=== PATIENT | female | born 1985 | race Caucasian/White ===

== ENCOUNTER 2024-10-14 02:13 | Observation (INO) | payer BC, SELFPAY ==
[2024-10-14] VITALS (19 sets, daily range): BP systolic 113–133; BP diastolic 64–83; PULSE 77–92; RESP 14–24; TEMP 36.3–37; O2SAT 90–100; BMI 41.9; BMI 42.0
--- NOTE | 2024-10-14 02:31 | CT_ITS ---
EXAM: CT ABDOMEN AND PELVIS WITH INTRAVENOUS CONTRAST CLINICAL INDICATION: Right upper quadrant pain TECHNIQUE: Helically acquired images were obtained of the abdomen and pelvis with intravenous contrast. This CT exam was performed using one or more of the following dose reduction techniques: automated exposure control, adjustment of the mA and/or kV according to patient size, and/or use of iterative reconstruction technique. CONTRAST: IV 100mL [id number] RADIATION DOSE: CTDIvol = 17.08 mGy, DLP = 1631.15 mGy-cm COMPARISON: No relevant prior studies available. FINDINGS: LOWER THORAX: Unremarkable. Lung bases are clear. No cardiomegaly. No significant pericardial effusion. ABDOMEN: LIVER: Unremarkable. Homogeneous. No focal mass. GALLBLADDER AND BILE DUCTS: The gallbladder is distended with some edema of the wall. Small amount of pericholecystic fluid suggested. Possible small stone in the gallbladder neck. No intra- or extrahepatic biliary ductal dilation. PANCREAS: No inflammation around the pancreas. No focal cystic or solid mass. SPLEEN: Unremarkable. Normal size without focal cystic or solid mass. ADRENALS: Unremarkable. No nodules. KIDNEYS AND URETERS: Unremarkable. Normal renal size and position. No hydronephrosis. STOMACH AND BOWEL: Unremarkable. No stomach or bowel distention. No focal inflammatory change. PELVIS: APPENDIX: The appendix is normal. BLADDER: Unremarkable. REPRODUCTIVE: Unremarkable as visualized. No mass. ABDOMEN and PELVIS: INTRAPERITONEAL SPACE: Unremarkable. No ascites or other fluid collection. No free air. BONES/JOINTS: Unremarkable. No suspicious lytic or blastic abnormality. SOFT TISSUES: See above. VASCULATURE: Unremarkable. Abdominal aorta is non-dilated. LYMPH NODES: Unremarkable. No enlarged lymph nodes. CT/Abdomen/Pelvis W IV Cont ONLY IMPRESSION: The gallbladder is distended with some edema of the wall. Small amount of pericholecystic fluid suggested. Possible small stone in the gallbladder neck. Findings are concerning for acute cholecystitis. Electronically Signed: Minesh Jackman MD at 4:05 EST ,
--- NOTE | 2024-10-14 02:32 | ED.VIS.GI ---
HPI HPI - GI History of Present Illness Chief Complaint: Abd Pain Narrative Narrative: 39-year-old female presents with right upper quadrant abdominal pain, nausea and vomiting that she has had for the last week and a half. She describes it both as dull and achy, and sometimes sharp and stabbing. She states it started in her back originally, but now has moved towards the front. She denies any fevers but states she has had chills intermittently. In the last 24 hours she has been having vomiting. She states food can make it worse but sometimes she has decreased appetite and does not want to eat because it causes her pain as well. She denies any dysuria or hematuria, no other exacerbating or alleviating factors. Last menstrual period 2 days ago. [facility] Medical History Hypothyroidism Home Medications ?Medication ?Instructions ?Recorded ?Last Taken ?Type levothyroxine 175 mcg tablet 175 mcg PO DAILY 12/01/15 Unknown History cyclobenzaprine 5 mg tablet 5 mg PO QHS PRN PRN muscle spasms 10/14/24 Unknown History naproxen 500 mg tablet 500 mg PO BID 10/14/24 Unknown History Allergy/AdvReac Type Severity Reaction Status Date / Time latex Allergy Rash Verified 10/14/24 02:16 Social History Smoking Status: Never smoker ROS ROS ED ROS Narrative Constitutional: No fever, positive chills. HEENT: No sore throat. No neck pain. No loss of vision. No rhinorrhea. Cardiovascular: No chest pain. No palpitations. No pedal edema. Respiratory: No cough, no shortness of breath. Abdominal: Right upper quadrant to right sided abdominal pain. Positive nausea and vomiting. No hematemesis. Genitourinary: No dysuria. No hematuria. Musculoskeletal: No myalgias. No arthralgias. Neurologic: No headaches. No dizziness. No lightheadedness. Skin: No rash. No change in color. EXAM Physical Exam Narrative Exam Narrative: Afebrile. Vital signs noted. Nontoxic-appearing. Cardiovascular examination reveals a regular rate and rhythm. Lungs are clear to auscultation bilaterally. Abdomen is soft, with positive tenderness to palpation in epigastrium and right upper quadrant. Questionable Coates sign. Neurological examination is nonfocal and nonlateralizing. Const Vital Signs: 10/14/24 02:14 10/14/24 04:14 Temperature 98.5 F Temperature Source Oral Pulse Rate 90 83 Respiratory Rate 18 18 Blood Pressure 133/83 H 123/77 H Blood Pressure Mean 99 92 Pulse Ox 98 98 Oxygen Delivery Method Room Air Room Air MDM MDM MDM Narrative Medical decision making narrative: Differential diagnosis includes but not limited to cholecystitis versus choledocholithiasis versus pancreatitis. I have low suspicion for ureterolithiasis or diverticulitis because the history and physical does not support this. I do feel that she requires CT imaging as ultrasound is unavailable at this time. She was administered morphine and ondansetron for analgesia. Laboratory work will be checked in the form of CBC, CMP, lipase, urinalysis, and serum . I reviewed her laboratory work and she has normal white count of 10.6, hemoglobin 10.3 with hematocrit 31.8. Potassium slightly low at 3.2 with BUN of 13 and creatinine 0.74, glucose 88 and anion gap normal at 5. AST and ALT are normal. Alk phos slightly elevated at 118. Total bilirubin normal at 0.40. Lipase normal at 20. Serum is negative. Urinalysis obtained and is negative for any infection or blood. Repeat examination shows she still having right upper quadrant pain. I reviewed the radiology report of the CT of the abdomen and pelvis with IV contrast. The gallbladder is distended with edema of the wall. There is mild pericholecystic fluid suggested. There is a possible small stone in the gallbladder neck. Patient was given additional dose of morphine and started on Zosyn with the suspicion of acute cholecystitis. As ultrasound is currently unavailable at this hour, I will discuss patient with Dr. Matamoros to see if she prefers admission and inpatient ultrasound versus her waiting here in the emergency department for ultrasound and reconsultation. Patient is in stable condition. In discussion with Dr. Matamoros, she prefers that ultrasound be obtained when they come in in the morning, few hours from now. Patient will be signed out to the oncoming physician to check the results and reconsult her. Disposition is pending. Patient is in stable condition. History & Record Review Discussion w/independent historian: Patient Lab Data Attestation: I reviewed the patient's lab results. Labs: Laboratory Results - last 24 hr 10/14/24 10/14/24 10/14/24 02:19 02:43 02:44 WBC 10.6 RBC 3.69 L Hgb 10.3 L Hct 31.8 L MCV 86.2 MCH 27.9 MCHC 32.4 RDW Std Deviation 45.0 H RDW Coeff of Neel 14.1 Plt Count 357 MPV 10.2 Immature Gran % (Auto) 0.300 Neut % (Auto) 71.7 H Lymph % (Auto) 18.6 L [place] % (Auto) 6.4 Eos % (Auto) 2.5 Baso % (Auto) 0.5 Absolute Neuts (auto) 7.6 Absolute Lymphs (auto) 1.98 Nucleated RBC % 0 Sodium 136 Potassium 3.2 L Chloride 105 Carbon Dioxide 26.0 Anion Gap 5 BUN 13 Creatinine 0.74 Estim Creat Clear Calc 128.78 Est GFR (MDRD) Af Amer 113 Est GFR (MDRD) Non-Af 93 BUN/Creatinine Ratio 17.6 Glucose 88 Calcium 9.3 Total Bilirubin 0.40 AST 26 ALT 43 Alkaline Phosphatase 118 H Total Protein 8.6 H Albumin 3.4 Globulin 5.2 H Albumin/Globulin Ratio 0.7 L Lipase 20 Serum , Qual NEGATIVE Urine Color Yellow Urine Clarity Sl. Cloudy Urine pH 7.0 Ur Specific [place] 1.010 Urine Protein 15 H Urine Glucose (UA) Normal Urine Ketones Negative Urine Occult Blood Negative Urine Nitrite Negative Urine Bilirubin Negative Urine Urobilinogen 4 H Ur Leukocyte Esterase 25 H Urine RBC 0 SEEN Urine WBC 0 SEEN Ur Squamous Epith Cells 0-5 SEEN Urine Bacteria 2+ Urine Mucus 0 SEEN Radiography Diagnostic Testing: Clinical Impression(s) from Imaging Studies Abdomen/Pelvis CT 10/14/24 02:31 IMPRESSION: The gallbladder is distended with some edema of the wall. Small amount of pericholecystic fluid suggested. Possible small stone in the gallbladder neck. Findings are concerning for acute cholecystitis. Electronically Signed: Minesh Jackman MD at 4:05 EST , Management Discussion w/another healthcare provider: Silk Soaker (Dr. Matamoros, general surgery) Discharge Plan Triage Chief Complaint: Abd Pain ED Provider: Huang Herbert Dx/Rx/DC Orders Clinical Impression: Acute cholecystitis, Nausea and vomiting, Hypokalemia Prescriptions: No Action levothyroxine 175 MCG tablet 175 mcg PO DAILY naproxen 500 mg tablet 500 mg PO BID cyclobenzaprine 5 mg tablet 5 mg PO QHS PRN PRN (Reason: muscle spasms) Primary Care Provider: NIKKI LEMUS Referrals: NIKKI LEMUS, SUSTAINABLE LANDSCAPE ARCHITECT-C [Primary Care Provider] - Print Language: Tamazight
[2024-10-14 02:38] LABS: Absolute Lymphocyte Count 1.98 X10^3/uL (0.83-4.51); Absolute Neutrophil Count 7.6 X10^3/uL (2.0-7.7); Basophil# 0.05 X10^3/uL; Basophil% 0.5 % (0-1); Eosinophil# 0.27 X10^3/uL; Eosinophils% 2.5 % (0-5); Hematocrit 31.8 % (37-47); Hemoglobin 10.3 g/dL (12.0-15.0); Lymphocyte # 1.98 X10^3/ul (0.83-4.51); Lymphocyte % 18.6 % (19-41); Mean Corp Hgb Conc 32.4 g/dL (32-36); Mean Corpuscular Hgb 27.9 pg (27.0-32.0); Mean Corpuscular Volume 86.2 fL (81-99); Mean Platelet Vol. 10.2 fl (6.2-12.0); Monocyte# 0.68 X10^3/uL; Monocyte% 6.4 % (0-10); NRBC Flagged by Analyzer 0 % (0-5); Neutrophil # 7.62 X10^3/uL (2.7-7.7); Neutrophil % 71.7 % (47-70); Platelet Count 357 K/mm3 (150-450); RBC Distribution Width CV 14.1 % (11.6-14.6); Red Blood Count 3.69 M/mm3 (4.2-5.4); White Blood Count 10.6 K/mm3 (4.4-11.0)
[2024-10-14] MEDS: Ondansetron 4 MG/2 ML Vial IV (02:39)
[2024-10-14] MEDS: Morphine 4 MG/ML Syringe IV ×2 (02:39→04:14)
[2024-10-14 02:49] LABS: Mucous, Urine 0 SEEN /hpf (<or=2+); Red Blood Cells-Urine 0 SEEN /hpf (0-5); White Blood Cells 0 SEEN /hpf (0-5)
[2024-10-14 02:51] LABS: Color, Urine Yellow (Yellow); Glucose, Dipstick Normal (Normal); Ketone-Dipstick Negative (Negative); Leukocyte Esterase-Dipstick 25 /ul (Negative); Nitrite-Dipstick Negative (Negative); Occult Blood-Urine Negative /ul (Negative); Protein-Dipstick 15 mg/dl (Negative); Urine Bilirubin Dipstick Negative (Negative); Urine Clarity Sl. Cloudy (Clear); Urine Urobilinogen 4 mg/dl (Normal)
[2024-10-14 02:59] LABS: ALB/GLOB Ratio 0.7 RATIO (0.9-2.4); AST(SGOT) 26 U/L (15-37); Alanine Aminotransfer ALT/SGPT 43 U/L (13-56); Albumin, Serum 3.4 g/dL (3.2-5.0); Alkaline Phosphatase 118 U/L (45-117); Anion Gap 5 (5-15); BUN 13 mg/dL (7-18); BUN/Creat Ratio 17.6 RATIO (10-20); Calcium,Total 9.3 mg/dL (8.5-10.1); Chloride 105 mmol/L (98-107); Creatinine, Serum 0.74 mg/dL (0.55-1.02); EST Glomerular Filtration Rate 93 mL/min (>60); Est Glom Filt Rate - Afr Amer 113 mL/min (>60); Estimated Creatinine Clearance 128.78 ml/min; Globulin 5.2 g/dL (2.2-4.2); Glucose 88 mg/dL (74-106); Lipase 20 U/L (13-75); Potassium 3.2 mmol/L (3.5-5.1); Protein, Total 8.6 g/dL (6.4-8.2); Sodium Level 136 mmol/L (136-145)
[2024-10-14 03:00] LABS: Bacteria 2+ /hpf (None Seen); Squamous Epithelial Cells - UA 0-5 SEEN /hpf (5-10)
[2024-10-14 03:02] LABS: Internal QC Validated? YES +Cl - CLEAR BKGD; Pregnancy, Serum, hCG Quali. NEGATIVE Negative
[2024-10-14] MEDS: Piperacil/Tazobactam 3.375 GM in 0.9% Normal Saline (50mL MB+) 50 ML IV ×3 (04:19→21:06)
--- NOTE | 2024-10-14 04:20 | US_ITS ---
EXAM: US ABDOMEN LIMITED, RIGHT UPPER QUADRANT CLINICAL INDICATION: Right upper quadrant pain TECHNIQUE: Real-time ultrasound of the right upper quadrant with image documentation. COMPARISON: No relevant prior studies available. FINDINGS: LIVER: Increased echogenicity of the hepatic parenchyma, with hepatomegaly. No intrahepatic biliary ductal dilation. GALLBLADDER: The gallbladder is distended over 11 cm in length,, with positive sonographic Coates''s sign and sludge in the lumen. No shadowing stones identified. Mild prominence of the gallbladder wall measuring 3.5 mm. No pericholecystic fluid. COMMON BILE DUCT: 4.1 mm. The proximal common bile duct is within normal limits for the patient''s age. PANCREAS: The pancreas is obscured by bowel gas. RIGHT KIDNEY: Unremarkable. There is no hydronephrosis. No shadowing calculus. No focal lesion or perinephric collection is demonstrated. US/Gallbladder IMPRESSION: The gallbladder is distended over 11 cm in length, with a positive sonographic Caotes''s sign and sludge in the lumen. No shadowing stones identified. Findings are concerning for acute acalculous cholecystitis. Electronically Signed: Minesh Jackman MD at 7:57 EST ,
[2024-10-14] MEDS: fentaNYL 100 MCG/2 ML Ampul 50 MCG IV (05:12)
[2024-10-14] MEDS: HYDROmorphone 1 MG/ML Syringe IV (07:33)
--- NOTE | 2024-10-14 08:28 | HP.PCM.SX_ITS ---
HPI - General General Date of Admission: 10/14/24 HPI Narrative DANG PRITCHETT, is a 39 F who presents due to right upper quadrant to back pain. Patient states been having this pain for about a week with nausea and vomiting has not really been able to keep food down. Patient states it did get worse 2 days ago. Patient denies any previous abdominal surgeries. Patient's CAT scan showed distended gallbladder questionable stone in the neck of the gallbladder. Patient's ultrasound showed distended gallbladder with sludge and positive Coates sign consistent with acute cholecystitis. Patient's white blood count was 10.6 with slight left shift patient was given Zosyn IV in the ER. Patient did have a potassium of 3.2 and is getting potassium IV. [facility] Medical History (Updated 10/14/24 @ 09:22 by Meri Soliz) Pilonidal cyst Back pain due to injury Hypothyroidism Home Medications ?Medication ?Instructions ?Recorded ?Last Taken ?Type levothyroxine 175 mcg tablet 175 mcg PO DAILY 12/01/15 10/13/24 History cyclobenzaprine 5 mg tablet 5 mg PO QHS PRN PRN muscle spasms 10/14/24 Unknown History levothyroxine 150 mcg tablet 150 mcg PO DAILY 10/14/24 10/13/24 History naproxen 500 mg tablet 500 mg PO BID PRN back pain 10/14/24 Unknown History Allergy/AdvReac Type Severity Reaction Status Date / Time latex Allergy Rash Verified 10/14/24 02:16 Social History Smoking Status: Never smoker Vital Signs Vital Signs Vital Signs: 10/14/24 02:14 10/14/24 04:14 10/14/24 06:00 Temperature 98.5 F Temperature Source Oral Pulse Rate 90 83 84 Respiratory Rate 18 18 18 Blood Pressure 133/83 H 123/77 H 118/68 Blood Pressure Mean 99 92 84 Pulse Ox 98 98 97 Oxygen Delivery Method Room Air Room Air Room Air 10/14/24 08:00 Temperature Temperature Source Pulse Rate 80 Respiratory Rate 14 Blood Pressure 126/74 H Blood Pressure Mean 91 Pulse Ox 97 Oxygen Delivery Method Room Air Weight Weight: 251 lb 15.814 oz Body Mass Index (BMI) 41.9 Physical Exam Const alert, oriented x3 and no apparent distress HEENT normocephalic and head/scalp atraumatic Resp normal respiratory effort Cardio regular rate GI soft to palpation; Negative for non-distended Palpation: tender RUQ and Coates's sign; Negative for guarding Extremity no clubbing, cyanosis or edema Neuro CN's II-XII intact bilaterally Psych mental status grossly normal Results Lab / Micro Data 10/14/24 02:19 10/14/24 02:19 Labs: Laboratory Results - last 24 hr 10/14/24 02:19: WBC 10.6, RBC 3.69 L, Hgb 10.3 L, Hct 31.8 L, MCV 86.2, MCH 27.9, MCHC 32.4, RDW Std Deviation 45.0 H, RDW Coeff of Neel 14.1, Plt Count 357, MPV 10.2, Immature Gran % (Auto) 0.300, Neut % (Auto) 71.7 H, Lymph % (Auto) 18.6 L, [place] % (Auto) 6.4, Eos % (Auto) 2.5, Baso % (Auto) 0.5, Absolute Neuts (auto) 7.6, Absolute Lymphs (auto) 1.98, Nucleated RBC % 0, Sodium 136, P otassium 3.2 L, Chloride 105, Carbon Dioxide 26.0, Anion Gap 5, BUN 13, Creatinine 0.74, Estim Creat Clear Calc 128.78, Est GFR (MDRD) Af Amer 113, Est GFR (MDRD) Non-Af 93, BUN/Creatinine Ratio 17.6, Glucose 88, Calcium 9.3, Total Bilirubin 0.40, AST 26, ALT 43, Alkaline Phosphatase 118 H, Total Protein 8.6 H, Albumin 3.4, Globulin 5.2 H, Albumin/Globulin Ratio 0.7 L, Lipase 20 10/14/24 02:43: Serum , Qual NEGATIVE 10/14/24 02:44: Urine Color Yellow, Urine Clarity Sl. Cloudy, Urine pH 7.0, Ur Specific [place] 1.010, Urine Protein 15 H, Urine Glucose (UA) Normal, Urine Ketones Negative, Urine Occult Blood Negative, Urine Nitrite Negative, Urine Bilirubin Negative, Urine Urobilinogen 4 H, Ur Leukocyte Esterase 25 H, Urine RBC 0 SEEN, Urine WBC 0 SEEN, Ur Squamous Epith Cells 0-5 SEEN, Urine Bacteria 2+, Urine Mucus 0 SEEN Imaging Radiology Impression Abdomen/Pelvis CT 10/14/24 02:31 IMPRESSION: The gallbladder is distended with some edema of the wall. Small amount of pericholecystic fluid suggested. Possible small stone in the gallbladder neck. Findings are concerning for acute cholecystitis. Electronically Signed: Minesh Jackman MD at 4:05 EST , Gallbladder Ultrasound 10/14/24 04:20 IMPRESSION: The gallbladder is distended over 11 cm in length, with a positive sonographic Coates''s sign and sludge in the lumen. No shadowing stones identified. Findings are concerning for acute acalculous cholecystitis. Electronically Signed: Minesh Jackman MD at 7:57 EST , Assessment & Plan Assessment/Plan (1) Acute cholecystitis: PLAN: Plan Reviewed the anatomy with the patient and discussed the procedure: laparoscopic cholecystectomy with possible cholangiograms, possible open. Review risks including but not limited to bleeding, infection, hernia, bile leak, subtotal cholecystectomy, retained gallstones requiring another procedure ERCP- Endoscopic Retrograde Cholangiopancreatography, injury to another organ (bile ducts, common bile duct, small bowel, etc.) may require transfer to a tertiary care facility and conversion to an open procedure. Patient and her mom in no further question this time. Shireen Matamoros M.D. Pager: [phone] [facility] [address] [place] [address], [address] [place] [address] Office: [phone]
--- NOTE | 2024-10-14 09:28 | EKG12_ITS ---
Test Reason : PRE-OP Blood Pressure : */* mmHG Vent. Rate : 84 BPM Atrial Rate : 84 BPM P-R Int : 154 ms QRS Dur : 74 ms QT Int : 352 ms P-R-T Axes : 35 19 17 degrees QTcB Int : 415 ms Normal sinus rhythm Normal ECG When compared with ECG of 29-Nov-2012 04:55, No significant change was found Confirmed by MELANIE BHATIA, INNA ([id number]), electronic news gathering editor YULIET MOYER ([id number]) on 10/17/2024 8:21:15 AM Referred By: Confirmed By: INNA NAVARRO MD
[2024-10-14] MEDS: 0.9% Normal Saline (1000mL) 1,000 ML 130 ML IV ×2 (09:54→16:32)
[2024-10-14] MEDS: Potassium Chloride 10mEq/100mL 10 MEQ/100 ML IV.SOLN. 100 MEQ IV BOLUS ×2 (09:59→11:49)
[2024-10-14] MEDS: Pantoprazole Sodium 40 MG in 0.9% Normal Saline (100mL MB+) 100 ML 330 MG IV (10:46)
--- NOTE | 2024-10-14 13:20 | GALL_PTH ---
PATIENT: DANG PRITCHETT LOC: MS3 U#:[id number] AGE/SX: 39/F ROOM: SC314 RE10/14/[address]: Dr. Shireen Matamoros MD : 1985 BED: 1 DIS: 10/15/2024 SPEC #: [id number] RECD: 10/16/24 06:56 STATUS: RANDY COLLINSStephie #: [id number] ROSEMARY: 10/14/24 13:[address]: Shireen Matamoros DEPT: SURGICAL PATHOLOGY RECD BY: Jayce Mai ENTERED: 10/16/24 08:01 SP TYPE: LYNDA LONDON DR: NIKKI LEMUS, ART HISTORIAN-C Tissues: Gallbladder, NOS Procedures: Surgery Specimen Level III HEADER OPERATION: Laparoscopic cholecystectomy with IOC PRE-OP DIAGNOSIS: Acute cholecystitis TISSUE SUBMITTED: Gallbladder MICROSCOPIC DIAGNOSIS Gallbladder, cholecystectomy: Acute and chronic cholecystitis and cholelithiasis. AM. 10/17/2024 MICROSCOPIC DESCRIPTION Slides are reviewed. GROSS DESCRIPTION Received is one container labeled with the patient's name and designated gallbladder. The specimen consists of a gallbladder measuring 11.5 x 4.0 x 2.8 cm. The external surface is smooth and glistening. Focally, it is granular, hemorrhagic and contains cautery artifact. The lumen of the gallbladder contains yellow-green mucoid bile and a single ovoid dark justice-black calculi ranging in size from 1.5 cm in diameter. The mucosa is bile-stained and without any mass lesions. The gallbladder wall averages 0.6 cm in thickness and is free of mass lesions. Online Content Editor sections of the gallbladder and the cystic duct at margin of resection are submitted in one cassette. / AM: 10/16/2024 TC:2 CPT: 30271
--- NOTE | 2024-10-14 13:41 | PRE.ANES_ITS ---
ASA Classification* ASA Classification ASA Classification: 3 and E Assessment & Plan Anesthesia* Anesthesia Assessment Anesthesia Assessment: Discussed sedation and/or anesthesia options, risks, benefits, and alternatives with patient/parents/legal guardian/POA. Questions invited. The patient/parents/legal guardian/POA seems to understand and agrees to proceed with anesthesia plan. Reviewed the physical assessment, medical history, allergy history and patient home medications list prior to surgery/procedure/anesthetic and documented any changes. Performed airway and anesthesia risk assessments. Anesthesia Type Anesthesia Type: General (see written pre anesthesia record for full assessment) Anesthesia Focused Assessment* Temperature: 98.2 F Pulse Rate: 82 Blood Pressure: 118/65 Respiratory Rate: 16 Pulse Ox: 100 Airway Assessment Mouth opens: >3 cm Mallampati Score: III Focused Labs Anesthesia Preop lab: CBC WBC 10.6 K/mm3 (4.4-11.0) 10/14/24 02:19 RBC 3.69 M/mm3 (4.2-5.4) L 10/14/24 02:19 Hgb 10.3 g/dL (12.0-15.0) L 10/14/24 02:19 Hct 31.8 % (37-47) L 10/14/24 02:19 Plt Count 357 K/mm3 (150-450) 10/14/24 02:19 CHEMISTRY Potassium 3.2 mmol/L (3.5-5.1) L 10/14/24 02:19 Sodium 136 mmol/L (136-145) 10/14/24 02:19 BUN 13 mg/dL (7-18) 10/14/24 02:19 Creatinine 0.74 mg/dL (0.55-1.02) 10/14/24 02:19 Glucose 88 mg/dL (74-106) 10/14/24 02:19 COAG Pre-Assessment Diagnosis/Proposed Procedure Planned Operative Procedure(s): lap randy Anesthesia History Anesthesia History - installer inspector final: Anesthesia History - installer inspector final Hx Hospitalization Any Problems With Anesthesia No 10/14/24 09:22 Cholinesterase deficiency No 10/14/24 09:22 You/Your Family Experience No 10/14/24 09:22 fever (hyperthermia) with Relationship Recent Exposure to Contagious No 10/14/24 09:22 Disease Does patient have nerve No 10/14/24 09:22 stimulator Patient instructed to have device shut off --Does patient have Pacemaker No 10/14/24 11:57 or ICD? When Was Last Pacemaker Check QUESTION #4 FULL TEXT: You/Your Family Experience fever (hyperthermia) with Anesthesia Last Oral Intake Last Oral intake: Last Oral Intake NPO since 00:00 10/14/24 11:57 Meds taken in AM with sips of No 10/14/24 11:57 water? Meds patient instructed to take am of surgery PONV PONV - installer inspector final: PONV - installer inspector final Female HX of Motion Sickness HX of N/V After Surgery Non-Smoker Duration of Surgery greater than 60 minutes Number of Risk Factors PONV Score Height & Weight Height & Weight: Anesthesia: Height & Weight Height 5 ft 4.96 in 10/14/24 11:57 Weight: 114.48 kg 10/14/24 11:57 Body Mass Index (BMI) 42.0 10/14/24 11:57 Respiratory Assessment Respiratory Assessment - installer inspector final: Respiratory Tract Infection Hx - installer inspector final Hx Respiratory Tract Infection No 10/14/24 09:22 STOP Sleep Apnea STOP Sleep Apnea - installer inspector final: STOP Sleep Apnea - installer inspector final Hx Hypertension No 10/14/24 09:14 Hx Sleep Apnea No 10/14/24 09:14 CPAP BIPAP Do you snore loudly (louder No 10/14/24 09:14 than talking or can be heard Do you often feel tired/ No 10/14/24 09:14 fatigued/ sleepy during daytime? Has anyone observed you stop No 10/14/24 09:14 breathing during sleep? STOP Results Negative 10/14/24 09:14 QUESTION #5 FULL TEXT : Do you snore loudly (louder than talking or can be heard through closed doors)? Tobacco Use History Tobacco Use History - installer inspector final: Tobacco Use History - installer inspector final Tobacco Use Smoking Status Never smoker 10/14/24 09:14 Hx Tobacco Use No 10/14/24 09:14 Years Smoking Packs Smoked per Day Smoking Cessation Date was within the last 15 years Hx Smoking Cessation Date Hx Smoking Cessation Counseling Hematologic Medial History Hematologic Hx - installer inspector final: Hematologic Medical Hx - applications coordinator Hx of Blood Transfusion No 10/14/24 09:14 Hx of Transfusion in last 3 No 10/14/24 09:14 Months Date of Last Transfusion (if within last 3 months) Ever experience any problems No 10/14/24 09:14 with transfusion(s)? Specify any problems Hx of Preganancy in last 3 No 10/14/24 09:14 Months Nurse Filling Out Transfusion SHESS 10/14/24 09:14 & Questions: Date: 10/14/24 10/14/24 09:14 Time: 09:19 10/14/24 09:14 Patient unable to answer at this time (ie. confused, unrespo /Reproduction History /Reproductive History - installer inspector final: /Reproductive Hx- installer inspector final Hx Now No 10/14/24 09:22 Gestational Age (in weeks): EDC: Hx Hx Para Hx Section SAB No 10/14/24 09:22 Active Medications Active Medications: Current Medications Generic Name Dose Route Start Last Admin Trade Name Freq PRN Reason Stop Dose Admin Acetaminophen 650 mg 10/14/24 09:10 Acetaminophen 325 Mg Tablet PO Q6H PRN PRN Pain Score 1-10 Hydromorphone HCl 0.5 - 1 mg 10/14/24 09:10 Hydromorphone 0.5 Mg/0.5 Ml Syringe IV Q2H PRN PRN Pain Score 1-10 Sodium Chloride 1,000 mls @ 130 mls/hr 10/14/24 09:10 10/14/24 09:54 IV 10/14/24 16:51 130 mls/hr .[id number] [facility] Administration Protocol Piperacillin Sod/Tazobactam 50 mls @ 12.5 mls/hr 10/14/24 14:00 Sod 3.375 gm/ Sodium Chloride IV Q8 JOSEMANUEL Pantoprazole Sodium 40 mg/ 110 mls @ 330 mls/hr 10/14/24 09:10 10/14/24 13:28 Sodium Chloride IV Not Given Q24 JOSEMANUEL Sodium Chloride 500 mls @ 15 mls/hr 10/14/24 09:41 IV .[id number] PRN Saline Flush Sodium Chloride 500 mls @ 15 mls/hr 10/14/24 09:41 IV .[id number] PRN Additional IVPB Infusion Levothyroxine Sodium 150 mcg 10/15/24 06:00 Levothyroxine 150 Mcg Tablet PO DAILY@0600 [facility] Oxycodone HCl 5 - 10 mg 10/14/24 09:10 Oxycodone 5 Mg Tablet PO Q4H PRN PRN Pain Score 1-10 Sodium Chloride 10 - 40 ml 10/14/24 09:41 0.9% Saline Lock 10 Ml Syringe IV UD PRN SALINE FLUSH [facility] Medical History (Updated 10/14/24 @ 09:22 by Meri Soliz) Pilonidal cyst Back pain due to injury Hypothyroidism Home Medications ?Medication ?Instructions ?Recorded ?Last Taken ?Type levothyroxine 175 mcg tablet 175 mcg PO DAILY 12/01/15 10/13/24 History cyclobenzaprine 5 mg tablet 5 mg PO QHS PRN PRN muscle spasms 10/14/24 Unknown History levothyroxine 150 mcg tablet 150 mcg PO DAILY 10/14/24 10/13/24 History naproxen 500 mg tablet 500 mg PO BID PRN back pain 10/14/24 Unknown History Allergy/AdvReac Type Severity Reaction Status Date / Time latex Allergy Rash Verified 10/14/24 02:16 Social History Smoking Status: Never smoker Review of Systems (Anesthesia) ROS Narrative System reviewed and no additional complaints, except as documented.
--- NOTE | 2024-10-14 14:57 | RAD_ITS ---
INDICATION: LAP GAEL WITH GRAMS EXAMINATION/TECHNIQUE: Images assigned to this order were provided in conjunction with a surgical procedure performed in the operating room/procedural suite. Please see operative report for details. Fluoroscopic images: 1 cine run with 25 images Fluoroscopic time: 4.8 seconds Cumulative dose: 0.1292, mGym2; 4.01; mGy COMPARISON: No relevant comparisons available.. FINDINGS: No filling defects are identified, however several small mobile air bubbles are present. There is no biliary ductal dilatation. There is free passage into the duodenum. RAD/Cholangiogram/ O R,Initial IMPRESSION: Negative intraoperative cholangiogram. Electronically Signed: Alber Guerrero MD at 17:37 EST ,
[2024-10-14] MEDS: Bupivacaine 0.5% PF 10 ML VIAL (15:53)
--- NOTE | 2024-10-14 15:54 | PCM.OPRPT ---
Operative Report (Standard) Operative Information Date of Procedure: 10/14/24 Pre-Operative Diagnosis: Acute cholecystitis Post-Operative Diagnosis: Same Surgery/Procedure Performed: Laparoscopic cholecystectomy with cholangiograms marketing operations specialist: Yes Tax Compliance Manager: Tani Sheffield Tasks completed by presser first: Opening & closing and Retracting Type of Anesthesia: General/Supplemental RN Documented Start/Stop Times: Operation Date: 10/14/24 13:20 Case Time Anesthesia Start 10/14/24 14:03 Into Room 10/14/24 14:03 Procedure Start 10/14/24 14:23 Procedure End 10/14/24 16:05 Procedure Start Time: 14:23 Procedure Stop Time: 16:05 Select all DRAINS/GRAFTS/IMPLANTS that apply: None Special Medications: Zosyn 3.375 g IV every 8 hours for acute cholecystitis Estimated Blood Loss: 15 cc Specimen collected: Yes Description of specimen(s) removed: Gallbladder Description of surgery: Indications: this is a 39 year-old female who developed abdominal pain/nausea/vomiting and on workup was found to have acute cholecystitis, with a normal common bile duct. Laparoscopic cholecystectomy was elected. Description procedure: The patient was placed on operating table in supine position. A timeout was completed verifying correct patient, procedure, site, position and special equipment prior to beginning procedure. General Anesthesia was induced. The abdomen was prepped and draped in usual sterile fashion. An incision was made in the natural skin line above the umbilicus. The fascia was elevated and incised. The peritoneum was elevated and incised. Entry into the peritoneum was confirmed visually and no bowel was noted in the vicinity of the incision. Fox trocar was placed. The abdomen was insufflated with carbon dioxide to a pressure of 12-15 mmHg. Patient tolerated insufflation well. The laparoscope was then inserted and abdomen inspected. No injuries from initial trocar placement were noted. Additional trochars were then inserted in the following locations 5 mm trocar in the epigastrium and 2 more 5 mm trochars along the right costal margin. The abdomen was inspected no abnormalities were found other than distended/firm gallbladder. Aspiration needle was used to decompress the gallbladder. The table is placed in reverse Trendelenburg position with the right side up. The dome of the gallbladder was grasped with atraumatic grasper passed through the lateral port and retracted over the dome of the liver. Infundibulum was then grasped with atraumatic grasper through the midclavicular port and retracted to the right lower quadrant. This maneuver exposed Calot's triangle. The peritoneum overlying the gallbladder infundibulum was then incised and cystic duct and artery identified and circumferentially dissected. Bess catheter was used for cholangiograms. The cholangiogram showed good filling of the common bile duct into the duodenum with no filling defects, good filling of the right and left bile ducts as well. The cystic duct and artery were then doubly clipped and divided close to the gallbladder. The gallbladder then dissected from its peritoneal attachments by electrocautery. Hemostasis was checked and the gallbladder and contained stones were removed using the endoscopic retrieval bag through the umbilical port. The gallbladder is passed off table as specimen. The gallbladder fossa was irrigated with saline and hemostasis obtained. There is no evidence of bleeding from the gallbladder fossa or cystic artery leakage of bile from the cystic duct stump. Secondary trochars removed under direct vision. No bleeding was noted the trocar sites. The laparoscope was withdrawn and umbilical trocar removed. The abdomen was allowed to collapse. The fascia of the 12 mm trocar was closed with a [id number] 0 Vicryl suture. The skin was closed with sutures of 4-0 Monocryl and Steri-Strips. The patient was extubated. The patient tolerated procedure well and was taken to the postanesthesia care unit in stable condition. Surgical Findings: Acute cholecystitis, normal cholangiograms Complications Complications: No
--- NOTE | 2024-10-14 16:03 | DCINST_ITS ---
Discharge Instructions Diet Discharge Diet: Light diet - advance as tolerated Activity Discharge Activity: May Not Drive (while taking narcotic pain medications.) May shower in (days): 1 Lifting Restrictions: no lifting >20 lbs x 2 wks, no strenuous exercise for 4 wks Dressing / Incision Call your doctor if your incision/area has: Continuous Slow Oozing, Sudden Increased Bleeding, Increased Pain/ Swelling, Increased Redness, Foul Smelling Discharge and Swelling at the incision site Call your doctor if you observe: Fever of 101 or Higher Remove Dressing in: 2 days Cleanse incision/area with: Soap & Water Additional Dressing/Incision Instructions:: Steri-Strips will fall off in 7 to 10 days, if they do not fall off okay to remove after 10 days. Follow Up Care Please Follow Up With: Shireen Matamoros MD When: Call the office for a follow-up appointment 2 weeks; after 5 PM and on the weekends call [phone] with any concerns. Test Results: Test results from this visit will be discussed in further detail at your follow- up appointment, if applicable. Discharge Plan Admission Admit Date/Time: 10/14/24 08:24 Attending Provider: Shireen Matamoros Primary Care Provider: NIKKI LEMUS Instructions Additional Instructions / Restrictions: Okay to take ibuprofen 400-600 mg PO q6hr PRN and Tylenol 650 to 1000 mg p.o. every 6 hours as needed along with the oxycodone. Take all pain meds with food. Oxycodone can cause constipation recommend taking daily stool softener (i.e. Colace/docusate) while taking the pain meds. Recommend starting some MiraLAX in 1 to 2 days if no bowel movement. If still no bowel movement the following day recommend taking additional MiraLAX versus magnesium citrate half the bottle and waiting 4-6 hours if still no results take the other half the bottle. Discharge Orders/Prescriptions Prescriptions: New oxycodone 5 mg capsule 5 mg PO Q6H PRN (Reason: pain) 3 Days Qty: 10 0RF Continued levothyroxine 175 MCG tablet 175 mcg PO DAILY naproxen 500 mg tablet 500 mg PO BID PRN (Reason: back pain) cyclobenzaprine 5 mg tablet 5 mg PO QHS PRN PRN (Reason: muscle spasms) levothyroxine 150 mcg tablet 150 mcg PO DAILY Rx Instructions: 1/2 tab on Sundays Referrals / Follow Up: NIKKI LEMUS, INSTRUCTIONAL SPECIALIST-C [Primary Care Provider] - Disposition Disposition (needs filled in before D/C Order can be placed): Home, Self Care
--- NOTE | 2024-10-14 16:15 | PCM.POST.ANE ---
Anesthesia: Postop Eval I Current Vital Signs Temperature: 97.4 F Pulse Rate: 92 Blood Pressure: 115/68 Respiratory Rate: 18 Pulse Ox: 92 Oxygen Delivery Method: Nasal Cannula Oxygen Flow Rate (L/min): 2 Assessment Airway patent: Yes Spontaneous unlabored respirations: Yes nausea: No Vomiting: No Anesthesia Complication: No Fluid Hydration Crystalloid volume administer (ml): 900 Total IV fluid infused: 900 Progress Note Anesthesia document: Postop Eval 1 completed: Yes
--- NOTE | 2024-10-14 16:16 | PCM.POSTANE2 ---
Anesthesia Postop Eval I Sum Postop Eval Completion status Anesthesia document: Postop Eval 1 completed: Yes Anesthesia Postop Eval I Summary Anesthesia Postop Eval I Summary: Anesthesia Postop Eval I: Assessment Summary Airway patent Yes 10/14/24 16:16 Spontaneous unlabored Yes 10/14/24 16:16 respirations Mental status nausea No 10/14/24 16:16 Vomiting No 10/14/24 16:16 Anesthesia Postop Eval I: Fluid Summary Crystalloid volume administer 900 10/14/24 16:16 (ml) Colloids volume administered ( ml) Blood Product volume administered (ml) Total IV fluid infused 900 10/14/24 16:16 Anesthesia Postop Eval I: Summary Notes Anesthesia Complication No 10/14/24 16:16 Anesthesia Complication Comment: Post-operative progress note Anesthesia: Postop Eval II Evaluation Mental status: Awake Pain Level: 1 nausea: No Vomiting: No
[2024-10-15] MEDS: Acetaminophen 325 MG Tablet 650 MG PO (03:14)
[2024-10-15 03:20] VITALS: BP 126/82; PULSE 85; RESP 18; TEMP 36.8; O2SAT 96
[2024-10-15] MEDS: Levothyroxine 150 MCG Tablet PO (05:13)
[2024-10-15] MEDS: Piperacil/Tazobactam 3.375 GM in 0.9% Normal Saline (50mL MB+) 50 ML IV (05:14)
[2024-10-15 07:21] LABS: Absolute Lymphocyte Count 1.65 X10^3/uL (0.83-4.51); Absolute Neutrophil Count 8.3 X10^3/uL (2.0-7.7); Basophil# 0.04 X10^3/uL; Basophil% 0.4 % (0-1); Eosinophil# 0.05 X10^3/uL; Eosinophils% 0.5 % (0-5); Hematocrit 30.5 % (37-47); Hemoglobin 9.7 g/dL (12.0-15.0); Lymphocyte # 1.65 X10^3/ul (0.83-4.51); Lymphocyte % 15.2 % (19-41); Mean Corp Hgb Conc 31.8 g/dL (32-36); Mean Corpuscular Hgb 27.7 pg (27.0-32.0); Mean Corpuscular Volume 87.1 fL (81-99); Mean Platelet Vol. 10.3 fl (6.2-12.0); Monocyte% 6.5 % (0-10); NRBC Flagged by Analyzer 0 % (0-5); Neutrophil # 8.32 X10^3/uL (2.7-7.7); Neutrophil % 76.7 % (47-70); Platelet Count 361 K/mm3 (150-450); RBC Distribution Width CV 14.3 % (11.6-14.6); RBC Distribution Width SD 45.2 fl (35.1-43.9); White Blood Count 10.8 K/mm3 (4.4-11.0)
[2024-10-15 07:35] VITALS: BP 126/86; PULSE 91; RESP 16; TEMP 36.8; O2SAT 92
[2024-10-15] MEDS: Docusate Sodium 100 MG Capsule PO (07:45)
[2024-10-15 08:13] LABS: AST(SGOT) 40 U/L (15-37); Alanine Aminotransfer ALT/SGPT 51 U/L (13-56); Albumin, Serum 2.9 g/dL (3.2-5.0); Alkaline Phosphatase 142 U/L (45-117); Anion Gap 7 (5-15); BUN 10 mg/dL (7-18); BUN/Creat Ratio 13.8 RATIO (10-20); Bilirubin, Direct 0.16 mg/dL (0.00-0.30); Calcium,Total 8.8 mg/dL (8.5-10.1); Chloride 104 mmol/L (98-107); Creatinine, Serum 0.72 mg/dL (0.55-1.02); EST Glomerular Filtration Rate 95 mL/min (>60); Est Glom Filt Rate - Afr Amer 115 mL/min (>60); Estimated Creatinine Clearance 130.19 ml/min; Globulin 4.7 g/dL (2.2-4.2); Glucose 100 mg/dL (74-106); Potassium 3.3 mmol/L (3.5-5.1); Protein, Total 7.6 g/dL (6.4-8.2); Sodium Level 137 mmol/L (136-145)
--- NOTE | 2024-10-15 08:27 | PCM.PN.SRG ---
Subjective Subjective luana PO, pain controlled Objective Data Objective Data Vital Signs: Vital Signs Temp Pulse Resp BP Pulse Ox O2 Del Method O2 Flow Rate 98.2 F 91 16 126/86 H 92 Room Air 2 10/15/24 07:35 10/15/24 07:35 10/15/24 07:35 10/15/24 07:35 10/15/24 07:35 10/15/24 07:35 10/14/24 17:40 Oxygen Flow Rate (L/min) 2 Oxygen Delivery Method Room Air Weight: 252 lb 6.163 oz Body Mass Index (BMI) 42.0 Intake & Output: Intake and Output for Last 24 Hours 10/13/24 10/14/24 10/15/24 23:59 23:59 23:59 Intake Total 1985.33 / 1985.33 50 / 50 Output Total 400 / 400 600 / 600 Balance 1586.33 / 1586.33 -550 / -550 Lab / Micro Data 10/15/24 06:30 10/15/24 06:30 Labs: Laboratory Results - last 24 hr 10/15/24 06:30: WBC 10.8, RBC 3.50 L, Hgb 9.7 L, Hct 30.5 L, MCV 87.1, MCH 27.7, MCHC 31.8 L, RDW Std Deviation 45.2 H, RDW Coeff of Neel 14.3, Plt Count 361, MPV 10.3, Immature Gran % (Auto) 0.700, Neut % (Auto) 76.7 H, Lymph % (Auto) 15.2 L, [place] % (Auto) 6.5, Eos % (Auto) 0.5, Baso % (Auto) 0.4, Absolute Neuts (auto) 8.3 H, Absolute Lymphs (auto) 1.65, Nucleated RBC % 0, Sodium 137, Potassium 3.3 L, Chloride 104, Carbon Dioxide 26.0, Anion Gap 7, BUN 10, Creatinine 0.72, Estim Creat Clear Calc 130.19, Est GFR (MDRD) Af Amer 115, Est GFR (MDRD) Non-Af 95, BUN/Creatinine Ratio 13.8, Glucose 100, Calcium 8.8, Total Bilirubin 0.50, Direct Bilirubin 0.16, AST 40 H, ALT 51, Alkaline Phosphatase 142 H, Total Protein 7.6, Albumin 2.9 L, Globulin 4.7 H Radiography Diagnostic Testing: Radiology Impression Cholangiogram 10/14/24 14:57 IMPRESSION: Negative intraoperative cholangiogram. Electronically Signed: Alber Guerrero MD at 17:37 EST , Physical Exam Resp normal respiratory effort Cardio regular rate GI GI Narrative: Abdomen: Soft, nondistended, tender near incision's dressed clean dry and intact, no peritoneal signs Assessment & Plan Assessment/Plan (1) S/P laparoscopic cholecystectomy: (2) Hypokalemia: PLAN: Plan luana PO, amb, d/c home
[2024-10-15] MEDS: Potassium Chloride Oral Tablet 20 MEQ 40 MEQ PO (09:35)
[2024-10-15] MEDS: Pantoprazole Sodium 40 MG Tablet PO (09:36)
== END 2024-10-15 11:26 | disposition home or self-care (01) ==
LOC: ED 07:55 → MS3 08:38
PROVIDERS: Emergency Medicine; Admitting Provider Surgery; Emergency Provider Emergency Medicine; PCP Nurse Practitioner; Visit Provider Surgery
PROC: (CPT 47610; principal; 2024-10-14 13:00)
DX: K80.12 Calculus of gallbladder with acute and chronic cholecystitis without obstruction (principal); E87.6 Hypokalemia; E03.9 Hypothyroidism, unspecified; Z79.890 Hormone replacement therapy
CPT/HCPCS: 47563; 00790; 36415; 74177; 74300; 76000; 76705; 80048; 80053; 80076; 81001; 83690; 84703; 85025; 88304; 93005; 94668; 96365; 96366; 96367; 96375; 96376; 99221; 99284; Q9967; A4216; G0378; J2405

== ENCOUNTER 2025-08-13 19:06 | Emergency (ER) | payer BC, SELFPAY ==
[2025-08-13 19:07] VITALS: BP 123/88; PULSE 87; RESP 24; TEMP 36.6; O2SAT 100; BMI 40.1
--- NOTE | 2025-08-13 19:30 | ED.VIS.GI ---
HPI HPI - GI History of Present Illness Chief Complaint: Abd Pain Narrative Narrative: Patient is a 40-year-old female presenting to the emergency department for right sided abdomen. Patient states the pain has been on and off for the past 2 weeks but has worsened today. She had a laparoscopic cholecystectomy done in October 2024 here at [place]. Patient states that there were no complications that she knows of from it. She denies history of kidney stones or pyelonephritis. She endorses subjective fever and chills. Denies chest pain, shortness of breath, nausea, vomiting. States she always has some constipation and diarrhea but this is not changed from baseline. Denies any vaginal bleeding, vaginal discharge, pelvic pain or concern for any STDs. Last menstrual period was about 3 weeks ago. [facility] Medical History Pilonidal cyst Back pain due to injury Hypothyroidism Home Medications ?Medication ?Instructions ?Recorded ?Last Taken ?Type levothyroxine 175 mcg tablet 175 mcg PO DAILY 12/01/10/13/24 History cyclobenzaprine 5 mg tablet 5 mg PO QHS PRN PRN muscle spasms 10/14/24 Unknown History levothyroxine 150 mcg tablet 150 mcg PO DAILY 10/14/24 10/13/24 History naproxen 500 mg tablet 500 mg PO BID PRN back pain 10/14/24 Unknown History oxycodone 5 mg capsule 5 mg PO Q6H PRN pain 3 days #10 10/14/24 Unknown Rx caps cephalexin 500 mg capsule 500 mg PO Q6 #40 CAPSULES 08/13/25 Unknown Rx Allergy/AdvReac Type Severity Reaction Status Date / Time latex Allergy Rash Verified 08/13/25 19:07 Surgical History S/P laparoscopic cholecystectomy Social History Smoking Status: Never smoker ROS ROS ED ROS Narrative see HPI EXAM Physical Exam Narrative Exam Narrative: Vital signs: Reviewed General: Alert and oriented. No acute distress HEENT: Head is normocephalic and atraumatic, sinuses nontender, pupils equal round and reactive. Nares are patent. Oropharynx and throat exams normal. Neck: Supple without lymphadenopathy nontender Cardiovascular: Regular rate and rhythm, no murmurs. No rubs or gallops. Normal S1 and S2 Respiratory: Clear to auscultation bilaterally. No wheezes, rales, rhonchi Abdominal: Soft and tender to palpation in the right upper quadrant, right middle and lower quadrants. Normal bowel sounds. No guarding or rebound. Nonsurgical abdomen. No CVA tenderness bilaterally. Extremities: No tenderness. No bruising. Normal range of motion. Normal sensation. Skin: No rash or redness. Neurological: Cranial nerves II through XII are grossly intact. Normal strength and sensation. Normal cerebellar function The rest of the physical exam is unremarkable Const Vital Signs: 08/13/25 19:07 08/13/25 22:05 Temperature 98 F 97.8 F Temperature Source Oral Pulse Rate 87 100 Respiratory Rate 24 H 20 H Blood Pressure 123/88 H 128/76 H Blood Pressure Mean 99 93 Pulse Ox 100 98 Oxygen Delivery Method Room Air MDM MDM MDM Narrative Medical decision making narrative: Patient is a 40-year-old female presenting to the emergency department for right sided abdominal pain. Patient was seen and examined. Vitals are stable. Patient resting in bed, hyperventilating stating she is in significant pain. Differential clues but is not limited to: Pancreatitis, choledocholithiasis, nephrolithiasis, pyelonephritis, UTI, appendicitis Patient given fluids and morphine for symptomatic control. Labs and imaging ordered. CBC with no leukocytosis and normal hemoglobin. CMP with mild transaminitis slightly worse than baseline however she does have this noted on review of prior labs. Normal total bilirubin. Mild hypokalemia 2.8, this was repleted orally. BMp with bicarb of 19.6, likely from her hyperventilation on arrival. Urinalysis with evidence of urinary tract infection with bacteria, WBC, leukocyte esterase, nitrates and occult blood. CT the abdomen pelvis shows mildly prominent uterus with fluid within its cavity. Please correlate with the patient's menstrual cycle. Probable right ovarian cyst measuring 2.1 cm. Moderate amount of stool within the right side of the colon. Patient reevaluated, states the pain is still present. Offered toraol and an enema. She is agreeable with the toradol. Given first dose of abx for UTI, I do not think it is likely pyelo however with the patient reporting the right sided abdominal pain radiating to her side I will treat for possible pyelonephritis. Think her pain is likely related to constipation. I did recommend MiraLAX and Dulcolax for home and instructed how to take these. Recommended that she follow-up with her primary care doctor for repeat labs for her mild transaminitis. Patient discharged from the Emergency Department. I do not feel that the patient's evaluation reveals any acute reason for admission at this time. I instructed them to either follow-up with their primary care physician or promptly return to the Emergency Department for reevaluation should symptoms worsen or new symptoms develop. I explained what symptoms would indicate the need to return to the emergency department. Shared decision making was used. The patient voiced understanding of the treatment plan and is agreeable with it. Clinical impression Constipation Pyelonephritis Transaminitis History & Record Review Discussion w/independent historian: Patient and Family Lab Data Attestation: I reviewed the patient's lab results. Labs: Laboratory Results - last 24 hr 08/13/25 19:36 WBC 9.0 RBC 4.28 Hgb 12.1 Hct 37.1 MCV 86.7 MCH 28.3 MCHC 32.6 RDW Std Deviation 43.6 RDW Coeff of Neel 13.8 Plt Count 383 MPV 10.5 Immature Gran % (Auto) 0.800 Neut % (Auto) 55.5 Lymph % (Auto) 32.0 [place] % (Auto) 8.2 Eos % (Auto) 2.8 Baso % (Auto) 0.7 Absolute Neuts (auto) 5.0 Absolute Lymphs (auto) 2.88 Nucleated RBC % 0 Sodium 135 Potassium 2.8 L Chloride 102 Carbon Dioxide 19.6 L Anion Gap 13 BUN 16 Creatinine 0.92 Estim Creat Clear Calc 100.00 Est GFR (MDRD) Non-Af 80 BUN/Creatinine Ratio 17.7 Glucose 108 H Calcium 9.2 Total Bilirubin 0.35 AST 52 H ALT 73 H Alkaline Phosphatase 110 H Total Protein 9.3 H Albumin 4.2 Globulin 5.1 H Albumin/Globulin Ratio 0.8 L Lipase 41 Urine Color Yellow Urine Clarity Cloudy Urine pH 6.0 Ur Specific Jackson 1.020 Urine Protein 30 H Urine Glucose (UA) Normal Urine Ketones Negative Urine Occult Blood 10 H Urine Nitrite Positive H Urine Bilirubin Negative Urine Urobilinogen 4 H Ur Leukocyte Esterase 25 H Urine RBC 0-5 SEEN Urine WBC 5-10 SEEN Ur Squamous Epith Cells 0-5 SEEN Urine Bacteria 4+ Urine Mucus 0 SEEN Urine Test Negative Radiography Diagnostic Testing: Clinical Impression(s) from Imaging Studies Abdomen/Pelvis CT 08/13/25 20:10 IMPRESSION: 1. Mildly prominent uterus with fluid within its cavity. Please correlate with the patient's menstrual cycle. 2. Probable right ovarian cyst measuring 2.1 cm. 3. Moderate amount of stool within the right side of the colon. Reading Location: [id number] Discharge Plan Triage Chief Complaint: Abd Pain ED Provider: Alexsandra Granados Dx/Rx/DC Orders Clinical Impression: Constipation, Pyelonephritis Instructions: Kidney Infec Dc, ED Constipation (Adult) Prescriptions: New cephalexin 500 mg capsule 500 mg PO Q6 Qty: 40 0RF No Action levothyroxine 175 MCG tablet 175 mcg PO DAILY naproxen 500 mg tablet 500 mg PO BID PRN (Reason: back pain) cyclobenzaprine 5 mg tablet 5 mg PO QHS PRN PRN (Reason: muscle spasms) levothyroxine 150 mcg tablet 150 mcg PO DAILY Rx Instructions: 1/2 tab on Sundays oxycodone 5 mg capsule 5 mg PO Q6H PRN (Reason: pain) 3 Days Qty: 10 0RF Primary Care Provider: NIKKI LEMUS Referrals: NIKKI LEMUS NP-C [Primary Care Provider, Internal Medicine] - As soon as possible Activity Restrictions/Additional Instructions: Take the antibiotic as prescribed. In terms of your constipation please purchase MiraLAX and Dulcolax [id number]. Take 17 g of the MiraLAX starting to 16 ounces of water in the morning and at night. Please also take Dulcolax 1 tablet in the morning and at night. If this does not help produce a bowel movement you can also do at home enemas or suppositories. Follow-up with your primary care doctor as soon as possible to have your liver enzymes rechecked to see if you need any additional labs or imaging for this. Your evaluation in the Emergency Department did not reveal any acute reason for admission. However, I want to emphasize that you may be early in the course of a disease process or illness even if it is not present. For this reason you should follow-up within 24 hours for reevaluation with either your primary care physician or if necessary back here in the Emergency Department. You should return to the Emergency Department immediately if your symptoms worsen or new symptoms develop. Print Language: Malagasy Disposition Disposition: Home, Self Care Discharge Date/Time: 08/13/25 22:16
[2025-08-13 19:47] LABS: Hematocrit 37.1 % (37-47); Hemoglobin 12.1 g/dL (12.0-15.0); Immature Granulocytes Count 0.070 X10^3/uL (0.0-0.0); Mean Corp Hgb Conc 32.6 g/dL (32-36); Mean Corpuscular Volume 86.7 fL (81-99); Mean Platelet Vol. 10.5 fl (6.2-12.0); Mucous, Urine 0 SEEN /hpf (<or=2+); NRBC Flagged by Analyzer 0 % (0-5); Platelet Count 383 K/mm3 (150-450); RBC Distribution Width CV 13.8 % (11.6-14.6); RBC Distribution Width SD 43.6 fl (35.1-43.9); Red Blood Count 4.28 M/mm3 (4.2-5.4); White Blood Count 9.0 K/mm3 (4.4-11.0)
[2025-08-13 19:55] LABS: Internal QC Validated? YES +Cl - CLEAR BKGD; Pregnancy, Urine Negative Negative
[2025-08-13 19:56] LABS: Record Kit Lot#,Urine Preg 980607
[2025-08-13 20:05] LABS: AST(SGOT) 52 U/L (<=31); Alanine Aminotransfer ALT/SGPT 73 U/L (<=34); Albumin, Serum 4.2 g/dL (3.5-5.0); Alkaline Phosphatase 110 U/L (35-104); Anion Gap 13 (5-15); BUN 16 mg/dL (4-19); BUN/Creat Ratio 17.7 RATIO (10-20); Calcium,Total 9.2 mg/dL (7.6-11.0); Carbon Dioxide 19.6 mmol/L (21.0-32.0); Chloride 102 mmol/L (98-108); Estimated Creatinine Clearance 100.00 ml/min (50-250); Globulin 5.1 g/dL (2.2-4.2); Glucose 108 mg/dL (70-99); Lipase 41 U/L (13-75); Potassium 2.8 mmol/L (3.3-5.1)
--- NOTE | 2025-08-13 20:10 | CT_ITS ---
PROCEDURE: ABDOMEN/PELVIS W IV CONT ONLY 08/13/2025 REASON FOR EXAM: RUQ PAIN TECHNIQUE: Procedure Code: [id number] Modality: CT Procedure: ABDOMEN/PELVIS W IV CONT ONLY Coronal and Sagittal reconstruction series were provided. CONTRAST: VOLUME: mL One or more dose reduction techniques were used (e.g., Automated exposure control, adjustment of the mA and/or kV according to patient size, use of iterative reconstruction technique. COMPARISON: 10/14/2024. FINDINGS: The visualized lung bases are clear. The gallbladder is not visualized and presumably surgically absent, new since the previous study. The liver, pancreas, spleen, adrenal glands, kidneys, and urinary bladder appear unremarkable. The uterus is mildly prominent and contains fluid within this cavity. Lobulated soft tissue densities along the lateral margins of both sides of the uterus probably represent the ovaries. No oval 2.1 cm low-density in the right adnexa (series 2 image 95) probably represents an ovarian cyst. Moderate amount of stool within the right side of the colon. No evidence of a bowel obstruction. No bowel wall thickening. The appendix is visualized and unremarkable. No intraperitoneal free air or free fluid. No abdominal nor pelvic lymphadenopathy. No acute osseous abnormality. No acute fracture. CT/Abdomen/Pelvis W IV Cont ONLY IMPRESSION: 1. Mildly prominent uterus with fluid within its cavity. Please correlate wit h the patient's menstrual cycle. 2. Probable right ovarian cyst measuring 2.1 cm. 3. Moderate amount of stool within the right side of the colon. Reading Location: [id number]
--- OUTSIDE RECORDS SUMMARY | 2025-08-13 20:38 | XMS RPT_ITS | CCD ---
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.NEIL, Myra Unavailable Verona Stover PA-C Unavailable Robotham, Shireen Attending Unavailable Robotham, Shireen Consulting Unavailable Robotham, Shireen Admitting Unavailable OLDER, MYRA Primary Care Unavailable Robotham, Shireen Attending Unavailable Robotham, Shireen Admitting Unavailable OLDER, MYRA Primary Care Unavailable Oriana Sandoval Attending Unavailable OLDER, MYRA Referring Unavailable OLDER, MYRA Primary Care Unavailable GANTA, INGRIS Primary Care Unavailable CINDY, JAIMEE M Referring Unavailable GANTA, INGRIS Referring Unavailable GANTA, INGRIS Primary Care Unavailable CINDY, JAIMEE M Attending Unavailable GANTA, INGRIS Primary Care Unavailable GANTA, INGRIS Primary Care Unavailable CINDY, JAIMEE M Referring Unavailable GANTA, INGRIS Primary Care Unavailable OLDER, MYRA Attending Unavailable CINDY, JAIMEE M Attending Unavailable GANTA, INGRIS Primary Care Unavailable CINDY, JAIMEE M Attending Unavailable GANTA, INGRIS Primary Care Unavailable GANTA, INGRIS Primary Care Unavailable GANTA, INGRIS Primary Care Unavailable CANDELARIA MAYFIELD Referring Unavailable GANTA, INGRIS Primary Care Unavailable CINDY, JAIMEE M Referring Unavailable Allergies Allergy Classification Reported Allergen(s) Allergy Type Date of Onset Reaction(s) Facility (20 sources) Influenza virus vaccine; Translations: [INFLUENZA VIRUS VACCINE QS (18 YRS-64 YRS)] Drug Allergy 6 Itching [facility] (20 sources) Latex; Translations: [LATEX] Drug Intolerance 7 Hives [facility] Work Phone: (1 source) Latex Drug allergy (disorder) 4 [facility] Repository Medications Current Medications Medication Drug Class(es) Dates Sig (Normalized) Sig (Original) azithromycin 250 mg oral tablet (1 source) Macrolide Antimicrobial Start: 05-16-2024 End: 05-21-2024 azithromycin (ZITHROMAX Z-HUBERT) 250 mg tablet Take 2 tablets day one, then, 1 tablet daily until gone. 6 tablet 0 05/16/2024 05/21/2024 Active cyclobenzaprine hydrochloride 5 mg oral tablet (20 sources) Muscle Relaxant Start: 04-09-2025 take 1 tablet by mouth every twenty-four hours as needed cyclobenzaprine (FLEXERIL) 5 mg tablet Take 1 tablet by mouth at bedtime as needed for muscle spasm. 30 tablet 2 04/09/2025 Active Start: 01-30-2022 End: 04-06-2025 take 1 tablet by mouth every twenty-four hours as needed cyclobenzaprine (FLEXERIL) 5 mg tablet Take 1 tablet by mouth at bedtime as needed for muscle spasm. 30 tablet 2 10/13/2024 04/06/2025 Discontinued Comment on above: Take 1 tablet by julio c th at bedtime as needed for muscle spasm. levoFLOXacin 500 mg oral tablet (2 sources) Quinolone Antimicrobial Start: 05-24-20 End: 05-31-20 take 1 tablet by mouth once daily levoFLOXacin (LEVAQUIN) 500 mg tablet Take 1 tablet by mouth once daily for 7 days. 7 tablet 0 05/24/2024 05/31/2024 Active levothyroxine sodium 0.15 mg oral tablet (20 sources) l-Thyroxine Start: 07-01-20 End: 07-26-20 levothyroxine (LEVOXYL) 150 mcg tablet Indications: Hypothyroidism, acquired Take one tablet every day except only 1/2 tablet on Sundays. For thyroid. Take on an empty stomach 30 tablet 11 07/26/2024 Active Start: 01-21-2022 End: 06-29-2022 levothyroxine (LEVOXYL) 150 mcg tablet Take one tablet every day except only 1/2 tablet on Sundays. For thyroid. Take on an empty stomach 30 tablet 3 03/27/2022 06/29/2022 Discontinued Comment on above: Take 1 tablet by [facility] once daily. Take one tablet ever y day except only 1/2 tablet on Sundays. For thyroid. Take on an empty stomach naproxen 500 mg oral tablet (9 sources) Nonsteroidal Anti-inflammatory Drug Start: 05-29-20 End: 07-26-20 take 1 tablet by mouth every twelve hours as needed naproxen (NAPROSYN) 500 mg tablet Take 1 tablet by mouth two times a day as needed (for pain/inflammation). Take with food. 30 tablet 1 07/26/2024 Active triamcinolone acetonide 1 mg/ml topical cream (1 source) Corticosteroid Start: 01-31-20 End: 02-14-20 triamcinolone acetonide (KENALOG) 0.1 % cream Indications: Seborrheic dermatitis Apply to affected area twice daily for 14 days. 15 g 1 01/30/2022 02/13/2022 Active Comment on above: Apply to affected ar ea twice daily for 14 days. Completed/Discontinued Medications Medication Drug Class(es) Dates Sig (Normalized) Sig (Original) [id number] 200 actuat albuterol 0.09 mg/actuat metered dose inhaler (5 sources) beta2-Adrenergic Agonist Start: 05-24-2024 End: 07-26-2024 take 2 puff(s) by inhalation every four hours as needed for wheezing albuterol HFA (VENTOLIN HFA) 90 mcg/actuation inhaler Inhale 2 Puffs as instructed every 4 hours as needed for wheezing/shortness of breath. 1 Each 05/24/2024 07/26/2024 Discontinued benzonatate 100 mg oral capsule (10 sources) Non-narcotic Antitussive Start: 03-08-2024 End: 05-16-2024 take 1 capsule by mouth every eight hours as needed for cough and cough benzonatate (TESSALON PERLES) 100 mg capsule Indications: Acute cough Take 1 capsule by mouth three times a day as needed for up to 12 doses. 12 capsule 03/08/2024 05/16/2024 Discontinued (Course of therapy completed) Start: 08-14-2023 End: 05-16-2024 take 1 capsule by mouth every eight hours as needed Benzonatate 200 mg capsule Take 1 capsule by mouth three times a day as needed. 21 capsule 08/14/2023 05/16/2024 Discontinued (Course of therapy completed) Comment on above: Take 1 capsule by [facility] three times a day as needed. brompheniramine maleate 0.4 mg/ml / dextromethorphan hydrobromide 2 mg/ml / pseudoephedrine hydrochloride 6 mg/ml oral solution (3 sources) alpha-Adrenergic Agonist, Uncompetitive P-hsuzku-I-aspartate Receptor Antagonist, Sigma-1 Agonist Start: 05-10-20 End: 05-16-20 take 5 mL by mouth every six hours as needed Brompheniramine-Pse udoeph-DM (BROMFED DM) 2-30-10 mg/5 mL syrup Take 5 mL by mouth four times a day as needed. 118 mL 05/10/2024 05/16/2024 Discontinued (Course of therapy completed) codeine phosphate 2 mg/ml / guaiFENesin 20 mg/ml oral solution (5 sources) Opioid Agonist Start: 05-16-20 End: 05-23-20 take 5 mL by mouth every six hours as needed for cough and cough codeine-guaiFENesin (ROBITUSSIN AC) 10-100 mg/5 mL syrup Indications: Acute cough Take 5 mL by mouth four times a day as needed for up to 7 days. 140 mL 05/16/2024 05/23/2024 escitalopram 10 mg oral tablet (10 sources) Serotonin Reuptake Inhibitor Start: 08-17-20 End: 07-21-20 23 take 1 tablet by mouth once daily escitalopram oxalate (LEXAPRO) 10 mg tablet Take 1 tablet by mouth once daily. 30 tablet 5 08/17/2022 07/21/2023 Discontinued Start: 01-30-2022 End: 08-15-2022 take 1 tablet by mouth once daily escitalopram oxalate (LEXAPRO) 10 mg tablet Take 1 tablet by mouth once daily. 30 tablet 5 01/30/2022 08/15/2022 Discontinued Comment on above: Take 1 tablet by [facility] once daily. omeprazole 20 mg delayed release oral capsule (1 source) Proton Pump Inhibitor Start: 04-23-20 End: 01-31-20 take 1 capsule by mouth once daily before breakfast omeprazole (PRILOSEC) 20 mg capsule Indications: gastroesophageal reflux disease , heartburn Take 1 capsule by mouth daily before breakfast. 30 capsule 2 04/23/2020 01/30/2022 Discontinued (Course of therapy completed) Comment on above: Take 1 capsule by mo uth daily before breakfast. ondansetron 4 mg oral tablet (1 source) Serotonin-3 Receptor Antagonist Start: 04-23-20 End: 01-31-20 take 1 tablet by mouth every eight hours as needed ondansetron (ZOFRAN) 4 mg tablet Indications: Nausea and vomiting, intractability of vomiting not specified, unspecified vomiting type Take 1 tablet by mouth every 8 hours as needed. 12 tablet 0 04/23/2020 01/30/2022 Discontinued (Course of therapy completed) Comment on above: Take 1 tablet by julio c th every 8 hours as needed. predniSONE 10 mg oral tablet (7 sources) Start: 05-10-20 End: 05-23-20 predniSONE (DELTASONE) 10 mg tablet Take 4 tabs daily for 3 days, then 2 tabs daily for 3 days, then 1 tab daily for 3 days with food. 21 tablet 05/10/2024 05/23/2024 Discontinued (Course of therapy completed) Start: 07-04-2023 End: 07-16-2023 predniSONE (DELTASONE) 10 mg tablet Take 4 tabs daily x 3 days, then 3 tabs x 3 days, 2 tabs x 3 days, then 1 tab x3 days with food. 30 tablet 0 07/04/2023 07/16/2023 Active Comment on above: Take 4 tabs daily x 3 days, then 3 tabs x 3 days, 2 tabs x 3 days, then 1 tab x3 days with food. Problems Active Problems Problem Classification Problem Date Documented Date Episodic/Chronic Abdominal pain (1 source) Unspecified abdominal pain; Translations: [Unspecified abdominal pain] Onset: 11-12-2024 Episodic Anxiety disorders (20 sources) Mixed anxiety and depressive disorder; Translations: [Anxiety disorder, unspecified] Onset: 01-30-2022 Chronic Biliary tract disease (1 source) Acute cholecystitis; Translations: [Acute cholecystitis] Onset: 11-12-2024 Episodic Diseases of white blood cells (1 source) Leukocytosis; Translations: [Elevated white blood cell count, unspecified] 07-21-2023 Chronic Fluid and electrolyte disorders (1 source) Hypokalemia; Translations: [Hypokalemia] Onset: 10-26-2024 Episodic Immunizations and screening for infectious disease (1 source) Viral screening status; Translations: [Encounter for screening for other viral diseases] Episodic Menstrual disorders (20 sources) Dysmenorrhea; Translations: [Dysmenorrhea, unspecified] Onset: 08-13-2014 08-13-2014 Chronic Other inflammatory condition of skin (1 source) Seborrheic dermatitis; Translations: [Seborrheic dermatitis, unspecified] Episodic Other lower respiratory disease (7 sources) Cough; Translations: [Acute cough] 03-08-2024 Episodic Other lower respiratory disease (3 sources) Multiple nodules of lung; Translations: [Other nonspecific abnormal finding of lung field] 05-10-2024 Episodic Other lower respiratory disease (2 sources) Dyspnea; Translations: [Shortness of breath] 05-23-2024 Episodic Other lower respiratory disease (1 source) Respiratory tract infection; Translations: [Other specified respiratory disorders] 05-29-2024 Episodic Other lower respiratory disease (1 source) Rib pain; Translations: [Pleurodynia] 05-29-2024 Episodic Other nervous system disorders (1 source) Other acute postprocedural pain; Translations: [Other acute postprocedural pain] Onset: 10-26-2024 Episodic Other nutritional; endocrine; and metabolic disorders (20 sources) Body mass index 40+ - severely obese; Translations: [Morbid (severe) obesity due to excess calories] Onset: 02-02-2018 Chronic Other nutritional; endocrine; and metabolic disorders (1 source) Morbid (severe) obesity due to excess calories; Translations: [Obesity, Class III, BMI 40-49.9 (morbid obesity) (HCC)] Onset: 02-02-2018 Chronic Other screening for suspected conditions (not mental disorders or infectious disease) (3 sources) Imaging of thorax abnormal; Translations: [Abnormal findings on diagnostic imaging of other specified body structures] Onset: 05-23-2024 05-23-2024 Chronic Other screening for suspected conditions (not mental disorders or infectious disease) (8 sources) Patient encounter status; Translations: [Encounter for screening for lipoid disorders] Episodic Other upper respiratory infections (1 source) Viral upper respiratory tract infection; Translations: [Acute upper respiratory infection, unspecified] 08-14-2023 Episodic Residual codes; unclassified (1 source) Acquired absence of other specified parts of digestive tract; Translations: [Acquired absence of other specified parts of digestive tract] Onset: 10-26-2024 Episodic Spondylosis; intervertebral disc disorders; other back problems (2 sources) Backache; Translations: [Dorsalgia, unspecified] 07-04-2023 Episodic Thyroid disorders (20 sources) Acquired hypothyroidism; Translations: [Hypothyroidism, unspecified] Onset: 01-16-2008 Resolved: 09-25-2016 Chronic Unclassified (1 source) Acute cough; Translations: [Acute cough] Onset: 05-23-2024 Past or Other Problems Problem Classification Problem Date Documented Da te Episodic/Chronic Fever of unknown origin (5 sources) Fever; Translations: [Fever, unspecified] Onset: 05-23-2024 05-16-2024 Episodic Other lower respiratory disease (1 source) Shortness of breath; Translations: [Shortness of breath] Onset: 05-23-2024 Episodic Unclassified (1 source) Patient encounter status 03-20-2025 Results Test Name Value Interpretation Reference Range Facility Surgery Visit Reporton 10-30 Surgery Visit Report [facility] [address] [place] [address]. [address] [place] [address] OFFICE VISIT Date of Service: 10/30/24 MR#: [id number] Acct: [id number] Name: DANG PRITCHETT Jeannette Rep #: [id number] : 1985 Provider: MICHAELA mejia Age/Sex: 39/F Location: [facility] Status: Signed Intake Vital Signs 10/14/24 11:57 Height 5 ft 4.96 in Intake Visit Reasons: GALLBLADDER 12-6 Chief Complaint: gallbladder Is patient in pain?: Yes Allergies latex Allergy (Verified 10/30/24 09:29) Rash Medications ???Medication ???Instructions ???Recorded ???Confirmed ???Type levothyroxine 175 mcg tablet 175 mcg PO DAILY 12/01/15 10/30/24 History cyclobenzaprine 5 mg tablet 5 mg PO QHS PRN PRN muscle spasms 10/14/24 10/30/24 History levothyroxine 150 mcg tablet 150 mcg PO DAILY 10/14/24 10/30/24 History naproxen 500 mg tablet 500 mg PO BID PRN back pain 10/14/24 10/30/24 History oxycodone 5 mg capsule 5 mg PO Q6H PRN pain 3 days #10 10/14/24 10/30/24 Rx caps Subjective Details: Patient is a 39 y/o F I am following s/p laparoscopic cholecystectomy with intraoperative cholangiogram by Dr. Matamoros on 10/14/24. Patient tolerated the procedure well. She denies any nausea, vomiting, fever. She notes constipation since the procedure. She notes her appetite is slow to return. Pathology demonstrated acute and chronic cholecystitis and cholelithiasis. Objective Details: Abdomen- soft, nontender. Incisions c/d/i. No erythema or infection noted. Coding Level of Care Code Global Post Op Diagnoses S/P laparoscopic cholecystectomy Z90.49 [facility] Medical History Pilonidal cyst Back pain due to injury Hypothyroidism Surgical History S/P laparoscopic cholecystectomy Social History Smoking Status: Never smoker Assessment and Plan (No Qualifiers) Assessment and Plan (1) S/P laparoscopic cholecystectomy: Status: Acute Plan: RTW letter provided Follow-up as needed 10/30/24 0407 Date Oriana Long Signature: Date (if applicable) CC: FAHAD ELIZONDO [facility] 10-17-2024 [facility] Telephone (INTWS) -------- DANG PRITCHETT ([id number]) 1985 F Date Time Provider Department 10/17/24 INGRIS ROCK During your visit today, we recorded the following information about you: Erinn Greer RN 10/17/2024 9:49 AM Signed Pt calling in and states that she had her Gallbladder removed on Sunday 10/14 at [facility] by Dr. Matamoros. Per pt's discharge paperwork, it states she should call her PCP's office for follow up. Pt has a follow up appt with Dr. Matamoros and is not having any other medical issues. Explained to pt that no need to follow up with PCP at this time unless something comes up. Make sure to keep follow up with surgeon. Pt verbalizes understanding. Will confirm with PCP if pt would need to follow up with us. Ingris Rock MD 10/17/2024 5:39 PM Signed Noted Ideally patients should be seen by PCP after any hospitalization or surgical procedures Ingris Dueñas MD Allergies As of Date: 10/17/2024 Noted Allergy Reaction LATEX 01/25/2007 4 - Hives INFLUENZA VIRUS VACCINE QS 2014-1*09/22/2016 9 - Itching Date Reviewed: 07/26/2024 Reviewed by: Ivonne Hinton MA - Fully Assessed Reason for Visit: Patient Update [1234] Cmt: had GB removed 10/14 Patient Question [1477] Prescriptions as of 10/18/2024 - cyclobenzaprine (FLEXERIL) 5 mg tablet Take 1 tablet by mouth at bedtime as needed for muscle spasm. - levothyroxine (LEVOXYL) 150 mcg tablet Take one tablet every day except only 1/2 tablet on Sundays. For thyroid. Take on an empty stomach - naproxen (NAPROSYN) 500 mg tablet Take 1 tablet by mouth two times a day as needed (for pain/inflammation). Take with food. Problem List As Of Date 10/17/2024 Noted Resolved Hypothyroidism [E03.9] 01/16/2008 09/25/2016 Dysmenorrhea [N94.6] 08/13/2014 Hypothyroidism, acquired [E03.9] 09/25/2016 Obesity, Class III, BMI 40-49.9 (morbid obesity*02/02/2018 Anxiety and depression [F41.9, F32.A] 01/30/2022 Encounter Status:Closed by KENDAL RICO on 10/18/24 Normal [facility] Basic Metabolic Profile (BMP )on 10-15-2024 BUN/CRE 13.8 RATIO Normal 10-20 [facility] Comment on above: Performed By: #### L 500.3400, L500.2500, L100.0100 #### [facility] [address] [place], [address] CA,Total 8.8 mg/dL Normal 8.5-10.1 [facility] Comment on above: Performed By: #### L 500.3400, L500.2500, L100.0100 #### [facility] [address] [place], [address] Chloride [Moles/Vol] 104 mmol/L Normal 98-107 [facility] Comment on above: Performed By: #### L 500.3400, L500.2500, L100.0100 #### [facility] [address] [place], [address] CO2 [Moles/Vol] 26.0 mmol/L Normal 21.0-32.0 [facility] Comment on above: Performed By: #### L 500.3400, L500.2500, L100.0100 #### [facility] [address] [place], [address] Creatinine [Mass/Vol] 0.72 mg/dL Normal 0.55-1.02 [facility] Comment on above: Result Comment: The validity of the calculated GFR GFRAA in patients over 70 years has not been determined. Clinical correlation is essential. Performed By: #### L 500.3400, L500.2500, L100.0100 #### [facility] [address] [place], [address] ECRCL 130.19 ml/min Normal [facility] Comment on above: Performed By: #### L 500.3400, L500.2500, L100.0100 #### [facility] [address] [place], [address] EST GFR - AA 115 mL/min Normal >60 [facility] Comment on above: Result Comment: Afri can Liberian GFR Calc Performed By: #### L 500.3400, L500.2500, L100.0100 #### [facility] [address] [place], [address] GAP 7 Normal 5-15 [facility] Comment on above: Performed By: #### L 500.3400, L500.2500, L100.0100 #### [facility] [address] [place], [address] GFR/1.73 sq M.predicted among non-blacks MDRD (S/P/Bld) [Vol rate/Area] 95 mL/min/{1.73_m2} Normal >60 [facility] Comment on above: Result Comment: Non- GFR Calc Performed By: #### L 500.3400, L500.2500, L100.0100 #### [facility] [address] [place], [address] Glucose [Mass/Vol] 100 mg/dL Normal 74-106 [facility] Comment on above: Result Comment: Fast ing Glucose result from 100 to 125 mg/dL suggests IMPAIRED HOMEOSTASIS per A.D.A. criteria. Performed By: #### L 500.3400, L500.2500, L100.0100 #### [facility] [address] [place], [address] Potassium [Moles/Vol] 3.3 mmol/L Low 3.5-5.1 [facility] Comment on above: Performed By: #### L 500.3400, L500.2500, L100.0100 #### [facility] [address] [place], [address] Sodium [Moles/Vol] 137 mmol/L Normal 136-145 [facility] Comment on above: Performed By: #### L 500.3400, L500.2500, L100.0100 #### [facility] [address] [place], [address] Urea nitrogen [Mass/Vol] 10 mg/dL Normal 7-18 [facility] Comment on above: Performed By: #### L 500.3400, L500.2500, L100.0100 #### [facility] [address] [place], [address] CBC W/Diff, Automatedon 12-0 8-2023 Absolute Lymph 1.65 X10 3/uL Normal 0.83-4.51 [facility] Comment on above: Performed By: #### L 500.3400, L500.2500, L100.0100 #### [facility] [address] [place], [address] Absolute Neut 8.3 X10 3/uL High 2.0-7.7 [facility] Comment on above: Performed By: #### L 500.3400, L500.2500, L100.0100 #### [facility] [address] [place], [address] Basophils/100 WBC (Bld) 0.4 % Normal 0-1 [facility] Comment on above: Performed By: #### L 500.3400, L500.2500, L100.0100 #### [facility] [address] [place], [address] Eosinophils/100 WBC (Bld) 0.5 % Normal 0-5 [facility] Comment on above: Performed By: #### L 500.3400, L500.2500, L100.0100 #### [facility] [address] [place], [address] Erythrocyte distribution width (RBC) [Ratio] 14.3 % Normal 11.6-14.6 [facility] Comment on above: Performed By: #### L 500.3400, L500.2500, L100.0100 #### [facility] [address] [place], [address] Hematocrit (Bld) [Volume fraction] 30.5 % Low 37-47 [facility] Comment on above: Performed By: #### L 500.3400, L500.2500, L100.0100 #### [facility] [address] [place], [address] Hemoglobin (Bld) [Mass/Vol] 9.7 g/dL Low 12.0-15.0 [facility] Comment on above: Performed By: #### L 500.3400, L500.2500, L100.0100 #### [facility] [address] [place], [address] IG% 0.700 Normal 0.0-0.9 [facility] Comment on above: Result Comment: IG% - Immature Granulocytes (promyelocytes, myelocytes and metamyelocytes) > 1% indicates that a LEFT SHIFT is Present. Performed By: #### L 500.3400, L500.2500, L100.0100 #### [facility] [address] [place], [address] Lymphocytes/100 WBC (Bld) 15.2 % Low 19-41 [facility] Comment on above: Performed By: #### L 500.3400, L500.2500, L100.0100 #### [facility] [address] [place], [address] MCH (RBC) [Entitic mass] 27.7 pg Normal 27.0-32.0 [facility] Comment on above: Performed By: #### L 500.3400, L500.2500, L100.0100 #### [facility] [address] [place], [address] MCHC (RBC) [Mass/Vol] 31.8 g/dL Low 32-36 [facility] Comment on above: Performed By: #### L 500.3400, L500.2500, L100.0100 #### [facility] [address] [place], [address] MCV (RBC) [Entitic vol] 87.1 fL Normal 81-99 [facility] Comment on above: Performed By: #### L 500.3400, L500.2500, L100.0100 #### [facility] [address] [place], [address] Monocytes/100 WBC (Bld) 6.5 % Normal 0-10 [facility] Comment on above: Performed By: #### L 500.3400, L500.2500, L100.0100 #### [facility] [address] [place], [address] Neutrophils/100 WBC (Bld) 76.7 % High 47-70 [facility] Comment on above: Performed By: #### L 500.3400, L500.2500, L100.0100 #### [facility] [address] [place], [address] Nucleated RBC (Bld) [#/Vol] 0 10*3/uL Normal 0-5 [facility] Comment on above: Performed By: #### L 500.3400, L500.2500, L100.0100 #### [facility] [address] [place], [address] Platelet mean volume (Bld) [Entitic vol] 10.3 fL Normal 6.2-12.0 [facility] Comment on above: Performed By: #### L 500.3400, L500.2500, L100.0100 #### [facility] [address] [place], [address] Platelets (Bld) [#/Vol] 361 10*3/uL Normal 150-450 [facility] Comment on above: Performed By: #### L 500.3400, L500.2500, L100.0100 #### [facility] [address] [place], [address] RBC (Bld) [#/Vol] 3.50 10*6/uL Low 4.2-5.4 [facility] Comment on above: Performed By: #### L 500.3400, L500.2500, L100.0100 #### [facility] [address] [place], [address] RDW SD 45.2 fl High 35.1-43.9 [facility] Comment on above: Performed By: #### L 500.3400, L500.2500, L100.0100 #### [facility] [address] [place], [address] WBC (Bld) [#/Vol] 10.8 10*3/uL Normal 4.4-11.0 [facility] Comment on above: Performed By: #### L 500.3400, L500.2500, L100.0100 #### [facility] [address] [place], [address] Liver Profileon 10-15-2024 Albumin [Mass/Vol] 2.9 g/dL Low 3.2-5.0 [facility] Comment on above: Performed By: #### L 500.3400, L500.2500, L100.0100 #### [facility] [address] [place], [address] ALK P 142 U/L High 45-117 [facility] Comment on above: Performed By: #### L 500.3400, L500.2500, L100.0100 #### [facility] [address] [place], [address] ALT [Catalytic activity/Vol] 51 U/L Normal 13-56 [facility] Comment on above: Performed By: #### L 500.3400, L500.2500, L100.0100 #### [facility] [address] [place], [address] AST [Catalytic activity/Vol] 40 U/L High 15-37 [facility] Comment on above: Performed By: #### L 500.3400, L500.2500, L100.0100 #### [facility] [address] [place], [address] Bilirubin [Mass/Vol] 0.50 mg/dL Normal 0.20-1.00 [facility] Comment on above: Result Comment: For patients on eltrombopag therapy, use of Dimension Maunie TBIL is not recommended. Performed By: #### L 500.3400, L500.2500, L100.0100 #### [facility] [address] [place], [address] Bilirubin.direct [Mass/Vol] 0.16 mg/dL Normal 0.00-0.30 [facility] Comment on above: Performed By: #### L 500.3400, L500.2500, L100.0100 #### [facility] [address] [place], [address] Globulin (S) [Mass/Vol] 4.7 g/dL High 2.2-4.2 [facility] Comment on above: Performed By: #### L 500.3400, L500.2500, L100.0100 #### [facility] [address] [place], [address] T PROT 7.6 g/dL Normal 6.4-8.2 [facility] Comment on above: Performed By: #### L 500.3400, L500.2500, L100.0100 #### [facility] [address] [place], [address] 12 Lead EKGon 10-14-2024 12 Lead EKG [facility] Cardiovascular Services [address] [place] [address] 12 Lead EKG 10/14/24 1056 MR#: [id number] Acct: [id number] Name: DANG PRITCHETT Jeannette Rep #: [id number] : 1985 39 From: Ovidio Hill MD Attending Dr: Dr. Shireen Matamoros MD Status: D IS BALA Ordering Dr: Shireen Matamoros MD Date: 10/14/24 Location: [facility] Sex: F C Admitted: 10/14/24 Test Reason : PRE-OP Blood Pressure : */* mmHG Vent. Rate : 84 BPM Atrial Rate : 84 BPM P-R Int : 154 ms QRS Dur : 74 ms QT Int : 352 ms P-R-T Axes : 35 19 17 degrees QTcB Int : 415 ms Normal sinus rhythm Normal ECG When compared with ECG of 29-Nov-2012 04:55, No significant change was found Confirmed by OVIDIO HILL MD ([id number]), geomorphology teacher YULIET MOYER ([id number]) on 10/17/2024 8:21:15 AM Referred By: Confirmed By: OVIDIO HILL MD 10/17/24 0821 Date Ovidio Hill MD CC: FAHAD ELIZONDO; Dr. Shireen Matamoros MD Signed Normal [facility] Abdomen/Pelvis W IV Cont ONL Yon 10-14-2024 Abdomen/Pelvis W IV Cont ONLY [facility] Imaging Services [address] [place] [address] Abdomen/Pelvis W IV Cont ONLY MR#: [id number] Acct: [id number] Name: DANG PRITCHETT Rep #: [id number] : 1985 F 39 From: Minesh Jackman MD PCP: MYRA ELIZONDO, SPECIAL EDUCATION PARAPROFESSIONAL-C Status: REG ER Study: Abdomen/Pelvis W IV Cont ONLY Date of Exam: Exam# [id number] Ordering Dr: Huang Herbert MD [id number] EXAM: CT ABDOMEN AND PELVIS WITH INTRAVENOUS CONTRAST CLINICAL INDICATION: Right upper quadrant pain TECHNIQUE: Helically acquired images were obtained of the abdomen and pelvis with intravenous contrast. This CT exam was performed using one or more of the following dose reduction techniques: automated exposure control, adjustment of the mA and/or kV according to patient size, and/or use of iterative reconstruction technique. CONTRAST: IV 100mL [id number] RADIATION DOSE: CTDIvol = 17.08 mGy, DLP = 1631.15 mGy-cm COMPARISON: No relevant prior studies available. FINDINGS: LOWER THORAX: Unremarkable. Lung bases are clear. No cardiomegaly. No significant pericardial effusion. ABDOMEN: LIVER: Unremarkable. Homogeneous. No focal mass. GALLBLADDER AND BILE DUCTS: The gallbladder is distended with some edema of the wall. Small amount of pericholecystic fluid suggested. Possible small stone in the gallbladder neck. No intra- or extrahepatic biliary ductal dilation. PANCREAS: No inflammation around the pancreas. No focal cystic or solid mass. SPLEEN: Unremarkable. Normal size without focal cystic or solid mass. ADRENALS: Unremarkable. No nodules. KIDNEYS AND URETERS: Unremarkable. Normal renal size and position. No hydronephrosis. STOMACH AND BOWEL: Unremarkable. No stomach or bowel distention. No focal inflammatory change. PELVIS: APPENDIX: The appendix is normal. BLADDER: Unremarkable. REPRODUCTIVE: Unremarkable as visualized. No mass. ABDOMEN and PELVIS: INTRAPERITONEAL SPACE: Unremarkable. No ascites or other fluid collection. No free air. BONES/JOINTS: Unremarkable. No suspicious lytic or blastic abnormality. SOFT TISSUES: See above. VASCULATURE: Unremarkable. Abdominal aorta is non-dilated. LYMPH NODES: Unremarkable. No enlarged lymph nodes. CT/Abdomen/Pelvis W IV Cont ONLY IMPRESSION: The gallbladder is distended with some edema of the wall. Small amount of pericholecystic fluid suggested. Possible small stone in the gallbladder neck. Findings are concerning for acute cholecystitis. Electronically Signed: Minesh Jackman MD at 4:05 EST , CC: FAHAD ELIZONDO; Dr. Huang Herbert MD Salesperson Stereo Equipment: Signed Normal [facility] CBC W/Diff, Automatedon 12-0 Absolute Lymph 1.98 X10 3/uL Normal 0.83-4.51 [facility] Comment on above: Performed By: #### L 500.4050, L100.0100, L501.2450 #### [facility] [address] [place], [address] Absolute Neut 7.6 X10 3/uL Normal 2.0-7.7 [facility] Comment on above: Performed By: #### L 500.4050, L100.0100, L501.2450 #### [facility] [address] [place], [address] Basophils/100 WBC (Bld) 0.5 % Normal 0-1 [facility] Comment on above: Performed By: #### L 500.4050, L100.0100, L501.2450 #### [facility] [address] [place], [address] Eosinophils/100 WBC (Bld) 2.5 % Normal 0-5 [facility] Comment on above: Performed By: #### L 500.4050, L100.0100, L501.2450 #### [facility] [address] [place], [address] Erythrocyte distribution width (RBC) [Ratio] 14.1 % Normal 11.6-14.6 [facility] Comment on above: Performed By: #### L 500.4050, L100.0100, L501.2450 #### [facility] [address] [place], [address] Hematocrit (Bld) [Volume fraction] 31.8 % Low 37-47 [facility] Comment on above: Performed By: #### L 500.4050, L100.0100, L501.2450 #### [facility] [address] [place], [address] Hemoglobin (Bld) [Mass/Vol] 10.3 g/dL Low 12.0-15.0 [facility] Comment on above: Performed By: #### L 500.4050, L100.0100, L501.2450 #### [facility] [address] [place], [address] IG% 0.300 Normal 0.0-0.9 [facility] Comment on above: Result Comment: IG% - Immature Granulocytes (promyelocytes, myelocytes and metamyelocytes) > 1% indicates that a LEFT SHIFT is Present. Performed By: #### L 500.4050, L100.0100, L501.2450 #### [facility] [address] [place], [address] Lymphocytes/100 WBC (Bld) 18.6 % Low 19-41 [facility] Comment on above: Performed By: #### L 500.4050, L100.0100, L501.2450 #### [facility] [address] [place], [address] MCH (RBC) [Entitic mass] 27.9 pg Normal 27.0-32.0 [facility] Comment on above: Performed By: #### L 500.4050, L100.0100, L501.2450 #### [facility] [address] [place], [address] MCHC (RBC) [Mass/Vol] 32.4 g/dL Normal 32-36 [facility] Comment on above: Performed By: #### L 500.4050, L100.0100, L501.2450 #### [facility] [address] [place], [address] MCV (RBC) [Entitic vol] 86.2 fL Normal 81-99 [facility] Comment on above: Performed By: #### L 500.4050, L100.0100, L501.2450 #### [facility] [address] [place], [address] Monocytes/100 WBC (Bld) 6.4 % Normal 0-10 [facility] Comment on above: Performed By: #### L 500.4050, L100.0100, L501.2450 #### [facility] [address] [place], [address] Neutrophils/100 WBC (Bld) 71.7 % High 47-70 [facility] Comment on above: Performed By: #### L 500.4050, L100.0100, L501.2450 #### [facility] [address] [place], [address] Nucleated RBC (Bld) [#/Vol] 0 10*3/uL Normal 0-5 [facility] Comment on above: Performed By: #### L 500.4050, L100.0100, L501.2450 #### [facility] [address] [place], [address] Platelet mean volume (Bld) [Entitic vol] 10.2 fL Normal 6.2-12.0 [facility] Comment on above: Performed By: #### L 500.4050, L100.0100, L501.2450 #### [facility] [address] [place], [address] Platelets (Bld) [#/Vol] 357 10*3/uL Normal 150-450 [facility] Comment on above: Performed By: #### L 500.4050, L100.0100, L501.2450 #### [facility] [address] [place], [address] RBC (Bld) [#/Vol] 3.69 10*6/uL Low 4.2-5.4 [facility] Comment on above: Performed By: #### L 500.4050, L100.0100, L501.2450 #### [facility] [address] [place], [address] RDW SD 45.0 fl High 35.1-43.9 [facility] Comment on above: Performed By: #### L 500.4050, L100.0100, L501.2450 #### [facility] [address] [place], [address] WBC (Bld) [#/Vol] 10.6 10*3/uL Normal 4.4-11.0 [facility] Comment on above: Performed By: #### L 500.4050, L100.0100, L501.2450 #### [facility] [address] [place], [address] Cholangiogram/ O R,Initialon 10-14-2024 Cholangiogram/ O R,Initial [facility] Imaging Services [address] [place] [address] Cholangiogram/ O R,Initial MR#: [id number] Acct: [id number] Name: DANG PRITCHETT Jeannette Rep #: [id number] : 1985 F 39 From: Alber Coats PCP: MYRA ELIZONDO, SPECIAL EDUCATION PARAPROFESSIONAL-C Status: ADM BALA Study: Cholangiogram/ O R,Initial Date of Exam: 10/14 Exam# [id number] Ordering Dr: Shireen Matamoros MD [id number] INDICATION: LAP GAEL WITH GRAMS EXAMINATION/TECHNIQUE: Images assigned to this order were provided in conjunction with a surgical procedure performed in the operating room/procedural suite. Please see operative report for details. Fluoroscopic images: 1 cine run with 25 images Fluoroscopic time: 4.8 seconds Cumulative dose: 0.1292, mGym2; 4.01; mGy COMPARISON: No relevant comparisons available.. FINDINGS: No filling defects are identified, however several small mobile air bubbles are present. There is no biliary ductal dilatation. There is free passage into the duodenum. RAD/Cholangiogram/ O R,Initial IMPRESSION: Negative intraoperative cholangiogram. Electronically Signed: Alber Guerrero MD at 17:37 EST , CC: FAHAD ELIZONDO; Dr. Shireen Matamoros MD Salesperson Stereo Equipment: Signed Normal [facility] Comprehensive Metabolic Prof ilon 10-14-2024 Albumin [Mass/Vol] 3.4 g/dL Normal 3.2-5.0 [facility] Comment on above: Performed By: #### L 500.4050, L100.0100, L501.2450 #### [facility] [address] [place], [address] Albumin/Globulin [Mass ratio] 0.7 {ratio} Low 0.9-2.4 [facility] Comment on above: Performed By: #### L 500.4050, L100.0100, L501.2450 #### [facility] [address] [place], [address] ALK P 118 U/L High 45-117 [facility] Comment on above: Performed By: #### L 500.4050, L100.0100, L501.2450 #### [facility] [address] [place], [address] ALT [Catalytic activity/Vol] 43 U/L Normal 13-56 [facility] Comment on above: Performed By: #### L 500.4050, L100.0100, L501.2450 #### [facility] [address] [place], [address] AST [Catalytic activity/Vol] 26 U/L Normal 15-37 [facility] Comment on above: Performed By: #### L 500.4050, L100.0100, L501.2450 #### [facility] [address] [place], [address] Bilirubin [Mass/Vol] 0.40 mg/dL Normal 0.20-1.00 [facility] Comment on above: Result Comment: For patients on eltrombopag therapy, use of Dimension Maunie TBIL is not recommended. Performed By: #### L 500.4050, L100.0100, L501.2450 #### [facility] [address] [place], [address] BUN/CRE 17.6 RATIO Normal 10-20 [facility] Comment on above: Performed By: #### L 500.4050, L100.0100, L501.2450 #### [facility] [address] [place], [address] CA,Total 9.3 mg/dL Normal 8.5-10.1 [facility] Comment on above: Performed By: #### L 500.4050, L100.0100, L501.2450 #### [facility] [address] [place], [address] Chloride [Moles/Vol] 105 mmol/L Normal 98-107 [facility] Comment on above: Performed By: #### L 500.4050, L100.0100, L501.2450 #### [facility] [address] [place], [address] CO2 [Moles/Vol] 26.0 mmol/L Normal 21.0-32.0 [facility] Comment on above: Performed By: #### L 500.4050, L100.0100, L501.2450 #### [facility] [address] [place], [address] Creatinine [Mass/Vol] 0.74 mg/dL Normal 0.55-1.02 [facility] Comment on above: Result Comment: The validity of the calculated GFR GFRAA in patients over 70 years has not been determined. Clinical correlation is essential. Performed By: #### L 500.4050, L100.0100, L501.2450 #### [facility] [address] [place], [address] ECRCL 128.78 ml/min Normal [facility] Comment on above: Performed By: #### L 500.4050, L100.0100, L501.2450 #### [facility] [address] [place], [address] EST GFR - AA 113 mL/min Normal >60 [facility] Comment on above: Result Comment: Afri can Liberian GFR Calc Performed By: #### L 500.4050, L100.0100, L501.2450 #### [facility] [address] [place], [address] GAP 5 Normal 5-15 [facility] Comment on above: Performed By: #### L 500.4050, L100.0100, L501.2450 #### [facility] [address] [place], [address] GFR/1.73 sq M.predicted among non-blacks MDRD (S/P/Bld) [Vol rate/Area] 93 mL/min/{1.73_m2} Normal >60 [facility] Comment on above: Result Comment: Non- GFR Calc Performed By: #### L 500.4050, L100.0100, L501.2450 #### [facility] [address] [place], [address] Globulin (S) [Mass/Vol] 5.2 g/dL High 2.2-4.2 [facility] Comment on above: Performed By: #### L 500.4050, L100.0100, L501.2450 #### [facility] [address] [place], [address] Glucose [Mass/Vol] 88 mg/dL Normal 74-106 [facility] Comment on above: Performed By: #### L 500.4050, L100.0100, L501.2450 #### [facility] [address] [place], [address] Potassium [Moles/Vol] 3.2 mmol/L Low 3.5-5.1 [facility] Comment on above: Performed By: #### L 500.4050, L100.0100, L501.2450 #### [facility] [address] [place], [address] Sodium [Moles/Vol] 136 mmol/L Normal 136-145 [facility] Comment on above: Performed By: #### L 500.4050, L100.0100, L501.2450 #### [facility] [address] [place], [address] T PROT 8.6 g/dL High 6.4-8.2 [facility] Comment on above: Performed By: #### L 500.4050, L100.0100, L501.2450 #### [facility] [address] [place], [address] Urea nitrogen [Mass/Vol] 13 mg/dL Normal 7-18 [facility] Comment on above: Performed By: #### L 500.4050, L100.0100, L501.2450 #### [facility] [address] [place], [address] Discharge Instructionon 12-0 7-2024 Discharge Instruction [facility] Medical Records Department [address] [place] [address] Instructions for Home/Discharge Instructions 10/14/24 1603 MR#: [id number] Acct: [id number] Name: DANG PRITCHETT Rep #: [id number] : 1985 39 From: Shireen Matamoros MD PCP: MYRA ELIZONDO NP-C Status:ADM BALA Discharge Instructions Diet Discharge Diet: Light diet - advance as tolerated Activity Discharge Activity: May Not Drive (while taking narcotic pain medications.) May shower in (days): 1 Lifting Restrictions: no lifting >20 lbs x 2 wks, no strenuous exercise for 4 wks Dressing / Incision Call your doctor if your incision/area has: Continuous Slow Oozing, Sudden Increased Bleeding, Increased Pain/ Swelling, Increased Redness, Foul Smelling Discharge and Swelling at the incision site Call your doctor if you observe: Fever of 101 or Higher Remove Dressing in: 2 days Cleanse incision/area with: Soap Water Additional Dressing/Incision Instructions:: Steri-Strips will fall off in 7 to 10 days, if they do not fall off okay to remove after 10 days. Follow Up Care Please Follow Up With: Shireen Matamoros MD When: Call the office for a follow-up appointment 2 weeks; after 5 PM and on the weekends call [phone] with any concerns. Test Results: Test results from this visit will be discussed in further detail at your follow-up appointment, if applicable. Discharge Plan Admission Admit Date/Time: 10/14/24 08:24 Attending Provider: Shireen Matamoros Primary Care Provider: MYRA ELIZONDO Instructions Additional Instructions / Restrictions: Okay to take ibuprofen 400-600 mg PO q6hr PRN and Tylenol 650 to 1000 mg p.o. every 6 hours as needed along with the oxycodone. Take all pain meds with food. Oxycodone can cause constipation recommend taking daily stool softener (i.e. Colace/docusate) while taking the pain meds. Recommend starting some MiraLAX in 1 to 2 days if no bowel movement. If still no bowel movement the following day recommend taking additional MiraLAX versus magnesium citrate half the bottle and waiting 4-6 hours if still no results take the other half the bottle. Discharge Orders/Prescriptions Prescriptions: New oxycodone 5 mg capsule 5 mg PO Q6H PRN (Reason: pain) 3 Days Qty: 10 0RF Continued levothyroxine 175 MCG tablet 175 mcg PO DAILY naproxen 500 mg tablet 500 mg PO BID PRN (Reason: back pain) cyclobenzaprine 5 mg tablet 5 mg PO QHS PRN PRN (Reason: muscle spasms) levothyroxine 150 mcg tablet 150 mcg PO DAILY Rx Instructions: 1/2 tab on Sundays Referrals / Follow Up: MYRA ELIZONDO NP-C [Primary Care Provider] - Disposition Disposition (needs filled in before D/C Order can be placed): Home, Self Care 10/14/24 1607 Shireen Matamoros MD CC: FAHAD ELIZONDO Signed Normal [facility] Emergency Department Summary on 10-14-2024 Emergency Department Summary [facility] Medical Records Department [address] [place] [address] Emergency Department Summary 10/14/24 MR#: [id number] Acct: [id number] Name: DANG PRITCHETT Rep #: [id number] : 1985 39 From: Huang Herbert MD PCP: FAHAD ABLL Status:REG ER Location: ED HPI HPI - GI History of Present Illness Chief Complaint: Abd Pain Narrative Narrative: 39-year-old female presents with right upper quadrant abdominal pain, nausea and vomiting that she has had for the last week and a half. She describes it both as dull and achy, and sometimes sharp and stabbing. She states it started in her back originally, but now has moved towards the front. She denies any fevers but states she has had chills intermittently. In the last 24 hours she has been having vomiting. She states food can make it worse but sometimes she has decreased appetite and does not want to eat because it causes her pain as well. She denies any dysuria or hematuria, no other exacerbating or alleviating factors. Last menstrual period 2 days ago. [facility] Medical History Hypothyroidism Home Medications ???Medication ???Instructions ???Recorded ???Last Taken ???Type levothyroxine 175 mcg tablet 175 mcg PO DAILY 12/01/15 Unknown History cyclobenzaprine 5 mg tablet 5 mg PO QHS PRN PRN muscle spasms 10/14/24 Unknown History naproxen 500 mg tablet 500 mg PO BID 10/14/24 Unknown History Allergy/AdvReac Type Severity Reaction Status Date / Time latex Allergy Rash Verified 10/14/24 02:16 Social History Smoking Status: Never smoker ROS ROS ED ROS Narrative Constitutional: No fever, positive chills. HEENT: No sore throat. No neck pain. No loss of vision. No rhinorrhea. Cardiovascular: No chest pain. No palpitations. No pedal edema. Respiratory: No cough, no shortness of breath. Abdominal: Right upper quadrant to right sided abdominal pain. Positive nausea and vomiting. No hematemesis. Genitourinary: No dysuria. No hematuria. Musculoskeletal: No myalgias. No arthralgias. Neurologic: No headaches. No dizziness. No lightheadedness. Skin: No rash. No change in color. EXAM Physical Exam Narrative Exam Narrative: Afebrile. Vital signs noted. Nontoxic-appearing. Cardiovascular examination reveals a regular rate and rhythm. Lungs are clear to auscultation bilaterally. Abdomen is soft, with positive tenderness to palpation in epigastrium and right upper quadrant. Questionable Coates sign. Neurological examination is nonfocal and nonlateralizing. Const Vital Signs: 10/14/24 02:14 10/14/24 04:14 Temperature 98.5 F Temperature Source Oral Pulse Rate 90 83 Respiratory Rate 18 18 Blood Pressure 133/83 H 123/77 H Blood Pressure Mean 99 92 Pulse Ox 98 98 Oxygen Delivery Method Room Air Room Air MDM MDM MDM Narrative Medical decision making narrative: Differential diagnosis includes but not limited to cholecystitis versus choledocholithiasis versus pancreatitis. I have low suspicion for ureterolithiasis or diverticulitis because the history and physical does not support this. I do feel that she requires CT imaging as ultrasound is unavailable at this time. She was administered morphine and ondansetron for analgesia. Laboratory work will be checked in the form of CBC, CMP, lipase, urinalysis, and serum . I reviewed her laboratory work and she has normal white count of 10.6, hemoglobin 10.3 with hematocrit 31.8. Potassium slightly low at 3.2 with BUN of 13 and creatinine 0.74, glucose 88 and anion gap normal at 5. AST and ALT are normal. Alk phos slightly elevated at 118. Total bilirubin normal at 0.40. Lipase normal at 20. Serum is negative. Urinalysis obtained and is negative for any infection or blood. Repeat examination shows she still having right upper quadrant pain. I reviewed the radiology report of the CT of the abdomen and pelvis with IV contrast. The gallbladder is distended with edema of the wall. There is mild pericholecystic fluid suggested. There is a possible small stone in the gallbladder neck. Patient was given additional dose of morphine and started on Zosyn with the suspicion of acute cholecystitis. As ultrasound is currently unavailable at this hour, I will discuss patient with Dr. Matamoros to see if she prefers admission and inpatient ultrasound versus her waiting here in the emergency department for ultrasound and reconsultation. Patient is in stable condition. In discussion with Dr. Matamoros, she prefers that ultrasound be obtained when they come in in the morning, few hours from now. Patient will be signed out to the oncoming physician to check the results and reconsult her. Disposition is pending. Patient is i (more content not included)... Normal [facility] Gallbladderon 10-14-[address] [facility] Imaging Services [address] [place], [place] [address] Gallbladder MR#: [id number] Acct: [id number] Name: DANG PRITCHETT Rep #: [id number] : 1985 F 39 From: Minesh Jackman MD PCP: MYRA ELIZONDO, SPECIAL EDUCATION PARAPROFESSIONAL-C Status: REG ER Study: Gallbladder Date of Exam: 10/14/24 Exam# [id number] Ordering Dr: Huang Herbert MD [id number] EXAM: US ABDOMEN LIMITED, RIGHT UPPER QUADRANT CLINICAL INDICATION: Right upper quadrant pain TECHNIQUE: Real-time ultrasound of the right upper quadrant with image documentation. COMPARISON: No relevant prior studies available. FINDINGS: LIVER: Increased echogenicity of the hepatic parenchyma, with hepatomegaly. No intrahepatic biliary ductal dilation. GALLBLADDER: The gallbladder is distended over 11 cm in length,, with positive sonographic Coates''s sign and sludge in the lumen. No shadowing stones identified. Mild prominence of the gallbladder wall measuring 3.5 mm. No pericholecystic fluid. COMMON BILE DUCT: 4.1 mm. The proximal common bile duct is within normal limits for the patient''s age. PANCREAS: The pancreas is obscured by bowel gas. RIGHT KIDNEY: Unremarkable. There is no hydronephrosis. No shadowing calculus. No focal lesion or perinephric collection is demonstrated. US/Gallbladder IMPRESSION: The gallbladder is distended over 11 cm in length, with a positive sonographic Coates''s sign and sludge in the lumen. No shadowing stones identified. Findings are concerning for acute acalculous cholecystitis. Electronically Signed: Minesh Jackman MD at 7:57 EST , CC: FAHAD ELIZONDO; Dr. Huang Herbert MD Salesperson Stereo Equipment: Signed Normal [facility] H AND P Exam - Surgicalon H&P Exam - Surgical [facility] Medical Records Department [address] [place] [address] H P Exam - Surgical 10/14/24 0828 MR#: [id number] Acct: [id number] Name: DANG PRITCHETT Rep #: [id number] : 1985 39 From: Shireen Matamoros MD PCP: FAHAD BALL Status:ADM BALA Location: [facility] [id number] HPI - General General Date of Admission: 10/14/24 HPI Narrative DANG PRITCHETT, is a 39 F who presents due to right upper quadrant to back pain. Patient states been having this pain for about a week with nausea and vomiting has not really been able to keep food down. Patient states it did get worse 2 days ago. Patient denies any previous abdominal surgeries. Patient's CAT scan showed distended gallbladder questionable stone in the neck of the gallbladder. Patient's ultrasound showed distended gallbladder with sludge and positive Coates sign consistent with acute cholecystitis. Patient's white blood count was 10.6 with slight left shift patient was given Zosyn IV in the ER. Patient did have a potassium of 3.2 and is getting potassium IV. [facility] Medical History (Updated 10/14/24 @ 09:22 by Meri Soliz) Pilonidal cyst Back pain due to injury Hypothyroidism Home Medications ???Medication ???Instructions ???Recorded ???Last Taken ???Type levothyroxine 175 mcg tablet 175 mcg PO DAILY 12/01/15 10/13/24 History cyclobenzaprine 5 mg tablet 5 mg PO QHS PRN PRN muscle spasms 10/14/24 Unknown History levothyroxine 150 mcg tablet 150 mcg PO DAILY 10/14/24 10/13/24 History naproxen 500 mg tablet 500 mg PO BID PRN back pain 10/14/24 Unknown History Allergy/AdvReac Type Severity Reaction Status Date / Time latex Allergy Rash Verified 10/14/24 02:16 Social History Smoking Status: Never smoker Vital Signs Vital Signs Vital Signs: 10/14/24 02:14 10/14/24 04:14 10/14/24 06:00 Temperature 98.5 F Temperature Source Oral Pulse Rate 90 83 84 Respiratory Rate 18 18 18 Blood Pressure 133/83 H 123/77 H 118/68 Blood Pressure Mean 99 92 84 Pulse Ox 98 98 97 Oxygen Delivery Method Room Air Room Air Room Air 10/14/24 08:00 Temperature Temperature Source Pulse Rate 80 Respiratory Rate 14 Blood Pressure 126/74 H Blood Pressure Mean 91 Pulse Ox 97 Oxygen Delivery Method Room Air Weight Weight: 251 lb 15.814 oz Body Mass Index (BMI) 41.9 Physical Exam Const alert, oriented x3 and no apparent distress HEENT normocephalic and head/scalp atraumatic Resp normal respiratory effort Cardio regular rate GI soft to palpation; Negative for non-distended Palpation: tender RUQ and Coates's sign; Negative for guarding Extremity no clubbing, cyanosis or edema Neuro CN's II-XII intact bilaterally Psych mental status grossly normal Results Lab / Micro Data 10/14/24 02:19 10/14/24 02:19 Labs: Laboratory Results - last 24 hr 10/14/24 02:19: WBC 10.6, RBC 3.69 L, Hgb 10.3 L, Hct 31.8 L, MCV 86.2, MCH 27.9, MCHC 32.4, RDW Std Deviation 45.0 H, RDW Coeff of Neel 14.1, Plt Count 357, MPV 10.2, Immature Gran % (Auto) 0.300, Neut % (Auto) 71.7 H, Lymph % (Auto) 18.6 L, [place] % (Auto) 6.4, Eos % (Auto) 2.5, Baso % (Auto) 0.5, Absolute Neuts (auto) 7.6, Absolute Lymphs (auto) 1.98, Nucleated RBC % 0, Sodium 136, Potassium 3.2 L, Chloride 105, Carbon Dioxide 26.0, Anion Gap 5, BUN 13, Creatinine 0.74, Estim Creat Clear Calc 128.78, Est GFR (MDRD) Af Amer 113, Est GFR (MDRD) Non-Af 93, BUN/Creatinine Ratio 17.6, Glucose 88, Calcium 9.3, Total Bilirubin 0.40, AST 26, ALT 43, Alkaline Phosphatase 118 H, Total Protein 8.6 H, Albumin 3.4, Globulin 5.2 H, Albumin/Globulin Ratio 0.7 L, Lipase 20 10/14/24 02:43: Serum , Qual NEGATIVE 10/14/24 02:44: Urine Color Yellow, Urine Clarity Sl. Cloudy, Urine pH 7.0, Ur Specific [place] 1.010, Urine Protein 15 H, Urine Glucose (UA) Normal, Urine Ketones Negative, Urine Occult Blood Negative, Urine Nitrite Negative, Urine Bilirubin Negative, Urine Urobilinogen 4 H, Ur Leukocyte Esterase 25 H, Urine RBC 0 SEEN, Urine WBC 0 SEEN, Ur Squamous Epith Cells 0-5 SEEN, Urine Bacteria 2+, Urine Mucus 0 SEEN Imaging Radiology Impression Abdomen/Pelvis CT 10/14/24 02:31 IMPRESSION: The gallbladder is distended with some edema of the wall. Small amount of pericholecystic fluid suggested. Possible small stone in the gallbladder neck. Findings are concerning for acute cholecystitis. Electronically Signed: Minesh Jackman MD at 4:05 EST , Gallbladder Ultrasound 10/14/24 04:20 IMPRESSION: The gallbladder is distended over 11 cm in length, with a positive sonographic Coates''s sign a (more content not included)... Normal [facility] Lipaseon 10-14-2024 Lipase [Catalytic activity/Vol] 20 U/L Normal 13-75 [facility] Comment on above: Result Comment: Martita colvin note: LIPASE revised reference range effective 23. New Lipase methodology. Expected to produce lower values than the previous assay method. NEW Reference Range: 13 - 75 U/L Performed By: #### L 500.4050, L100.0100, L501.2450 #### [facility] Laboratory [address] [place], [address] MR/POSTOP.ANEon 10-14-2024 MR/POSTOP.[facility] Medical Records Department [address] [place] [address] Anesthesia Postop Eval I 10/14/24 1615 MR#: [id number] Acct: [id number] Name: DANG PRITCHETT Rep #: [id number] : 1985 39 From: Saul Chapman MD PCP: MYRA ELIZONDO SPECIAL EDUCATION PARAPROFESSIONAL-C Status:ADM BALA Y Race: C Location: [place] [address] Anesthesia: Postop Eval I Current Vital Signs Temperature: 97.4 F Pulse Rate: 92 Blood Pressure: 115/68 Respiratory Rate: 18 Pulse Ox: 92 Oxygen Delivery Method: Nasal Cannula Oxygen Flow Rate (L/min): 2 Assessment Airway patent: Yes Spontaneous unlabored respirations: Yes nausea: No Vomiting: No Anesthesia Complication: No Fluid Hydration Crystalloid volume administer (ml): 900 Total IV fluid infused: 900 Progress Note Anesthesia document: Postop Eval 1 completed: Yes 10/14/24 1616 Date Saul Chapman MD Cosigner Signature: Date CC: Signed Normal [facility] MR/[id number] 10-14-2024 MR/POSTOPAN2 [facility] Medical Records Department [address] [place] [address] Anesthesia Postop Eval II 10/14/24 1616 MR#: [id number] Acct: [id number] Name: DANG PRITHCETT Rep #: [id number] : 1985 39 From: Saul Chapman MD PCP: MYRA ELIZONDO, SPECIAL EDUCATION PARAPROFESSIONAL-C Status:ADM BALA Y Race: C Location: [place] [address] Anesthesia Postop Eval I Sum Postop Eval Completion status Anesthesia document: Postop Eval 1 completed: Yes Anesthesia Postop Eval I Summary Anesthesia Postop Eval I Summary: Anesthesia Postop Eval I: Assessment Summary Airway patent Yes 10/14/24 16:16 Spontaneous unlabored Yes 10/14/24 16:16 respirations Mental status nausea No 10/14/24 16:16 Vomiting No 10/14/24 16:16 Anesthesia Postop Eval I: Fluid Summary Crystalloid volume administer 900 10/14/24 16:16 (ml) Colloids volume administered ( ml) Blood Product volume administered (ml) Total IV fluid infused 900 10/14/24 16:16 Anesthesia Postop Eval I: Summary Notes Anesthesia Complication No 10/14/24 16:16 Anesthesia Complication Comment: Post-operative progress note Anesthesia: Postop Eval II Evaluation Mental status: Awake Pain Level: 1 nausea: No Vomiting: No 10/14/24 1616 Date Saul Chapman MD Cosigner Signature: Date CC: Signed Normal [facility] Operative Reporton 4 Operative Report [facility] Medical Records Department [address] [place] [address] Operative Report 10/14/24 1554 MR#: [id number] Acct: [id number] Name: DANG PRITCHETT Rep #: [id number] : 1985 39 From: Shireen Matamoros MD PCP: MYRA ELIZONDO, SPECIAL EDUCATION PARAPROFESSIONAL-C Status:ADM BALA Location: [place] [address] Operative Report (Standard) Operative Information Date of Procedure: 10/14/24 Pre-Operative Diagnosis: Acute cholecystitis Post-Operative Diagnosis: Same Surgery/Procedure Performed: Laparoscopic cholecystectomy with cholangiograms automatic punch press operator: Yes Digital Associate: Tani Sheffield Tasks completed by customer relations assistant: Opening closing and Retracting Type of Anesthesia: General/Supplemental RN Documented Start/Stop Times: Operation Date: 10/14/24 13:20 Case Time Anesthesia Start 10/14/24 14:03 Into Room 10/14/24 14:03 Procedure Start 10/14/24 14:23 Procedure End 10/14/24 16:05 Procedure Start Time: 14:23 Procedure Stop Time: 16:05 Select all DRAINS/GRAFTS/IMPLANTS that apply: None Special Medications: Zosyn 3.375 g IV every 8 hours for acute cholecystitis Estimated Blood Loss: 15 cc Specimen collected: Yes Description of specimen(s) removed: Gallbladder Description of surgery: Indications: this is a 39 year-old female who developed abdominal pain/nausea/vomiting and on workup was found to have acute cholecystitis, with a normal common bile duct. Laparoscopic cholecystectomy was elected. Description procedure: The patient was placed on operating table in supine position. A timeout was completed verifying correct patient, procedure, site, position and special equipment prior to beginning procedure. General Anesthesia was induced. The abdomen was prepped and draped in usual sterile fashion. An incision was made in the natural skin line above the umbilicus. The fascia was elevated and incised. The peritoneum was elevated and incised. Entry into the peritoneum was confirmed visually and no bowel was noted in the vicinity of the incision. Fox trocar was placed. The abdomen was insufflated with carbon dioxide to a pressure of 12-15 mmHg. Patient tolerated insufflation well. The laparoscope was then inserted and abdomen inspected. No injuries from initial trocar placement were noted. Additional trochars were then inserted in the following locations 5 mm trocar in the epigastrium and 2 more 5 mm trochars along the right costal margin. The abdomen was inspected no abnormalities were found other than distended/firm gallbladder. Aspiration needle was used to decompress the gallbladder. The table is placed in reverse Trendelenburg position with the right side up. The dome of the gallbladder was grasped with atraumatic grasper passed through the lateral port and retracted over the dome of the liver. Infundibulum was then grasped with atraumatic grasper through the midclavicular port and retracted to the right lower quadrant. This maneuver exposed Calot's triangle. The peritoneum overlying the gallbladder infundibulum was then incised and cystic duct and artery identified and circumferentially dissected. Bess catheter was used for cholangiograms. The cholangiogram showed good filling of the common bile duct into the duodenum with no filling defects, good filling of the right and left bile ducts as well. The cystic duct and artery were then doubly clipped and divided close to the gallbladder. The gallbladder then dissected from its peritoneal attachments by electrocautery. Hemostasis was checked and the gallbladder and contained stones were removed using the endoscopic retrieval bag through the umbilical port. The gallbladder is passed off table as specimen. The gallbladder fossa was irrigated with saline and hemostasis obtained. There is no evidence of bleeding from the gallbladder fossa or cystic artery leakage of bile from the cystic duct stump. Secondary trochars removed under direct vision. No bleeding was noted the trocar sites. The laparoscope was withdrawn and umbilical trocar removed. The abdomen was allowed to collapse. The fascia of the 12 mm trocar was closed with a [id number] 0 Vicryl suture. The skin was closed with sutures of 4-0 Monocryl and Steri-Strips. The patient was extubated. The patient tolerated procedure well and was taken to the postanesthesia care unit in stable condition. Surgical Findings: Acute cholecystitis, normal cholangiograms Complications Complications: No 10/14/241812 Cosigner Signature (if applicable): CC: FAHAD ELIZONDO; Dr. Shireen Matamoros MD Signed Normal [facility] ,Serum,hCG Quali.on 10-14-2024 HCG, SERUM QUAL Negative Normal [facility] Comment on above: Performed By: #### L 700.6800 #### [facility] Laboratory [address] [place], [place], [address] Surgery Specimen Level IIIon 10-14-2024 Surgery Specimen Level III Patient Age/Sex Location Account Attending Physician DANG PRITCHETT 39/F MS3 [id number] Dr. Shireen Matamoros MD Specimen: [id number] Received: 10/16/24 Status: RANDY Snow Num: [id number] Spec Type: LYNDA Coyle Dr: Dr. Shireen Matamoros MD HEADER OPERATION: Laparoscopic cholecystectomy with IOC PRE-OP DIAGNOSIS: Acute cholecystitis TISSUE SUBMITTED: Gallbladder MICROSCOPIC DIAGNOSIS Gallbladder, cholecystectomy: Acute and chronic cholecystitis and cholelithiasis. AM. 10/17/2024 MICROSCOPIC DESCRIPTION Slides are reviewed. GROSS DESCRIPTION Received is one container labeled with the patient's name and designated gallbladder. The specimen consists of a gallbladder measuring 11.5 x 4.0 x 2.8 cm. The external surface is smooth and glistening. Focally, it is granular, hemorrhagic and contains cautery artifact. The lumen of the gallbladder contains yellow-green mucoid bile and a single ovoid dark justice-black calculi ranging in size from 1.5 cm in diameter. The mucosa is bile-stained and without any mass lesions. The gallbladder wall averages 0.6 cm in thickness and is free of mass lesions. [employer] Director sections of the gallbladder and the cystic duct at margin of resection are submitted in one cassette. / AM: 10/16/2024 TC:2 CPT: 47962 Patient Age/Sex Location Account Attending Physician DANG PRITCHETT 39/F MS3 [id number] Dr. Shireen Matamoros MD Signed (signature on file) Dr. Luis Enrique Jane DO 10/17/[address] [facility] Comment on above: Performed By: #### P SUIII #### [facility] Laboratory [address] [place], [address] Urinalysis, Completeon 10-14 BACTERIA 2+ /hpf Normal None Seen [facility] Comment on above: Order Comment: CLEAN CATCH Performed By: #### L 400.0001 #### [facility] Laboratory [address] [place], [address] EPI,SQUAMOUS 0-5 SEEN Normal 5-10 [facility] Comment on above: Order Comment: CLEAN CATCH Performed By: #### L 400.0001 #### [facility] Laboratory [address] [place], [address] Mucus Ql (Urine sed) 0 SEEN Normal [facility] Comment on above: Order Comment: CLEAN CATCH Performed By: #### L 400.0001 #### [facility] Laboratory [address] [place], [address] RBC 0 SEEN Normal 0-5 [facility] Comment on above: Order Comment: CLEAN CATCH Performed By: #### L 400.0001 #### [facility] Laboratory [address] [place], [address] WBC 0 SEEN Normal 0-5 [facility] Comment on above: Order Comment: CLEAN CATCH Performed By: #### L 400.0001 #### [facility] Laboratory [address] [place], [address] CNOVon 07-26-2024 CNOV Office Visit (INTMWS ) -------- DANG PRITCHETT ([id number]) 1985 F Date Time Provider Department 07/26/24 9:40 AM MYRA ELIZONDO INTKARL During your visit today, we recorded the following information about you: Pulse Respiration Blood pressure Weight 84/minute 16/minute 128/74 114.2 kg Myra Elizondo APRN.MOSS GATHERER 07/26/2024 10:15 AM Signed CC: Patient presents with: Physical: Annual Physical HPI Dang Pritchett is a 39 year old female who presents today for annual physical exam. Exercise: denies regular aerobic exercise but walks a large amount at work and lifting. Diet: Watches diet for salt (salty snacks, added salt, processed frozen/canned foods), sugary/sweet snacks, unhealthy fats: most of the time. Caffeine: 2-3 Water intake: drinks large amount of flavored water. 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 Denies loss of bowel/bladder control, weakness, numbness, or falls. No symptoms or concerns today but needs refill on naproxen Hypothyroidism: Takes medication as ordered. Denies abnormal change in weight or energy. REVIEW OF SYSTEMS General: no fevers, no chills, no night sweats, no recurrent infections, no change in appetite, no change in energy, and no significant changes in weight Respiratory: no cough, no wheezing, no shortness of breath, no hemoptysis Cardiovascular: no chest pain, no chest pressure, no palpitations, and no swelling GI: No nausea, vomiting, or diarrhea : No history of dysuria, frequency or incontinence Endocrine: no fatigue, no polyuria, no polyphagia, and no polydipsia Neurologic: No headache, weakness, numbness, tingling, dizziness, memory loss, syncope. PAST MEDICAL HISTORY Diagnosis Date Mild or unspecified pre-eclampsia, unspecified as to episode of care Pre-ecclampsia,mild Unspecified hypothyroidism Hypothyroidism PAST SURGICAL HISTORY Procedure Laterality Date EXCISION PILONIDAL CYST/SINUS SIMPLE 06/01/2002 ALLERGIES Latex and Influenza Virus Vaccine 2013- (18 Yrs-64 Yrs) MEDICATIONS naproxen (NAPROSYN) 500 mg tablet Take 1 tablet by mouth two times a day as needed (for pain/inflammation). Take with food. cyclobenzaprine (FLEXERIL) 5 mg tablet Take 1 tablet by mouth at bedtime as needed for muscle spasm. albuterol HFA (VENTOLIN HFA) 90 mcg/actuation inhaler Inhale 2 Puffs as instructed every 4 hours as needed for wheezing/shortness of breath. levothyroxine (LEVOXYL) 150 mcg tablet Take one tablet every day except only 1/2 tablet on Sundays. For thyroid. Take on an empty stomach FAMILY HISTORY Problem Relation Age of Onset Hypertension Father Lipids Father Diabetes Father Diabetes Maternal Grandmother Cancer Maternal Grandmother CERVICAL CANCER Cancer Maternal Grandfather kidney ca. Cancer Maternal Aunt CERVICAL CANCER Social History Tobacco Use Smoking status: Never Smokeless tobacco: Never Vaping Use Vaping status: Never Used Substance Use Topics Alcohol use: No Drug use: No PHYSICAL EXAM BP 128/74 Pulse 84 Resp 16 Wt 114.2 kg (251 lb 12.3 oz) LMP 11/29/2019 (Approximate) SpO2 96% BMI 41.95 kg/m? General Appearance: well appearing, in no acute distress, alert Pysch: mood and affect broad and appropriate Eyes: conjunctiva pink and moist, no icterus, sclera white, non-injected Neck: Thyroid normal size and symmetric without palpable nodules, Neck supple, No adenopathy Lymph nodes: No cervical lymphadenopathy and No supraclavicular lymphadenopathy Lungs: Lungs clear to auscultation. No wheezing, rhonchi, rales. Heart: RRR without murmur, gallop, or rubs. No ectopy Abdomen: Abdomen soft, non-tender. Bowel sounds normal. No masses, organomegaly Neurological: Gait normal. Reflexes normal and symmetric. Sensation grossly intact. Cervical Cancer Screening due on 09/05/2020 Influenza Vaccine(1) due on 05/07/2025 Hepatitis B Vaccine(1 of 3 - 19+ 3-dose series) due on 07/26/2025 Annual PCP Team Chronic Disease Visit due on 07/26/2025 DTaP,Tdap,Td Vaccine(2 - Td or Tdap) due on 09/05/2025 Hepatitis C Screening Completed HIV Screening Completed HPV Vaccine Aged Out Covid-19 Vaccine Discontinued ASSESSMENT/PLAN: 1. Annual physical exam - ICD9: V70.0, ICD10: Z00.00 (primary diagnosis) - Counseled on healthy diet and regular exercise - Discussed need and benefit for weight loss. BMI 41.95 kg/(m2) - Follow up for annual exam in one year - patient with outstanding medical bills and unable to afford further lab work at this time. Blood work set for in 6 months and number for executive vice president and chief financial officer provided. - LIPID PANEL BASIC - COMPREHENSIVE METABOLIC PANEL - COMPLETE BLOOD COUNT 2. Hypothyroidism, acquired - ICD9: 244.9, ICD10: E03.9 - asymptomatic - Instructed patient on importance of taking on an empty s (more content not included)... Normal [facility] HbA1c (Bld)on 07-25-2024 Average glucose Estimated from glycated hemoglobin (Bld) [Mass/Vol] 103 mg/dL Normal [facility] Comment on above: Order Comment: Paoi men Type: BLOOD SPECIMENOrdering Facility: [facility] Address: [address] [place] [address] Result Comment: eAG: (Estimated average glucose) is a calculated value from HgbA1c and is sales representative graphic art of the average blood glucose level in the last 2-3 month period. Performed By: #### 5 5454-3 ####[facility] LABCLIA [id number] [facility] [id number] [address] [place] HbA1c (Bld) [Mass fraction] 5.2 % Normal 4.3-5.6 [facility] Comment on above: Order Comment: Paoi men Type: BLOOD SPECIMENOrdering Facility: [facility] Address: [address] [place] [address] Result Comment: Amer [place] Diabetes Association guidelines indicate that patients with HgbA1c in the range 5.7-6.4% are at increased risk for development of diabetes, and intervention by lifestyle modification may be beneficial. HgbA1c greater or equal to 6.5% is considered diagnostic of diabetes. Performed By: #### 5 5454-3 ####[facility] LABCLIA [id number] [place] [address] [place] TSH SerPl-aCncon 07-25-2024 TSH Qn 1.700 m[IU]/L Normal 0.270-4.200 [facility] Comment on above: Order Comment: Speci men Type: BLOOD SPECIMENOrdering Facility: [facility] Address: [address] [place] [address] Result Comment: If t he patient is , TSH reference range varies by gestational period: First Trimester (weeks 9-12): 0.180-2.990 mIU/L Second Trimester: 0.110-3.980 mIU/L Third Trimester: 0.480-4.710 mIU/L Celso Hardy et al. A Practical Approach for the Verifications and Determination of Site- and Trimester-Specific Reference Intervals for Thyroid Function tests in . Thyroid, 2019:29:3:412-420. Tyrell Davidson, et al. 2017 Guidelines of the [place] Thyroid Association for the Diagnosis and Management of Thyroid Disease during and the . Thyroid, 2017:27:3:315-389. Performed By: #### 3 016-3 ####[facility] LABIA [id number] [address] [place] CNOVon 05-29-2024 CNOV Office Visit (INTMWS ) -------- DANG PRITCHETT ([id number]) 1985 F Date Time Provider Department 05/29/24 3:00 PM JAIMEE WHITE INTMWS During your visit today, we recorded the following information about you: Pulse Blood pressure Weight 102/minute 118/78 116.4 kg Jaimee White, AGRICULTURAL TECHNICIAN.[facility] 05/29/2024 3:50 PM Signed CC: Patient presents with: Recheck: Ct scan done, lung nodules, pain in right side, started 2 days ago HPI Dang Pritchett is a 39 year old female who presents today for follow-up. Previous visits: 05/10- evaluated in [facility]. Chest x-ray showed cluster of nodular/cavitary nodules in the right upper lobe. Treated with Doxycycline, prednisone burst with taper, and Bromfed. 05/16- follow-up in primary care. Symptoms were not better and continued to have high fever up to 102. Repeat chest x-ray showed interval improvement in nodular opacities. She was treated with Zithromax for possible pneumonia and continued on Doxycycline. She was also given Robitussin with codeine cough syrup 05/23-reported worsening cough at follow-up and ongoing high fever up to 103 along with headache, wheezing, fatigue, lightheadedness and sore throat. CT chest revealed Innumerable bilateral nodules and most of the them are representing centrilobular nodules consistent with infectious etiology. She was prescribed Levaquin and prescribed albuterol. Today: Patient reports significant improvement in cough, very mild and non-productive. All other symptoms have resolved. Appetite and energy level improving. No fever in the past five days. She has mild diarrhea which she attributes to the antibiotics. She developed right sided rib pain a few days ago. Aggravated by movement, especially lifting her right arm overhead. Also worse with cough. Described as sharp. Alleviated by avoiding aggravating movements and ibuprofen. Review of Systems Constitutional: Negative for chills, diaphoresis, fatigue, fever and unexpected weight change. HENT: Negative for congestion, rhinorrhea, sinus pressure, sinus pain, sore throat and trouble swallowing. Respiratory: Negative for shortness of breath and wheezing. Cardiovascular: Negative for chest pain, palpitations and leg swelling. Gastrointestinal: Negative for abdominal pain, blood in stool, nausea and vomiting. Genitourinary: Negative for decreased urine volume, difficulty urinating, dysuria, frequency, hematuria and urgency. Neurological: Negative for dizziness, syncope, weakness and light-headedness. PAST MEDICAL HISTORY Diagnosis Date Mild or unspecified pre-eclampsia, unspecified as to episode of care Pre-ecclampsia,mild Unspecified hypothyroidism Hypothyroidism PAST SURGICAL HISTORY Procedure Laterality Date EXCISION PILONIDAL CYST/SINUS SIMPLE 06/01/2002 ALLERGIES Latex and Influenza Virus Vaccine Qs 2013- (18 Yrs-64 Yrs) MEDICATIONS levoFLOXacin (LEVAQUIN) 500 mg tablet Take 1 tablet by mouth once daily for 7 days. albuterol HFA (VENTOLIN HFA) 90 mcg/actuation inhaler Inhale 2 Puffs as instructed every 4 hours as needed for wheezing/shortness of breath. cyclobenzaprine (FLEXERIL) 5 mg tablet Take 1 tablet by mouth at bedtime as needed for muscle spasm. levothyroxine (LEVOXYL) 150 mcg tablet Take one tablet every day except only 1/2 tablet on Sundays. For thyroid. Take on an empty stomach FAMILY HISTORY Problem Relation Age of Onset Hypertension Father Lipids Father Diabetes Father Diabetes Maternal Grandmother Cancer Maternal Grandmother CERVICAL CANCER Cancer Maternal Grandfather kidney ca. Cancer Maternal Aunt CERVICAL CANCER Social History Tobacco Use Smoking status: Never Smokeless tobacco: Never Vaping Use Vaping Use: Never used Substance Use Topics Alcohol use: No Drug use: No BP 118/78 (BP Site: Left Arm) Pulse 102 Wt 116.4 kg (256 lb 11.2 oz) LMP 11/29/2019 (Approximate) SpO2 99% BMI 42.77 kg/m? Physical Exam Vitals reviewed. Constitutional: Appearance: Normal appearance. HENT: Head: Normocephalic and atraumatic. Nose: Nose normal. Mouth/Throat: Mouth: Mucous membranes are moist. Eyes: Conjunctiva/sclera: Conjunctivae normal. Cardiovascular: Rate and Rhythm: Normal rate and regular rhythm. Heart sounds: Normal heart sounds. No murmur heard. Pulmonary: Effort: Pulmonary effort is normal. Breath sounds: Normal breath sounds. No wheezing, rhonchi or rales. Chest: Abdominal: General: There is no distension. Tenderness: There is no abdominal tenderness. Lymphadenopathy: Cervical: No cervical adenopathy. Skin: General: Skin is warm and dry. Neurological: Mental Status: She is alert. DATA REVIEWED: Most recent CT scan chest and labs ASSESSMENT/PLAN: 1. Respiratory infection - ICD9: 519.8, ICD10: J98.8 (primary diagnosis) Symptoms and CT findings consistent with (more content not included)... Normal [facility] 05-24-2024 CNPN Telephone (INTMWS) -------- DANG PRITCHETT ([id number]) 1985 F Date Time Provider Department 05/24/24 JAIMEE WHITE INTMWS During your visit today, we recorded the following information about you: Jaimee White APRN.[employer] G[employer] 05/24/2024 7:28 AM Signed Please let the patient know the CT chest showed numerous small lung nodules which likely indicate infection. I am going to treat her with an antibiotic called Levaquin. For her cough and SOB I would like for her to start using an albuterol inhaler, prescription for this sent as well. She should follow-up in the office on Wednesday or sooner if her symptoms are worsening. Jaimee White APRN.Oriana Adler RN 05/24/2024 8:21 AM Signed Pt called and is notified of providers results and instructions. Pt voices understanding. Pt scheduled with Jaimee White SPECIAL EDUCATION PARAPROFESSIONAL on 05/29/24. Oriana Daniel RN Allergies As of Date: 05/24/2024 Noted Allergy Reaction LATEX 01/25/2007 4 - Hives INFLUENZA VIRUS VACCINE QS 2014-1*09/22/2016 9 - Itching Date Reviewed: 05/23/2024 Reviewed by: Jaimee White APRN.MOSS GATHERER - Fully Assessed Reason for Visit: Results [95] Order(s):levoFLOXacin (LEVAQUIN) 500 mg tabletTake 1 tablet by mouth once daily for 7 days.Disp: 7 tabletRfl: 0 albuterol HFA (VENTOLIN HFA) 90 mcg/actuation inhalerInhale 2 Puffs as instructed every 4 hours as needed for wheezing/shortness of breath.Disp: 1 EachRfl: 0 Prescriptions as of 05/24/2024 - levoFLOXacin (LEVAQUIN) 500 mg tablet Take 1 tablet by mouth once daily for 7 days. - albuterol HFA (VENTOLIN HFA) 90 mcg/actuation inhaler Inhale 2 Puffs as instructed every 4 hours as needed for wheezing/shortness of breath. - cyclobenzaprine (FLEXERIL) 5 mg tablet Take 1 tablet by mouth at bedtime as needed for muscle spasm. - levothyroxine (LEVOXYL) 150 mcg tablet Take one tablet every day except only 1/2 tablet on Sundays. For thyroid. Take on an empty stomach Problem List As Of Date 05/24/2024 Noted Resolved Hypothyroidism [E03.9] 01/16/2008 09/25/2016 Dysmenorrhea [N94.6] 08/13/2014 Hypothyroidism, acquired [E03.9] 09/25/2016 Obesity, Class III, BMI 40-49.9 (morbid obesity*02/02/2018 Anxiety and depression [F41.9, F32.A] 01/30/2022 Prescriptions ordered this encounter Disp Refills Start End LEVOFLOXACIN 500 MG TABLET 7 ta* 0 05/24/2024 05/31/2024 Route: ORAL Sig: Take 1 tablet by mouth once daily for 7 days. ALBUTEROL SULFATE HFA 90 MCG/ACTUATI* 1 Ea* 0 05/24/2024 Cmt: Generic or brand: dispense inhaler preferred by patient/insurance unless TIKA flag is selected. Route: INHALATION Sig: Inhale 2 Puffs as instructed every 4 hours as needed for wheezing/shortness of breath. Encounter Status:Closed by ORIANA DANIEL on 05/24/24 Normal [facility] Basic metabolic 2000 panelOr dered By: Valeria Murphy on 05-23-2024 Anion gap [Moles/Vol] 10 mmol/L 8 - 15 mmol/L [facility] Calcium [Mass/Vol] 9.3 mg/dL 8.5 - 10. 2 mg/dL [facility] Chloride [Moles/Vol] 103 mmol/L 98 - 10 7 mmol/L [facility] CO2 [Moles/Vol] 25 mmol/L 22 - 30 mmol/L [facility] Creatinine [Mass/Vol] 0.82 mg/dL 0.58 - 0.96 mg/dL [facility] GFR/1.73 sq M.predicted among non-blacks MDRD (S/P/Bld) [Vol rate/Area] 93 mL/min/{1.73_m2} - PINF [facility] Comment on above: Estimated Glomerular Filtration Rate (eGFR) is calculated using the 2020 CKD-EPI creatinine equation. This equation utilizes serum creatinine, sex, and age as parameters. The creatinine assay has traceable calibration to isotope dilution-mass spectrometry. Refer to KDIGO guidelines for clinical interpretation. In patients with unstable renal function, e.g. those with acute kidney injury, the eGFR may not accurately reflect actual GFR. Glucose [Mass/Vol] 89 mg/dL 74 - 99 mg/dL [facility] Comment on above: The [place] Diabete s Association (ADA) provides guidance for cutoff values for fasting glucose and random glucose. The ADA defines fasting as no caloric intake for at least 8 hours. Fasting plasma glucose results between 100 to 125 mg/dL indicate increased risk for diabetes (prediabetes). Fasting plasma glucose results greater than or equal to 126 mg/dL meet the criteria for diagnosis of diabetes. In the absence of unequivocal hyperglycemia, results should be confirmed by repeat testing. In a patient with classic symptoms of hyperglycemia or hyperglycemic crisis, random plasma glucose results greater than or equal to 200 mg/dL meet the criteria for diagnosis of diabetes. Reference: Standards of Medical Care in Diabetes 2016, [place] Diabetes Association. Diabetes Care. 2016.39(Suppl 1). Interpretation and review of laboratory results Abnormal [facility] Potassium [Moles/Vol] 3.6 mmol/L Low 3.7 - 5.1 mmol/L [facility] Sodium [Moles/Vol] 138 mmol/L 136 - 144 mmol/L [facility] Urea nitrogen [Mass/Vol] 16 mg/dL 7 - 21 mg/dL [facility] Basic metabolic 2000 panelon 05-23-2024 Anion gap [Moles/Vol] 10 mmol/L Normal 8-15 [facility] Comment on above: Order Comment: Speci men Type: BLOOD SPECIMENOrdering Facility: [facility] Address: [facility] [address] Performed By: #### 2 4321-2 ####[facility] MILLTOWNCLIA [id number] [place] [address] [place] Calcium [Mass/Vol] 9.3 mg/dL Normal 8.5-10.2 [facility] Comment on above: Order Comment: Speci men Type: BLOOD SPECIMENOrdering Facility: [facility] Address: [address] [place] [address] Performed By: #### 2 4321-2 ####[facility] MILLWNCLIA [id number] [place] [address] [place] Chloride [Moles/Vol] 103 mmol/L Normal 98-107 [facility] Comment on above: Order Comment: Speci men Type: BLOOD SPECIMENOrdering Facility: [facility] Address: [address] [place] [address] Performed By: #### 2 4321-2 ####[facility] [id number] [place] [address] [place] CO2 [Moles/Vol] 25 mmol/L Normal 22-30 [facility] Comment on above: Order Comment: Speci men Type: BLOOD SPECIMENOrdering Facility: [facility] Address: [address] [place] [address] Performed By: #### 2 4321-2 ####[facility] [id number] [place] [address] [place] Creatinine [Mass/Vol] 0.82 mg/dL Normal 0.58-0.96 [facility] Comment on above: Order Comment: Speci men Type: BLOOD SPECIMENOrdering Facility: [facility] Address: [address] [place] [address] Performed By: #### 2 4321-2 ####[facility] [id number] [place] [address] [place] Creatinine and Glomerular filtration rate.predicted panel (S/P/Bld) 93 mL/min/1.73m??? Normal >=60 [facility] Comment on above: Order Comment: Nadia rodríguez Type: BLOOD SPECIMENOrdering Facility: [facility] Address: [address] [place] [address] Result Comment: Liya mated Glomerular Filtration Rate (eGFR) is calculated using the 2020 CKD-EPI creatinine equation. This equation utilizes serum creatinine, sex, and age as parameters. The creatinine assay has traceable calibration to isotope dilution-mass spectrometry. Refer to KDIGO guidelines for clinical interpretation. In patients with unstable renal function, e.g. those with acute kidney injury, the eGFR may not accurately reflect actual GFR. Performed By: #### 2 4321-2 ####[facility] [id number] [place] [address] [place] Glucose [Mass/Vol] 89 mg/dL Normal 74-99 [facility] Comment on above: Order Comment: Nadia rodríguez Type: BLOOD SPECIMENOrdering Facility: [facility] Address: [address] [place] [address] Result Comment: The [place] Diabetes Association (ADA) provides guidance for cutoff values for fasting glucose and random glucose. The ADA defines fasting as no caloric intake for at least 8 hours. Fasting plasma glucose results between 100 to 125 mg/dL indicate increased risk for diabetes (prediabetes). Fasting plasma glucose results greater than or equal to 126 mg/dL meet the criteria for diagnosis of diabetes. In the absence of unequivocal hyperglycemia, results should be confirmed by repeat testing. In a patient with classic symptoms of hyperglycemia or hyperglycemic crisis, random plasma glucose results greater than or equal to 200 mg/dL meet the criteria for diagnosis of diabetes. Reference: Standards of Medical Care in Diabetes 2016, [place] Diabetes Association. Diabetes Care. 2016.39(Suppl 1). Performed By: #### 2 4321-2 ####[facility] [id number] [place] [address] [place] Potassium [Moles/Vol] 3.6 mmol/L Low 3.7-5.1 [facility] Comment on above: Order Comment: Speci men Type: BLOOD SPECIMENOrdering Facility: [facility] Address: [address] [place] [address] Performed By: #### 2 4321-2 ####[facility] [id number] [address] [place] Sodium [Moles/Vol] 138 mmol/L Normal 136-144 [facility] Comment on above: Order Comment: Speci men Type: BLOOD SPECIMENOrdering Facility: [facility] Address: [address] [place] [address] Performed By: #### 2 4321-2 ####[facility] [id number] [address] [place] Urea nitrogen [Mass/Vol] 16 mg/dL Normal 7-21 [facility] Comment on above: Order Comment: Speci men Type: BLOOD SPECIMENOrdering Facility: [facility] Address: [address] [place] [address] Performed By: #### 2 4321-2 ####[facility] [id number] [address] [place] CBC panel Auto (Bld)on 05-23 Erythrocyte distribution width (RBC) [Ratio] 14.1 % 11.5 - 15.0 % [facility] Hematocrit (Bld) [Volume fraction] 33.5 % Low 36.0 - 46.0 % [facility] Hemoglobin (Bld) [Mass/Vol] 10.9 g/dL Low 11.5 - 15.5 g/dL [facility] Interpretation and review of laboratory results Abnormal [facility] MCH (RBC) [Entitic mass] 28.5 pg 26.0 - 34.0 pg [facility] MCHC (RBC) [Mass/Vol] 32.5 g/dL 30.5 - 36.0 g/dL [facility] MCV (RBC) [Entitic vol] 87.5 fL 80.0 - 100.0 fL [facility] Nucleated RBC (Bld) [#/Vol] NINF [facility] Platelet mean volume (Bld) [Entitic vol] 10.0 fL 9.0 - 12.7 fL [facility] Platelets (Bld) [#/Vol] 377 10*3/uL [facility] RBC (Bld) [#/Vol] 3.83 10*6/uL Low 3.90 - 5.2 0 m/uL [facility] WBC (Bld) [#/Vol] 9.14 10*3/uL [facility] Erythrocyte distribution width (RBC) [Ratio] 14.1 % Normal 11.5-15.0 [facility] Comment on above: Order Comment: Speci men Type: BLOOD SPECIMENOrdering Facility: [facility] Address: [address] [place] [address] Performed By: #### 5 8410-2 ####[facility] [id number] [place] [address] [place] Hematocrit (Bld) [Volume fraction] 33.5 % Low 36.0-46.0 [facility] Comment on above: Order Comment: Speci men Type: BLOOD SPECIMENOrdering Facility: [facility] Address: [address] [place], [place] [address] Performed By: #### 5 8410-2 ####[facility] [id number] [place] [address] [place] Hemoglobin (Bld) [Mass/Vol] 10.9 g/dL Low 11.5-15.5 [facility] Comment on above: Order Comment: Speci men Type: BLOOD SPECIMENOrdering Facility: [facility] Address: [address] [id number] Performed By: #### 5 8410-2 ####[facility] [id number] [place] [address] [place] MCH (RBC) [Entitic mass] 28.5 pg Normal 26.0-34.0 [facility] Comment on above: Order Comment: Speci men Type: BLOOD SPECIMENOrdering Facility: [facility] Address: [address] [place] [address] Performed By: #### 5 8410-2 ####[facility] GAELGARRISON [id number] [address] MCHC (RBC) [Mass/Vol] 32.5 g/dL Normal 30.5-36.0 [facility] Comment on above: Order Comment: Speci men Type: BLOOD SPECIMENOrdering Facility: [facility] Address: [address] [place] [address] Performed By: #### 5 8410-2 ####[facility] [id number] [place] [address] [place] MCV (RBC) [Entitic vol] 87.5 fL Normal 80.0-100.0 [facility] Comment on above: Order Comment: Speci men Type: BLOOD SPECIMENOrdering Facility: [facility] Address: [address] [place] [address] Performed By: #### 5 8410-2 ####[facility] POINTManuel [id number] [place] [address] [place] Nucleated RBC (Bld) [#/Vol] 10*3/uL Normal <0.01 [facility] Comment on above: Order Comment: Speci men Type: BLOOD SPECIMENOrdering Facility: [facility] Address: [address] [place] [address] Performed By: #### 5 8410-2 ####[facility] [id number] [place] [address] [place] Platelet mean volume (Bld) [Entitic vol] 10.0 fL Normal 9.0-12.7 [facility] Comment on above: Order Comment: Speci men Type: BLOOD SPECIMENOrdering Facility: [facility] Address: [address] [place] [address] Performed By: #### 5 8410-2 ####[facility]ITALWNCLIA [id number] [place] [address] [place] Platelets (Bld) [#/Vol] 377 10*3/uL Normal 150-400 [facility] Comment on above: Order Comment: Speci men Type: BLOOD SPECIMENOrdering Facility: [facility] Address: [address] [place] [address] Performed By: #### 5 8410-2 ####[facility] [id number] [place] [address] [place] RBC (Bld) [#/Vol] 3.83 10*6/uL Low 3.90-5.20 [facility] Comment on above: Order Comment: Speci men Type: BLOOD SPECIMENOrdering Facility: [facility] Address: [address] [place] [address] Performed By: #### 5 8410-2 ####[facility] [id number] [place] [address] [place] WBC (Bld) [#/Vol] 9.14 10*3/uL Normal 3.70-11.00 [facility] Comment on above: Order Comment: Speci men Type: BLOOD SPECIMENOrdering Facility: [facility] Address: [address] [place] [address] Performed By: #### 5 8410-2 ####[facility] [id number] [place] [address] [place] CNOVon 05-23-2024 CNOV Office Visit (INTMWS ) -------- DANG [id number]) 1985 F Date Time Provider Department 05/23/24 10:00 AM JAIMEE WHITE INTMWS During your visit today, we recorded the following information about you: Pulse Respiration Blood pressure Weight 102/minute 20/minute 130/83 117.9 kg Jaimee White, AGRICULTURAL TECHNICIAN.MOSS GATHERER 05/23/2024 10:48 AM Signed CC: Patient presents with: 1 week follow up - cxr HPI Dang Pritchett is a 39 year old female who presents today for above. She developed a cough, fever, headache and sore throat about three weeks ago. 05/10- evaluated in [facility]. Chest x-ray showed cluster of nodular/cavitary nodules in the right upper lobe. Treated with Doxycycline, prednisone burst with taper, and Bromfed. 05/16- follow-up in primary care. Symptoms were not better and continued to have high fever up to 102. Repeat chest x-ray showed interval improvement in nodular opacities. She was treated with Zithromax for possible pneumonia and continued on Doxycycline. She was also given Robitussin with codeine cough syrup Today patient reports symptoms are worsening. Cough is still keeping her up at night. Coughs so hard she vomits and is incontinent of urine. She gets SOB with exertion and occasionally at rest. Last temp elevation was two days ago, 103 per patient. Also reports wheezing, fatigue, poor appetite, episodes of lightheadedness, headache, rib pain from coughing and sore throat. Denies chest pain, hemoptysis, palpitations, edema. Review of Systems See HPI PAST MEDICAL HISTORY Diagnosis Date Mild or unspecified pre-eclampsia, unspecified as to episode of care Pre-ecclampsia,mild Unspecified hypothyroidism Hypothyroidism PAST SURGICAL HISTORY Procedure Laterality Date EXCISION PILONIDAL CYST/SINUS SIMPLE 06/01/2002 ALLERGIES Latex and Influenza Virus Vaccine Qs 2013- (18 Yrs-64 Yrs) MEDICATIONS codeine-guaiFENesin (ROBITUSSIN AC) 10-100 mg/5 mL syrup Take 5 mL by mouth four times a day as needed for up to 7 days. cyclobenzaprine (FLEXERIL) 5 mg tablet Take 1 tablet by mouth at bedtime as needed for muscle spasm. levothyroxine (LEVOXYL) 150 mcg tablet Take one tablet every day except only 1/2 tablet on Sundays. For thyroid. Take on an empty stomach FAMILY HISTORY Problem Relation Age of Onset Hypertension Father Lipids Father Diabetes Father Diabetes Maternal Grandmother Cancer Maternal Grandmother CERVICAL CANCER Cancer Maternal Grandfather kidney ca. Cancer Maternal Aunt CERVICAL CANCER Social History Tobacco Use Smoking status: Never Smokeless tobacco: Never Vaping Use Vaping Use: Never used Substance Use Topics Alcohol use: No Drug use: No BP 130/83 Pulse 102 Resp 20 Wt 117.9 kg (260 lb) LMP 11/29/2019 (Approximate) SpO2 97% BMI 43.32 kg/m? Physical Exam Vitals reviewed. Constitutional: General: She is not in acute distress. Appearance: She is ill-appearing. She is not toxic-appearing. HENT: Right Ear: Tympanic membrane normal. Left Ear: Tympanic membrane normal. Nose: Right Sinus: No maxillary sinus tenderness or frontal sinus tenderness. Left Sinus: No maxillary sinus tenderness or frontal sinus tenderness. Mouth/Throat: Lips: [place]. Mouth: Mucous membranes are moist. Pharynx: Oropharynx is clear. Eyes: Conjunctiva/sclera: Conjunctivae normal. Cardiovascular: Rate and Rhythm: Normal rate and regular rhythm. Pulses: Normal pulses. Heart sounds: Normal heart sounds. No murmur heard. Pulmonary: Breath sounds: Decreased breath sounds (posterior lobes) and wheezing (scattered) present. No rhonchi or rales. Chest: Chest wall: Tenderness present. Musculoskeletal: Right lower leg: No edema. Left lower leg: No edema. Lymphadenopathy: Cervical: No cervical adenopathy. Skin: General: Skin is warm and dry. Neurological: Mental Status: She is alert. Psychiatric: Mood and Affect: Mood is anxious. Affect is tearful. Health maintenance reviewed with patient: Cervical Cancer Screening due on 09/05/2020 Hepatitis B Vaccine(1 of 3 - 19+ 3-dose series) due on 07/21/2024 Influenza Vaccine(1) due on 07/09/2024 Annual PCP Team Chronic Disease Visit due on 05/16/2025 DTaP,Tdap,Td Vaccine(2 - Td or Tdap) due on 09/05/2025 Hepatitis C Screening Completed HIV Screening Completed HPV Vaccine Aged Out Covid-19 Vaccine Discontinued DATA REVIEWED: Most recent imaging Clinically suspected DVT? (+3)= 0 Alternative diagnosis is less likely than PE (+3)?= 0 Heart Rate >100bpm? (+1.5)= 0 Immobilization/surgery in previous four weeks? 0 History of DVT or PE (1.5+)=0 Hemoptysis? (+1)=0 Malignancy (treatment for within 6 months, palliative +1)=0 TOTAL SCORE: 0 Interpretation: Traditional Score >6.0 - High (probability 59% based on pooled data) Score 2.0 to 6.0 - Moderate (probability 29% b (more content not included)... Normal [facility] CT CHEST WO IVCONon 05-23-[address] CHEST WO IVCON * * *Final Report* * * DATE OF EXAM: May 23 2024 3:52PM [facility] 0541 - CT CHEST WO IVCON / PROCEDURE REASON: multiple diagnoses * * * * Physician Interpretation * * * * EXAMINATION: CHEST CT WITHOUT CONTRAST CLINICAL HISTORY: Cough. Technique: Spiral CT acquisition of the chest from the thoracic inlet to the upper abdomen without contrast. MQ: CTCWO_6 CT Radiation dose: Integrated Dose-length product (DLP) for this visit = 590 mGy*cm CT Dose Reduction Employed: Automated exposure control(AEC) and iterative recon Comparison: None RESULT: Limitations: None. Lines, tubes, and devices: None. Lung parenchyma and airways: The central airways are patent. The bilateral lungs are remarkable for innumerable nodules; most of them are representing centrilobular nodules. There are questionable tree-in-bud opacities. No mass lesion or consolidation identified. Pleural space: No pleural effusion. No pleural thickening. Lower neck, lymph nodes, and mediastinum: The imaged thyroid gland is not identified. No lymphadenopathy in the supraclavicular, axillary, mediastinal, or hilar regions. Heart, pericardium, and thoracic vessels: The thoracic aorta and main pulmonary artery are normal in caliber. The cardiac chambers are normal in size. No coronary artery atherosclerotic calcifications are noted, although the study is not optimized for coronary assessment. No pericardial effusion or thickening. Bones and soft tissues: No destructive bone lesion. Chest wall soft tissue is unremarkable. Upper abdomen: No abnormality in the imaged upper abdomen. Localizer images: No additional findings. IMPRESSION: Innumerable bilateral nodules and most of the them are representing centrilobular nodules. The top differential consideration would be infectious etiology. Other consideration includes hypersensitivity pneumonitis, vasculitis, mucinous adenocarcinoma and hemorrhage. Salesperson Stereo Equipment: PSCB Transcribe Date/Time: May 23 2024 4:26P Dictated by : LUCIA VILLARREAL MD This examination was interpreted and the report reviewed and electronically signed by: LUCIA VILLARREAL MD on May 23 2024 4:38PM EST [id number] Normal [facility] CT Chest WO contraston 05-23 IMPRESSION: Innumerable bilateral nodules and most of the them are representing centrilobular nodules. The top differential consideration would be infectious etiology. Other consideration includes hypersensitivity pneumonitis, vasculitis, mucinous adenocarcinoma and hemorrhage. Salesperson Stereo Equipment: PSCB Transcribe Date/Time: May 23 2024 4:26P Dictated by : LUCIA VILLARREAL MD This examination was interpreted and the report reviewed and electronically signed by: LUCIA VILLARREAL MD on May 23 2024 4:38PM EST DIVISION OF RADIOLOGY * * *Final Report* * * DATE OF EXAM: May 23 2024 3:52PM [facility] 0541 - CT CHEST WO IVCON / PROCEDURE REASON: multiple diagnoses * * * * Physician Interpretation * * * * EXAMINATION: CHEST CT WITHOUT CONTRAST CLINICAL HISTORY: Cough. Technique: Spiral CT acquisition of the chest from the thoracic inlet to the upper abdomen without contrast. MQ: CTCWO_6 CT Radiation dose: Integrated Dose-length product (DLP) for this visit = 590 mGy*cm CT Dose Reduction Employed: Automated exposure control(AEC) and iterative recon Comparison: None RESULT: Limitations: None. Lines, tubes, and devices: None. Lung parenchyma and airways: The central airways are patent. The bilateral lungs are remarkable for innumerable nodules; most of them are representing centrilobular nodules. There are questionable tree-in-bud opacities. No mass lesion or consolidation identified. Pleural space: No pleural effusion. No pleural thickening. Lower neck, lymph nodes, and mediastinum: The imaged thyroid gland is not identified. No lymphadenopathy in the supraclavicular, axillary, mediastinal, or hilar regions. Heart, pericardium, and thoracic vessels: The thoracic aorta and main pulmonary artery are normal in caliber. The cardiac chambers are normal in size. No coronary artery atherosclerotic calcifications are noted, although the study is not optimized for coronary assessment. No pericardial effusion or thickening. Bones and soft tissues: No destructive bone lesion. Chest wall soft tissue is unremarkable. Upper abdomen: No abnormality in the imaged upper abdomen. Localizer images: No additional findings. DIVISION OF RADIOLOGY Provider, [facility] - 05/23/2024 * * *Final Report* * * DATE OF EXAM: May 23 2024 3:52PM [facility] 0541 - CT CHEST WO IVCON / PROCEDURE REASON: multiple diagnoses * * * * Physician Interpretation * * * * EXAMINATION: CHEST CT WITHOUT CONTRAST CLINICAL HISTORY: Cough. Technique: Spiral CT acquisition of the chest from the thoracic inlet to the upper abdomen without contrast. MQ: CTCWO_6 CT Radiation dose: Integrated Dose-length product (DLP) for this visit = 590 mGy*cm CT Dose Reduction Employed: Automated exposure control(AEC) and iterative recon Comparison: None RESULT: Limitations: None. Lines, tubes, and devices: None. Lung parenchyma and airways: The central airways are patent. The bilateral lungs are remarkable for innumerable nodules; most of them are representing centrilobular nodules. There are questionable tree-in-bud opacities. No mass lesion or consolidation identified. Pleural space: No pleural effusion. No pleural thickening. Lower neck, lymph nodes, and mediastinum: The imaged thyroid gland is not identified. No lymphadenopathy in the supraclavicular, axillary, mediastinal, or hilar regions. Heart, pericardium, and thoracic vessels: The thoracic aorta and main pulmonary artery are normal in caliber. The cardiac chambers are normal in size. No coronary artery atherosclerotic calcifications are noted, although the study is not optimized for coronary assessment. No pericardial effusion or thickening. Bones and soft tissues: No destructive bone lesion. Chest wall soft tissue is unremarkable. Upper abdomen: No abnormality in the imaged upper abdomen. Localizer images: No additional findings. IMPRESSION IMPRESSION: Innumerable bilateral nodules and most of the them are representing centrilobular nodules. The top differential consideration would be infectious etiology. Other consideration includes hypersensitivity pneumonitis, vasculitis, mucinous adenocarcinoma and hemorrhage. Salesperson Stereo Equipment: MARY Transcribe Date/Time: May 23 2024 4:26P Dictated by : LUCIA VILLARREAL MD This examination was interpreted and the report reviewed and electronically signed by: LUCIA VILLARREAL MD on May 23 2024 4:38PM EST [facility] [place] Radiology Study observation (narrative) [facility] [place] CT Chest WO contrastOrdered By: [facility] Provider on 05-23-2024 [facility] [place] CNOVon 05-16-2024 CNOV Office Visit (INTMWS ) -------- DANG PRITCHETT ([id number]) 1985 F Date Time Provider Department 05/16/24 10:00 AM JAIMEE WHITE INTMWS During your visit today, we recorded the following information about you: Temperature Pulse Respiration Blood pressure 98 degrees 91/minute 18/minute 128/78 Weight 118.4 kg Jaimee White, AGRICULTURAL TECHNICIAN.[facility] 05/16/2024 11:32 AM Addendum CC: Patient presents with: [facility] follow up HPI Dang Pritchett is a 39 year old female who presents today for above. Patient was seen in [facility] on 05/10 with one week history of cough, fever, headache and sore throat that continued to get worse. Chest x-ray revealed cluster of nodules/cavitary nodules in the right upper lung. She was prescribed prednisone, Doxycycline and Bromfed as needed. Today patient reports no improvement in symptoms. Cough is worse at times, non-productive and harsh. Interferes with sleep. Still has a fever with last temp elevation of 102.0 two days ago, otherwise no higher than 99.0. Also reports fatigue, malaise and sore throat. Denies wheezing, SOB, hemoptysis, facial pain or pressure, ear pain, post nasal drainage, runny nose or congestion. PMH is non-contributory. Denies history of asthma and no respiratory issues other than when she is sick. She has never smoked. Bromfed does not help with cough. She has two more days of Doxycycline left. Review of Systems Constitutional: Negative for diaphoresis and unexpected weight change. Cardiovascular: Negative for chest pain, palpitations and leg swelling. Hematological: Negative for adenopathy. Does not bruise/bleed easily. PAST MEDICAL HISTORY Diagnosis Date Mild or unspecified pre-eclampsia, unspecified as to episode of care Pre-ecclampsia,mild Unspecified hypothyroidism Hypothyroidism PAST SURGICAL HISTORY Procedure Laterality Date EXCISION PILONIDAL CYST/SINUS SIMPLE 06/01/2002 ALLERGIES Latex and Influenza Virus Vaccine Qs 2013- (18 Yrs-64 Yrs) MEDICATIONS Brompheniramine-Pseudoep h-DM (BROMFED DM) 2-30-10 mg/5 mL syrup Take 5 mL by mouth four times a day as needed. predniSONE (DELTASONE) 10 mg tablet Take 4 tabs daily for 3 days, then 2 tabs daily for 3 days, then 1 tab daily for 3 days with food. cyclobenzaprine (FLEXERIL) 5 mg tablet Take 1 tablet by mouth at bedtime as needed for muscle spasm. levothyroxine (LEVOXYL) 150 mcg tablet Take one tablet every day except only 1/2 tablet on Sundays. For thyroid. Take on an empty stomach benzonatate (TESSALON PERLES) 100 mg capsule Take 1 capsule by mouth three times a day as needed for up to 12 doses. (Patient not taking: Reported on 05/10/2024) Benzonatate 200 mg capsule Take 1 capsule by mouth three times a day as needed. (Patient not taking: Reported on 03/08/2024) FAMILY HISTORY Problem Relation Age of Onset Hypertension Father Lipids Father Diabetes Father Diabetes Maternal Grandmother Cancer Maternal Grandmother CERVICAL CANCER Cancer Maternal Grandfather kidney ca. Cancer Maternal Aunt CERVICAL CANCER Social History Tobacco Use Smoking status: Never Smokeless tobacco: Never Vaping Use Vaping Use: Never used Substance Use Topics Alcohol use: No Drug use: No BP 128/78 Pulse 91 Temp 36.7 ?C (98 ?F) (Temporal) Resp 18 Wt 118.4 kg (261 lb) LMP 11/29/2019 (Approximate) SpO2 98% BMI 43.48 kg/m? Physical Exam Vitals reviewed. Constitutional: General: She is not in acute distress. Appearance: She is ill-appearing. She is not toxic-appearing. HENT: Head: Normocephalic and atraumatic. Right Ear: Tympanic membrane normal. Left Ear: Tympanic membrane normal. Nose: Right Sinus: No maxillary sinus tenderness or frontal sinus tenderness. Left Sinus: No maxillary sinus tenderness or frontal sinus tenderness. Mouth/Throat: Lips: [place]. Mouth: Mucous membranes are moist. Pharynx: Oropharynx is clear. Eyes: Conjunctiva/sclera: Conjunctivae normal. Cardiovascular: Rate and Rhythm: Normal rate and regular rhythm. Heart sounds: Normal heart sounds. No murmur heard. Pulmonary: Effort: Pulmonary effort is normal. Breath sounds: Normal breath sounds and air entry. No wheezing, rhonchi or rales. Lymphadenopathy: Cervical: No cervical adenopathy. Upper Body: Right upper body: No supraclavicular adenopathy. Left upper body: No supraclavicular adenopathy. Skin: General: Skin is warm and dry. Neurological: Mental Status: She is alert. DATA REVIEWED: Most recent chest x-ray and labs ASSESSMENT/PLAN: 1. Acute cough - ICD9: 786.2, ICD10: R05.1 (primary diagnosis) Differentials include pneumonia, bronchitis, post infectious cough, seasonal/environmental allergies. Symptoms are not improving, worse at times. - repeat XR CHEST 2V FRONTAL/LAT today - CODEINE 10 MG-GUAIFENESIN 100 MG/5 ML ORAL LIQUID as needed for cough. Ca (more content not included)... Normal [facility] XR CHEST 2V FRONTAL/LATon XR CHEST 2V FRONTAL/LAT * * *Final Report* * * DATE OF EXAM: May 16 2024 10:23AM [facility] [id number] - XR CHEST 2V FRONTAL/LAT / PROCEDURE REASON: multiple diagnoses * * * * Physician Interpretation * * * * EXAMINATION: CHEST RADIOGRAPH (2 VIEW FRONTAL and LATERAL) CLINICAL HISTORY: Acute cough Fever, unspecified fever cause MQ: XC2_6 EXAM DATE/TIME: 05/16/2024 10:23 AM COMPARISON: Chest x-ray on 05/10/2024 RESULT: Lines, tubes, and devices: None. Lungs and pleura: Interval improvement of previously seen cluster of nodular opacities overlying the right upper lung. No new consolidations seen. No masses. No pleural effusions or pneumothorax. Cardiomediastinal silhouette: Normal cardiomediastinal silhouette. Bones and soft tissues: Unremarkable. IMPRESSION: Interval improvement of cluster of nodular opacities overlying the right upper lung. Salesperson Stereo Equipment: MARY Transcribe Date/Time: May 16 2024 10:25A Dictated by : LUCIA VILLARREAL MD This examination was interpreted and the report reviewed and electronically signed by: LUCIA VILLARREAL MD on May 16 2024 10:26AM EST [id number] Normal [facility] XR Chest PA and Lateralon IMPRESSION: Interval improvement of cluster of nodular opacities overlying the right upper lung. Salesperson Stereo Equipment: PSCB Transcribe Date/Time: May 16 2024 10:25A Dictated by : LUCIA VILLARREAL MD This examination was interpreted and the report reviewed and electronically signed by: LUCIA VILLARREAL MD on May 16 2024 10:26AM EST DIVISION OF RADIOLOGY * * *Final Report* * * DATE OF EXAM: May 16 2024 10:23AM WOX [id number] - XR CHEST 2V FRONTAL/LAT / PROCEDURE REASON: multiple diagnoses * * * * Physician Interpretation * * * * EXAMINATION: CHEST RADIOGRAPH (2 VIEW FRONTAL & LATERAL) CLINICAL HISTORY: Acute cough Fever, unspecified fever cause MQ: XC2_6 EXAM DATE/TIME: 05/16/2024 10:23 AM COMPARISON: Chest x-ray on 05/10/2024 RESULT: Lines, tubes, and devices: None. Lungs and pleura: Interval improvement of previously seen cluster of nodular opacities overlying the right upper lung. No new consolidations seen. No masses. No pleural effusions or pneumothorax. Cardiomediastinal silhouette: Normal cardiomediastinal silhouette. Bones and soft tissues: Unremarkable. DIVISION OF RADIOLOGY Provider, [facility] - 05/16/2024 * * *Final Report* * * DATE OF EXAM: May 16 2024 10:23AM [facility] [id number] - XR CHEST 2V FRONTAL/LAT / PROCEDURE REASON: multiple diagnoses * * * * Physician Interpretation * * * * EXAMINATION: CHEST RADIOGRAPH (2 VIEW FRONTAL & LATERAL) CLINICAL HISTORY: Acute cough Fever, unspecified fever cause MQ: XC2_6 EXAM DATE/TIME: 05/16/2024 10:23 AM COMPARISON: Chest x-ray on 05/10/2024 RESULT: Lines, tubes, and devices: None. Lungs and pleura: Interval improvement of previously seen cluster of nodular opacities overlying the right upper lung. No new consolidations seen. No masses. No pleural effusions or pneumothorax. Cardiomediastinal silhouette: Normal cardiomediastinal silhouette. Bones and soft tissues: Unremarkable. IMPRESSION IMPRESSION: Interval improvement of cluster of nodular opacities overlying the right upper lung. Salesperson Stereo Equipment: MARY Transcribe Date/Time: May 16 2024 10:25A Dictated by : LUCIA VILLARREAL MD This examination was interpreted and the report reviewed and electronically signed by: LUCIA VILLARREAL MD on May 16 2024 10:26AM EST [facility] [place] Radiology Study observation (narrative) [facility] XR Chest PA and LateralOrder ed By: [facility]cf Provider on 05-16-2024 [facility] CNOVon 05-10-2024 CNOV Office Visit (UCWSTR ) -------- DANG PRITCHETT ([id number]) 1985 F Date Time Provider Department 05/10/24 2:45 PM CANDELARIA [facility] During your visit today, we recorded the following information about you: Temperature Pulse Respiration Blood pressure 97.4 degrees 79/minute 16/minute 152/86 Weight 118 kg Candelaria [place] APRN.[employer] 05/10/2024 3:43 PM Signed This note was created using NoteWriter. Subjective Dang Pritchett is a 39 year old female. 39 year old female with PMH thyroid, anxiety, depression presents for complaints of illness. Acute onset over one week ago + cough Harsh cough +sore throat +headache +fever Denies eye or ear complaints. Denies body aches or fatigue Denies fever or chills. Used OTC cough medicines Used Dayquil and Nyquil Denies tobacco Presents for concerns as symptoms are worsening. States she was seen here 03/08/24 for similar They said it was some kind of bug The history is provided by the patient. No java manager was used. Cough This is a new problem. The current episode started more than 1 week ago. The problem occurs constantly. The problem has been gradually worsening. The cough is Non-productive. Associated symptoms include headaches, rhinorrhea, sore throat and wheezing. Pertinent negatives include no chest pain, no chills, no sweats, no weight loss, no ear congestion, no ear pain, no myalgias, no shortness of breath and no eye redness. She is not a smoker. Her past medical history does not include bronchitis, pneumonia, bronchiectasis, COPD, emphysema or asthma. PAST MEDICAL HISTORY Diagnosis Date Mild or unspecified pre-eclampsia, unspecified as to episode of care Pre-ecclampsia,mild Unspecified hypothyroidism Hypothyroidism PAST SURGICAL HISTORY Procedure Laterality Date EXCISION PILONIDAL CYST/SINUS SIMPLE 06/01/2002 ALLERGIES Latex and Influenza Virus Vaccine 2013- (18 Yrs-64 Yrs) MEDICATIONS levothyroxine (LEVOXYL) 150 mcg tablet Take one tablet every day except only 1/2 tablet on Sundays. For thyroid. Take on an empty stomach Brompheniramine-Pseudoep h-DM (BROMFED DM) 2-30-10 mg/5 mL syrup Take 5 mL by mouth four times a day as needed. predniSONE (DELTASONE) 10 mg tablet Take 4 tabs daily for 3 days, then 2 tabs daily for 3 days, then 1 tab daily for 3 days with food. benzonatate (TESSALON PERLES) 100 mg capsule Take 1 capsule by mouth three times a day as needed for up to 12 doses. (Patient not taking: Reported on 05/10/2024) cyclobenzaprine (FLEXERIL) 5 mg tablet Take 1 tablet by mouth at bedtime as needed for muscle spasm. (Patient not taking: Reported on 03/08/2024) Benzonatate 200 mg capsule Take 1 capsule by mouth three times a day as needed. (Patient not taking: Reported on 03/08/2024) FAMILY HISTORY Problem Relation Age of Onset Hypertension Father Lipids Father Diabetes Father Diabetes Maternal Grandmother Cancer Maternal Grandmother CERVICAL CANCER Cancer Maternal Grandfather kidney ca. Cancer Maternal Aunt CERVICAL CANCER Social History Tobacco Use Smoking status: Never Smokeless tobacco: Never Vaping Use Vaping Use: Never used Substance Use Topics Alcohol use: No Drug use: No Review of Systems Constitutional: Positive for fatigue. Negative for chills, fever and weight loss. HENT: Positive for congestion, rhinorrhea, sinus pressure, sinus pain and sore throat. Negative for ear pain. Eyes: Negative for pain, discharge, redness and itching. Respiratory: Positive for cough and wheezing. Negative for shortness of breath. Cardiovascular: Negative for chest pain. Gastrointestinal: Negative for abdominal pain, diarrhea, nausea and vomiting. Musculoskeletal: Negative for arthralgias, back pain and myalgias. Skin: Negative for color change, pallor, rash and wound. Allergic/Immunologic: Negative for environmental allergies, food allergies and immunocompromised state. Neurological: Positive for headaches. Hematological: Negative for adenopathy. Does not bruise/bleed easily. Psychiatric/Behavioral: Negative for agitation and behavioral problems. Objective BP 152/86 Pulse 79 Temp 36.3 ?C (97.4 ?F) Resp 16 Wt 118 kg (260 lb 2.3 oz) LMP 11/29/2019 (Approximate) SpO2 96% BMI 43.34 kg/m? Physical Exam Vitals and nursing note reviewed. Constitutional: General: She is not in acute distress. Appearance: Normal appearance. She is normal weight. She is not ill-appearing, toxic-appearing or diaphoretic. HENT: Head: Normocephalic and atraumatic. Comments: +frontal sinus pressure Right Ear: Ear canal and external ear normal. Left Ear: Ear canal and external ear normal. Nose: Congestion present. No rhinorrhea. Mouth/Throat: Mouth: Mucous membranes are moist. Pharynx: Posterior oropharyngeal erythema present. No oropharyngeal exudate. Eyes: Genera (more content not included)... Normal [facility] XR CHEST 2V FRONTAL/LATon XR CHEST 2V FRONTAL/LAT * * *Final Report* * * DATE OF EXAM: May 10 2024 3:06PM WOX [id number] - XR CHEST 2V FRONTAL/LAT / PROCEDURE REASON: Acute cough * * * * Physician Interpretation * * * * EXAMINATION: CHEST RADIOGRAPH (2 VIEW FRONTAL and LATERAL) CLINICAL HISTORY: Acute cough MQ: XC2_6 EXAM DATE/TIME: 05/10/2024 3:06 PM COMPARISON: Chest x-ray on 08/10/2017 RESULT: Lines, tubes, and devices: None. Lungs and pleura: A cluster of nodules/cavitary nodules seen in the right upper lung. The left lung is grossly clear. No mass lesion identified. No pleural effusions or pneumothorax. Cardiomediastinal silhouette: Normal cardiomediastinal silhouette. Bones and soft tissues: Unremarkable. IMPRESSION: Cluster of nodules/cavitary nodules in the right upper lung. Consider follow-up. Salesperson Ste[employer] Equipment: MARY Transcribe Date/Time: May 10 2024 3:12P Dictated by : LUCIA VILLARREAL MD This examination was interpreted and the report reviewed and electronically signed by: LUCIA VILLARREAL MD on May 10 2024 3:13PM EST [id number] Normal [facility] XR Chest PA and Lateralon IMPRESSION: Cluster of nodules/cavitary nodules in the right upper lung. Consider follow-up. Salesperson Stereo Equipment: MARY Transcribe Date/Time: May 10 2024 3:12P Dictated by : LUCIA VILLARREAL MD This examination was interpreted and the report reviewed and electronically signed by: LUCIA VILLARREAL MD on May 10 2024 3:13PM EST DIVISION OF RADIOLOGY * * *Final Report* * * DATE OF EXAM: May 10 2024 3:06PM WOX [id number] - XR CHEST 2V FRONTAL/LAT / PROCEDURE REASON: Acute cough * * * * Physician Interpretation * * * * EXAMINATION: CHEST RADIOGRAPH (2 VIEW FRONTAL & LATERAL) CLINICAL HISTORY: Acute cough MQ: XC2_6 EXAM DATE/TIME: 05/10/2024 3:06 PM COMPARISON: Chest x-ray on 08/10/2017 RESULT: Lines, tubes, and devices: None. Lungs and pleura: A cluster of nodules/cavitary nodules seen in the right upper lung. The left lung is grossly clear. No mass lesion identified. No pleural effusions or pneumothorax. Cardiomediastinal silhouette: Normal cardiomediastinal silhouette. Bones and soft tissues: Unremarkable. DIVISION OF RADIOLOGY Provider, Soni Braxton - 05/10/2024 * * *Final Report* * * DATE OF EXAM: May 10 2024 3:06PM WOX [id number] - XR CHEST 2V FRONTAL/LAT / PROCEDURE REASON: Acute cough * * * * Physician Interpretation * * * * EXAMINATION: CHEST RADIOGRAPH (2 VIEW FRONTAL & LATERAL) CLINICAL HISTORY: Acute cough MQ: XC2_6 EXAM DATE/TIME: 05/10/2024 3:06 PM COMPARISON: Chest x-ray on 08/10/2017 RESULT: Lines, tubes, and devices: None. Lungs and pleura: A cluster of nodules/cavitary nodules seen in the right upper lung. The left lung is grossly clear. No mass lesion identified. No pleural effusions or pneumothorax. Cardiomediastinal silhouette: Normal cardiomediastinal silhouette. Bones and soft tissues: Unremarkable. IMPRESSION IMPRESSION: Cluster of nodules/cavitary nodules in the right upper lung. Consider follow-up. Salesperson Stereo Equipment: PSCB Transcribe Date/Time: May 10 2024 3:12P Dictated by : LUCIA VILLARREAL MD This examination was interpreted and the report reviewed and electronically signed by: LUCIA VILLARREAL MD on May 10 2024 3:13PM EST [facility] [place] Radiology Study observation (narrative) [facility] XR Chest PA and LateralOrder ed By: [facility] Provider on 05-10-2024 [facility] Vital Signs Date Time Vital Sign Value Performing Clinician Chris lynn 07-26-2024 09:36-0400 Body mass index (BMI) [Ratio] 41.95 kg/m2 AGRICULTURAL TECHNICIAN.[facility] Work Phone: [facility] [place] 07-26-2024 09:36-0400 Body weight 114.2 kg FebN.[facility] Work Phone: [facility] [place] 07-26-2024 09:36-0400 Diastolic blood pressure 74 mm[Hg] AGRICULTURAL TECHNICIAN.[employer] Work Phone: [facility] [place] 07-26-2024 09:36-0400 Heart rate 84 /min AGRICULTURAL TECHNICIAN.[employer] Work Phone: [facility] [place] 07-26-2024 09:36-0400 Respiratory rate 16 /min AGRICULTURAL TECHNICIAN.[employer] Work Phone: [facility] [place] 07-26-2024 09:36-0400 SaO2% (BldA) [Mass fraction] 96 % Older AGRICULTURAL TECHNICIAN.[employer] Work Phone: [facility] [place] 07-26-2024 09:36-0400 Systolic blood pressure 128 mm[Hg] Myra Elizondo AGRICULTURAL TECHNICIAN.[employer] Work Phone: [facility] [place] 05-29-2024 14:58-0400 Body mass index (BMI) [Ratio] 42.77 kg/m2 Jaimee KnappCindy AGRICULTURAL TECHNICIAN.[employer] Work Phone: [facility] [place] 05-29-2024 14:58-0400 Body weight 116.44 kg Jaimee KnappCindy AGRICULTURAL TECHNICIAN.[employer] Work Phone: [facility] [place] 05-29-2024 14:58-0400 Diastolic blood pressure 78 mm[Hg] Jaimee KnappCindy AGRICULTURAL TECHNICIAN.[employer] Work Phone: [facility] [place] 05-29-2024 14:58-0400 Heart rate 102 /min Jaimee White AGRICULTURAL TECHNICIAN.[employer] Work Phone: [facility] [place] 05-29-2024 14:58-0400 SaO2% (BldA) [Mass fraction] 99 % Jaimee KnappCindy AGRICULTURAL TECHNICIAN.[employer] Work Phone: [facility] [place] 05-29-2024 14:58-0400 Systolic blood pressure 118 mm[Hg] Jaimee KnappCindy AGRICULTURAL TECHNICIAN.[employer] Work Phone: [facility] [place] 05-23-2024 10:01-0400 Body mass index (BMI) [Ratio] 43.32 kg/m2 Jaimee KnappCindy AGRICULTURAL TECHNICIAN.[employer] Work Phone: [facility] [place] 05-23-2024 10:01-0400 Body weight 117.94 kg Jaimee KnappCindy AGRICULTURAL TECHNICIAN.[employer] Work Phone: [facility] [place] 05-23-2024 10:01-0400 Diastolic blood pressure 83 mm[Hg] Jaimee KnappCindy AGRICULTURAL TECHNICIAN.[employer] Work Phone: [facility] [place] 05-23-2024 10:01-0400 Heart rate 102 /min Jaimee White AGRICULTURAL TECHNICIAN.[employer] Work Phone: [facility] [place] 05-23-2024 10:01-0400 Respiratory rate 20 /min Jaimee Cindy AGRICULTURAL TECHNICIAN.[employer] Work Phone: [facility] [place] 05-23-2024 10:01-0400 SaO2% (BldA) [Mass fraction] 97 % Jaimee KnappCindy AGRICULTURAL TECHNICIAN.[employer] Work Phone: [facility] [place] 05-23-2024 10:01-0400 Systolic blood pressure 130 mm[Hg] Jaimee KnappCindy AGRICULTURAL TECHNICIAN.[employer] Work Phone: [facility] [place] 05-16-2024 09:51-0400 Body mass index (BMI) [Ratio] 43.48 kg/m2 Jaimee Cindy AGRICULTURAL TECHNICIAN.[employer] Work Phone: [facility] [place] 05-16-2024 09:51-0400 Body temperature 98.01 [degF] Jaimee White AGRICULTURAL TECHNICIAN.[employer] Work Phone: [facility] [place] 05-16-2024 09:51-0400 Body weight 118.39 kg Jaimee KnappCindy AGRICULTURAL TECHNICIAN.[employer] Work Phone: [facility] [place] 05-16-2024 09:51-0400 Diastolic blood pressure 78 mm[Hg] Jaimee Cindy AGRICULTURAL TECHNICIAN.[employer] Work Phone: [facility] [place] 05-16-2024 09:51-0400 Heart rate 91 /min Jaimee KnappCindy AGRICULTURAL TECHNICIAN.[employer] Work Phone: [facility] [place] 05-16-2024 09:51-0400 Respiratory rate 18 /min Jaimee KnappCindy AGRICULTURAL TECHNICIAN.[employer] Work Phone: [facility] [place] 05-16-2024 09:51-0400 SaO2% (BldA) [Mass fraction] 98 % Jaimee Cindy AGRICULTURAL TECHNICIAN.[employer] Work Phone: [facility] [place] 05-16-2024 09:51-0400 Systolic blood pressure 128 mm[Hg] Jaimee Cindy AGRICULTURAL TECHNICIAN.[employer] Work Phone: [facility] [place] 05-10-2024 14:47-0400 Body mass index (BMI) [Ratio] 43.34 kg/m2 Candelaria Mafyield AGRICULTURAL TECHNICIAN.[employer] Work Phone: [facility] [place] 05-10-2024 14:47-0400 Body temperature 97.39 [degF] Candelaria Mayfield AGRICULTURAL TECHNICIAN.[employer] Work Phone: [facility] [place] 05-10-2024 14:47-0400 Body weight 118 kg Candelaria Mayfield AGRICULTURAL TECHNICIAN.[employer] Work Phone: [facility] [place] 05-10-2024 14:47-0400 Diastolic blood pressure 86 mm[Hg] Candelaria Mayfield AGRICULTURAL TECHNICIAN.[employer] Work Phone: [facility] [place] 05-10-2024 14:47-0400 Heart rate 79 /min Candelaria Mayfield AGRICULTURAL TECHNICIAN.[employer] Work Phone: [facility] [place] 05-10-2024 14:47-0400 Respiratory rate 16 /min Candelaria Mayfield AGRICULTURAL TECHNICIAN.[employer] Work Phone: [facility] [place] 05-10-2024 14:47-0400 SaO2% (BldA) [Mass fraction] 96 % Candelaria Mayfield AGRICULTURAL TECHNICIAN.[employer] Work Phone: [facility] [place] 05-10-2024 14:47-0400 Systolic blood pressure 152 mm[Hg] Candelaria Mayfield AGRICULTURAL TECHNICIAN.[employer] Work Phone: [facility] [place] 03-08-2024 11:41-0400 Body mass index (BMI) [Ratio] 43.38 kg/m2 Real Moomaw AGRICULTURAL TECHNICIAN.[employer] Work Phone: [facility] [place] 03-08-2024 11:41-0400 Body temperature 97.5 [degF] Real Moomaw AGRICULTURAL TECHNICIAN.[employer] Work Phone: [facility] [place] 03-08-2024 11:41-0400 Body weight 118.1 kg Real Moomaw AGRICULTURAL TECHNICIAN.[employer] Work Phone: [facility] [place] 03-08-2024 11:41-0400 Diastolic blood pressure 80 mm[Hg] Real Moomaw AGRICULTURAL TECHNICIAN.[employer] Work Phone: [facility] [place] 03-08-2024 11:41-0400 Heart rate 86 /min Real Moomaw AGRICULTURAL TECHNICIAN.[employer] Work Phone: [facility] [place] 03-08-2024 11:41-0400 Respiratory rate 18 /min Real Moomaw AGRICULTURAL TECHNICIAN.[employer] Work Phone: [facility] [place] 03-08-2024 11:41-0400 SaO2% (BldA) [Mass fraction] 98 % Real Moomaw AGRICULTURAL TECHNICIAN.[employer] Work Phone: [facility] [place] 03-08-2024 11:41-0400 Systolic blood pressure 124 mm[Hg] Real Moomaw AGRICULTURAL TECHNICIAN.[employer] Work Phone: [facility] [place] 08-14-2023 09:15-0400 Body temperature 98.49 [degF] Jaimee Older AGRICULTURAL TECHNICIAN.[employer] Work Phone: [facility] [place] 08-14-2023 09:15-0400 Body weight 116.85 kg Jaimee Older AGRICULTURAL TECHNICIAN.[employer] Work Phone: [facility] [place] 08-14-2023 09:15-0400 Diastolic blood pressure 80 mm[Hg] Jaimee Older AGRICULTURAL TECHNICIAN.[employer] Work Phone: [facility] [place] 08-14-2023 09:15-0400 Heart rate 100 /min Jaimee Older AGRICULTURAL TECHNICIAN.[employer] Work Phone: [facility] [place] 08-14-2023 09:15-0400 Respiratory rate 21 /min Jaimee Older AGRICULTURAL TECHNICIAN.[employer] Work Phone: [facility] [place] 08-14-2023 09:15-0400 SaO2% (BldA) [Mass fraction] 97 % Jaimee Older AGRICULTURAL TECHNICIAN.[employer] Work Phone: [facility] [place] 08-14-2023 09:15-0400 Systolic blood pressure 120 mm[Hg] Jaimee Older AGRICULTURAL TECHNICIAN.[employer] Work Phone: [facility] [place] 07-21-2023 09:27-0400 Body height 165 cm Kendal PEREZ-Abimael Work Phone: [facility] [place] 07-21-2023 09:27-0400 Body weight 114.31 kg Kendal Denbow PA-C Work Phone: [facility] [place] 07-21-2023 09:27-0400 Diastolic blood pressure 74 mm[Hg] Kendal Denbow PA-C Work Phone: [facility] [place] 07-21-2023 09:27-0400 Heart rate 96 /min Kendal Denbow PA-C Work Phone: [facility] [place] 07-21-2023 09:27-0400 Respiratory rate 16 /min Kendal Denbow PA-C Work Phone: [facility] [place] 07-21-2023 09:27-0400 SaO2% (BldA) [Mass fraction] 98 % Kendal Denbow PA-C Work Phone: [facility] [place] 07-21-2023 09:27-0400 Systolic blood pressure 114 mm[Hg] Kendal Denbow PA-C Work Phone: [facility] [place] 07-04-2023 13:02-0400 Body temperature 97.7 [degF] Jaimee Older AGRICULTURAL TECHNICIAN.[employer] Work Phone: [facility] [place] 07-04-2023 13:02-0400 Body weight 115.67 kg Jaimee Older AGRICULTURAL TECHNICIAN.[employer] Work Phone: [facility] [place] 07-04-2023 13:02-0400 Diastolic blood pressure 78 mm[Hg] Jaimee Older AGRICULTURAL TECHNICIAN.[employer] Work Phone: [facility] [place] 07-04-2023 13:02-0400 Heart rate 89 /min Jaimee Older AGRICULTURAL TECHNICIAN.[employer] Work Phone: [facility] [place] 07-04-2023 13:02-0400 Respiratory rate 18 /min Jaimee Older AGRICULTURAL TECHNICIAN.[employer] Work Phone: [facility] [place] 07-04-2023 13:02-0400 SaO2% (BldA) [Mass fraction] 98 % Jaimee Older AGRICULTURAL TECHNICIAN.[employer] Work Phone: [facility] [place] 07-04-2023 13:02-0400 Systolic blood pressure 122 mm[Hg] Jaimee Older AGRICULTURAL TECHNICIAN.[employer] Work Phone: [facility] [place] 03-18-2022 15:00-0400 Body weight 115.21 kg Myra Older AGRICULTURAL TECHNICIAN.[employer] Work Phone: [facility] [place] 03-18-2022 15:00-0400 Diastolic blood pressure 78 mm[Hg] Myra Older AGRICULTURAL TECHNICIAN.[employer] Work Phone: [facility] [place] 03-18-2022 15:00-0400 Heart rate 80 /min Myra Older AGRICULTURAL TECHNICIAN.[employer] Work Phone: [facility] [place] 03-18-2022 15:00-0400 Respiratory rate 16 /min Myra Older AGRICULTURAL TECHNICIAN.[employer] Work Phone: [facility] [place] 03-18-2022 15:00-0400 Systolic blood pressure 132 mm[Hg] Myra Older AGRICULTURAL TECHNICIAN.[employer] Work Phone: [facility] [place] 01-30-2022 13:25-0400 Body weight 118.39 kg Myra Older AGRICULTURAL TECHNICIAN.[employer] Work Phone: [facility] [place] 01-30-2022 13:25-0400 Diastolic blood pressure 70 mm[Hg] Myra Older AGRICULTURAL TECHNICIAN.[employer] Work Phone: [facility] [place] 01-30-2022 13:25-0400 Heart rate 84 /min Myra Older AGRICULTURAL TECHNICIAN.[employer] Work Phone: [facility] [place] 01-30-2022 13:25-0400 Respiratory rate 16 /min Myra Older AGRICULTURAL TECHNICIAN.[employer] Work Phone: [facility] [place] 01-30-2022 13:25-0400 Systolic blood pressure 122 mm[Hg] Myra Older AGRICULTURAL TECHNICIAN.[employer] Work Phone: [facility] [place] Encounters Encounter Date Encounter Type Care Provider Facility Start: 04-06-2025 End: 04-09-2025 Refill Myra Older AGRICULTURAL TECHNICIAN.[employer] Work Phone: [facility] Comment on above: Refill Request Start: 03-20-2025 End: 04-20-2025 ambulatory Ingris Rock MD Work Phone: [facility] Start: 10-30-2024 End: 10-30-2024 ambulatory Oriana PEREZ Facility:[facility] Start: 10-17-2024 End: 10-18-2024 Telephone encounter Ingris Rock MD Work Phone: [facility] Comment on above: Patient Update (had GB removed 10/14); Patient Question Start: 10-14-2024 End: 10-15-2024 ambulatory [facility] Facility[facility] Start: 10-13-2024 End: 10-13-2024 Refill Myra Elizondo AGRICULTURAL TECHNICIAN.[employer] Work Phone: [facility] Comment on above: Refill Request Start: 07-26-2024 End: 07-26-2024 ambulatory INGRIS ROCK Facility:[facility] Start: 07-26-2024 End: 07-26-2024 Patient encounter procedure Myra Elizondo AGRICULTURAL TECHNICIAN.[employer] Work Phone: [facility] Comment on above: Annual physical exam (Primary Dx); Hypothyroidism, acquired; Chronic low back pain, unspecified back pain laterality, unspecified whether sciatica present Start: 07-25-2024 End: 07-25-2024 ambulatory [facility] Facility:[facility] Start: 07-13-2024 End: 07-13-2024 Refill Jaimee White AGRICULTURAL TECHNICIAN.[employer] Work Phone: [facility] Comment on above: Refill Request Start: 07-11-2024 End: 07-14-2024 ambulatory Ingris Rock MD Work Phone: Internal Medicine [facility] Start: 05-29-2024 End: 05-29-2024 ambulatory JAIMEE WHITE Facility:[facility] Start: 05-29-2024 End: 05-29-2024 Patient encounter procedure Jaimee White AGRICULTURAL TECHNICIAN.[employer] Work Phone: [facility] Comment on above: Respiratory infectio n (Primary Dx); Rib pain on right side Start: 05-24-2024 Telephone encounter Jaimee shabazz AGRICULTURAL TECHNICIAN.[employer] Work Phone: [facility] Comment on above: Results Start: 05-23-2024 End: 05-23-2024 [facility] Facility:[facility] Start: 05-23-2024 End: 05-23-2024 Subsequent hospital visit by physician [facility] Work Phone: [facility] Comment on above: Acute cough [R05.1] Start: 05-23-2024 End: 05-23-2024 Patient encounter procedure Jaimee White APRN.[employer] Work Phone: [facility] Comment on above: Acute cough (Primary Dx); Shortness of breath; Abnormal chest x-ray; Fever, unspecified fever cause Start: 05-23-2024 End: 05-23-2024 [facility] Facility:[facility] Start: 05-16-2024 End: 05-16-2024 ambulatory Jaimee White APRN.[employer] Work Phone: [facility] Comment on above: chest x-ray results Start: 05-16-2024 E-mail encounter fro m caregiver Jaimee White APRN.[employer] Work Phone: [facility] Start: 05-16-2024 End: 05-16-2024 Subsequent hospital visit by physician [facility] Work Phone: Radiology Comment on above: Acute cough [R05.1] Start: 05-16-2024 End: 05-16-2024 Patient encounter procedure Jaimee White APRN.[employer] Work Phone: [facility] Comment on above: Acute cough (Primary Dx); Lung nodules; Fever, unspecified fever cause Start: 05-10-2024 End: 05-10-2024 Subsequent hospital visit by physician [facility] Work Phone: Radiology Comment on above: Acute cough [R05.1] Start: 05-10-2024 End: 05-10-2024 [facility] Facility:[facility] Start: 05-10-2024 End: 05-10-2024 Patient encounter procedure Candelaria Mayfield AGRICULTURAL TECHNICIAN.[employer] Work Phone: [facility] Comment on above: Acute cough (Primary Dx); Multiple nodules of lung Start: 03-08-2024 End: 03-08-2024 Patient encounter procedure Real Navarro AGRICULTURAL TECHNICIAN.[employer] Work Phone: [facility] Comment on above: Acute cough (Primary Dx) Start: 01-20-2024 Refill Jaimee sidhu AGRICULTURAL TECHNICIAN.[employer] Work Phone: [facility] Comment on above: Refill Request Start: 08-14-2023 End: 08-14-2023 Patient encounter procedure Jaimee Older AGRICULTURAL TECHNICIAN.[employer] Work Phone: [facility] Comment on above: Viral URI with cough (Primary Dx) Start: 07-21-2023 End: 07-21-2023 Patient encounter procedure Kendal Sorto PA-C Work Phone: [facility] Comment on above: Well adult exam ([facility] Dx); Hypothyroidism, acquired; Screening for cervical cancer; Leukocytosis, unspecified type Start: 07-21-2023 End: 07-21-2023 Patient encounter status frintitleandro PEREZ-Abimael Work Phone: [facility] Work Phone: Start: 07-04-2023 End: 07-04-2023 Patient encounter procedure Jaimee Older AGRICULTURAL TECHNICIAN.[employer] Work Phone: [facility] Comment on above: Acute right-sided ba ck pain, unspecified back location (Primary Dx) Start: 06-29-2023 Telephone encounter Ingris raya MD Work Phone: [facility] Comment on above: Labs for physical Start: 08-15-2022 Refill Myra Elizondo AGRICULTURAL TECHNICIAN .[employer] Work Phone: [facility] Comment on above: Refill Request Start: 06-29-2022 Refill Myra Elizondo AGRICULTURAL TECHNICIAN .[employer] Work Phone: [facility] Comment on above: Refill Request Start: 05-22-2022 Telephone encounter Myra Elizondo APRN.[employer] Work Phone: [facility] Comment on above: Results Start: 03-27-2022 Telephone encounter Myra Elizondo APRN.NEIL Work Phone: [facility] Comment on above: Results Start: 03-18-2022 End: 03-18-2022 Patient encounter procedure Myra Elizondo ZACKERY.NEIL Work Phone: [facility] Comment on above: Anxiety and depressi on (Primary Dx) Start: 01-30-2022 End: 01-30-2022 Patient encounter procedure Myra Elizondo APRN.[employer] Work Phone: [facility] Comment on above: Annual physical exam (Primary Dx); Anxiety and depression; Hypothyroidism, acquired; Seborrheic dermatitis; Obesity, Class III, BMI 40-49.9 (morbid obesity) (HCC); Special screening examination for viral disease; Lipid screening Procedures Date Procedure Procedure Detail Performing Clinician Start: 05-23-2024 Ct thorax w/o contra st material Jaimee White AGRICULTURAL TECHNICIAN.[employer] Work Phone: Start: 05-16-2024 Radiologic exam ches t 2 views Jaimee White AGRICULTURAL TECHNICIAN.[employer] Work Phone: Start: 05-10-2024 Radiologic exam ches t 2 views Candelaria Mayfield AGRICULTURAL TECHNICIAN.[employer] Work Phone: Plan of Treatment Date Care Activity Detail Author Start: 09-05-2025 Urine microalbumin profile [facility] [place] Start: 07-26-2025 Annual PCP Team Fibreglass Laminator tayla Disease Visit Annual PCP Team Chronic Disease Visit [facility] [place] Start: 07-26-2025 Hepatitis B Vaccine (1 of 3 - 19+ 3-dose series) Hepatitis B Vaccine (1 of 3 - 19+ 3-dose series) [facility] [place] Comment on above: Postponed from 02/01 (Declined at this time) Start: 07-09-2025 Influenza vaccination Influenz a Vaccine (Season Ended) [facility] [place] Start: 05-29-2025 Annual PCP Team Fibreglass Laminator tayla Disease Visit Annual PCP Team Chronic Disease Visit [facility] [place] Start: 05-23-2025 Annual PCP Team Fibreglass Laminator tayla Disease Visit Annual PCP Team Chronic Disease Visit [facility] [place] Start: 05-16-2025 Annual PCP Team Fibreglass Laminator tayla Disease Visit Annual PCP Team Chronic Disease Visit [facility] [place] Start: 05-07-2025 Influenza vaccination Influenza Vacc ine (#1) [facility] [place] Comment on above: Postponed from 07/09 (Declined at this time) Start: 2025 Screening for malign ant neoplasm of breast Mammogram Screening [facility] [place] Start: 01-18-2025 End: 01-18-2025 Patient encounter procedure 01/18/2025 9:20 AM EDT Office Visit [facility] [address] [place], [place] [id number] Myra Elizondo APRN.MOSS GATHERER [address] [place], [place] [id number] 6 month follow up [facility] Comment on above: 6 month follow up Start: 10-16-2024 End: 01-15-2025 CBC panel - Blood by Automated count COMPLETE BLOOD COUNT Lab Routine Annual physical exam Expected: 10/16/2024 (Approximate), Expires: 01/15/2025 [facility] Comment on above: Expected: 10/16/2024 (Approximate), Expires: 01/15/2025 Start: 10-16-2024 End: 01-15-2025 Comprehensive metabolic 2000 panel - Serum or Plasma COMPREHENSIVE METABOLIC PANEL Lab Routine Annual physical exam Expected: 10/16/2024 (Approximate), Expires: 01/15/2025 [facility] Comment on above: Expected: 10/16/2024 (Approximate), Expires: 01/15/2025 Start: 10-16-2024 End: 01-15-2025 Lipid 1996 panel - Serum or Plasma LIPID PANEL BASIC Lab Routine Annual physical exam Expected: 10/16/2024 (Approximate), Expires: 01/15/2025 [facility] Work Phone: Comment on above: Expected: 10/16/2024 (Approximate), Expires: 01/15/2025 Start: 10-16-2024 End: 01-15-2025 Thyrotropin [Units/volume] in Serum or Plasma THYROID STIMULATING HORMONE Lab Routine Hypothyroidism, acquired Expected: 10/16/2024 (Approximate), Expires: 01/15/2025 [facility] Comment on above: Expected: 10/16/2024 (Approximate), Expires: 01/15/2025 Start: 10-16-2024 End: 01-15-2025 Thyroxine (T4) free [Mass/volume] in Serum or Plasma T4 FREE/FREE THYROXINE Lab Routine Hypothyroidism, acquired Expected: 10/16/2024 (Approximate), Expires: 01/15/2025 [facility] Comment on above: Expected: 10/16/2024 (Approximate), Expires: 01/15/2025 Start: 10-16-2024 End: 01-15-2025 Triiodothyronine (T3) Free [Mass/volume] in Serum or Plasma T3, FREE Lab Routine Hypothyroidism, acquired Expected: 10/16/2024 (Approximate), Expires: 01/15/2025 [facility] Comment on above: Expected: 10/16/2024 (Approximate), Expires: 01/15/2025 Start: 07-26-2024 End: 07-26-2024 Patient encounter procedure 07/26/2024 9:40 AM EDT Office Visit [facility] [address] [place], [place] [address] Myra Elizondo APRN.MOSS GATHERER [address] [place], [place] [id number] Annual [facility] Comment on above: Annual Start: 07-21-2024 Annual PCP Team Fibreglass Laminator tayla Disease Visit Annual PCP Team Chronic Disease Visit [facility] [place] Start: 07-21-2024 Hepatitis B Vaccine (1 of 3 - 19+ 3-dose series) Hepatitis B Vaccine (1 of 3 - 19+ 3-dose series) [facility] [place] Comment on above: Postponed from 02/01 (Declined at this time) Start: 07-21-2024 Hepatitis B Vaccine (1 of 3 - 3-dose series) Hepatitis B Vaccine (1 of 3 - 3-dose series) [facility] [place] Comment on above: Postponed from 02/01 (Declined at this time) Start: 07-11-2024 End: 10-10-2024 Hemoglobin A1c in Blood HEMOGLOBIN A1C Lab Routine Obesity, Class III, BMI 40-49.9 (morbid obesity) (HCC) Expected: 07/11/2024, Expires: 10/10/2024 [facility] Work Phone: Comment on above: Expected: 07/11/2024 , Expires: 10/10/2024 Start: 07-11-2024 End: 10-10-2024 Thyrotropin [Units/volume] in Serum or Plasma THYROID STIMULATING HORMONE Lab Routine Hypothyroidism, acquired Expected: 07/11/2024, Expires: 10/10/2024 [facility] Comment on above: Expected: 07/11/2024 , Expires: 10/10/2024 Start: 07-09-2024 Influenza vaccination C [facility] Start: 06-16-2024 End: 06-15-2025 XR Chest PA and Lateral XR CHEST 2V FRONTAL/LAT Radiology Routine Lung nodules Expected: 06/16/2024 (Approximate), Expires: 06/15/2025 [facility] Work Phone: Comment on above: Expected: 06/16/2024 (Approximate), Expires: 06/15/2025 Start: 05-29-2024 End: 05-29-2024 Patient encounter procedure 05/29/2024 3:00 PM EDT Office Visit [facility] [address] [place] [address] Jaimee White, AGRICULTURAL TECHNICIAN.MOSS GATHERER [address] [place] [address] CT, lung nodules consistant with infection on antibiotics f/u [facility] Comment on above: CT, lung nodules con sistant with infection on antibiotics f/u Start: 05-23-2024 End: 05-23-2024 Patient encounter procedure 05/23/2024 10:00 AM EDT Office Visit [facility] [address] [place] [address] Jaimee White, AGRICULTURAL TECHNICIAN.MOSS GATHERER [address] [place] [address] 1 week follow up - CXR [facility] Comment on above: 1 week follow up - C XR Start: 05-16-2024 End: 05-16-2024 Patient encounter procedure 05/16/2024 10:00 AM EDT Office Visit [facility] [address] [facility] [address] Jaimee White, AGRICULTURAL TECHNICIAN.MOSS GATHERER [address] [place] [address] ec follow up [facility] Comment on above: ec follow up Start: 05-07-2024 Influenza vaccination Influenza Vacc ine (#1) [facility] [place] Comment on above: Postponed from 07/09 (Declined at this time) Start: 09-06-2023 End: 11-06-2023 CBC panel - Blood by Automated count CBC Lab Routine Leukocytosis, unspecified type Expected: 09/06/2023 (Approximate), Expires: 11/06/2023 [facility] Work Phone: Comment on above: Expected: 09/06/2023 (Approximate), Expires: 11/06/2023 Start: 07-21-2023 End: 09-20-2023 URINALYSIS, DIPSTICK ONLY URINALYSIS, DIPSTICK ONLY Lab Routine Leukocytosis, unspecified type Expected: 07/21/2023, Expires: 09/20/2023 [facility] Work Phone: Comment on above: Expected: 07/21/2023 , Expires: 09/20/2023 Start: 07-09-2023 Influenza vaccination INFLUENZA (#1) [facility] Start: 06-29-2023 End: 08-29-2023 CBC W Auto Differential panel - Blood CBC + DIFF Lab Routine Screening for disorder of blood and blood-forming organs Expected: 06/29/2023, Expires: 08/29/2023 [facility] Work Phone: Comment on above: Expected: 06/29/2023 , Expires: 08/29/2023 Start: 06-29-2023 End: 08-29-2023 Comprehensive metabolic 2000 panel - Serum or Plasma COMP METABOLIC PANEL Lab Routine Screening for diabetes mellitus Expected: 06/29/2023, Expires: 08/29/2023 [facility] Work Phone: Comment on above: Expected: 06/29/2023 , Expires: 08/29/2023 Start: 06-29-2023 End: 08-29-2023 Lipid 1996 panel - Serum or Plasma LIPID PANEL BASIC Lab Routine Screening for lipid disorders Expected: 06/29/2023, Expires: 08/29/2023 [facility] Work Phone: Comment on above: Expected: 06/29/2023 , Expires: 08/29/2023 Start: 06-29-2023 End: 08-29-2023 Thyrotropin [Units/volume] in Serum or Plasma TSH BLD Lab Routine Hypothyroidism, acquired Expected: 06/29/2023, Expires: 08/29/2023 [facility] Work Phone: Comment on above: Expected: 06/29/2023 , Expires: 08/29/2023 Start: 06-29-2023 End: 08-29-2023 Thyroxine (T4) free [Mass/volume] in Serum or Plasma T4 FREE/FREE THYROX Lab Routine Hypothyroidism, acquired Expected: 06/29/2023, Expires: 08/29/2023 [facility] Work Phone: Comment on above: Expected: 06/29/2023 , Expires: 08/29/2023 Start: 03-18-2023 ANNUAL PCP TEAM PROGRAMMER ENGINEERING AND SCIENTIFIC TAYLA DISEASE VISIT ANNUAL PCP TEAM CHRONIC DISEASE VISIT [facility] Start: 01-30-2023 ANNUAL PCP TEAM PROGRAMMER ENGINEERING AND SCIENTIFIC TAYLA DISEASE VISIT ANNUAL PCP TEAM CHRONIC DISEASE VISIT [facility] Start: 01-30-2023 COVID-19 VACCINE (#1) COVID-19 VACCI NE (#1) [facility] [place] Comment on above: Postponed from 02/01 (Declined at this time) Postponed from 08/04 (Declined at this time) Start: 01-30-2023 COVID-19 VACCINE (1) COVID-19 VACCIN E (1) [facility] Comment on above: Postponed from 02/01 (Declined at this time) Start: 01-30-2023 HPV TESTING HPV TESTING [facility] Comment on above: Postponed from 09/05 (Declined at this time) Start: 01-30-2023 PAP TESTING PAP TESTING [facility] Comment on above: Postponed from 09/05 (Declined at this time) Start: 07-09-2022 Influenza vaccination [facility] Start: 06-22-2022 End: 08-22-2022 Thyrotropin [Units/volume] in Serum or Plasma TSH BLD Lab Routine Medication management Hypothyroidism, acquired Expected: 06/22/2022 (Approximate), Expires: 08/22/2022 [facility] Work Phone: Comment on above: Expected: 06/22/2022 (Approximate), Expires: 08/22/2022 Start: 05-08-2022 End: 07-08-2022 Thyrotropin [Units/volume] in Serum or Plasma TSH BLD Lab Routine Hypothyroidism, acquired Medication management Expected: 05/08/2022 (Approximate), Expires: 07/08/2022 [facility] Work Phone: Comment on above: Expected: 05/08/2022 (Approximate), Expires: 07/08/2022 Start: 05-07-2022 Influenza vaccination INFLUENZA (#1) [facility] Comment on above: Postponed from 07/09 (Declined at this time) Start: 01-30-2022 End: 04-01-2022 CBC W Auto Differential panel - Blood CBC + DIFF Lab Routine Annual physical exam Expected: 01/30/2022, Expires: 04/01/2022 [facility] Work Phone: Comment on above: Expected: 01/30/2022 , Expires: 04/01/2022 Start: 01-30-2022 End: 04-01-2022 Comprehensive metabolic 2000 panel - Serum or Plasma COMP METABOLIC PANEL Lab Routine Lipid screening Annual physical exam Expected: 01/30/2022, Expires: 04/01/2022 [facility] Work Phone: Comment on above: Expected: 01/30/2022 , Expires: 04/01/2022 Start: 01-30-2022 End: 04-01-2022 Hepatitis C virus Ab [Presence] in Serum HEP C AB IA W/CONF SCRN Lab Routine Special screening examination for viral disease Expected: 01/30/2022, Expires: 04/01/2022 [facility] Work Phone: Comment on above: Expected: 01/30/2022 , Expires: 04/01/2022 Start: 01-30-2022 End: 04-01-2022 LIPID PANEL BASIC LIPID PANEL BASIC Lab Routine Lipid screening Expected: 01/30/2022, Expires: 04/01/2022 [facility] Work Phone: Comment on above: Expected: 01/30/2022 , Expires: 04/01/2022 Start: 01-30-2022 End: 04-01-2022 T3 FREE BLD T3 FREE BLD Lab Routine Hypothyroidism, acquired Expected: 01/30/2022, Expires: 04/01/2022 [facility] Work Phone: Comment on above: Expected: 01/30/2022 , Expires: 04/01/2022 Start: 01-30-2022 End: 04-01-2022 T4 FREE/FREE THYROX T4 FREE/FREE THYROX Lab Routine Hypothyroidism, acquired Expected: 01/30/2022, Expires: 04/01/2022 [facility] Work Phone: Comment on above: Expected: 01/30/2022 , Expires: 04/01/2022 Start: 01-30-2022 End: 04-01-2022 Thyrotropin [Units/volume] in Serum or Plasma TSH BLD Lab Routine Hypothyroidism, acquired Expected: 01/30/2022, Expires: 04/01/2022 [facility] Work Phone: Comment on above: Expected: 01/30/2022 , Expires: 04/01/2022 Start: 09-05-2020 HPV TESTING HPV TESTING [facility] Start: 09-05-2020 PAP TESTING PAP TESTING [facility] Start: 09-05-2020 Screening for malign ant neoplasm of cervix [facility] Start: 2003 HEPATITIS C SCREENING HEPATITIS C SC REENING [facility] Start: 1985 COVID-19 VACCINE (#1) COVID-19 VACCI NE (#1) [facility] Start: 1985 HEPATITIS B (1 of 3 - 3-dose series) HEPATITIS B (1 of 3 - 3-dose series) [facility] End: 04-19-2026 DBT Breast - bilateral screening [facility]IR SCREENING [facility] Radiology Routine Encounter for screening mammogram for breast cancer 1 Occurrences starting 03/20/2025 until 04/19/2026 [facility] Work Phone: Comment on above: 1 Occurrences starti ng 03/20/2025 until 04/19/2026 [facility] Immunizations Immunization Date Immunization Notes Care Provider Jj batista 10-01-2017 influenza virus vacc ine, unspecified formulation Kendal Sorto PA-C Work Phone: [facility] 09-05-2015 tetanus toxoid, redu supriya diphtheria toxoid, and acellular pertussis vaccine, adsorbed Myra Elizondo AGRICULTURAL TECHNICIAN.MOSS GATHERER Work Phone: [facility] Payers Date Payer Category Payer Self-pay 2023 [employer] BLUE CARD PPO OOS [id number] 2023 Unknown [employer] BLUE CARD PPO OOS [id number] 2023-Present [phone] [address] [place] [address] PPO [id number] 2023 Unknown [id number] 2020 Private Health Insurance [employer] PPO [id number] 2020-Present [phone] [address] [place] [address] PPO [id number] 2020 Unknown HOSPITAL/MEDICAL GENERIC MEDICAL GENERIC [id number] 2020-Present [phone] [address] [facility] [address] [place] [address] Indemnity [id number] 2020 Medicaid [employer] [id number] 2020-Present [phone] [address] [place] [address] Medicaid [id number] 2016 Medicaid [id number] Unknown [id number] Unknown [id number] Unknown [id number] Unknown [id number] Social History Date Type Detail Facility Start: 08-20-2011 [facility] Work Phone: Start: 01-30-2022 End: 07-26-2024 Alcohol intake Current non-drinker of alcohol (finding) [facility] Start: 01-30-2022 History SDOH Alcohol Frequency 1 [facility] Start: 01-30-2022 History SDOH Alcohol Std Drinks 98 [facility] Start: 01-30-2022 History SDOH Social Connections Phone 2 [facility] Start: 03-25-2022 History SDOH Social Connections Living 8 [facility] Start: 01-30-2022 History SDOH Physica l Activity DPW 5 [facility] Start: 01-30-2022 History SDOH Physica l Activity MPS 3 [facility] Start: 1985 Sex Assigned At Not on file C [facility] Start: 01-20-2022 End: 03-18-2022 Exposure to SARS-CoV-2 (event) Unable to assess [facility] Start: 08-20-2011 Tobacco use and exposure Smoke less tobacco non-user [facility] Start: 01-30-2022 End: 07-21-2023 History of Social function [facility] Start: 01-30-2022 End: 07-21-2023 Social connection and isolation panel [facility] Do you belong to any clubs or organizations such as hoahaoism groups, unions, fraternal or athletic groups, or school groups? No [facility] Are you now , , , , never or living with a partner? Living with partner [facility] How often to you hav e a drink containing alcohol? Never [facility] How many standard dr inks containing alcohol do you have on a typical day? Patient refused [facility] How hard is it for y ou to pay for the very basics like food, housing, medical care, and heating Somewhat hard [facility] Do you feel stress - tense, restless, nervous, or anxious, or unable to sleep at night because your mind is troubled all the time - these days [OSQ] Only a little [facility] (I/We) worried wherae er (my/our) food would run out before (I/we) got money to buy more. Sometimes true [facility] In the past 12 month s, was there a time when you were not able to pay the mortgage or rent on time? Yes [facility] Are you now , , , , never or living with a partner? Never [facility] How hard is it for y ou to pay for the very basics like food, housing, medical care, and heating Not very hard [facility] Do you feel stress - tense, restless, nervous, or anxious, or unable to sleep at night because your mind is troubled all the time - these days [OSQ] Not at all [facility] Functional Status Date Assessment Result Facility 08-13-2014 Are you deaf, or do you have serious difficulty hearing No 08/13/2014 11:02 AM Ninoska Daigle LPN No [facility] 08-13-2014 Are you blind, or do you have serious difficulty seeing, even when wearing glasses No 08/13/2014 11:02 AM Ninoska Daigle LPN No [facility] 08-13-2014 Do you have serious difficulty walking or climbing stairs No 08/13/2014 11:02 AM Ninoska Daigle LPN No [facility] 08-13-2014 Do you have difficul ty dressing or bathing No 08/13/2014 11:02 AM Ninoska Daigle LPN No [facility] 08-13-2014 Because of a physica l, mental, or emotional condition, do you have difficulty doing errands alone such as visiting a physician's office or shopping No 08/13/2014 11:02 AM Ninoska Daigle LPN No [facility] Mental Status Date Assessment Result Facility 08-13-2014 Because of a physica l, mental, or emotional condition, do you have serious difficulty concentrating, remembering, or making decisions No 08/13/2014 11:02 AM Ninoska Daigle LPN No [facility] Clinical Notes 01-16-2008 to 04-06-2025 Telephone Encounter - Bria Marmolejo LPN - 04/06/2025 8:55 AM EDTTelephone Encounter - rBia Marmolejo LPN - 04/06/2025 8:55 AM EDTTelephone Encounter - Ingris Rock MD - 10/17/2024 5:38 PM EST Note Date & Type Note Facility 04-06-2025 Telephone encounter Note Prescription Refill Information The patient has been identified by name and date of : Yes Caregiver verified no other encounters exist for this prescription request: Yes Caregiver confirmed with patient/requestor that no other refills are due, in the near future, with this provider at this time: Yes The last office visit in the department: 07/26/24 Does the patient have a future office visit with this provider/department: No Patient has been advised. Requested Prescriptions Pending Prescriptions Disp Refills cyclobenzaprine (FLEXERIL) 5 mg tablet 30 tablet 2 Sig: Take 1 tablet by mouth at bedtime as needed for muscle spasm. Bria Marmolejo LPN April 06, 2025 8:55 AM [facility] 04-06-2025 Miscellaneous Notes Prescription Refill Information The patient has been identified by name and date of : Yes Caregiver verified no other encounters exist for this prescription request: Yes Caregiver confirmed with patient/requestor that no other refills are due, in the near future, with this provider at this time: Yes The last office visit in the department: 07/26/24 Does the patient have a future office visit with this provider/department: No Patient has been advised. Requested Prescriptions Pending Prescriptions Disp Refills cyclobenzaprine (FLEXERIL) 5 mg tablet 30 tablet 2 Sig: Take 1 tablet by mouth at bedtime as needed for muscle spasm. Bria Marmolejo LPN April 06, 2025 8:55 AM documented in this encounter [facility] 03-20-2025 Note Patient Outreach (IN TMWS) DANG PRITCHETT ([id number]) 1985 F Date Time Provider Department 03/20/25 INGRIS ROCK During your visit today, we recorded the following information about you: Allergies As of Date: 03/20/2025 Noted Allergy Reaction LATEX 01/25/2007 4 - Hives INFLUENZA VIRUS VACCINE QS 2014-*09/22/2016 9 - Itching Date Reviewed: 07/26/2024 Reviewed by: Ivonne Hinton MA - Fully Assessed Visit Diagnosis:Encounter for screening mammogram for breast cancer [Z12.31] Order(s):ZUHAIR SCREENING [facility] [[id number]] Order #: [id number] FUTURE Prescriptions as of 04/20/2025 - cyclobenzaprine (FLEXERIL) 5 mg tablet Take 1 tablet by mouth at bedtime as needed for muscle spasm. - levothyroxine (LEVOXYL) 150 mcg tablet Take one tablet every day except only 1/2 tablet on Sundays. For thyroid. Take on an empty stomach - naproxen (NAPROSYN) 500 mg tablet Take 1 tablet by mouth two times a day as needed (for pain/inflammation). Take with food. Problem List As Of Date 03/20/2025 Noted Resolved Hypothyroidism [E03.9] 01/16/2008 09/25/2016 Dysmenorrhea [N94.6] 08/13/2014 Hypothyroidism, acquired [E03.9] 09/25/2016 Obesity, Class III, BMI 40-49.9 (morbid obesity*02/02/2018 Anxiety and depression [F41.9, F32.A] 01/30/2022 Encounter Status:Closed by [employer] on 04/20/25 [facility] 10-17-2024 Telephone encounter Note Noted Ideally patients should be seen by PCP after any hospitalization or surgical procedures Ingris Dueñas MD [facility] [place] Work Phone: 10-17-2024 Miscellaneous Notes Noted Ideally patients should be seen by PCP after any hospitalization or surgical procedures Ingris Dueñas MD Pt calling in and states that she had her Gallbladder removed on Sunday 10/14 at [facility] by Dr. Matamoros. Per pt's discharge paperwork, it states she should call her PCP's office for follow up. Pt has a follow up appt with Dr. Matamoros and is not having any other medical issues. Explained to pt that no need to follow up with PCP at this time unless something comes up. Make sure to keep follow up with surgeon. Pt verbalizes understanding. Will confirm with PCP if pt would need to follow up with us. documented in this encounter [facility] [place] 10-17-2024 Telephone encounter Note Pt calling in and states that she had her Gallbladder removed on Sunday 10/14 at [facility] by Dr. Matamoros. Per pt's discharge paperwork, it states she should call her PCP's office for follow up. Pt has a follow up appt with Dr. Matamoros and is not having any other medical issues. Explained to pt that no need to follow up with PCP at this time unless something comes up. Make sure to keep follow up with surgeon. Pt verbalizes understanding. Will confirm with PCP if pt would need to follow up with us. [facility] [place] 10-13-2024 Telephone encounter Note The patient has been identified by name and date of : Yes Caregiver verified no other encounters exist for this prescription request: Yes Caregiver confirmed with patient/requestor that no other refills are due, in the near future, with this provider at this time: Yes The last office visit in the department: 07/26/2024 Does the patient have a future office visit with this provider/department: Yes 01/18/2025 Requested Prescriptions Pending Prescriptions Disp Refills cyclobenzaprine (FLEXERIL) 5 mg tablet 30 tablet 0 Sig: Take 1 tablet by mouth at bedtime as needed for muscle spasm. Patient still having issues with her back Sravanthi Garcia LPN October 13, 2024 8:56 AM [facility] [place] 10-13-2024 Miscellaneous Notes The patient has been identified by name and date of : Yes Caregiver verified no other encounters exist for this prescription request: Yes Caregiver confirmed with patient/requestor that no other refills are due, in the near future, with this provider at this time: Yes The last office visit in the department: 07/26/2024 Does the patient have a future office visit with this provider/department: Yes 01/18/2025 Requested Prescriptions Pending Prescriptions Disp Refills cyclobenzaprine (FLEXERIL) 5 mg tablet 30 tablet 0 Sig: Take 1 tablet by mouth at bedtime as needed for muscle spasm. Patient still having issues with her back Sravanthi Garcia LPN October 13, 2024 8:56 AM documented in this encounter [facility] [place] 07-26-2024 Note HNO ID: [id number] Author: MYRA ELIZONDO APRN.MOSS GATHERER Service: ? Author Type: Nurse Practitioner Type: Progress Notes Filed: 07/26/2024 10:15 Note Text: CC: Patient presents with: Physical: Annual Physical HPI Dang Pritchett is a 39 year old female who presents today for annual physical exam. Exercise: denies regular aerobic exercise but walks a large amount at work and lifting. Diet: Watches diet for salt (salty snacks, added salt, processed frozen/canned foods), sugary/sweet snacks, unhealthy fats: most of the time. Caffeine: 2-3 Water intake: drinks large amount of flavored water. 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 Denies loss of bowel/bladder control, weakness, numbness, or falls. No symptoms or concerns today but needs refill on naproxen Hypothyroidism: Takes medication as ordered. Denies abnormal change in weight or energy. REVIEW OF SYSTEMS General: no fevers, no chills, no night sweats, no recurrent infections, no change in appetite, no change in energy, and no significant changes in weight Respiratory: no cough, no wheezing, no shortness of breath, no hemoptysis Cardiovascular: no chest pain, no chest pressure, no palpitations, and no swelling GI: No nausea, vomiting, or diarrhea : No history of dysuria, frequency or incontinence Endocrine: no fatigue, no polyuria, no polyphagia, and no polydipsia Neurologic: No headache, weakness, numbness, tingling, dizziness, memory loss, syncope. PAST MEDICAL HISTORY Diagnosis Date Mild or unspecified pre-eclampsia, unspecified as to episode of care Pre-ecclampsia,mild Unspecified hypothyroidism Hypothyroidism PAST SURGICAL HISTORY Procedure Laterality Date EXCISION PILONIDAL CYST/SINUS SIMPLE 06/01/2002 ALLERGIES Latex and Influenza Virus Vaccine Qs 2013- (18 Yrs-64 Yrs) MEDICATIONS naproxen (NAPROSYN) 500 mg tablet Take 1 tablet by mouth two times a day as needed (for pain/inflammation). Take with food. cyclobenzaprine (FLEXERIL) 5 mg tablet Take 1 tablet by mouth at bedtime as needed for muscle spasm. albuterol HFA (VENTOLIN HFA) 90 mcg/actuation inhaler Inhale 2 Puffs as instructed every 4 hours as needed for wheezing/shortness of breath. levothyroxine (LEVOXYL) 150 mcg tablet Take one tablet every day except only 1/2 tablet on Sundays. For thyroid. Take on an empty stomach FAMILY HISTORY Problem Relation Age of Onset Hypertension Father Lipids Father Diabetes Father Diabetes Maternal Grandmother Cancer Maternal Grandmother CERVICAL CANCER Cancer Maternal Grandfather kidney ca. Cancer Maternal Aunt CERVICAL CANCER Social History Tobacco Use Smoking status: Never Smokeless tobacco: Never Vaping Use Vaping status: Never Used Substance Use Topics Alcohol use: No Drug use: No PHYSICAL EXAM BP 128/74 Pulse 84 Resp 16 Wt 114.2 kg (251 lb 12.3 oz) LMP 11/29/2019 (Approximate) SpO2 96% BMI 41.95 kg/m? General Appearance: well appearing, in no acute distress, alert Pysch: mood and affect broad and appropriate Eyes: conjunctiva pink and moist, no icterus, sclera white, non-injected Neck: Thyroid normal size and symmetric without palpable nodules, Neck supple, No adenopathy Lymph nodes: No cervical lymphadenopathy and No supraclavicular lymphadenopathy Lungs: Lungs clear to auscultation. No wheezing, rhonchi, rales. Heart: RRR without murmur, gallop, or rubs. No ectopy Abdomen: Abdomen soft, non-tender. Bowel sounds normal. No masses, organomegaly Neurological: Gait normal. Reflexes normal and symmetric. Sensation grossly intact. Cervical Cancer Screening due on 09/05/2020 Influenza Vaccine(1) due on 05/07/2025 Hepatitis B Vaccine(1 of 3 - 19+ 3-dose series) due on 07/26/2025 Annual PCP Team Chronic Disease Visit due on 07/26/2025 DTaP,Tdap,Td Vaccine(2 - Td or Tdap) due on 09/05/2025 Hepatitis C Screening Completed HIV Screening Completed HPV Vaccine Aged Out Covid-19 Vaccine Discontinued ASSESSMENT/PLAN: 1. Annual physical exam - ICD9: V70.0, ICD10: Z00.00 (primary diagnosis) - Counseled on healthy diet and regular exercise - Discussed need and benefit for weight loss. BMI 41.95 kg/(m2) - Follow up for annual exam in one year - patient with outstanding medical bills and unable to afford further lab work at this time. Blood work set for in 6 months and number for executive vice president and chief financial officer provided. - LIPID PANEL BASIC - COMPREHENSIVE METABOLIC PANEL - COMPLETE BLOOD COUNT 2. Hypothyroidism, acquired - ICD9: 244.9, ICD10: E03.9 - asymptomatic - Instructed patient on importance of taking on an empty stomach either first thing in the morning or at bedtime. - LEVOTHYROXINE 150 MCG TABLET - THYROID STIMULATING HORMONE - T4 FREE/FREE THYROXINE - T3, FREE 3. Chronic low back pain, unspecified back pain laterality, unspecified whether sciatica present (more content not included)... [facility] 07-26-2024 History of Presen t illness Narrative CC: Patient presents with: Physical: Annual Physical HPI Dang Pritchett is a 39 year old female who presents today for annual physical exam. Exercise: denies regular aerobic exercise but walks a large amount at work and lifting. Diet: Watches diet for salt (salty snacks, added salt, processed frozen/canned foods), sugary/sweet snacks, unhealthy fats: most of the time. Caffeine: 2-3 Water intake: drinks large amount of flavored water. 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 Denies loss of bowel/bladder control, weakness, numbness, or falls. No symptoms or concerns today but needs refill on naproxen Hypothyroidism: Takes medication as ordered. Denies abnormal change in weight or energy. REVIEW OF SYSTEMS General: no fevers, no chills, no night sweats, no recurrent infections, no change in appetite, no change in energy, and no significant changes in weight Respiratory: no cough, no wheezing, no shortness of breath, no hemoptysis Cardiovascular: no chest pain, no chest pressure, no palpitations, and no swelling GI: No nausea, vomiting, or diarrhea : No history of dysuria, frequency or incontinence Endocrine: no fatigue, no polyuria, no polyphagia, and no polydipsia Neurologic: No headache, weakness, numbness, tingling, dizziness, memory loss, syncope. PAST MEDICAL HISTORY Diagnosis Date Mild or unspecified pre-eclampsia, unspecified as to episode of care Pre-ecclampsia,mild Unspecified hypothyroidism Hypothyroidism PAST SURGICAL HISTORY Procedure Laterality Date EXCISION PILONIDAL CYST/SINUS SIMPLE 06/01/2002 ALLERGIES Latex and Influenza Virus Vaccine 2013- (18 Yrs-64 Yrs) MEDICATIONS naproxen (NAPROSYN) 500 mg tablet Take 1 tablet by mouth two times a day as needed (for pain/inflammation). Take with food. cyclobenzaprine (FLEXERIL) 5 mg tablet Take 1 tablet by mouth at bedtime as needed for muscle spasm. albuterol HFA (VENTOLIN HFA) 90 mcg/actuation inhaler Inhale 2 Puffs as instructed every 4 hours as needed for wheezing/shortness of breath. levothyroxine (LEVOXYL) 150 mcg tablet Take one tablet every day except only 1/2 tablet on Sundays. For thyroid. Take on an empty stomach FAMILY HISTORY Problem Relation Age of Onset Hypertension Father Lipids Father Diabetes Father Diabetes Maternal Grandmother Cancer Maternal Grandmother CERVICAL CANCER Cancer Maternal Grandfather kidney ca. Cancer Maternal Aunt CERVICAL CANCER Social History Tobacco Use Smoking status: Never Smokeless tobacco: Never Vaping Use Vaping status: Never Used Substance Use Topics Alcohol use: No Drug use: No PHYSICAL EXAM BP 128/74 Pulse 84 Resp 16 Wt 114.2 kg (251 lb 12.3 oz) LMP 11/29/2019 (Approximate) SpO2 96% BMI 41.95 kg/m General Appearance: well appearing, in no acute distress, alert Pysch: mood and affect broad and appropriate Eyes: conjunctiva pink and moist, no icterus, sclera white, non-injected Neck: Thyroid normal size and symmetric without palpable nodules, Neck supple, No adenopathy Lymph nodes: No cervical lymphadenopathy and No supraclavicular lymphadenopathy Lungs: Lungs clear to auscultation. No wheezing, rhonchi, rales. Heart: RRR without murmur, gallop, or rubs. No ectopy Abdomen: Abdomen soft, non-tender. Bowel sounds normal. No masses, organomegaly Neurological: Gait normal. Reflexes normal and symmetric. Sensation grossly intact. Cervical Cancer Screening due on 09/05/2020 Influenza Vaccine(1) due on 05/07/2025 Hepatitis B Vaccine(1 of 3 - 19+ 3-dose series) due on 07/26/2025 Annual PCP Team Chronic Disease Visit due on 07/26/2025 DTaP,Tdap,Td Vaccine(2 - Td or Tdap) due on 09/05/2025 Hepatitis C Screening Completed HIV Screening Completed HPV Vaccine Aged Out Covid-19 Vaccine Discontinued ASSESSMENT/PLAN: 1. Annual physical exam - ICD9: V70.0, ICD10: Z00.00 (primary diagnosis) - Counseled on healthy diet and regular exercise - Discussed need and benefit for weight loss. BMI 41.95 kg/(m^2) - Follow up for annual exam in one year - patient with outstanding medical bills and unable to afford further lab work at this time. Blood work set for in 6 months and number for executive vice president and chief financial officer provided. - LIPID PANEL BASIC - COMPREHENSIVE METABOLIC PANEL - COMPLETE BLOOD COUNT 2. Hypothyroidism, acquired - ICD9: 244.9, ICD10: E03.9 - asymptomatic - Instructed patient on importance of taking on an empty stomach either first thing in the morning or at bedtime. - LEVOTHYROXINE 150 MCG TABLET - THYROID STIMULATING HORMONE - T4 FREE/FREE THYROXINE - T3, FREE 3. Chronic low back pain, unspecified back pain laterality, unspecified whether sciatica present - ICD9: 724.2, 338.29, ICD10: M54.50, G89.29 Intermittent, no concerns in office today Naproxen refilled as requested. Prescription instructions reviewed with patient as applicable. Potential red flag symptoms discussed with the patient. Reviewed appropriate action plan to take if red flag symptoms occur. Patient agreeable to treatment plan. Myra Elizondo APRN.CNP documented in this encounter [facility] [place] 07-13-2024 Telephone encounter Note Prescription Refill Information The patient has been identified by name and date of : Yes Caregiver verified no other encounters exist for this prescription request: Yes Caregiver confirmed with patient/requestor that no other refills are due, in the near future, with this provider at this time: Yes The last office visit in the department: 05/29/24 Does the patient have a future office visit with this provider/department: Yes Requested Prescriptions Pending Prescriptions Disp Refills cyclobenzaprine (FLEXERIL) 5 mg tablet 30 tablet 0 Sig: Take 1 tablet by mouth at bedtime as needed for muscle spasm. Gideon Beckham MA July 13, 2024 2:47 PM [facility] [place] 07-13-2024 Miscellaneous Notes Prescription Refill Information The patient has been identified by name and date of : Yes Caregiver verified no other encounters exist for this prescription request: Yes Caregiver confirmed with patient/requestor that no other refills are due, in the near future, with this provider at this time: Yes The last office visit in the department: 05/29/24 Does the patient have a future office visit with this provider/department: Yes Requested Prescriptions Pending Prescriptions Disp Refills cyclobenzaprine (FLEXERIL) 5 mg tablet 30 tablet 0 Sig: Take 1 tablet by mouth at bedtime as needed for muscle spasm. Gideon Beckham MA July 13, 2024 2:47 PM documented in this encounter [facility] [place] 07-11-2024 Note Patient Outreach ([facility]) DANG PRITCHETT ([id number]) 1985 F Date Time Provider Department 07/11/24 [facility] During your visit today, we recorded the following information about you: Allergies As of Date: 07/11/2024 Noted Allergy Reaction LATEX 01/25/2007 4 - Hives INFLUENZA VIRUS VACCINE QS 2014-1*09/22/2016 9 - Itching Date Reviewed: 05/29/2024 Reviewed by: Carolee Reyes LPN - Fully Assessed Visit Diagnoses:Obesity, Class III, BMI 40-49.9 (morbid obesity) ([facility]) [E66.01] Hypothyroidism, acquired [E03.9] Order(s):HEMOGLOBIN A1C [ONVRV0W] Order #: [id number] FUTURE THYROID STIMULATING HORMONE [SQTSH] Order #: [id number] FUTURE Prescriptions as of 07/14/2024 - cyclobenzaprine (FLEXERIL) 5 mg tablet Take 1 tablet by mouth at bedtime as needed for muscle spasm. - naproxen (NAPROSYN) 500 mg tablet Take 1 tablet by mouth two times a day as needed (for pain/inflammation). Take with food. - albuterol HFA (VENTOLIN HFA) 90 mcg/actuation inhaler Inhale 2 Puffs as instructed every 4 hours as needed for wheezing/shortness of breath. - levothyroxine (LEVOXYL) 150 mcg tablet Take one tablet every day except only 1/2 tablet on Sundays. For thyroid. Take on an empty stomach Problem List As Of Date 07/11/2024 Noted Resolved Hypothyroidism [E03.9] 01/16/2008 09/25/2016 Dysmenorrhea [N94.6] 08/13/2014 Hypothyroidism, acquired [E03.9] 09/25/2016 Obesity, Class III, BMI 40-49.9 (morbid obesity*02/02/2018 Anxiety and depression [F41.9, F32.A] 01/30/2022 Encounter Status:Closed by NEGIN KYLE on 07/14/24 [facility] 05-29-2024 Instructions Jaimee White, AGRICULTURAL TECHNICIAN.MOSS GATHERER - 05/29/2024 3:11 PM EDT Repeat chest x-ray around July 09 For rib/side pain: start taking the Naproxen twice a day with food for the next 3-4 days and then as needed. Can also try ice, heat and lidocaine patches that are available over the counter. Let me know in 2 weeks if the side pain does not resolve or sooner if worsening documented in this encounter [facility] [place] 05-29-2024 Note HNO ID: [id number] Author: JAIMEE WHITE APRN.NEIL Service: ? Author Type: Nurse Practitioner Type: Progress Notes Filed: 05/29/2024 15:50 Note Text: CC: Patient presents with: Recheck: Ct scan done, lung nodules, pain in right side, started 2 days ago HPI Dang Pritchett is a 39 year old female who presents today for follow-up. Previous visits: 05/10- evaluated in [facility]. Chest x-ray showed cluster of nodular/cavitary nodules in the right upper lobe. Treated with Doxycycline, prednisone burst with taper, and Bromfed. 05/16- follow-up in primary care. Symptoms were not better and continued to have high fever up to 102. Repeat chest x-ray showed interval improvement in nodular opacities. She was treated with Zithromax for possible pneumonia and continued on Doxycycline. She was also given Robitussin with codeine cough syrup 05/23-reported worsening cough at follow-up and ongoing high fever up to 103 along with headache, wheezing, fatigue, lightheadedness and sore throat. CT chest revealed Innumerable bilateral nodules and most of the them are representing centrilobular nodules consistent with infectious etiology. She was prescribed Levaquin and prescribed albuterol. Today: Patient reports significant improvement in cough, very mild and non-productive. All other symptoms have resolved. Appetite and energy level improving. No fever in the past five days. She has mild diarrhea which she attributes to the antibiotics. She developed right sided rib pain a few days ago. Aggravated by movement, especially lifting her right arm overhead. Also worse with cough. Described as sharp. Alleviated by avoiding aggravating movements and ibuprofen. Review of Systems Constitutional: Negative for chills, diaphoresis, fatigue, fever and unexpected weight change. HENT: Negative for congestion, rhinorrhea, sinus pressure, sinus pain, sore throat and trouble swallowing. Respiratory: Negative for shortness of breath and wheezing. Cardiovascular: Negative for chest pain, palpitations and leg swelling. Gastrointestinal: Negative for abdominal pain, blood in stool, nausea and vomiting. Genitourinary: Negative for decreased urine volume, difficulty urinating, dysuria, frequency, hematuria and urgency. Neurological: Negative for dizziness, syncope, weakness and light-headedness. PAST MEDICAL HISTORY Diagnosis Date Mild or unspecified pre-eclampsia, unspecified as to episode of care Pre-ecclampsia,mild Unspecified hypothyroidism Hypothyroidism PAST SURGICAL HISTORY Procedure Laterality Date EXCISION PILONIDAL CYST/SINUS SIMPLE 06/01/2002 ALLERGIES Latex and Influenza Virus Vaccine 2013- (18 Yrs-64 Yrs) MEDICATIONS levoFLOXacin (LEVAQUIN) 500 mg tablet Take 1 tablet by mouth once daily for 7 days. albuterol HFA (VENTOLIN HFA) 90 mcg/actuation inhaler Inhale 2 Puffs as instructed every 4 hours as needed for wheezing/shortness of breath. cyclobenzaprine (FLEXERIL) 5 mg tablet Take 1 tablet by mouth at bedtime as needed for muscle spasm. levothyroxine (LEVOXYL) 150 mcg tablet Take one tablet every day except only 1/2 tablet on Sundays. For thyroid. Take on an empty stomach FAMILY HISTORY Problem Relation Age of Onset Hypertension Father Lipids Father Diabetes Father Diabetes Maternal Grandmother Cancer Maternal Grandmother CERVICAL CANCER Cancer Maternal Grandfather kidney ca. Cancer Maternal Aunt CERVICAL CANCER Social History Tobacco Use Smoking status: Never Smokeless tobacco: Never Vaping Use Vaping Use: Never used Substance Use Topics Alcohol use: No Drug use: No BP 118/78 (BP Site: Left Arm) Pulse 102 Wt 116.4 kg (256 lb 11.2 oz) LMP 11/29/2019 (Approximate) SpO2 99% BMI 42.77 kg/m? Physical Exam Vitals reviewed. Constitutional: Appearance: Normal appearance. HENT: Head: Normocephalic and atraumatic. Nose: Nose normal. Mouth/Throat: Mouth: Mucous membranes are moist. Eyes: Conjunctiva/sclera: Conjunctivae normal. Cardiovascular: Rate and Rhythm: Normal rate and regular rhythm. Heart sounds: Normal heart sounds. No murmur heard. Pulmonary: Effort: Pulmonary effort is normal. Breath sounds: Normal breath sounds. No wheezing, rhonchi or rales. Chest: Abdominal: General: There is no distension. Tenderness: There is no abdominal tenderness. Lymphadenopathy: Cervical: No cervical adenopathy. Skin: General: Skin is warm and dry. Neurological: Mental Status: She is alert. DATA REVIEWED: Most recent CT scan chest and labs ASSESSMENT/PLAN: 1. Respiratory infection - ICD9: 519.8, ICD10: J98.8 (primary diagnosis) Symptoms and CT findings consistent with infection of unknown organism. Symptoms have dramatically improved since starting Levaquin. Complete course of antibiotics as ordered. Follow-up for any recurrent or persistent symptoms. Repeat chest x-ray in 6 weeks (ordered previously) 2. R (more content not included)... [facility] 05-29-2024 History of Presen t illness Narrative Images from the original note were not included. CC: Patient presents with: Recheck: Ct scan done, lung nodules, pain in right side, started 2 days ago HPI Dang Pritchett is a 39 year old female who presents today for follow-up. Previous visits: 05/10- evaluated in [facility]. Chest x-ray showed cluster of nodular/cavitary nodules in the right upper lobe. Treated with Doxycycline, prednisone burst with taper, and Bromfed. 05/16- follow-up in primary care. Symptoms were not better and continued to have high fever up to 102. Repeat chest x-ray showed interval improvement in nodular opacities. She was treated with Zithromax for possible pneumonia and continued on Doxycycline. She was also given Robitussin with codeine cough syrup 05/23-reported worsening cough at follow-up and ongoing high fever up to 103 along with headache, wheezing, fatigue, lightheadedness and sore throat. CT chest revealed Innumerable bilateral nodules and most of the them are representing centrilobular nodules consistent with infectious etiology. She was prescribed Levaquin and prescribed albuterol. Today: Patient reports significant improvement in cough, very mild and non-productive. All other symptoms have resolved. Appetite and energy level improving. No fever in the past five days. She has mild diarrhea which she attributes to the antibiotics. She developed right sided rib pain a few days ago. Aggravated by movement, especially lifting her right arm overhead. Also worse with cough. Described as sharp. Alleviated by avoiding aggravating movements and ibuprofen. Review of Systems Constitutional: Negative for chills, diaphoresis, fatigue, fever and unexpected weight change. HENT: Negative for congestion, rhinorrhea, sinus pressure, sinus pain, sore throat and trouble swallowing. Respiratory: Negative for shortness of breath and wheezing. Cardiovascular: Negative for chest pain, palpitations and leg swelling. Gastrointestinal: Negative for abdominal pain, blood in stool, nausea and vomiting. Genitourinary: Negative for decreased urine volume, difficulty urinating, dysuria, frequency, hematuria and urgency. Neurological: Negative for dizziness, syncope, weakness and light-headedness. PAST MEDICAL HISTORY Diagnosis Date Mild or unspecified pre-eclampsia, unspecified as to episode of care Pre-ecclampsia,mild Unspecified hypothyroidism Hypothyroidism PAST SURGICAL HISTORY Procedure Laterality Date EXCISION PILONIDAL CYST/SINUS SIMPLE 06/01/2002 ALLERGIES Latex and Influenza Virus Vaccine 2013- (18 Yrs-64 Yrs) MEDICATIONS levoFLOXacin (LEVAQUIN) 500 mg tablet Take 1 tablet by mouth once daily for 7 days. albuterol HFA (VENTOLIN HFA) 90 mcg/actuation inhaler Inhale 2 Puffs as instructed every 4 hours as needed for wheezing/shortness of breath. cyclobenzaprine (FLEXERIL) 5 mg tablet Take 1 tablet by mouth at bedtime as needed for muscle spasm. levothyroxine (LEVOXYL) 150 mcg tablet Take one tablet every day except only 1/2 tablet on Sundays. For thyroid. Take on an empty stomach FAMILY HISTORY Problem Relation Age of Onset Hypertension Father Lipids Father Diabetes Father Diabetes Maternal Grandmother Cancer Maternal Grandmother CERVICAL CANCER Cancer Maternal Grandfather kidney ca. Cancer Maternal Aunt CERVICAL CANCER Social History Tobacco Use Smoking status: Never Smokeless tobacco: Never Vaping Use Vaping Use: Never used Substance Use Topics Alcohol use: No Drug use: No BP 118/78 (BP Site: Left Arm) Pulse 102 Wt 116.4 kg (256 lb 11.2 oz) LMP 11/29/2019 (Approximate) SpO2 99% BMI 42.77 kg/m Physical Exam Vitals reviewed. Constitutional: Appearance: Normal appearance. HENT: Head: Normocephalic and atraumatic. Nose: Nose normal. Mouth/Throat: Mouth: Mucous membranes are moist. Eyes: Conjunctiva/sclera: Conjunctivae normal. Cardiovascular: Rate and Rhythm: Normal rate and regular rhythm. Heart sounds: Normal heart sounds. No murmur heard. Pulmonary: Effort: Pulmonary effort is normal. Breath sounds: Normal breath sounds. No wheezing, rhonchi or rales. Chest: Abdominal: General: There is no distension. Tenderness: There is no abdominal tenderness. Lymphadenopathy: Cervical: No cervical adenopathy. Skin: General: Skin is warm and dry. Neurological: Mental Status: She is alert. DATA REVIEWED: Most recent CT scan chest and labs ASSESSMENT/PLAN: 1. Respiratory infection - ICD9: 519.8, ICD10: J98.8 (primary diagnosis) Symptoms and CT findings consistent with infection of unknown organism. Symptoms have dramatically improved since starting Levaquin. Complete course of antibiotics as ordered. Follow-up for any recurrent or persistent symptoms. Repeat chest x-ray in 6 weeks (ordered previously) 2. Rib pain on right side - ICD9: 786.50, ICD10: R07.81 Differentials include musculoskeletal pain, pleurisy Start Naproxen, see orders Can also try ice, heat, topical analgesics Follow-up in two weeks if no improvement or sooner if worsening Prescription instructions reviewed with patient as applicable. Potential red flag symptoms discussed with the patient. Reviewed appropriate action plan to take if red flag symptoms occur. Patient agreeable to treatment plan. Jaimee White APRN.MOSS GATHERER documented in this encounter [facility] [place] 05-24-2024 Telephone encounter Note Pt called and is notified of providers results and instructions. Pt voices understanding. Pt scheduled with Jaimee White NP on 05/29/24. Oriana Daniel RN [facility] [place] 05-24-2024 Miscellaneous Notes Pt called and is notified of providers results and instructions. Pt voices understanding. Pt scheduled with Jaimee White NP on 05/29/24. Oriana Daniel RN Please let the patient know the CT chest showed numerous small lung nodules which likely indicate infection. I am going to treat her with an antibiotic called Levaquin. For her cough and SOB I would like for her to start using an albuterol inhaler, prescription for this sent as well. She should follow-up in the office on Wednesday or sooner if her symptoms are worsening. Jaimee White APRN.CNP documented in this encounter [facility] [place] 05-24-2024 Telephone encounter Note Please let the patient know the CT chest showed numerous small lung nodules which likely indicate infection. I am going to treat her with an antibiotic called Levaquin. For her cough and SOB I would like for her to start using an albuterol inhaler, prescription for this sent as well. She should follow-up in the office on Wednesday or sooner if her symptoms are worsening. Jaimee White APRN.CNP [facility] [place] 05-23-2024 History of Presen t illness Narrative Radiology Service Progress Note PATIENT NAME: Dang Pritchett DATE OF SERVICE: May 23, 2024 TIME: 3:56 PM PATIENT IDENTITY VERIFICATION COMPLETED USING TWO (2) IDENTIFIERS: Name and Date of confirmed by patient verbally. FALL SCREENING: Has the patient had 2 falls in the last year or 1 fall with injury or currently using an Ambulatory Assistive Device (Walker, Cane, Wheelchair, Crutches, etc.)? No PATIENT GENDER DATA: Female. status: : No status: NO. PATIENT RELEVANT IMPLANT DATA REVIEWED: Yes PATIENT PRESENTS WITH AN IMPLANTABLE OR ATTACHED TRANSPORT AIDE: No RADIOLOGY DEPARTMENT: CT; Exam(s) Completed: Chest PERIPHERAL IV DATA: Not applicable SIGNED BY: RT Sapphire(R) May 23, 2024 3:56 PM documented in this encounter [facility] [place] 05-23-2024 Note HNO ID: [id number] Author: WANDA VALDOVINOS RT(Demetrius) Service: ? Author Type: Orthopaedic General Type: Progress Notes Filed: 05/23/2024 15:57 Note Text: Radiology Service Progress Note PATIENT NAME: Dang Pritchett DATE OF SERVICE: May 23, 2024 TIME: 3:56 PM PATIENT IDENTITY VERIFICATION COMPLETED USING TWO (2) IDENTIFIERS: Name and Date of confirmed by patient verbally. FALL SCREENING: Has the patient had 2 falls in the last year or 1 fall with injury or currently using an Ambulatory Assistive Device (Walker, Cane, Wheelchair, Crutches, etc.)? No PATIENT GENDER DATA: Female. status: : No status: NO. PATIENT RELEVANT IMPLANT DATA REVIEWED: Yes PATIENT PRESENTS WITH AN IMPLANTABLE OR ATTACHED TRANSPORT AIDE: No RADIOLOGY DEPARTMENT: CT; Exam(s) Completed: Chest PERIPHERAL IV DATA: Not applicable SIGNED BY: DARCI Leary) May 23, 2024 3:56 PM [facility] 05-23-2024 Note HNO ID: [id number] Author: JAIMEE WHITE APRN.MOSS GATHERER Service: ? Author Type: Nurse Practitioner Type: Progress Notes Filed: 05/23/2024 10:48 Note Text: CC: Patient presents with: 1 week follow up - cxr HPI Dang Pritchett is a 39 year old female who presents today for above. She developed a cough, fever, headache and sore throat about three weeks ago. 05/10- [facility] Chest x-ray showed cluster of nodular/cavitary nodules in the right upper lobe. Treated with Doxycycline, prednisone burst with taper, and Bromfed. 05/16- follow-up in primary care. Symptoms were not better and continued to have high fever up to 102. Repeat chest x-ray showed interval improvement in nodular opacities. She was treated with Zithromax for possible pneumonia and continued on Doxycycline. She was also given Robitussin with codeine cough syrup Today patient reports symptoms are worsening. Cough is still keeping her up at night. Coughs so hard she vomits and is incontinent of urine. She gets SOB with exertion and occasionally at rest. Last temp elevation was two days ago, 103 per patient. Also reports wheezing, fatigue, poor appetite, episodes of lightheadedness, headache, rib pain from coughing and sore throat. Denies chest pain, hemoptysis, palpitations, edema. Review of Systems See HPI PAST MEDICAL HISTORY Diagnosis Date Mild or unspecified pre-eclampsia, unspecified as to episode of care Pre-ecclampsia,mild Unspecified hypothyroidism Hypothyroidism PAST SURGICAL HISTORY Procedure Laterality Date EXCISION PILONIDAL CYST/SINUS SIMPLE 06/01/2002 ALLERGIES Latex and Influenza Virus Vaccine 2013- (18 Yrs-64 Yrs) MEDICATIONS codeine-guaiFENesin (ROBITUSSIN AC) 10-100 mg/5 mL syrup Take 5 mL by mouth four times a day as needed for up to 7 days. cyclobenzaprine (FLEXERIL) 5 mg tablet Take 1 tablet by mouth at bedtime as needed for muscle spasm. levothyroxine (LEVOXYL) 150 mcg tablet Take one tablet every day except only 1/2 tablet on Sundays. For thyroid. Take on an empty stomach FAMILY HISTORY Problem Relation Age of Onset Hypertension Father Lipids Father Diabetes Father Diabetes Maternal Grandmother Cancer Maternal Grandmother CERVICAL CANCER Cancer Maternal Grandfather kidney ca. Cancer Maternal Aunt CERVICAL CANCER Social History Tobacco Use Smoking status: Never Smokeless tobacco: Never Vaping Use Vaping Use: Never used Substance Use Topics Alcohol use: No Drug use: No BP 130/83 Pulse 102 Resp 20 Wt 117.9 kg (260 lb) LMP 11/29/2019 (Approximate) SpO2 97% BMI 43.32 kg/m? Physical Exam Vitals reviewed. Constitutional: General: She is not in acute distress. Appearance: She is ill-appearing. She is not toxic-appearing. HENT: Right Ear: Tympanic membrane normal. Left Ear: Tympanic membrane normal. Nose: Right Sinus: No maxillary sinus tenderness or frontal sinus tenderness. Left Sinus: No maxillary sinus tenderness or frontal sinus tenderness. Mouth/Throat: Lips: [place]. Mouth: Mucous membranes are moist. Pharynx: Oropharynx is clear. Eyes: Conjunctiva/sclera: Conjunctivae normal. Cardiovascular: Rate and Rhythm: Normal rate and regular rhythm. Pulses: Normal pulses. Heart sounds: Normal heart sounds. No murmur heard. Pulmonary: Breath sounds: Decreased breath sounds (posterior lobes) and wheezing (scattered) present. No rhonchi or rales. Chest: Chest wall: Tenderness present. Musculoskeletal: Right lower leg: No edema. Left lower leg: No edema. Lymphadenopathy: Cervical: No cervical adenopathy. Skin: General: Skin is warm and dry. Neurological: Mental Status: She is alert. Psychiatric: Mood and Affect: Mood is anxious. Affect is tearful. Health maintenance reviewed with patient: Cervical Cancer Screening due on 09/05/2020 Hepatitis B Vaccine(1 of 3 - 19+ 3-dose series) due on 07/21/2024 Influenza Vaccine(1) due on 07/09/2024 Annual PCP Team Chronic Disease Visit due on 05/16/2025 DTaP,Tdap,Td Vaccine(2 - Td or Tdap) due on 09/05/2025 Hepatitis C Screening Completed HIV Screening Completed HPV Vaccine Aged Out Covid-19 Vaccine Discontinued DATA REVIEWED: Most recent imaging Clinically suspected DVT? (+3)= 0 Alternative diagnosis is less likely than PE (+3)?= 0 Heart Rate >100bpm? (+1.5)= 0 Immobilization/surgery in previous four weeks? 0 History of DVT or PE (1.5+)=0 Hemoptysis? (+1)=0 Malignancy (treatment for within 6 months, palliative +1)=0 TOTAL SCORE: 0 Interpretation: Traditional Score >6.0 - High (probability 59% based on pooled data) Score 2.0 to 6.0 - Moderate (probability 29% based on pooled data) Score <2.0 - Low (probability 15% based on pooled data) PERC rule for low probability of PE: Age < 50 years Heart rate < 100 bmp Oxyhemoglobin saturation 95% or higher No hemoptysis No estrogen use No prior DVT or PE No unilateral leg s (more content not included)... [facility] 05-23-2024 History of Presen t illness Narrative CC: Patient presents with: 1 week follow up - cxr HPI Dang Pritchett is a 39 year old female who presents today for above. She developed a cough, fever, headache and sore throat about three weeks ago. 05/10- evaluated in [facility]. Chest x-ray showed cluster of nodular/cavitary nodules in the right upper lobe. Treated with Doxycycline, prednisone burst with taper, and Bromfed. 05/16- follow-up in primary care. Symptoms were not better and continued to have high fever up to 102. Repeat chest x-ray showed interval improvement in nodular opacities. She was treated with Zithromax for possible pneumonia and continued on Doxycycline. She was also given Robitussin with codeine cough syrup Today patient reports symptoms are worsening. Cough is still keeping her up at night. Coughs so hard she vomits and is incontinent of urine. She gets SOB with exertion and occasionally at rest. Last temp elevation was two days ago, 103 per patient. Also reports wheezing, fatigue, poor appetite, episodes of lightheadedness, headache, rib pain from coughing and sore throat. Denies chest pain, hemoptysis, palpitations, edema. Review of Systems See HPI PAST MEDICAL HISTORY Diagnosis Date Mild or unspecified pre-eclampsia, unspecified as to episode of care Pre-ecclampsia,mild Unspecified hypothyroidism Hypothyroidism PAST SURGICAL HISTORY Procedure Laterality Date EXCISION PILONIDAL CYST/SINUS SIMPLE 06/01/2002 ALLERGIES Latex and Influenza Virus Vaccine 2013- (18 Yrs-64 Yrs) MEDICATIONS codeine-guaiFENesin (ROBITUSSIN AC) 10-100 mg/5 mL syrup Take 5 mL by mouth four times a day as needed for up to 7 days. cyclobenzaprine (FLEXERIL) 5 mg tablet Take 1 tablet by mouth at bedtime as needed for muscle spasm. levothyroxine (LEVOXYL) 150 mcg tablet Take one tablet every day except only 1/2 tablet on Sundays. For thyroid. Take on an empty stomach FAMILY HISTORY Problem Relation Age of Onset Hypertension Father Lipids Father Diabetes Father Diabetes Maternal Grandmother Cancer Maternal Grandmother CERVICAL CANCER Cancer Maternal Grandfather kidney ca. Cancer Maternal Aunt CERVICAL CANCER Social History Tobacco Use Smoking status: Never Smokeless tobacco: Never Vaping Use Vaping Use: Never used Substance Use Topics Alcohol use: No Drug use: No BP 130/83 Pulse 102 Resp 20 Wt 117.9 kg (260 lb) LMP 11/29/2019 (Approximate) SpO2 97% BMI 43.32 kg/m Physical Exam Vitals reviewed. Constitutional: General: She is not in acute distress. Appearance: She is ill-appearing. She is not toxic-appearing. HENT: Right Ear: Tympanic membrane normal. Left Ear: Tympanic membrane normal. Nose: Right Sinus: No maxillary sinus tenderness or frontal sinus tenderness. Left Sinus: No maxillary sinus tenderness or frontal sinus tenderness. Mouth/Throat: Lips: [place]. Mouth: Mucous membranes are moist. Pharynx: Oropharynx is clear. Eyes: Conjunctiva/sclera: Conjunctivae normal. Cardiovascular: Rate and Rhythm: Normal rate and regular rhythm. Pulses: Normal pulses. Heart sounds: Normal heart sounds. No murmur heard. Pulmonary: Breath sounds: Decreased breath sounds (posterior lobes) and wheezing (scattered) present. No rhonchi or rales. Chest: Chest wall: Tenderness present. Musculoskeletal: Right lower leg: No edema. Left lower leg: No edema. Lymphadenopathy: Cervical: No cervical adenopathy. Skin: General: Skin is warm and dry. Neurological: Mental Status: She is alert. Psychiatric: Mood and Affect: Mood is anxious. Affect is tearful. Health maintenance reviewed with patient: Cervical Cancer Screening due on 09/05/2020 Hepatitis B Vaccine(1 of 3 - 19+ 3-dose series) due on 07/21/2024 Influenza Vaccine(1) due on 07/09/2024 Annual PCP Team Chronic Disease Visit due on 05/16/2025 DTaP,Tdap,Td Vaccine(2 - Td or Tdap) due on 09/05/2025 Hepatitis C Screening Completed HIV Screening Completed HPV Vaccine Aged Out Covid-19 Vaccine Discontinued DATA REVIEWED: Most recent imaging Clinically suspected DVT? (+3)= 0 Alternative diagnosis is less likely than PE (+3)?= 0 Heart Rate >100bpm? (+1.5)= 0 Immobilization/surgery in previous four weeks? 0 History of DVT or PE (1.5+)=0 Hemoptysis? (+1)=0 Malignancy (treatment for within 6 months, palliative +1)=0 TOTAL SCORE: 0 Interpretation: Traditional Score >6.0 - High (probability 59% based on pooled data) Score 2.0 to 6.0 - Moderate (probability 29% based on pooled data) Score <2.0 - Low (probability 15% based on pooled data) PERC rule for low probability of PE: Age < 50 years Heart rate < 100 bmp Oxyhemoglobin saturation 95% or higher No hemoptysis No estrogen use No prior DVT or PE No unilateral leg swelling No surgery/trauma requiring hospitalization within the prior four weeks In patients with a low probability of PE who fulfil all eight criteria, the likelihood of PE is low and no further testing is required. All other patients should be considered for further testing with sensitive D-dimer or imaging. ASSESSMENT/PLAN: 1. Acute cough - ICD9: 786.2, ICD10: R05.1 (primary diagnosis) Etiology unclear. Worsening respiratory symptoms despite interval improvement in chest x-ray and treatment with Doxycycline, Zithromax, and prednisone. Continues to experience high fevers. For these reasons she needs advanced imaging with CT chest as chest x-ray may not be sensitive for other acute infections. Patient is stable for continued outpatient evaluation. Stat work-up with: - CT CHEST WO IVCON - COMPLETE BLOOD COUNT - BASIC METABOLIC PANEL Follow-up pending results 2. Shortness of breath - ICD9: 786.05, ICD10: R06.02 As above - CT CHEST WO IVCON - COMPLETE BLOOD COUNT - BASIC METABOLIC PANEL 3. Abnormal chest x-ray - ICD9: 793.2, ICD10: R93.89 As above - CT CHEST WO IVCON 4. Fever, unspecified fever cause - ICD9: 780.60, ICD10: R50.9 As above - CT CHEST WO IVCON - COMPLETE BLOOD COUNT - BASIC METABOLIC PANEL Prescription instructions reviewed with patient as applicable. Potential red flag symptoms discussed with the patient. Reviewed appropriate action plan to take if red flag symptoms occur. Patient agreeable to treatment plan. Jaimee White APRN.MOSS GATHERER documented in this encounter [facility] [place] 05-16-2024 Telephone encounter Note Patient notified, verbalized understanding. Follow up scheduled. [facility] [place] 05-16-2024 Miscellaneous Notes Patient notified, verbalized understanding. Follow up scheduled. Please call patient to schedule one week follow-up and chest x-ray in 3-4 weeks Jaimeerusty White APRN.CNP documented in this encounter [facility] [place] 05-16-2024 Telephone encounter Note Please call patient to schedule one week follow-up and chest x-ray in 3-4 weeks Jaimee White APRN.CNP [facility] [place] 05-16-2024 History of Presen t illness Narrative Radiology Service Progress Note PATIENT NAME: Dang Pritchett DATE OF SERVICE: May 16, 2024 TIME: 10:21 AM PATIENT IDENTITY VERIFICATION COMPLETED USING TWO (2) IDENTIFIERS: Name and Date of confirmed by patient verbally. FALL SCREENING: Has the patient had 2 falls in the last year or 1 fall with injury or currently using an Ambulatory Assistive Device (Walker, Cane, Wheelchair, Crutches, etc.)? No PATIENT GENDER DATA: Female. status: : No status: NO. PATIENT RELEVANT IMPLANT DATA REVIEWED: Yes PATIENT PRESENTS WITH AN IMPLANTABLE OR ATTACHED TRANSPORT AIDE: No RADIOLOGY DEPARTMENT: General X-ray: Exam(s) Completed: Chest X-Ray PERIPHERAL IV DATA: Not applicable SIGNED BY: RT Albina(Demetrius) May 16, 2024 10:21 AM documented in this encounter [facility] [place] 05-16-2024 Note HNO ID: [id number] Author: BAMBI JACKMAN RT(R) Service: ? Author Type: Orthopaedic General Type: Progress Notes Filed: 05/16/2024 10:22 Note Text: Radiology Service Progress Note PATIENT NAME: Dang Pritchett DATE OF SERVICE: May 16, 2024 TIME: 10:21 AM PATIENT IDENTITY VERIFICATION COMPLETED USING TWO (2) IDENTIFIERS: Name and Date of confirmed by patient verbally. FALL SCREENING: Has the patient had 2 falls in the last year or 1 fall with injury or currently using an Ambulatory Assistive Device (Walker, Cane, Wheelchair, Crutches, etc.)? No PATIENT GENDER DATA: Female. status: : No status: NO. PATIENT RELEVANT IMPLANT DATA REVIEWED: Yes PATIENT PRESENTS WITH AN IMPLANTABLE OR ATTACHED TRANSPORT AIDE: No RADIOLOGY DEPARTMENT: General X-ray: Exam(s) Completed: Chest X-Ray PERIPHERAL IV DATA: Not applicable SIGNED BY: RT Albina(R) May 16, 2024 10:21 AM [facility] 05-16-2024 Instructions Jaimee White APRN.NEIL - 05/16/2024 10:07 AM EDT CARE ADVICE FOR COUGH: Drink warm fluids. Inhale warm mist. (Reason: both relax the airway and loosen up the phlegm) Suck on cough drops or hard candy to coat the irritated throat. OTC COUGH DROPS: Cough drops can help a lot, especially for mild coughs. They reduce coughing by soothing your irritated throat and removing that tickle sensation in the back of the throat. Cough drops also have the advantage of portability - you can carry them with you. HOME REMEDY - HARD CANDY: Hard candy works just as well as medicine-flavored OTC cough drops. People who have diabetes should use sugar-free candy. HOME REMEDY - HONEY: This old home remedy has been shown to help decrease coughing at night. The adult dosage is 2 teaspoons (10 ml) at bedtime. Honey should not be given to infants under one year of age. HUMIDIFIER: If the air is dry, use a humidifier in the bedroom. (Reason: dry air makes coughs worse) AVOID TOBACCO SMOKE: Smoking or being exposed to smoke makes coughs much worse. SORE THROAT For relief of sore throat: Sip warm chicken broth or apple juice Suck on hard candy or a throat lozenge (OTC) Gargle with warm salt water four times a day To make salt water, put 1/2 teaspoon of salt in 8 oz (240 ml) of warm water. Avoid cigarette smoke CALL BACK IF: Difficulty breathing occurs You develop any new or worsening symptoms You have any questions or concerns documented in this encounter [facility] [place] 05-16-2024 Note HNO ID: [id number] Author: JAIMEE WHITE APRN.NEIL Service: ? Author Type: Nurse Practitioner Type: Progress Notes Filed: 05/16/2024 11:32 Note Text: CC: Patient presents with: [facility] follow up HPI Dang Pritchett is a 39 year old female who presents today for above. Patient was seen in [facility] on 05/10 with one week history of cough, fever, headache and sore throat that continued to get worse. Chest x-ray revealed cluster of nodules/cavitary nodules in the right upper lung. She was prescribed prednisone, Doxycycline and Bromfed as needed. Today patient reports no improvement in symptoms. Cough is worse at times, non-productive and harsh. Interferes with sleep. Still has a fever with last temp elevation of 102.0 two days ago, otherwise no higher than 99.0. Also reports fatigue, malaise and sore throat. Denies wheezing, SOB, hemoptysis, facial pain or pressure, ear pain, post nasal drainage, runny nose or congestion. PMH is non-contributory. Denies history of asthma and no respiratory issues other than when she is sick. She has never smoked. Bromfed does not help with cough. She has two more days of Doxycycline left. Review of Systems Constitutional: Negative for diaphoresis and unexpected weight change. Cardiovascular: Negative for chest pain, palpitations and leg swelling. Hematological: Negative for adenopathy. Does not bruise/bleed easily. PAST MEDICAL HISTORY Diagnosis Date Mild or unspecified pre-eclampsia, unspecified as to episode of care Pre-ecclampsia,mild Unspecified hypothyroidism Hypothyroidism PAST SURGICAL HISTORY Procedure Laterality Date EXCISION PILONIDAL CYST/SINUS SIMPLE 06/01/2002 ALLERGIES Latex and Influenza Virus Vaccine Qs 2013- (18 Yrs-64 Yrs) MEDICATIONS Smjtoaajiewzpkj-Mamifdzqi-RU (BROMFED DM) 2-30-10 mg/5 mL syrup Take 5 mL by mouth four times a day as needed. predniSONE (DELTASONE) 10 mg tablet Take 4 tabs daily for 3 days, then 2 tabs daily for 3 days, then 1 tab daily for 3 days with food. cyclobenzaprine (FLEXERIL) 5 mg tablet Take 1 tablet by mouth at bedtime as needed for muscle spasm. levothyroxine (LEVOXYL) 150 mcg tablet Take one tablet every day except only 1/2 tablet on Sundays. For thyroid. Take on an empty stomach benzonatate (TESSALON PERLES) 100 mg capsule Take 1 capsule by mouth three times a day as needed for up to 12 doses. (Patient not taking: Reported on 05/10/2024) Benzonatate 200 mg capsule Take 1 capsule by mouth three times a day as needed. (Patient not taking: Reported on 03/08/2024) FAMILY HISTORY Problem Relation Age of Onset Hypertension Father Lipids Father Diabetes Father Diabetes Maternal Grandmother Cancer Maternal Grandmother CERVICAL CANCER Cancer Maternal Grandfather kidney ca. Cancer Maternal Aunt CERVICAL CANCER Social History Tobacco Use Smoking status: Never Smokeless tobacco: Never Vaping Use Vaping Use: Never used Substance Use Topics Alcohol use: No Drug use: No BP 128/78 Pulse 91 Temp 36.7 ?C (98 ?F) (Temporal) Resp 18 Wt 118.4 kg (261 lb) LMP 11/29/2019 (Approximate) SpO2 98% BMI 43.48 kg/m? Physical Exam Vitals reviewed. Constitutional: General: She is not in acute distress. Appearance: She is ill-appearing. She is not toxic-appearing. HENT: Head: Normocephalic and atraumatic. Right Ear: Tympanic membrane normal. Left Ear: Tympanic membrane normal. Nose: Right Sinus: No maxillary sinus tenderness or frontal sinus tenderness. Left Sinus: No maxillary sinus tenderness or frontal sinus tenderness. Mouth/Throat: Lips: [place]. Mouth: Mucous membranes are moist. Pharynx: Oropharynx is clear. Eyes: Conjunctiva/sclera: Conjunctivae normal. Cardiovascular: Rate and Rhythm: Normal rate and regular rhythm. Heart sounds: Normal heart sounds. No murmur heard. Pulmonary: Effort: Pulmonary effort is normal. Breath sounds: Normal breath sounds and air entry. No wheezing, rhonchi or rales. Lymphadenopathy: Cervical: No cervical adenopathy. Upper Body: Right upper body: No supraclavicular adenopathy. Left upper body: No supraclavicular adenopathy. Skin: General: Skin is warm and dry. Neurological: Mental Status: She is alert. DATA REVIEWED: Most recent chest x-ray and labs ASSESSMENT/PLAN: 1. Acute cough - ICD9: 786.2, ICD10: R05.1 (primary diagnosis) Differentials include pneumonia, bronchitis, post infectious cough, seasonal/environmental allergies. Symptoms are not improving, worse at times. - repeat XR CHEST 2V FRONTAL/LAT today - CODEINE 10 MG-GUAIFENESIN 100 MG/5 ML ORAL LIQUID as needed for cough. Cautioned it may cause drowsiness Follow-up and further work-up/treatment pending results of chest x-ray 2. Lung nodules Etiology unclear. Suspect infectious cause. See plan above 3. Fever, unspecified fever cause - ICD9: 780.60, ICD10: R50.9 As above - XR CHEST 2V FRONTAL/LAT Prescriptio (more content not included)... [facility] 05-16-2024 History of Presen t illness Narrative CC: Patient presents with: [facility] follow up HPI Dang Pritchett is a 39 year old female who presents today for above. Patient was seen in [facility] on 05/10 with one week history of cough, fever, headache and sore throat that continued to get worse. Chest x-ray revealed cluster of nodules/cavitary nodules in the right upper lung. She was prescribed prednisone, Doxycycline and Bromfed as needed. Today patient reports no improvement in symptoms. Cough is worse at times, non-productive and harsh. Interferes with sleep. Still has a fever with last temp elevation of 102.0 two days ago, otherwise no higher than 99.0. Also reports fatigue, malaise and sore throat. Denies wheezing, SOB, hemoptysis, facial pain or pressure, ear pain, post nasal drainage, runny nose or congestion. PMH is non-contributory. Denies history of asthma and no respiratory issues other than when she is sick. She has never smoked. Bromfed does not help with cough. She has two more days of Doxycycline left. Review of Systems Constitutional: Negative for diaphoresis and unexpected weight change. Cardiovascular: Negative for chest pain, palpitations and leg swelling. Hematological: Negative for adenopathy. Does not bruise/bleed easily. PAST MEDICAL HISTORY Diagnosis Date Mild or unspecified pre-eclampsia, unspecified as to episode of care Pre-ecclampsia,mild Unspecified hypothyroidism Hypothyroidism PAST SURGICAL HISTORY Procedure Laterality Date EXCISION PILONIDAL CYST/SINUS SIMPLE 06/01/2002 ALLERGIES Latex and Influenza Virus Vaccine Qs 2013- (18 Yrs-64 Yrs) MEDICATIONS Hrodzyckhnsddzy-Ikuvnrdci-QQ (BROMFED DM) 2-30-10 mg/5 mL syrup Take 5 mL by mouth four times a day as needed. predniSONE (DELTASONE) 10 mg tablet Take 4 tabs daily for 3 days, then 2 tabs daily for 3 days, then 1 tab daily for 3 days with food. cyclobenzaprine (FLEXERIL) 5 mg tablet Take 1 tablet by mouth at bedtime as needed for muscle spasm. levothyroxine (LEVOXYL) 150 mcg tablet Take one tablet every day except only 1/2 tablet on Sundays. For thyroid. Take on an empty stomach benzonatate (TESSALON PERLES) 100 mg capsule Take 1 capsule by mouth three times a day as needed for up to 12 doses. (Patient not taking: Reported on 05/10/2024) Benzonatate 200 mg capsule Take 1 capsule by mouth three times a day as needed. (Patient not taking: Reported on 03/08/2024) FAMILY HISTORY Problem Relation Age of Onset Hypertension Father Lipids Father Diabetes Father Diabetes Maternal Grandmother Cancer Maternal Grandmother CERVICAL CANCER Cancer Maternal Grandfather kidney ca. Cancer Maternal Aunt CERVICAL CANCER Social History Tobacco Use Smoking status: Never Smokeless tobacco: Never Vaping Use Vaping Use: Never used Substance Use Topics Alcohol use: No Drug use: No BP 128/78 Pulse 91 Temp 36.7 C (98 F) (Temporal) Resp 18 Wt 118.4 kg (261 lb) LMP 11/29/2019 (Approximate) SpO2 98% BMI 43.48 kg/m Physical Exam Vitals reviewed. Constitutional: General: She is not in acute distress. Appearance: She is ill-appearing. She is not toxic-appearing. HENT: Head: Normocephalic and atraumatic. Right Ear: Tympanic membrane normal. Left Ear: Tympanic membrane normal. Nose: Right Sinus: No maxillary sinus tenderness or frontal sinus tenderness. Left Sinus: No maxillary sinus tenderness or frontal sinus tenderness. Mouth/Throat: Lips: [place]. Mouth: Mucous membranes are moist. Pharynx: Oropharynx is clear. Eyes: Conjunctiva/sclera: Conjunctivae normal. Cardiovascular: Rate and Rhythm: Normal rate and regular rhythm. Heart sounds: Normal heart sounds. No murmur heard. Pulmonary: Effort: Pulmonary effort is normal. Breath sounds: Normal breath sounds and air entry. No wheezing, rhonchi or rales. Lymphadenopathy: Cervical: No cervical adenopathy. Upper Body: Right upper body: No supraclavicular adenopathy. Left upper body: No supraclavicular adenopathy. Skin: General: Skin is warm and dry. Neurological: Mental Status: She is alert. DATA REVIEWED: Most recent chest x-ray and labs ASSESSMENT/PLAN: 1. Acute cough - ICD9: 786.2, ICD10: R05.1 (primary diagnosis) Differentials include pneumonia, bronchitis, post infectious cough, seasonal/environmental allergies. Symptoms are not improving, worse at times. - repeat XR CHEST 2V FRONTAL/LAT today - CODEINE 10 MG-GUAIFENESIN 100 MG/5 ML ORAL LIQUID as needed for cough. Cautioned it may cause drowsiness Follow-up and further work-up/treatment pending results of chest x-ray 2. Lung nodules Etiology unclear. Suspect infectious cause. See plan above 3. Fever, unspecified fever cause - ICD9: 780.60, ICD10: R50.9 As above - XR CHEST 2V FRONTAL/LAT Prescription instructions reviewed with patient as applicable. Potential red flag symptoms discussed with the patient. Reviewed appropriate action plan to take if red flag symptoms occur. Patient agreeable to treatment plan. Jaimee White APRN.MOSS GATHERER documented in this encounter [facility] [place] 05-10-2024 History of Presen t illness Narrative Radiology Service Progress Note PATIENT NAME: Dang Pritchett DATE OF SERVICE: May 10, 2024 TIME: 2:59 PM PATIENT IDENTITY VERIFICATION COMPLETED USING TWO (2) IDENTIFIERS: Name and Date of confirmed by patient verbally. FALL SCREENING: Has the patient had 2 falls in the last year or 1 fall with injury or currently using an Ambulatory Assistive Device (Walker, Cane, Wheelchair, Crutches, etc.)? No PATIENT GENDER DATA: Female. status: : No status: NO. PATIENT RELEVANT IMPLANT DATA REVIEWED: Yes PATIENT PRESENTS WITH AN IMPLANTABLE OR ATTACHED TRANSPORT AIDE: No RADIOLOGY DEPARTMENT: General X-ray: Exam(s) Completed: Chest X-Ray PERIPHERAL IV DATA: Not applicable SIGNED BY: RT Jer(Demetrius) May 10, 2024 2:59 PM documented in this encounter [facility] [place] 05-10-2024 Note HNO ID: [id number] Author: LUCERO FERGUSON RT(R) Service: Radiology Author Type: Technologist Type: Progress Notes Filed: 05/10/2024 15:07 Note Text: Radiology Service Progress Note PATIENT NAME: Dang Pritchett DATE OF SERVICE: May 10, 2024 TIME: 2:59 PM PATIENT IDENTITY VERIFICATION COMPLETED USING TWO (2) IDENTIFIERS: Name and Date of confirmed by patient verbally. FALL SCREENING: Has the patient had 2 falls in the last year or 1 fall with injury or currently using an Ambulatory Assistive Device (Walker, Cane, Wheelchair, Crutches, etc.)? No PATIENT GENDER DATA: Female. status: : No status: NO. PATIENT RELEVANT IMPLANT DATA REVIEWED: Yes PATIENT PRESENTS WITH AN IMPLANTABLE OR ATTACHED TRANSPORT AIDE: No RADIOLOGY DEPARTMENT: General X-ray: Exam(s) Completed: Chest X-Ray PERIPHERAL IV DATA: Not applicable SIGNED BY: RT Jer(Demetrius) May 10, 2024 2:59 PM [facility] 05-10-2024 Note HNO ID: [id number] Author: CANDELARIA MAYFIELD APRN.MOSS GATHERER Service: ? Author Type: Nurse Practitioner Type: Progress Notes Filed: 05/10/2024 15:43 Note Text: This note was created using NoteWriter. Subjective Dang Pritchett is a 39 year old female. 39 year old female with PMH thyroid, anxiety, depression presents for complaints of illness. Acute onset over one week ago + cough Harsh cough +sore throat +headache +fever Denies eye or ear complaints. Denies body aches or fatigue Denies fever or chills. Used OTC cough medicines Used Dayquil and Nyquil Denies tobacco Presents for concerns as symptoms are worsening. States she was seen here 03/08/24 for similar They said it was some kind of bug The history is provided by the patient. No java manager was used. Cough This is a new problem. The current episode started more than 1 week ago. The problem occurs constantly. The problem has been gradually worsening. The cough is Non-productive. Associated symptoms include headaches, rhinorrhea, sore throat and wheezing. Pertinent negatives include no chest pain, no chills, no sweats, no weight loss, no ear congestion, no ear pain, no myalgias, no shortness of breath and no eye redness. She is not a smoker. Her past medical history does not include bronchitis, pneumonia, bronchiectasis, COPD, emphysema or asthma. PAST MEDICAL HISTORY Diagnosis Date Mild or unspecified pre-eclampsia, unspecified as to episode of care Pre-ecclampsia,mild Unspecified hypothyroidism Hypothyroidism PAST SURGICAL HISTORY Procedure Laterality Date EXCISION PILONIDAL CYST/SINUS SIMPLE 06/01/2002 ALLERGIES Latex and Influenza Virus Vaccine 2013- (18 Yrs-64 Yrs) MEDICATIONS levothyroxine (LEVOXYL) 150 mcg tablet Take one tablet every day except only 1/2 tablet on Sundays. For thyroid. Take on an empty stomach Kpvtjfwvsadjcoq-Exknwfzlt-JF (BROMFED DM) 2-30-10 mg/5 mL syrup Take 5 mL by mouth four times a day as needed. predniSONE (DELTASONE) 10 mg tablet Take 4 tabs daily for 3 days, then 2 tabs daily for 3 days, then 1 tab daily for 3 days with food. benzonatate (TESSALON PERLES) 100 mg capsule Take 1 capsule by mouth three times a day as needed for up to 12 doses. (Patient not taking: Reported on 05/10/2024) cyclobenzaprine (FLEXERIL) 5 mg tablet Take 1 tablet by mouth at bedtime as needed for muscle spasm. (Patient not taking: Reported on 03/08/2024) Benzonatate 200 mg capsule Take 1 capsule by mouth three times a day as needed. (Patient not taking: Reported on 03/08/2024) FAMILY HISTORY Problem Relation Age of Onset Hypertension Father Lipids Father Diabetes Father Diabetes Maternal Grandmother Cancer Maternal Grandmother CERVICAL CANCER Cancer Maternal Grandfather kidney ca. Cancer Maternal Aunt CERVICAL CANCER Social History Tobacco Use Smoking status: Never Smokeless tobacco: Never Vaping Use Vaping Use: Never used Substance Use Topics Alcohol use: No Drug use: No Review of Systems Constitutional: Positive for fatigue. Negative for chills, fever and weight loss. HENT: Positive for congestion, rhinorrhea, sinus pressure, sinus pain and sore throat. Negative for ear pain. Eyes: Negative for pain, discharge, redness and itching. Respiratory: Positive for cough and wheezing. Negative for shortness of breath. Cardiovascular: Negative for chest pain. Gastrointestinal: Negative for abdominal pain, diarrhea, nausea and vomiting. Musculoskeletal: Negative for arthralgias, back pain and myalgias. Skin: Negative for color change, pallor, rash and wound. Allergic/Immunologic: Negative for environmental allergies, food allergies and immunocompromised state. Neurological: Positive for headaches. Hematological: Negative for adenopathy. Does not bruise/bleed easily. Psychiatric/Behavioral: Negative for agitation and behavioral problems. Objective BP 152/86 Pulse 79 Temp 36.3 ?C (97.4 ?F) Resp 16 Wt 118 kg (260 lb 2.3 oz) LMP 11/29/2019 (Approximate) SpO2 96% BMI 43.34 kg/m? Physical Exam Vitals and nursing note reviewed. Constitutional: General: She is not in acute distress. Appearance: Normal appearance. She is normal weight. She is not ill-appearing, toxic-appearing or diaphoretic. HENT: Head: Normocephalic and atraumatic. Comments: +frontal sinus pressure Right Ear: Ear canal and external ear normal. Left Ear: Ear canal and external ear normal. Nose: Congestion present. No rhinorrhea. Mouth/Throat: Mouth: Mucous membranes are moist. Pharynx: Posterior oropharyngeal erythema present. No oropharyngeal exudate. Eyes: General: Right eye: No discharge. Left eye: No discharge. Extraocular Movements: Extraocular movements intact. Conjunctiva/sclera: Conjunctivae normal. Pupils: Pupils are equal, round, and reactive to light. Cardiovascular: Rate and Rhythm: Normal rate and regular rhythm. Pulses: No (more content not included)... [facility] 05-10-2024 History of Presen t illness Narrative This note was created using NoteWriter. Subjective Dang Pritchett is a 39 year old female. 39 year old female with PMH thyroid, anxiety, depression presents for complaints of illness. Acute onset over one week ago + cough Harsh cough +sore throat +headache +fever Denies eye or ear complaints. Denies body aches or fatigue Denies fever or chills. Used OTC cough medicines Used Dayquil and Nyquil Denies tobacco Presents for concerns as symptoms are worsening. States she was seen here 03/08/24 for similar They said it was some kind of bug The history is provided by the patient. No java manager was used. Cough This is a new problem. The current episode started more than 1 week ago. The problem occurs constantly. The problem has been gradually worsening. The cough is Non-productive. Associated symptoms include headaches, rhinorrhea, sore throat and wheezing. Pertinent negatives include no chest pain, no chills, no sweats, no weight loss, no ear congestion, no ear pain, no myalgias, no shortness of breath and no eye redness. She is not a smoker. Her past medical history does not include bronchitis, pneumonia, bronchiectasis, COPD, emphysema or asthma. PAST MEDICAL HISTORY Diagnosis Date Mild or unspecified pre-eclampsia, unspecified as to episode of care Pre-ecclampsia,mild Unspecified hypothyroidism Hypothyroidism PAST SURGICAL HISTORY Procedure Laterality Date EXCISION PILONIDAL CYST/SINUS SIMPLE 06/01/2002 ALLERGIES Latex and Influenza Virus Vaccine 2013- (18 Yrs-64 Yrs) MEDICATIONS levothyroxine (LEVOXYL) 150 mcg tablet Take one tablet every day except only 1/2 tablet on Sundays. For thyroid. Take on an empty stomach Doeiuufkurwippk-Loaopcfob-YP (BROMFED DM) 2-30-10 mg/5 mL syrup Take 5 mL by mouth four times a day as needed. predniSONE (DELTASONE) 10 mg tablet Take 4 tabs daily for 3 days, then 2 tabs daily for 3 days, then 1 tab daily for 3 days with food. benzonatate (TESSALON PERLES) 100 mg capsule Take 1 capsule by mouth three times a day as needed for up to 12 doses. (Patient not taking: Reported on 05/10/2024) cyclobenzaprine (FLEXERIL) 5 mg tablet Take 1 tablet by mouth at bedtime as needed for muscle spasm. (Patient not taking: Reported on 03/08/2024) Benzonatate 200 mg capsule Take 1 capsule by mouth three times a day as needed. (Patient not taking: Reported on 03/08/2024) FAMILY HISTORY Problem Relation Age of Onset Hypertension Father Lipids Father Diabetes Father Diabetes Maternal Grandmother Cancer Maternal Grandmother CERVICAL CANCER Cancer Maternal Grandfather kidney ca. Cancer Maternal Aunt CERVICAL CANCER Social History Tobacco Use Smoking status: Never Smokeless tobacco: Never Vaping Use Vaping Use: Never used Substance Use Topics Alcohol use: No Drug use: No Review of Systems Constitutional: Positive for fatigue. Negative for chills, fever and weight loss. HENT: Positive for congestion, rhinorrhea, sinus pressure, sinus pain and sore throat. Negative for ear pain. Eyes: Negative for pain, discharge, redness and itching. Respiratory: Positive for cough and wheezing. Negative for shortness of breath. Cardiovascular: Negative for chest pain. Gastrointestinal: Negative for abdominal pain, diarrhea, nausea and vomiting. Musculoskeletal: Negative for arthralgias, back pain and myalgias. Skin: Negative for color change, pallor, rash and wound. Allergic/Immunologic: Negative for environmental allergies, food allergies and immunocompromised state. Neurological: Positive for headaches. Hematological: Negative for adenopathy. Does not bruise/bleed easily. Psychiatric/Behavioral: Negative for agitation and behavioral problems. Objective BP 152/86 Pulse 79 Temp 36.3 C (97.4 F) Resp 16 Wt 118 kg (260 lb 2.3 oz) LMP 11/29/2019 (Approximate) SpO2 96% BMI 43.34 kg/m Physical Exam Vitals and nursing note reviewed. Constitutional: General: She is not in acute distress. Appearance: Normal appearance. She is normal weight. She is not ill-appearing, toxic-appearing or diaphoretic. HENT: Head: Normocephalic and atraumatic. Comments: +frontal sinus pressure Right Ear: Ear canal and external ear normal. Left Ear: Ear canal and external ear normal. Nose: Congestion present. No rhinorrhea. Mouth/Throat: Mouth: Mucous membranes are moist. Pharynx: Posterior oropharyngeal erythema present. No oropharyngeal exudate. Eyes: General: Right eye: No discharge. Left eye: No discharge. Extraocular Movements: Extraocular movements intact. Conjunctiva/sclera: Conjunctivae normal. Pupils: Pupils are equal, round, and reactive to light. Cardiovascular: Rate and Rhythm: Normal rate and regular rhythm. Pulses: Normal pulses. Heart sounds: Normal heart sounds. No murmur heard. No friction rub. Pulmonary: Effort: Pulmonary effort is normal. No respiratory distress. Breath sounds: Normal breath sounds. No stridor. No wheezing, rhonchi or rales. Comments: Harsh non productive cough Chest: Chest wall: No tenderness. Abdominal: General: Abdomen is flat. There is no distension. Palpations: Abdomen is soft. There is no mass. Tenderness: There is no abdominal tenderness. There is no right CVA tenderness, left CVA tenderness, guarding or rebound. Hernia: No hernia is present. Musculoskeletal: General: No swelling, tenderness, deformity or signs of injury. Normal range of motion. Cervical back: Normal range of motion and neck supple. No rigidity. Right lower leg: No edema. Left lower leg: No edema. Lymphadenopathy: Cervical: No cervical adenopathy. Skin: General: Skin is warm and dry. Capillary Refill: Capillary refill takes less than 2 seconds. Coloration: Skin is not jaundiced or pale. Findings: No bruising, erythema, lesion or rash. Neurological: General: No focal deficit present. Mental Status: She is alert and oriented to person, place, and time. Cranial Nerves: No cranial nerve deficit. Sensory: No sensory deficit. Motor: No weakness. Coordination: Coordination normal. Gait: Gait normal. Psychiatric: Mood and Affect: Mood normal. Behavior: Behavior normal. Thought Content: Thought content normal. Judgment: Judgment normal. Assessment and Plan ASSESSMENT/PLAN: 1. Acute cough - ICD9: 786.2, ICD10: R05.1 (primary diagnosis) X 1 week Progressively worsening Accompanied with sore throat and headache Seen 03/08/24 for cough as well - XR CHEST 2V FRONTAL/LAT-Cluster of nodules/cavitary nodules in the right upper lung. Consider follow-up. 2. Multiple nodules of lung - ICD9: 793.19, ICD10: R91.8 Discussed findings with patient. Discussed need for follow up and additional imaging ?? Etiology Will provide RX Doxy RX Prednisone and Bromfed Appt made with Jaimee Elizondo for 05/16/24 Patient aware Chart CC to Jaimee Elizondo as CHARISSE Mayfield APRN.MOSS GATHERER documented in this encounter [facility] [place] 03-08-2024 History of Presen t illness Narrative This note was created using GroSocialriter. Subjective Dang Pritchett is a 39 year old female. HPI About a week ago pt developed a sore throat, then lost her voice and has since developed a cough. Review of Systems Constitutional: Positive for fever. HENT: Positive for congestion, sore throat and voice change. Respiratory: Positive for cough. Objective BP 124/80 Pulse 86 Temp 36.4 C (97.5 F) Resp 18 Wt 118.1 kg (260 lb 5.8 oz) LMP 11/29/2019 (Approximate) SpO2 98% BMI 43.38 kg/m Physical Exam Vitals and nursing note reviewed. Constitutional: General: She is not in acute distress. Appearance: Normal appearance. She is not ill-appearing. HENT: Head: Normocephalic. Mouth/Throat: Mouth: Mucous membranes are moist. Eyes: Conjunctiva/sclera: Conjunctivae normal. Cardiovascular: Rate and Rhythm: Normal rate and regular rhythm. Pulmonary: Effort: Pulmonary effort is normal. Breath sounds: Normal breath sounds. Musculoskeletal: General: Normal range of motion. Cervical back: Normal range of motion. Skin: General: Skin is warm and dry. Neurological: General: No focal deficit present. Mental Status: She is alert. Psychiatric: Mood and Affect: Mood normal. Behavior: Behavior normal. Assessment and Plan ASSESSMENT/PLAN: 1. Acute cough - ICD9: 786.2, ICD10: R05.1 Discussed most likely viral cause of her symptoms. Patient given a prescription for Tessalon Perles and discussed the importance of rest fluids and using other OTC treatments as needed. Patient comfortable with plan. - BENZONATATE 100 MG CAPSULE Real Navarro APRN.CNP documented in this encounter [facility] [place] 01-21-2024 Miscellaneous Notes Patient has been identified by name and date of : No Patient phones for refill(s): Requested Prescriptions Pending Prescriptions Disp Refills cyclobenzaprine (FLEXERIL) 5 mg tablet 30 tablet 0 Sig: Take 1 tablet by mouth at bedtime as needed for muscle spasm. Date of last office visit in primary care: 08/14/2023 Date of next office visit in primary care: 07/26/24 Please advise. Thank you. Purvi Manriquez LPN. documented in this encounter [facility] [place] 08-14-2023 Instructions Jaimee Elizondo APRN.NEIL - 08/14/2023 9:32 AM EDT Take benadryl (generic is fine) at night for sleep-do not take with any other cold medicine Follow-up in 5 to 7 days if no improvement or sooner if worsening documented in this encounter [facility] [place] 08-14-2023 History of Presen t illness Narrative CC: Patient presents with: Cough: Loss of voice x 1 week HPI: Dang Pritchett is a 38 year old female who presents to the office with complaint of respiratory symptoms for one weej. Symptoms are worsening Associated symptoms includes rhinorrhea, post nasal drip, body aches, cough, not sleeping well, and fatigue. Denies nasal congestion, facial pain/pressure, headache, fever, wheezing, and dyspnea. Treatments tried include OTC cold medicine with no relief of symptoms. Sick contacts: no. History of asthma, frequent episodes of bronchitis, chronic bronchitis, bronchiectasis or COPD: No Smoker: No The ROS is otherwise negative. The patient's pmh, medications, allergies, and past visits are reviewed. PHYSICAL EXAM: BP 120/80 Pulse 100 Temp 36.9 C (98.5 F) Resp 21 Wt 116.8 kg (257 lb 9.6 oz) LMP 11/29/2019 (Approximate) SpO2 97% BMI 42.92 kg/m General appearance: tired/ill appearing, alert, cooperative, pleasant, in no acute distress Head: Normocephalic Eyes: conjunctiva pink and moist, no icterus, sclera white, non-injected Ears: Right ear: External ear/canal- Normal, TM - clear with good landmarks. Left ear: External ear/canal- Normal, TM - clear with good landmarks Nose: clear. Oropharynx:moist without lesions Neck:supple and no adenopathy Heart: Negative. RRR without obvious murmur, gallop, or rubs. No ectopy. Lungs: clear to auscultation, without rales or wheeze, good air exchange ASSESSMENT/PLAN: 1. Viral URI with cough - ICD9: 465.9, ICD10: J06.9 - Discussed viral etiology and rationale for treatment. - Symptomatic treatment with prn analgesia - Supportive care with fluids and rest - The patient may also use Tessalon Perles as needed. - Follow up in one week if symptoms persist or sooner if worsening of symptoms Prescription instructions reviewed with patient as applicable. Potential red flag symptoms discussed with the patient. Reviewed appropriate action plan to take if red flag symptoms occur. Patient agreeable to treatment plan. Jaimee Elizondo APRN.NEIL documented in this encounter [facility] [place] 07-21-2023 History of Presen t illness Narrative CC: Patient presents with: Physical HPI Dang Pritchett is a 38 year old female who presents today for annual physical exam, and to discuss labs. No new concerns today. Exercise: denies regular aerobic exercise. 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 Diet: Watches diet for salt (salty snacks, added salt, processed frozen/canned foods), sugary/sweet snacks, unhealthy fats: Yes. Tries to watch what she eats. Tries to eat veggies, at least with dinner. I don't snack a lot. 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 She is doing well on her current dose of Synthroid. With complaint of fatigue and depression/mood but thinks it's related to her lack of sleep since she works 3rd shift. TSH Date Value 07/15/2023 1.880 mIU/L 05/21/2022 0.045 mIU/L 10/21/2021 0.515 uU/mL 11/20/2020 0.055 uU/mL REVIEW OF SYSTEMS General: no fevers, no chills, no night sweats, no recurrent infections, no change in appetite, and no significant changes in weight HEENT: no frequent or significant headaches, no changes in hearing, no difficulty swallowing, no visual changes, no nose bleeds, no sinus or nasal problems Neck: no lumps, no pain , and no swelling Respiratory: no cough, no wheezing, no shortness of breath, no hemoptysis Cardiovascular: no chest pain, no palpitations, SOB with exertion or when lying flat, and no swelling GI: No heartburn or reflux symptoms and Negative for abdominal discomfort, blood in stools or black stools, change in bowel habit, heart burn, nausea, vomiting : No history of dysuria, frequency or incontinence, No difficulty urinating, nocturia > 1 time per night or hematuria POWER MULE OPERATOR: Negative for abnormal vaginal bleeding, abnormal vaginal discharge Musculoskeletal: Negative for joint pain or swelling, or muscle pain Skin: Negative for lesions, rash, and itching Psych: sleep fragmented-- see above Hematologic/Lymph: Negative for prolonged bleeding, bruising easily or swollen nodes Endocrine: no fatigue, no neck pain/pressure, no polyuria, no polyphagia, and no polydipsia Neurologic: No headache, weakness, numbness, tingling, neck stiffness, tremor, vertigo, dizziness, memory loss, syncope. PAST MEDICAL HISTORY Diagnosis Date Mild or unspecified pre-eclampsia, unspecified as to episode of care Pre-ecclampsia,mild Unspecified hypothyroidism Hypothyroidism PAST SURGICAL HISTORY Procedure Laterality Date EXCISION PILONIDAL CYST/SINUS SIMPLE 06/01/2002 ALLERGIES Latex and Influenza Virus Vaccine Qs 2013- (18 Yrs-64 Yrs) MEDICATIONS cyclobenzaprine (FLEXERIL) 5 mg tablet Take 1 tablet by mouth at bedtime as needed for muscle spasm. escitalopram oxalate (LEXAPRO) 10 mg tablet Take 1 tablet by mouth once daily. levothyroxine (LEVOXYL) 150 mcg tablet Take one tablet every day except only 1/2 tablet on Sundays. For thyroid. Take on an empty stomach FAMILY HISTORY Problem Relation Age of Onset Hypertension Father Lipids Father Diabetes Father Diabetes Maternal Grandmother Cancer Maternal Grandmother CERVICAL CANCER Cancer Maternal Grandfather kidney ca. Cancer Maternal Aunt CERVICAL CANCER Social History Tobacco Use Smoking status: Never Smokeless tobacco: Never Vaping Use Vaping Use: Never used Substance Use Topics Alcohol use: No Drug use: No PHYSICAL EXAM BP 114/74 (BP Site: Left Arm, BP Position: Sitting, BP Cuff Size: Large Adult) Pulse 96 Resp 16 Ht 165 cm (5' 4.96) Wt 114.3 kg (252 lb) LMP 11/29/2019 (Approximate) SpO2 98% BMI 41.99 kg/m General Appearance: well appearing, in no acute distress, alert Pysch: mood and affect broad and appropriate Skin: Skin color, texture, turgor normal for age; Head: normocephalic, atraumatic Lymph nodes: No cervical lymphadenopathy Lungs: Lungs clear to auscultation. No wheezing, rhonchi, rales. Heart: RRR without murmur, gallop, or rubs. No ectopy Abdomen: Normal abdominal exam Extremities: No gross deformities, significant edema, skin discoloration, clubbing or cyanosis. Neurological: Gait normal. No focal neurological deficits. Sensation grossly intact. Component Latest Ref Rng & Units 07/15/2023 WBC 3.70 - 11.00 k/uL 15.69 (H) RBC 3.90 - 5.20 m/uL 4.47 Hemoglobin 11.5 - 15.5 g/dL 12.7 Hematocrit 36.0 - 46.0 % 40.8 MCV 80.0 - 100.0 fL 91.3 MCH 26.0 - 34.0 pg 28.4 MCHC 30.5 - 36.0 g/dL 31.1 RDW-CV 11.5 - 15.0 % 14.2 Platelet Count 150 - 400 k/uL 377 MPV 9.0 - 12.7 fL 10.5 NRBC /100 WBC 0.0 Absolute nRBC <0.01 k/uL <0.01 Neut% % 49.1 Abs Neut (ANC) 1.45 - 7.50 k/uL 7.70 (H) Lymph% % 42.2 Abs Lymph 1.00 - 4.00 k/uL 6.62 (H) [place]% % 6.0 Abs [place] <0.87 k/uL 0.94 (H) [place]% % 0.9 Abs E[place] <0.46 k/uL 0.14 Baso% % 0.9 Abs Baso <0.11 k/uL 0.14 (H) [place]% % 0.9 Platelet Estimate Adequate Red Cell Morph Reviewed: see results of individual morphologies Ovalocytes Few DTYPE Manual Protein, Total 6.3 - 8.0 g/dL 8.0 Albumin 3.9 - 4.9 g/dL 4.2 Calcium 8.5 - 10.2 mg/dL 9.7 Bilirubin, Total 0.2 - 1.3 mg/dL <0.2 (L) Alkaline Phosphatase 34 - 123 U/L 80 AST 13 - 35 U/L 19 ALT 7 - 38 U/L 31 Glucose 74 - 99 mg/dL 75 BUN 7 - 21 mg/dL 13 Creatinine 0.58 - 0.96 mg/dL 0.80 Sodium 136 - 144 mmol/L 138 Potassium 3.7 - 5.1 mmol/L 3.9 Chloride 97 - 105 mmol/L 102 CO2 22 - 30 mmol/L 26 Anion Gap 9 - 18 mmol/L 10 eGFR >=60 mL/min/1.73m 97 Cholesterol, Total <200 mg/dL 175 Triglyceride <150 mg/dL 102 HDL Cholesterol >39 mg/dL 41 Non HDL Cholesterol <130 mg/dL 134 (H) Fasting Time hrs 14 VLDL Cholesterol <30 mg/dL 20 TC:HDL Ratio <5.10 4.27 LDL Cholesterol <100 mg/dL 114 (H) LDL:HDL Ratio <2.54 2.78 (H) TSH 0.270 - 4.200 mIU/L 1.880 Free T4 0.9 - 1.7 ng/dL 1.6 Hepatitis B Vaccine(1 of 3 - 3-dose series) Never done Covid-19 Vaccine(1) Never done Pap Testing due on 09/05/2020 HPV Testing due on 09/05/2020 Annual PCP Team Chronic Disease Visit due on 03/18/2023 Influenza Vaccine(1) due on 07/09/2023 DTaP,Tdap,Td Vaccine(2 - Td or Tdap) due on 09/05/2025 Hepatitis C Screening Completed HIV Screening Completed HPV Vaccine Aged Out ASSESSMENT/PLAN: 1. Well adult exam - ICD9: V70.0, ICD10: Z00.00 (primary diagnosis) - Counseled on healthy diet and regular exercise - Calcium intake with supplements or by diet of 1000 mg/day for under 50, 4245-1217 mg/day for 50+ - Discussed need and benefit for weight loss. BMI 41.99 kg/(m^2) - Follow up for annual exam in one year 2. Hypothyroidism, acquired - ICD9: 244.9, ICD10: E03.9 - Instructed patient on importance of taking on an empty stomach either first thing in the morning or at bedtime. - continue current dose of Synthroid 0.150 mg - LEVOTHYROXINE 150 MCG TABLET 3. Screening for cervical cancer - ICD9: V76.2, ICD10: Z12.4 - Encouraged monthly BSE - Encouraged updated pap, but pt has a lot of anxiety surrounding this- Referral placed to POWER MULE OPERATOR for pap/pelvic - CONSULT TO GYNECOLOGY 4. Leukocytosis, unspecified type - ICD9: 288.60, ICD10: D72.829 Unclear etiology, no symptoms whatsoever at this time- will check urine Recheck CBC in 1 month to make sure this resolves. - CBC - URINALYSIS, DIPSTICK ONLY Will f/u via phone pending results. Return for routine visit in 1 year. Benign physical exam findings. All preventative maintenance orders updated per above. Prescription instructions reviewed with patient as applicable. Potential red flag symptoms discussed with the patient. Reviewed appropriate action plan to take if red flag symptoms occur. Patient agreeable to treatment plan. Kendal Sorto PA-C documented in this encounter [facility] [place] 07-04-2023 Instructions Jaimee Elizondo APRN.NEIL - 07/04/2023 1:17 PM EDT Start prednisone, follow prescription instructions. Do not take NSAID's such as ibuprofen (Advil , Motrin ) or naproxen (Aleve ) while taking prednisone. Tylenol is okay. Can also try topical medications such as Icy Hot, Biofreeze or Lidocaine. Non-medication measures: Ice for localized pain/tenderness and/or heat. Stretching and massage may also be beneficial. Avoid bedrest and stay as active as possible Follow-up in 2-4 weeks if no improvement or sooner if worsening documented in this encounter [facility] [place] 07-04-2023 History of Presen t illness Narrative CC: Patient presents with: Back Pain: No known injury, unable to sleep[ HPI Dang Pritchett is a 38 year old female who presents with back pain x one week Located from low back to upper back on the right side without radiation. Described as sharp Cause: The back pain is not related to a known injury however she does a lot of heavy lifting at work Pain is aggravated by any type of movement Pain is alleviated by nothing Denies: weakness, numbness, tingling, morning stiffness, loss of bowel or bladder control, foot drop, and gait disturbance Treatments tried: rest, NSAIDs, ice, and heat with no relief. Past medical history is significant for back pain and sciatica REVIEW OF SYSTEMS General: no fever, chills, night sweats GI: Negative for abdominal discomfort, nausea, vomiting, constipation : dysuria, frequency, urgency PAST MEDICAL HISTORY Diagnosis Date Mild or unspecified pre-eclampsia, unspecified as to episode of care Pre-ecclampsia,mild Unspecified hypothyroidism Hypothyroidism PAST SURGICAL HISTORY Procedure Laterality Date EXCISION PILONIDAL CYST/SINUS SIMPLE 06/01/2002 ALLERGIES Latex and Influenza Virus Vaccine 2013- (18 Yrs-64 Yrs) MEDICATIONS escitalopram oxalate (LEXAPRO) 10 mg tablet Take 1 tablet by mouth once daily. levothyroxine (LEVOXYL) 150 mcg tablet Take one tablet every day except only 1/2 tablet on Sundays. For thyroid. Take on an empty stomach FAMILY HISTORY Problem Relation Age of Onset Hypertension Father Lipids Father Diabetes Father Diabetes Maternal Grandmother Cancer Maternal Grandmother CERVICAL CANCER Cancer Maternal Grandfather kidney ca. Cancer Maternal Aunt CERVICAL CANCER Social History Tobacco Use Smoking status: Never Smokeless tobacco: Never Vaping Use Vaping Use: Never used Substance Use Topics Alcohol use: No Drug use: No PHYSICAL EXAM BP 122/78 Pulse 89 Temp 36.5 C (97.7 F) Resp 18 Wt 115.7 kg (255 lb) LMP 11/29/2019 (Approximate) SpO2 98% BMI 42.43 kg/m General Appearance: in no acute distress, alert, appears uncomfortable Back: Normal to inspection. Moderate with palpation of right lumbar and thoracic paraspinal muscles. ROM: Limited secondary to pain. ASSESSMENT/PLAN: 1. Acute right-sided back pain, unspecified back location - ICD9: 724.5, ICD10: M54.9 Muscle spasms/overuse - Ice for localized tenderness - Warm moist heat for 20 min three times a day - Prednisone burst- see orders - Muscle relaxant- see orders - Follow up with PCP in 1-2 weeks if no improvement or sooner if symptoms worsen Prescription instructions reviewed with patient as applicable. Potential red flag symptoms discussed with the patient. Reviewed appropriate action plan to take if red flag symptoms occur. Patient agreeable to treatment plan. Jaimee Elizondo APRN.NEIL documented in this encounter [facility] [place] 06-29-2023 Miscellaneous Notes Called and left a detailed voicemail notifying patient of providers message. Hospital phone number was left in case patient had any questions. Oriana Daniel RN Labs were ordered per patient request. Please inform patient. Kendal Sorto PA-C Patient scheduled physical with CHRIS Avelar for 07-21-23. Asking provider to place lab orders for physical, she is especially interested in thyroid labs, as her last lab check was over a year ago. Please let patient know when orders are in lab. documented in this encounter [facility] [place] 08-17-2022 Miscellaneous Notes Patient has been identified by name and date of : Yes Patient phones for refill(s): Requested Prescriptions Pending Prescriptions Disp Refills escitalopram oxalate (LEXAPRO) 10 mg tablet 30 tablet 5 Sig: Take 1 tablet by mouth once daily. Date of last office visit in primary care: 03/18/22 Last 2 Encounter Wt Readings: Date: Wt: 03/18/2022 115.2 kg (254 lb) 01/30/2022 118.4 kg (261 lb) Previous labs/tests for medication: Not applicable Please advise. Thank you. Purvi Barboza LPN documented in this encounter [facility] [place] 06-29-2022 Miscellaneous Notes Patient has been identified by name and date of : Yes Patient phones for refill(s): Requested Prescriptions Pending Prescriptions Disp Refills levothyroxine (LEVOXYL) 150 mcg tablet 30 tablet 0 Sig: Take one tablet every day except only 1/2 tablet on Sundays. For thyroid. Take on an empty stomach Date of last office visit in primary care: 03/18/2022 No future appt scheduled. Last 2 Encounter Wt Readings: Date: Wt: 03/18/2022 115.2 kg (254 lb) 01/30/2022 118.4 kg (261 lb) Previous labs/tests for medication: Thyroid: TSH Date Value 05/21/2022 0.045 mIU/L 10/21/2021 0.515 uU/mL Please advise. Thank you. Poornima Luna LPN documented in this encounter [facility] [place] 05-22-2022 Miscellaneous Notes Left detailed message on [employer]. Please let patient know she is still getting too much thyroid replacement. Please verify she is only taking 1/2 a tablet on Sundays and then have her stop the Wednesday dose. Recheck in 6 weeks. Take care Myra Elizondo APRN.CNP documented in this encounter [facility] [place] 03-27-2022 Miscellaneous Notes Patient returned call and went over results, notes from Myra Elizondo [employer] EDUCATION PARAPROFESSIONAL with understanding. Patient asked so I cut my pill in half and take only a half on Sundays. Went over notes again with her and reminded to recheck TSH in 6 to 8 weeks with understanding. Left message for return call. Please let patient know her thyroid level indicates she is getting too much supplement. I want her to continue the same dose, but only take half a tablet on Sundays. TSH needs rechecked in 6-8 weeks. Thank you Myra Elizondo APRN.NEIL documented in this encounter [facility] [place] 03-18-2022 History of Presen t illness Narrative Chief Complaint Patient presents with: Recheck: Medication follow up HPI Dang Pritchett is a 37 year old female who presents here today for anxiety and depression follow-up. Patient was seen 6 weeks ago and started on lexapro. Patient reports significant improvement in depression and anxiety. Has even lost 7 pounds because she feels better and is not overeating as much. Side effects: None Denies suicidal thoughts or plan. Just switched to 3rd shift 3 weeks ago and is having trouble adjusting to her sleep schedule, but feels this is slowly improving. REVIEW OF SYSTEMS General: no fevers, no chills, no night sweats, no recurrent infections, no change in appetite, no change in energy and no significant changes in weight Respiratory: no cough, no wheezing, no shortness of breath, no hemoptysis Cardiovascular: no chest pain, no chest pressure, no palpitations and no swelling CP PHQ9 01/30/2022 03/18/2022 Little interest or pleasure 1 - Several days Feeling down, depressed, hopeless 1 - Several days Trouble falling or staying asleep, sleeping too much 1 - Several days Feeling tired, having little energy 1 - Several days Poor appetite or overeating 1 - Several days Feeling bad about yourself, failure or you have let yourself/family down 1 - Several days Trouble concentrating on things 0 - Not at all Moving or speaking so slowly, or fidgety or restless 1 - Several days Thoughts that you would be better off , or of hurting yourself in some way 0 - Not at all How difficult have these problems made things Somewhat difficult Interpretation of Total Score 5-9 Mild depression GAYATHRI-7 ANXIETY SCALE 01/30/2022 03/18/2022 FEELING NERVOUS,ANXIOUS,OR ON EDGE 1 Several days 1 Several days NOT BEING ABLE TO STOP OR CONTROL WORRYING 3 Nearly every day 1 Several days WORRYING TOO MUCH ABOUT DIFFERENT THINGS 3 Nearly every day 3 Nearly every day TROUBLE RELAXING 3 Nearly every day 0 Not at all sure BEING SO RESTLESS THAT IT'S HARD TO SIT STILL 0 Not at all sure 0 Not at all sure BEING EASILY ANNOYED OR IRRITABLE 3 Nearly every day 1 Several days FEELING AFRAID IF SOMETHING AWFUL MIGHT HAPPEN 1 Several days 1 Several days GAD7 SCORE 14 7 IF YOU CHECKED OFF ANY PROBLEMS Somewhat difficult Somewhat difficult PAST MEDICAL HISTORY Diagnosis Date Mild or unspecified pre-eclampsia, unspecified as to episode of care Pre-ecclampsia,mild Unspecified hypothyroidism Hypothyroidism PAST SURGICAL HISTORY Procedure Laterality Date EXCISION PILONIDAL CYST/SINUS SIMPLE 06/01/2002 ALLERGIES Latex and Influenza Virus Vaccine 2013- (18 Yrs-64 Yrs) MEDICATIONS cyclobenzaprine (FLEXERIL) 5 mg tablet Take 1 tablet by mouth at bedtime as needed for muscle spasm. escitalopram oxalate (LEXAPRO) 10 mg tablet Take 1 tablet by mouth once daily. levothyroxine (LEVOXYL) 150 mcg tablet Take 1 tablet by mouth once daily. FAMILY HISTORY Problem Relation Age of Onset Hypertension Father Lipids Father Diabetes Father Diabetes Maternal Grandmother Cancer Maternal Grandmother CERVICAL CANCER Cancer Maternal Grandfather kidney ca. Cancer Maternal Aunt CERVICAL CANCER Social History Tobacco Use Smoking status: Never Smoker Smokeless tobacco: Never Used Vaping Use Vaping Use: Never used Substance Use Topics Alcohol use: No Drug use: No PHYSICAL EXAM BP 132/78 Pulse 80 Resp 16 Wt 115.2 kg (254 lb) LMP 11/29/2019 (Approximate) BMI 42.27 kg/m Appearance: well dressed well groomed, cooperative and pleasant Behavior: good eye contact Speech: fluent and coherent Mood: euthymic Affect: appropriate Perceptions: none Thought process: normal Thought Content: normal Intelligence level: normal Insight: good Judgment: good General Appearance: well appearing, in no acute distress, alert ASSESSMENT/PLAN: 1. Anxiety and depression - ICD9: 300.00, 311, ICD10: F41.9, F32.A Improved with lexapro - will continue current dose - Reviewed concept of neurochemical imbalance wth depression/anxiety, treatment options and benefits of counseling in combination with medication. Also reviewed benefits of sleep hygeine, diet and exercise - Follow-up in 3 months or sooner as needed - Instructed patient to contact office or [id number] after-hours promptly should condition worsen or any new symptoms appear. - Counseling [facility] and after hours crisis line Prescription instructions reviewed with patient as applicable. Potential red flag symptoms discussed with the patient. Reviewed appropriate action plan to take if red flag symptoms occur. Patient agreeable to treatment plan Myra Elizondo APRN.NEIL documented in this encounter [facility] [place] 01-30-2022 History of Presen t illness Narrative CC: Patient presents with: Yearly Exam: Yearly follow up HPI Dang Pritchett is a 36 year old female who presents today for annual physical exam. Exercise: denies regular aerobic exercise. Diet: Watches diet for salt (salty snacks, added salt, processed frozen/canned foods), sugary/sweet snacks, unhealthy fats: Yes Caffeine: does not drink caffeine very often Water intake: 4 bottles of water a day Hypothyroidism: TSH normal 3 months ago. Denies intolerance to cold or heat. States she does have fatigue that comes and goes but always has had this. Back spasms sometimes so bad she is unable to sleep. Uses heat tylenol and ibuprofen with little help. Denies recent injury. At 16, fell and fractured her sacrum. Had to have surgery. Has had back spasms intermittenlty. Current job is lifting 20lbs and being on her feet all day. Denies weakness, numbness tingling, difficulty or incontinence of bowel/bladder. Has a history of dermatitis related to stress. Life is very stressful right now. For the past couple months has had redness and peeling around nose, lips, and chin. 2 years ago when this happened she was prescribed triamcinolone cream which helped and she would like a refill of this. At end of appointment patient became very tearful saying she thinks she is depressed. Denies any thoughts of harming herself or others. Is currently not in counseling. REVIEW OF SYSTEMS General: no fevers, no chills, no night sweats, no recurrent infections, no change in appetite, no change in energy and no significant changes in weight Respiratory: no cough, no wheezing, no shortness of breath, no hemoptysis Cardiovascular: no chest pain, no chest pressure, no palpitations and no swelling GI: No nausea, vomiting, or diarrhea : No history of dysuria, frequency or incontinence Psych: PHQ9 is 18. GAD7 of 14 Endocrine: no weight gain, no weight loss, no polyuria, no polyphagia and no polydipsia Neurologic: No headache, weakness, numbness, tingling, dizziness, syncope. PAST MEDICAL HISTORY Diagnosis Date Mild or unspecified pre-eclampsia, unspecified as to episode of care Pre-ecclampsia,mild Unspecified hypothyroidism Hypothyroidism PAST SURGICAL HISTORY Procedure Laterality Date PILONIDAL CYST/SINUS EXCISION 06/01/2002 ALLERGIES Latex and Influenza Virus Vaccine 2013- (18 Yrs-64 Yrs) MEDICATIONS levothyroxine (LEVOXYL) 150 mcg tablet Take 1 tablet by mouth once daily. omeprazole (PRILOSEC) 20 mg capsule Take 1 capsule by mouth daily before breakfast. ondansetron (ZOFRAN) 4 mg tablet Take 1 tablet by mouth every 8 hours as needed. FAMILY HISTORY Problem Relation Age of Onset Hypertension Father Lipids Father Diabetes Maternal Grandmother Cancer Maternal Grandmother CERVICAL CANCER Cancer Maternal Grandfather kidney ca. Cancer Maternal Aunt CERVICAL CANCER Social History Tobacco Use Smoking status: Never Smoker Smokeless tobacco: Never Used Substance Use Topics Alcohol use: No Drug use: No PHYSICAL EXAM BP 122/70 Pulse 84 Resp 16 Wt 118.4 kg (261 lb) LMP 11/29/2019 (Approximate) BMI 43.43 kg/m General Appearance: well appearing, in no acute distress, alert Pysch: mood and affect broad and appropriate Eyes: conjunctiva pink and moist, no icterus, sclera white, non-injected Neck: Thyroid normal size and symmetric without palpable nodules, No adenopathy Lymph nodes: No cervical lymphadenopathy and No supraclavicular lymphadenopathy Lungs: Lungs clear to auscultation. No wheezing, rhonchi, rales. Heart: RRR without murmur, gallop, or rubs. No ectopy Skin redness and peeling around nose, lips, and chin. No drainage or tenderness. COVID-19 VACCINE(1) Never done HEPATITIS C SCREENING Never done PAP TESTING due on 09/05/2020 HPV TESTING due on 09/05/2020 INFLUENZA(1) due on 07/09/2021 ANNUAL PCP TEAM CHRONIC DISEASE VISIT due on 11/13/2021 DEPRESSION SCREENING due on 01/30/2023 DTAP,TDAP,TD(2 - Td or Tdap) due on 09/05/2025 HIV SCREENING Completed [employer] Aged Out ASSESSMENT/PLAN: 1. Annual physical exam - ICD9: V70.0, ICD10: Z00.00 (primary diagnosis) - Counseled on healthy diet and regular exercise - Calcium intake with supplements or by diet of 1000 mg/day for under 50, 8502-7400 mg/day for 50+ - Discussed safe sex practices and avoidance of STIs - Depression screening tool completed and reviewed with patient. Based on score and interview, patient is at risk for depression and recommended starting medication. - Follow up for annual exam in one year - CBC + DIFF - COMP METABOLIC PANEL 2. Anxiety and depression - ICD9: 300.00, 311, ICD10: F41.9, F32.A - Was going to start patient on fluoxetine but per pateint her son is on that and she was concerned with confusing the medications. - Lexapro as ordered -message in 2 weeks with how you are doing Follow up in 4-6 weeks after-hours promptly should condition worsen or any new symptoms appear. - [facility] and after hours crisis line 3. Hypothyroidism, acquired - ICD9: 244.9, ICD10: E03.9 - Instructed patient on importance of taking on an empty stomach either first thing in the morning or at bedtime. - stable - continue current dosage - TSH BLD - T3 FREE BLD - T4 FREE/FREE THYROX 4. Seborrheic dermatitis - ICD9: 690.10, ICD10: L21.9 - TRIAMCINOLONE ACETONIDE 0.1 % TOPICAL CREAM - follow up if no improvement or worsening of symptoms 5. Obesity, Class III, BMI 40-49.9 (morbid obesity) (HCC) - ICD9: 278.01, ICD10: E66.01 Stable - Behavioral intervention - hopefully once depression is controlled she will have more motivation for healthy choices. 6. Special screening examination for viral disease - ICD9: V73.99, ICD10: Z11.59 - HEP C AB IA W/CONF SCRN 7. Lipid screening - ICD9: V77.91, ICD10: Z13.220 - had been elevated once before but was when she was out of her thyroid medication and TSH was very high - LIPID PANEL BASIC - COMP METABOLIC PANEL Prescription instructions reviewed with patient as applicable. Potential red flag symptoms discussed with the patient. Reviewed appropriate action plan to take if red flag symptoms occur. Patient agreeable to treatment plan. Myra Elizondo APRN.CNP documented in this encounter [facility] [place] 01-16-2008 History of Past i llness Narrative Problem Noted Date Resolved Date Hypothyroidism 01/16/2008 09/25/2016 documented as of this encounter (statuses as of 01/30/2022) [facility] [place]03[facility]2008 History of Past illness Narrative* Problem Noted Date Resolved Date Hypothyroidism 01/16/2008 09/25/2016 documented as of this encounter (statuses as of 03/18/2022) [facility] [place] History of Past illness Narrative* Problem Noted Date Resolved Date Hypothyroidism 01/16/2008 09/25/2016 documented as of this encounter (statuses as of 03/27/2022) [facility] [place] History of Past illness Narrative* Problem Noted Date Resolved Date Hypothyroidism 01/16/2008 09/25/2016 documented as of this encounter (statuses as of 05/22/2022) [facility] [place] History of Past illness Narrative* Problem Noted Date Resolved Date Hypothyroidism 01/16/2008 09/25/2016 documented as of this encounter (statuses as of 07/01/2022) [facility] [place] History of Past illness Narrative* Problem Noted Date Resolved Date Hypothyroidism 01/16/2008 09/25/2016 documented as of this encounter (statuses as of 08/17/2022) [address]10-2008 History of Past illness Narrative* Problem Noted Date Diagnosed Date Resolved Date Hypothyroidism 01/16/2008 09/25/2016 documented as of this encounter (statuses as of 06/29/2023) [address]2008 History of Past illness Narrative* Problem Noted Date Diagnosed Date Resolved Date Hypothyroidism 01/16/2008 09/25/2016 documented as of this encounter (statuses as of 07/04/2023) [address] History of Past illness Narrative* Problem Noted Date Diagnosed Date Resolved Date Hypothyroidism 01/16/2008 09/25/2016 documented as of this encounter (statuses as of 07/21/2023) [address] History of Past illness Narrative* Problem Noted Date Diagnosed Date Resolved Date Hypothyroidism 01/16/2008 09/25/2016 documented as of this encounter (statuses as of 08/14/2023) [address] History of Past illness Narrative* Problem Noted Date Diagnosed Date Resolved Date Hypothyroidism 01/16/2008 09/25/2016 documented as of this encounter (statuses as of 01/21/2024) [facility] note* Diagnosis Annual physical exam- Primary Routine general medical examination at a health care facility Anxiety and depression Dysthymic disorder Hypothyroidism, acquired Unspecified hypothyroidism Seborrheic dermatitis Seborrheic dermatitis, unspecified Obesity, Class III, BMI 40-49.9 (morbid obesity) (HCC) Morbid obesity Special screening examination for viral disease Special screening examination for unspecified viral disease Lipid screening Screening for lipoid disorders [facility] Diagnosis Anxiety and depression- Primary Dysthymic disorder documented in this encounter [facility] Diagnosis Hypothyroidism, acquired- Primary Unspecified hypothyroidism Medication management Encounter for long-term (current) use of other medications documented [facility] this encounter [facility] Diagnosis Medication management- Primary Encounter for long-term (current) use of other medications Hypothyroidism, acquired Unspecified hypothyroidism documented in this encounter [facility] Diagnosis Screening for diabetes mellitus- Primary Screening for lipid disorders Screening for disorder of blood and blood-forming organs Screening for unspecified disorder of blood and blood-forming organs Hypothyroidism, acquired Unspecified hypothyroidism documented in this encounter [facility] Diagnosis Acute right-sided back pain, unspecified back location- Primary documented in this encounter [facility] Diagnosis Well adult exam- Primary Routine general medical examination at a health care facility Hypothyroidism, acquired Unspecified hypothyroidism Screening for cervical cancer Screening for malignant neoplasm of the cervix Leukocytosis, unspecified type [facility] Diagnosis Viral URI with cough- Primary Acute upper respiratory infections of unspecified site documented [facility] this encounter [facility] Diagnosis Acute cough- Primary documented in this encounter [facility] Diagnosis Acute cough- Primary Multiple nodules of lung Other nonspecific abnormal finding of lung field Acute cough documented [facility] this encounter [facility] Diagnosis Acute cough- Primary Lung nodules Other nonspecific abnormal finding of lung field Fever, unspecified fever cause Acute cough Fever, unspecified fever cause documented [facility] this encounter [facility] Diagnosis Lung nodules- Primary Other nonspecific abnormal finding of lung field [facility] Diagnosis Acute cough- Primary Shortness of breath Abnormal chest x-ray Other nonspecific abnormal finding of lung field Fever, unspecified fever cause Acute cough Shortness of breath Abnormal chest x-ray Other nonspecific abnormal finding of lung field Fever, unspecified fever cause documented [facility] this encounter [facility] Diagnosis Acute cough Shortness of breath Abnormal chest x-ray Other nonspecific abnormal finding of lung field Fever, unspecified fever cause documented in this encounter [facility] Diagnosis Respiratory infection- Primary Other diseases of respiratory system, not elsewhere classified Rib pain on right side Chest pain, unspecified [facility]* Diagnosis Obesity, Class III, BMI 40-49.9 (morbid obesity) (HCC) Morbid obesity Hypothyroidism, acquired Unspecified hypothyroidism documented in this encounter [facility] Diagnosis Acute cough documented in this encounter [facility] Diagnosis Acute cough Fever, unspecified fever cause documented in this encounter [facility] Diagnosis Annual physical exam- Primary Routine general medical examination at a health care facility Hypothyroidism, acquired Unspecified hypothyroidism Chronic low back pain, unspecified back pain laterality, unspecified whether sciatica present [facility] Encounter for screening mammogram for breast cancer documented in this encounter [facility] [place] Reason for Referral Specialty Diagnoses / Procedures Referred By Contac t Referred To Contact Gynecology Diagnoses Screening for cervical cancer Procedures CONSULT TO GYNECOLOGY OFFICE/OUTPATIENT NEW HIGH MDM 60-74 MINUTES Kendal Sorto PA-C [address] [place] [address] Referral ID Status Reason Start Date Expiration Date Visits Requested Visits Authorized [id number] Authorized PCP Requested Referral Auto-Generate d Referral 07/21/2023 07/20/2024 1 1 Specialty Diagnoses / Procedures Referred By Contac t Referred To Contact CT IMAGING Diagnoses Acute cough Shortness of breath Abnormal chest x-ray Fever, unspecified fever cause Procedures CT CHEST WO IVCON DIAGNOSTIC COMPUTED TOMOGRAPHY THORAX W/O CNTRST Jaimee White M, AGRICULTURAL TECHNICIAN.MOSS GATHERER [address] [place] [address] [place] [address] Referral ID Status Reason Start Date Expiration Date Visits Requested Visits Authorized [id number] Waiting for Online Response Auto-Genera daljit Referral Patient Cleared - Admin/Chair man/Directo r advise to proceed or did not respond 05/23/2024 06/22/2025 1 1 Summary Purpose Family History No Family History Records FoundNo Family History Records Found Advance Directives No Advanced Directives Records FoundNo Advanced Directives Records Found Additional Source Comments Source Comments (unrecognize d section and content) In the event this informatio n is protected by the Federal Confidentiality of Alcohol and Drug Abuse Patient Records regulations: The Federal rules restrict any use of the information to criminally investigate or prosecute any alcohol or drug abuse patient.[facility] the event this information is protected by the Federal Confidentiality of Alcohol and Drug Abuse Patient Records regulations: The Federal rules restrict any use of the information to criminally investigate or prosecute any alcohol or drug abuse patient.[facility] the event this information is protected by the Federal Confidentiality of Alcohol and Drug Abuse Patient Records regulations: The Federal rules restrict any use of the information to criminally investigate or prosecute any alcohol or drug abuse patient.[facility] the event this information is protected by the Federal Confidentiality of Alcohol and Drug Abuse Patient Records regulations: The Federal rules restrict any use of the information to criminally investigate or prosecute any alcohol or drug abuse patient.[facility] the event this information is protected by the Federal Confidentiality of Alcohol and Drug Abuse Patient Records regulations: The Federal rules restrict any use of the information to criminally investigate or prosecute any alcohol or drug abuse patient.[facility] the event this information is protected by the Federal Confidentiality of Alcohol and Drug Abuse Patient Records regulations: The Federal rules restrict any use of the information to criminally investigate or prosecute any alcohol or drug abuse patient.[facility] the event this information is protected by the Federal Confidentiality of Alcohol and Drug Abuse Patient Records regulations: The Federal rules restrict any use of the information to criminally investigate or prosecute any alcohol or drug abuse patient.[facility] the event this information is protected by the Federal Confidentiality of Alcohol and Drug Abuse Patient Records regulations: The Federal rules restrict any use of the information to criminally investigate or prosecute any alcohol or drug abuse patient.[facility] the event this information is protected by the Federal Confidentiality of Alcohol and Drug Abuse Patient Records regulations: The Federal rules restrict any use of the information to criminally investigate or prosecute any alcohol or drug abuse patient.[facility] the event this information is protected by the Federal Confidentiality of Alcohol and Drug Abuse Patient Records regulations: The Federal rules restrict any use of the information to criminally investigate or prosecute any alcohol or drug abuse patient.[facility] the event this information is protected by the Federal Confidentiality of Alcohol and Drug Abuse Patient Records regulations: The Federal rules restrict any use of the information to criminally investigate or prosecute any alcohol or drug abuse patient.[facility] the event this information is protected by the Federal Confidentiality of Alcohol and Drug Abuse Patient Records regulations: The Federal rules restrict any use of the information to criminally investigate or prosecute any alcohol or drug abuse patient.[facility] the event this information is protected by the Federal Confidentiality of Alcohol and Drug Abuse Patient Records regulations: The Federal rules restrict any use of the information to criminally investigate or prosecute any alcohol or drug abuse patient.[facility] the event this information is protected by the Federal Confidentiality of Alcohol and Drug Abuse Patient Records regulations: The Federal rules restrict any use of the information to criminally investigate or prosecute any alcohol or drug abuse patient.[facility] the event this information is protected by the Federal Confidentiality of Alcohol and Drug Abuse Patient Records regulations: The Federal rules restrict any use of the information to criminally investigate or prosecute any alcohol or drug abuse patient.[facility] the event this information is protected by the Federal Confidentiality of Alcohol and Drug Abuse Patient Records regulations: The Federal rules restrict any use of the information to criminally investigate or prosecute any alcohol or drug abuse patient.[facility] the event this information is protected by the Federal Confidentiality of Alcohol and Drug Abuse Patient Records regulations: The Federal rules restrict any use of the information to criminally investigate or prosecute any alcohol or drug abuse patient.[facility] the event this information is protected by the Federal Confidentiality of Alcohol and Drug Abuse Patient Records regulations: The Federal rules restrict any use of the information to criminally investigate or prosecute any alcohol or drug abuse patient.[facility] the event this information is protected by the Federal Confidentiality of Alcohol and Drug Abuse Patient Records regulations: The Federal rules restrict any use of the information to criminally investigate or prosecute any alcohol or drug abuse patient.[facility] the event this information is protected by the Federal Confidentiality of Alcohol and Drug Abuse Patient Records regulations: The Federal rules restrict any use of the information to criminally investigate or prosecute any alcohol or drug abuse patient.[facility] the event this information is protected by the Federal Confidentiality of Alcohol and Drug Abuse Patient Records regulations: The Federal rules restrict any use of the information to criminally investigate or prosecute any alcohol or drug abuse patient.[facility] the event this information is protected by the Federal Confidentiality of Alcohol and Drug Abuse Patient Records regulations: The Federal rules restrict any use of the information to criminally investigate or prosecute any alcohol or drug abuse patient.[facility] the event this information is protected by the Federal Confidentiality of Alcohol and Drug Abuse Patient Records regulations: The Federal rules restrict any use of the information to criminally investigate or prosecute any alcohol or drug abuse patient.[facility] [place] the event this information is protected by the Federal Confidentiality of Alcohol and Drug Abuse Patient Records regulations: The Federal rules restrict any use of the information to criminally investigate or prosecute any alcohol or drug abuse patient.[facility] [place] the event this information is protected by the Federal Confidentiality of Alcohol and Drug Abuse Patient Records regulations: The Federal rules restrict any use of the information to criminally investigate or prosecute any alcohol or drug abuse patient.[facility] [place] the event this information is protected by the Federal Confidentiality of Alcohol and Drug Abuse Patient Records regulations: The Federal rules restrict any use of the information to criminally investigate or prosecute any alcohol or drug abuse patient.[facility] [place] the event this information is protected by the Federal Confidentiality of Alcohol and Drug Abuse Patient Records regulations: The Federal rules restrict any use of the information to criminally investigate or prosecute any alcohol or drug abuse patient.[facility] [place] the event this information is protected by the Federal Confidentiality of Alcohol and Drug Abuse Patient Records regulations: The Federal rules restrict any use of the information to criminally investigate or prosecute any alcohol or drug abuse patient.[facility] [place] Reason for Visit (unrecogniz ed section and content) Reason Comments Yearly Exam Yearly follow up Reason Comments Recheck Medication follow up Reason Comments Results Reason Onset Date Comments Refill Request 06/29/2022 Reason Onset Date Comments Refill Request 08/15/2022 Reason Comments Labs for physical Reason Comments Back Pain No known injury, sri ble to sleep[ Reason Comments Physical Reason Comments Cough Loss of voice x 1 we ek Reason Onset Date Comments Refill Request 01/20/2024 Reason Comments Chest Congestion cough, loss of voice x 1 week Reason Comments Cough Congestion, headache , sore throat x1week Reason Comments express care follow up Reason Comments 1 week follow up - cxr Reason Comments Radiology CT Specialty Diagnoses / Procedures Referred By Andre t Referred To Contact CT IMAGING Diagnoses Acute cough Shortness of breath Abnormal chest x-ray Fever, unspecified fever cause Procedures CT CHEST WO IVCON DIAGNOSTIC COMPUTED TOMOGRAPHY THORAX W/O CNTRST Jaimee White M, AGRICULTURAL TECHNICIAN.MOSS GATHERER [address] [place] [address] [place] [address] Referral ID Status Reason Start Date Expiration Date Visits Requested Visits Authorized [id number] Waiting for Online Response Auto-Genera daljit Referral Patient Cleared - Admin/Chair man/Directo r advise to proceed or did not respond 05/23/2024 06/22/2025 [address] scan done, lung n odules, pain in right side, started 2 days ago Reason Onset Date Comments Refill Request 07/13/2024 Reason Comments Physical Annual Physical Reason Onset Date Comments Refill Request 10/13/2024 Reason Comments Patient Update had GB removed 10/14 Patient Question Reason Onset Date Comments Refill Request 04/06/2025 Care Teams (unrecognized sec tion and content) Hands Parter Relationship Specialty Start Date End Date Ingris Rock MD [address], [place] [id number] PCP - General Internal Medicine 07/09/17 Hands Parter Relationship Specialty Start Date End Date Ingris Rock MD [address] [place], [place] [id number] PCP - General Internal Medicine 07/09/17 Hands Parter Relationship Specialty Start Date End Date Ingris Rock MD [address] [place], [place] [id number] PCP - General Internal Medicine 07/09/17 Hands Parter Relationship Specialty Start Date End Date Ingris Rock MD [address] [place] [address] PCP - General Internal Medicine 07/09/17 Hands Parter Relationship Specialty Start Date End Date Ingris Rock MD [address] [place] [address] PCP - General Internal Medicine 07/09/17 Hands Parter Relationship Specialty Start Date End Date Ingris Rock MD [address] [place] [address] PCP - General Internal Medicine 07/09/17 Hands Parter Relationship Specialty Start Date End Date Ingris Rock MD [address] [place] [address] PCP - General Internal Medicine 07/09/17 Hands Parter Relationship Specialty Start Date End Date Ingris Rock MD [address] [place] [address] PCP - General Internal Medicine 07/09/17 Hands Parter Relationship Specialty Start Date End Date Ingris Rock MD [address] [place] [address] PCP - General Internal Medicine 07/09/17 Hands Parter Relationship Specialty Start Date End Date Ingris Rock MD [address] [place] [id number] PCP - General Internal Medicine 07/09/17 Hands Parter Relationship Specialty Start Date End Date Ingris Rock MD [address] [place] [address] PCP - General Internal Medicine 07/09/17 Hands Parter Relationship Specialty Start Date End Date Ingris Rock MD [address] [place] [address] PCP - General Internal Medicine 07/09/17 Hands Parter Relationship Specialty Start Date End Date Ingris Rock MD [address] [place] [address] PCP - General Internal Medicine 07/09/17 Hands Parter Relationship Specialty Start Date End Date Ingris Rock MD [address] [place] [address] PCP - General Internal Medicine 07/09/17 Hands Parter Relationship Specialty Start Date End Date Ingris Rock MD [address] [place] [address] PCP - General Internal Medicine 07/09/17 Hands Parter Relationship Specialty Start Date End Date Ingris Rock MD [address] [place] [address] PCP - General Internal Medicine 07/09/17 Hands Parter Relationship Specialty Start Date End Date Ingirs Rock MD [address] [place] [address] PCP - General Internal Medicine 07/09/17 Hands Parter Relationship Specialty Start Date End Date Ingris Rock MD [address] [place] [address] PCP - General Internal Medicine 07/09/17 Kendal Sorto PA-C [address] [place] [id number] [facility] 10/15/24 Myra Elizondo APRN.MOSS GATHERER [address] [place], [place] [address] [facility] Internal Medicine 10/15/24 Verona Stover PA-C [address] [place], [place] [id number] [facility] 10/15/24 Hands Parter Relationship Specialty Start Date End Date Ingris Rock MD [address] [place], [place] [id number] PCP - General Internal Medicine 07/09/17 Myra Elizondo APRN.MOSS GATHERER [address] [place] [address] [facility] Internal Medicine 10/15/24 Hands Parter Relationship Specialty Start Date End Date Ingris Rock MD [address] [place], [place] [address] PCP - General Internal Medicine 07/09/17 Myra Elizondo APRN.MOSS GATHERER [address] [place] [address] [facility] Internal Medicine 10/15/24 INFORMATION SOURCE (unrecogn ized section and content) DATE CREATED AUTHOR 11/19/2024 [facility] DATE CREATED AUTHOR AUTHOR'S RUBENS MUIR 04/22/2025 [facility] FOR RECORDS PERTAINING TO PATIENTS WHO ARE OR HAVE BEEN ENROLLED IN A CHEMICAL DEPENDENCY/SUBSTANCEABUSE PROGRAM, SOME INFORMATION MAY BE OMITTED. This clinical summary was aggregated from multiple sources. Caution should be exercised in using it in the provision of clinical care. This summary normalizes information from multiple sources, and as a consequence, information in this document may materially change the coding, format and clinical context of patient data. In addition, data may be omitted in some cases. CLINICAL DECISIONS SHOULD BE BASED ON THE PRIMARY CLINICAL RECORDS. [facility] [employer] [facility]. provides no warranty or guarantee of the accuracy or completeness of information in this document.
[2025-08-13 20:49] LABS: Color, Urine Yellow (Yellow); Glucose, Dipstick Normal (Normal); Ketone-Dipstick Negative (Negative); Leukocyte Esterase-Dipstick 25 /ul (Negative); Nitrite-Dipstick Positive (Negative); Occult Blood-Urine 10 /ul (Negative); Protein-Dipstick 30 mg/dl (Negative); Specific Gravity, Urine 1.020 (1.002-1.030); Urine Bilirubin Dipstick Negative (Negative)
[2025-08-13] MEDS: Potassium Chloride Oral Tablet 20 MEQ 60 MEQ PO (21:19)
[2025-08-13 21:27] LABS: Red Blood Cells-Urine 0-5 SEEN /hpf (0-5)
[2025-08-13 21:28] LABS: Squamous Epithelial Cells - UA 0-5 SEEN /hpf (5-10)
[2025-08-13 22:05] VITALS: BP 128/76; PULSE 100; RESP 20; TEMP 36.6; O2SAT 98
== END 2025-08-13 22:16 | disposition home or self-care (01) ==
PROVIDERS: Emergency Provider Student in an Organized Health Care Education/Training Program; PCP Nurse Practitioner; Visit Provider Student in an Organized Health Care Education/Training Program
DX: K59.00 Constipation, unspecified (principal); N12 Tubulo-interstitial nephritis, not specified as acute or chronic; E87.6 Hypokalemia; Z90.49 Acquired absence of other specified parts of digestive tract; E03.9 Hypothyroidism, unspecified
CPT/HCPCS: 74177; 80053; 81001; 81025; 83690; 85025; 96374; 96375; 99283; Q9967; A4216

== ENCOUNTER 2025-08-24 10:56 | Emergency (ER) | payer BC, SELFPAY ==
[2025-08-24 10:57] VITALS: BP 138/120; PULSE 100; RESP 18; TEMP 37.1; O2SAT 100; BMI 40.3
--- NOTE | 2025-08-24 11:35 | EX.ED.DYSGE1 ---
HPI History of Present Illness Chief Complaint: Allergic Reaction Informant: patient Narrative Narrative: 40-year-old female presenting to the emergency room with a chief complaint of rash. Patient states that on August 13 she was diagnosed with UTI and started on Keflex. She states that she has 3 pills remaining. 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 By this morning they seem to have coalesced into more urticaria and she was given a Benadryl by a coworker. She notes that the rash now extends up onto her thighs. She denies any throat or respiratory symptoms. She denies any rash on the arms. She does not have any history of vasculitis or prior significant allergic reactions. She denies any urinary symptoms PFSH [facility] Medical History Pilonidal cyst Back pain due to injury Hypothyroidism Home Medications ?Medication ?Instructions ?Recorded ?Last Taken ?Type levothyroxine 175 mcg tablet 175 mcg PO DAILY 12/01/15 10/13/24 History cyclobenzaprine 5 mg tablet 5 mg PO QHS PRN PRN muscle spasms 10/14/24 Unknown History levothyroxine 150 mcg tablet 150 mcg PO DAILY 10/14/24 10/13/24 History naproxen 500 mg tablet 500 mg PO BID PRN back pain 10/14/24 Unknown History oxycodone 5 mg capsule 5 mg PO Q6H PRN pain 3 days #10 10/14/24 Unknown Rx caps cephalexin 500 mg capsule 500 mg PO Q6 #40 CAPSULES 08/13/25 Unknown Rx prednisone 20 mg tablet 60 mg (3 x 20 mg) PO DAILY #15 08/24/25 Unknown Rx TABLETS Allergy/AdvReac Type Severity Reaction Status Date / Time cephalexin (From Keflex) Allergy Intermediate Rash Verified 08/24/25 10:57 latex Allergy Rash Verified 08/13/25 19:07 Surgical History S/P laparoscopic cholecystectomy Social History Smoking Status: Never smoker ROS ROS ED Constitutional Constitutional ED: Denies chills or weight loss Eyes Eyes: Denies change in vision or diplopia ENT ENT ED: Denies ear pain, rhinorrhea or sore throat Cardiovascular Cardiovascular: Denies chest pain, orthopnea, palpitations or racing heartbeat Respiratory/Chest Respiratory/Chest: Denies cough, dyspnea or orthopnea Gastrointestinal Gastrointestinal: Denies abdominal pain, diarrhea, nausea or vomiting Genitourinary Genitourinary ED: Denies dysuria, hematuria or urinary frequency Musculoskeletal Musculoskeletal: Denies arthralgias or myalgias Integumentary Reports rash; Denies abscess Neurologic Neurologic: Reports paresthesias RLE and LLE; Denies headache(s) or weakness Psychiatric Psychiatric: Denies anxiety, depression, suicidal ideation or suicidal thoughts Endocrine Endocrinology: Denies polydipsia, polyphagia or polyuria Allergic/Immunologic Allergic/Immunologic ED: Denies mouth swelling, tongue swelling or urticaria EXAM Physical Exam Const Vital Signs: 08/24/25 10:57 08/24/25 12:54 Temperature 98.7 F 98.0 F Temperature Source Oral Pulse Rate 100 82 Respiratory Rate 18 18 Blood Pressure 138/120 H 118/75 Blood Pressure Mean 126 89 Pulse Ox 100 100 Oxygen Delivery Method Room Air Positive well nourished and well developed General Appearance ED: well developed and NAD HEENT Reports normocephalic, head/scalp atraumatic and moist mucous membranes Eyes PERRL and EOMs intact bilaterally Neck no lymphadenopathy, supple and no JVD Resp normal respiratory effort and clear to auscultation bilaterally Cardio regular rate, regular rhythm and no murmurs GI normal to inspection, nondistended, normoactive bowel sounds and non-tender Palpation: soft Back/Spine no CVA tenderness and normal ROM Extremity normal to inspection General Extremety ED: Negative for edema General Extremity: Negative for edema Neuro oriented x3 and CN's II-XII intact bilaterally Sensorium / Orientation: alert Motor Exam: strength 5/5 throughout Psych mental status grossly normal Mood & Affect: Negative for depressed or tearful Skin no wounds Skin Narrative: Bilateral lower extremities demonstrates a macular papular rash more consistent with urticaria. It does tiff. Extends from the feet up onto the mid thighs. There is no significant edema of the legs. MDM MDM MDM Narrative Medical decision making narrative: Differential diagnosis includes allergic reaction urticaria vasculitis thrombocytopenia INOCENCIA UTI Urinalysis obtained which does not demonstrate any obvious infection. I do not believe we need to prescribe her any further antibiotics. Platelet count is normal at 353 hemoglobin 11.5 white count 8.6. Normal creatinine normal electrolytes. I will be prescribing the patient prednisone for 5 days and a burst dose pattern. She may discontinue her Keflex. She was advised on return instructions notes understanding. History & Record Review Discussion w/independent historian: Patient Lab Data Attestation: I reviewed the patient's lab results. Labs: Laboratory Results - last 24 hr 08/24/25 08/24/25 11:43 11:46 WBC 8.6 RBC 3.99 L Hgb 11.5 L Hct 34.6 L MCV 86.7 MCH 28.8 MCHC 33.2 RDW Std Deviation 42.5 RDW Coeff of Neel 13.6 Plt Count 353 MPV 10.2 Immature Gran % (Auto) 0.500 Neut % (Auto) 72.0 H Lymph % (Auto) 18.5 L Garden % (Auto) 4.5 Eos % (Auto) 4.3 Baso % (Auto) 0.2 Absolute Neuts (auto) 6.2 Absolute Lymphs (auto) 1.60 Nucleated RBC % 0 Sodium 136 Potassium 3.3 Chloride 105 Carbon Dioxide 21.9 Anion Gap 10 BUN 16 Creatinine 0.95 Estim Creat Clear Calc 97.15 Est GFR (MDRD) Non-Af 78 BUN/Creatinine Ratio 17.1 Glucose 87 Calcium 9.6 Urine Color Yellow Urine Clarity Clear Urine pH 5.0 Ur Specific [place] 1.025 Urine Protein 15 H Urine Glucose (UA) Normal Urine Ketones Negative Urine Occult Blood 25 H Urine Nitrite Negative Urine Bilirubin Negative Urine Urobilinogen Normal Ur Leukocyte Esterase Negative Urine RBC 5-10 SEEN Urine WBC 0-5 SEEN Ur Squamous Epith Cells 0-5 SEEN Urine Bacteria 0 SEEN Urine Mucus 0 SEEN Urine Test Negative Discharge Plan Triage Chief Complaint: Allergic Reaction ED Provider: Srini Lopez Dx/Rx/DC Orders Clinical Impression: Urticaria Instructions: ED Hives (Adult) Prescriptions: New prednisone 20 mg tablet 60 mg PO DAILY Qty: 15 0RF No Action levothyroxine 175 MCG tablet 175 mcg PO DAILY cephalexin 500 mg capsule 500 mg PO Q6 Qty: 40 0RF naproxen 500 mg tablet 500 mg PO BID PRN (Reason: back pain) cyclobenzaprine 5 mg tablet 5 mg PO QHS PRN PRN (Reason: muscle spasms) levothyroxine 150 mcg tablet 150 mcg PO DAILY Rx Instructions: 1/2 tab on Sundays oxycodone 5 mg capsule 5 mg PO Q6H PRN (Reason: pain) 3 Days Qty: 10 0RF Primary Care Provider: NIKKI LEMUS Referrals: NIKKI LEMUS, [employer]PA[employer]-C [Primary Care Provider, Internal Medicine] - 3-5 Days if not improving Activity Restrictions/Additional Instructions: Please discontinue the Keflex. Your urine does not show any signs of infection so I do not feel you need an additional antibiotic. You may continue Benadryl every 8 hours as needed. Please take all 5 days of the prednisone. Please monitor for any changes return if worsening or signs Print Language: Kiswahili Disposition Disposition: Home, Self Care Discharge Date/Time: 08/24/25 12:56
[2025-08-24 11:48] LABS: Mucous, Urine 0 SEEN /hpf (<or=2+)
[2025-08-24 11:50] LABS: Color, Urine Yellow (Yellow); Glucose, Dipstick Normal (Normal); Ketone-Dipstick Negative (Negative); Leukocyte Esterase-Dipstick Negative /ul (Negative); Nitrite-Dipstick Negative (Negative); Occult Blood-Urine 25 /ul (Negative); Protein-Dipstick 15 mg/dl (Negative); Specific Gravity, Urine 1.025 (1.002-1.030); Urine Bilirubin Dipstick Negative (Negative)
[2025-08-24 11:55] LABS: Red Blood Cells-Urine 5-10 SEEN /hpf (0-5); Squamous Epithelial Cells - UA 0-5 SEEN /hpf (5-10)
[2025-08-24 11:56] LABS: Internal QC Validated? YES +Cl - CLEAR BKGD; Pregnancy, Urine Negative Negative; Record Kit Lot#,Urine Preg 980607
[2025-08-24 12:03] LABS: Hematocrit 34.6 % (37-47); Hemoglobin 11.5 g/dL (12.0-15.0); Immature Granulocytes Count 0.040 X10^3/uL (0.0-0.0); Mean Corp Hgb Conc 33.2 g/dL (32-36); Mean Corpuscular Volume 86.7 fL (81-99); Mean Platelet Vol. 10.2 fl (6.2-12.0); NRBC Flagged by Analyzer 0 % (0-5); Platelet Count 353 K/mm3 (150-450); RBC Distribution Width CV 13.6 % (11.6-14.6); RBC Distribution Width SD 42.5 fl (35.1-43.9); Red Blood Count 3.99 M/mm3 (4.2-5.4); White Blood Count 8.6 K/mm3 (4.4-11.0)
--- OUTSIDE RECORDS SUMMARY | 2025-08-24 12:19 | XMS RPT_ITS | CCD ---
Author Organization [facility] CliniSyhi Care Team Providers Care Human Resources Support Specialist Name Role Phone Asmita BHATIA, Ingris Primary Care Provider [phone] Ingris Rock MD Primary Care Provider [phone] Kendal Sorto PA-C Unavailable Older FEED MANAGER.Mrya TREJO Unavailable [phone] Verona Stover PA-C Unavailable GANTA, INGRIS Primary Care Unavailable CINDY JAIMEE M Referring Unavailable GANTA, INGRIS Referring Unavailable GANTA, INGRIS Primary Care Unavailable CINDY JAIMEE M Attending Unavailable GANTA, INGRIS Primary Care Unavailable GANTA, INGRIS Primary Care Unavailable CINDY, JAIMEE M Referring Unavailable GANTA, INGRIS Primary Care Unavailable OLDER, MRYA Attending Unavailable CINDY JAIMEE M Attending Unavailable GANTA, INGRIS Primary Care Unavailable CINDY, JAIMEE M Attending Unavailable GANTA, INGRIS Primary Care Unavailable GANTA, INGRIS Primary Care Unavailable GANTA, INGRIS Primary Care Unavailable CANDELARIA MAYFIELD Referring Unavailable GANTA, INGRIS Primary Care Unavailable CINDY JAIMEE M Referring Unavailable OLDER LIGHT TECHNICIAN-CMYRA Primary Care Physician Dr. Alexsandra Granados MD Emergency Department Physici an Unavailable OLDER, MYRA Primary Care Unavailable Robotham, Shireen Consulting Unavailable Robotham, Shireen Attending Unavailable Robotham, Shireen Admitting Unavailable OLDER, MYRA Primary Care Unavailable Alexsandra Granados Attending Unavailable OLDER, MYRA Primary Care Unavailable Robotham, Shireen Admitting Unavailable Robotham, Shireen Attending Unavailable OLDER, MRYA Primary Care Unavailable OLDER, MYRA Referring Unavailable Oriana Brandt Attending Unavailable Allergies Allergy Classification Reported Allergen(s) Allergy Type Date of Onset Reaction(s) Facility (20 sources) Influenza virus vaccine; Translations: [INFLUENZA VIRUS VACCINE QS (18 YRS-64 YRS)] Drug Allergy 6 Itching [facility] (20 sources) Latex; Translations: [LATEX] Drug Intolerance 7 Hives [facility] Work Phone: (1 source) Latex Drug allergy (disorder) 5 [facility] Repository Medications Current Medications Medication Drug Class(es) Dates Sig (Normalized) Sig (Original) azithromycin 250 mg oral tablet (1 source) Macrolide Antimicrobial Start: 05-16-2024 End: 05-21-2024 azithromycin (ZITHROMAX Z-HUBERT) 250 mg tablet Take 2 tablets day one, then, 1 tablet daily until gone. 6 tablet 0 05/16/2024 05/21/2024 Active cephalexin 500 mg oral capsule (1 source) Cephalosporin Antibacterial Start: 08-13-2025 take 1 capsule by mouth every six hours cyclobenzaprine hydrochloride 5 mg oral tablet (20 sources) Muscle Relaxant Start: 04-09-2025 take 1 tablet by mouth every twenty-four hours as needed cyclobenzaprine (FLEXERIL) 5 mg tablet Take 1 tablet by mouth at bedtime as needed for muscle spasm. 30 tablet 2 04/09/2025 Active Start: 01-30-2022 End: 04-06-2025 take 1 tablet by mouth at bedtime as needed for muscle spasms Comment on above: Take 1 tablet by [...] mg oral tablet (20 sources) l-Thyroxine Start: 10-14-20 take 0.5 tablet by mouth once daily Start: 07-01-2022 End: 07-26-2024 levothyroxine (LEVOXYL) 150 mcg tablet Indications: Hypothyroidism, [...] stomach 30 tablet 3 03/27/2022 06/29/2022 Discontinued Start: 12-01-2015 take 1 tablet by julio c th once daily Comment on above: Take 1 tablet by julio c th once daily. Take one tablet ever y day except only 1/2 tablet on Sundays. For thyroid. Take on an empty stomach naproxen 500 mg oral tablet (10 sources) Nonsteroidal Anti-inflammatory Drug Start: 10-14-2024 take 1 tablet by mouth twice daily as needed for pain Start: 05-29-2024 End: 07-26-2024 take 1 tablet by mouth every twelve hours as needed naproxen (NAPROSYN) 500 mg tablet Take 1 tablet by mouth two times a day as needed (for pain/inflammation). Take with food. 30 tablet 1 07/26/2024 Active oxyCODONE hydrochloride 5 mg oral capsule (1 source) Opioid Agonist Start: 10-14-2024 take 1 capsule by mouth every six hours as needed for pain triamcinolone acetonide 1 mg/ml topical cream (1 source) Corticosteroid Start: 01-30-2022 End: 02-13-2022 triamcinolone acetonide (KENALOG) 0.1 % cream Indications: Seborrheic dermatitis Apply to affected area twice daily for 14 days. 15 g 1 01/30/2022 02/13/2022 Active Comment on above: Apply to affected ar ea twice daily for 14 days. Completed/Discontinued Medications Medication Drug Class(es) Dates Sig (Normalized) Sig (Original) [id number] 200 actuat albuterol 0.09 mg/actuat metered dose [...] on above: Take 1 capsule by mo [facility] three times a day as needed. brompheniramine maleate 0.4 mg/ml / dextromethorphan hydrobromide 2 mg/ml / pseudoephedrine hydrochloride 6 mg/ml oral solution (3 sources) alpha-Adrenergic Agonist, Uncompetitive X-slqldg-Z-aspartate Receptor Antagonist, Sigma-1 Agonist Start: 05-10-20 24 End: 05-16-20 24 take 5 mL by mouth every six hours as needed Brompheniramine-Pse udoeph-DM (BROMFED DM) 2-30-10 mg/5 mL syrup Take 5 mL by mouth four times a day as needed. 118 mL 05/10/2024 05/16/2024 Discontinued (Course of therapy completed) codeine phosphate 2 mg/ml / guaiFENesin 20 mg/ml oral solution (5 sources) Opioid Agonist Start: 05-16-20 24 End: 05-23-20 24 take 5 mL by mouth every six hours as needed for cough and cough codeine-guaiFENesin (ROBITUSSIN AC) 10-100 mg/5 mL syrup Indications: Acute cough Take 5 mL by mouth four times a day as needed for up to 7 days. 140 mL 05/16/2024 05/23/2024 escitalopram 10 mg oral tablet (10 sources) Serotonin Reuptake Inhibitor Start: 08-17-20 22 End: 07-21-20 23 take 1 tablet by [...] above: Take 1 tablet by julio c once daily. omeprazole 20 mg delayed release [...] on above: Take 1 capsule by mo [facility] daily before breakfast. ondansetron 4 mg oral [...] above: Take 1 tablet by julio c every 8 hours as needed. predniSONE 10 [...] Active Problems Problem Classification Problem Date Documented Da te Episodic/Chronic Abdominal pain (1 source) Unspecified abdominal pain; Translations: [Unspecified abdominal pain] Onset: 08-21-2025 Episodic Anxiety disorders (20 sources) Mixed anxiety and depressive disorder; Translations: [Anxiety disorder, unspecified] Onset: 01-30-2022 Chronic Diseases of white blood cells (1 source) Leukocytosis; Translations: [Elevated white blood cell count, unspecified] 07-21-2023 Chronic Immunizations and screening for infectious disease (1 source) Viral screening status; Translations: [Encounter for screening for other viral diseases] Episodic Menstrual disorders (20 sources) Dysmenorrhea; Translations: [Dysmenorrhea, unspecified] Onset: 08-13-2014 08-13-2014 Chronic Nausea and vomiting (1 source) Nausea and vomiting; Translations: [Nausea with vomiting, unspecified] 10-23-2024 Episodic Open wounds of extremities (1 source) Laceration of thumb; Translations: [Laceration without foreign body of unspecified thumb without damage to nail, initial encounter] 12-02-2015 Episodic Other gastrointestinal disorders (1 source) Constipation; Translations: [Constipation, unspecified] 08-13-2025 Episodic Other inflammatory condition of skin (1 source) [...] Rib pain; Translations: [Pleurodynia] 05-29-2024 Episodic Other nutritional; endocrine; and metabolic disorders (20 sources) Body mass index 40+ - severely obese; Translations: [Morbid (severe) obesity due to excess calories] Onset: 02-02-2018 Chronic Other nutritional; endocrine; and metabolic disorders (1 source) Morbid (severe) obesity due to excess calories; Translations: [Obesity, Class III, BMI 40-49.9 (morbid obesity) ([facility])] Onset: 02-02-2018 Chronic Other screening for suspected [...] [Acute upper respiratory infection, unspecified] 08-14-2023 Episodic Spondylosis; intervertebral disc disorders; other back problems (2 sources) Backache; Translations: [Dorsalgia, unspecified] 07-04-2023 Episodic Thyroid disorders (20 sources) Acquired hypothyroidism; Translations: [Hypothyroidism, unspecified] Onset: 01-16-2008 Resolved: 09-25-2016 Chronic Unclassified (1 source) Acute cough; Translations: [Acute cough] Onset: 05-23-2024 Urinary tract infections (1 source) Pyelonephritis; Translations: [Tubulo-interstiti al nephritis, not specified as acute or chronic] 08-13-2025 Episodic Past or Other Problems Problem Classification Problem Date Documented Date Episodic/Chronic Biliary tract disease (2 sources) Acute cholecystitis; Translations: [Acute cholecystitis] Onset: 11-12-2024 10-23-2024 Episodic Fever of unknown origin (5 sources) Fever; Translations: [Fever, unspecified] Onset: 05-23-2024 05-16-2024 Episodic Fluid and electrolyte disorders (2 sources) Hypokalemia; Translations: [Hypokalemia] Onset: 10-26-2024 10-23-2024 Episodic Other lower respiratory disease (1 source) Shortness of breath; Translations: [Shortness of breath] Onset: 05-23-2024 Episodic Other nervous system disorders (1 source) Other acute postprocedural pain; Translations: [Other acute postprocedural pain] Onset: 10-26-2024 Episodic Residual codes; unclassified (1 source) Acquired absence of other specified parts of digestive tract; Translations: [Acquired absence of other specified parts of digestive tract] Onset: 10-26-2024 Episodic Unclassified (1 source) Patient encounter status 03-20-2025 Results Test Name Value Interpretation Reference Range Facility Abdomen/Pelvis W IV Cont ONL Yon 08-13-2025 Abdomen/Pelvis W IV Cont ONLY [facility] Imaging Services [address] [place] [address] Abdomen/Pelvis W IV Cont ONLY MR#: [id number] Acct: [id number] Name: DANG PRITCHETT Rep #: [id number] : 1985 F 40 From: [place] Barr[place] MD PCP: MYRA ELIZONDO LIGHT TECHNICIAN-C Status: REG ER Study: Abdomen/Pelvis W IV Cont ONLY Date of Exam: Exam# [id number] Ordering Dr: Alexsandra Granados MD PROCEDURE: ABDOMEN/PELVIS W IV CONT ONLY 08/13/2025 REASON FOR EXAM: RUQ PAIN TECHNIQUE: Procedure Code: CTABDPELIV Modality: CT Procedure: ABDOMEN/PELVIS W IV CONT ONLY Coronal and Sagittal reconstruction series were provided. CONTRAST: VOLUME: mL One or more dose reduction techniques were used (e.g., Automated exposure control, adjustment of the mA and/or kV according to patient size, use of iterative reconstruction technique. COMPARISON: 10/14/2024. FINDINGS: The visualized lung bases are clear. The gallbladder is not visualized and presumably surgically absent, new since the previous study. The liver, pancreas, spleen, adrenal glands, kidneys, and urinary bladder appear unremarkable. The uterus is mildly prominent and contains fluid within this cavity. Lobulated soft tissue densities along the lateral margins of both sides of the uterus probably represent the ovaries. No oval 2.1 cm low-density in the right adnexa (series 2 image 95) probably represents an ovarian cyst. Moderate amount of stool within the right side of the colon. No evidence of a bowel obstruction. No bowel wall thickening. The appendix is visualized and unremarkable. No intraperitoneal free air or free fluid. No abdominal nor pelvic lymphadenopathy. No acute osseous abnormality. No acute fracture. CT/Abdomen/Pelvis W IV Cont ONLY IMPRESSION: 1. Mildly prominent uterus with fluid within its cavity. Please correlate with the patient's menstrual cycle. 2. Probable right ovarian cyst measuring 2.1 cm. 3. Moderate amount of stool within the right side of the colon. Reading Location: [facility] CC: FAHAD ELIZONDO; Dr. Alexsandra Granados MD Community Nurse: Signed Normal [facility] Absolute lymphocyte countOrd ered By: Alexsandra Granados on 08-13-2025 Lymphocytes Auto (Unsp spec) [#/Vol] 2.88 10*3/uL 0.83-4.51 [facility] Absolute neutrophil countOrd ered By: Alexsandra Granados on 08-13-2025 Neutrophils (Bld) [#/Vol] 5.0 10*3/uL 2.0-7.7 [facility] Anion gap in Serum or Plasma Ordered By: Alexsandra Granados on 08-13-2025 Anion gap [Moles/Vol] 13 mmol/L 5- [facility] Automated lymphocyte count a s percentage of total leukocytesOrdered By: Alexsandra Granados on 08-13-2025 Lymphocytes/100 WBC Auto (Unsp spec) 32.0 % - [facility] BUN/creatinine ratioOrdered By: Alexsandra Granados on 08-13-2025 Urea nitrogen/Creatinine [Mass ratio] 17.7 mg/mg 10- [facility] Basophil percentageOrdered B y: Alexsandra Granados on 08-13-2025 Basophils/100 WBC (Bld) 0.7 % 0-1 [facility] Bilirubin Test strip Ql (U)O rdered By: Alexsandra Granados on 08-13-2025 Bilirubin Ql (U) Negative Negative [facility] Bilirubin, totalOrdered By: Alexsandra Granados on 08-13-2025 Bilirubin [Mass/Vol] 0.35 mg/dL 0.00-1.30 [facility] CBC W/Diff, Automatedon Absolute Lymph 2.88 X10 3/uL Normal 0.83-4.51 [facility] Comment on above: Performed By: #### L 501.2450, L100.0100, L500.4050 #### [facility] Laboratory [facility] [place], [address] Absolute Neut 5.0 X10 3/uL Normal 2.0-7.7 [facility] Comment on above: Performed By: #### L 501.2450, L100.0100, L500.4050 #### [facility] [address] [place], [address] Basophils/100 WBC (Bld) 0.7 % Normal 0-1 [facility] Comment on above: Performed By: #### L 501.2450, L100.0100, L500.4050 #### [facility] [address] [place], [address] Eosinophils/100 WBC (Bld) 2.8 % Normal 0-5 [facility] Comment on above: Performed By: #### L 501.2450, L100.0100, L500.4050 #### [facility] [address] [place], [address] Erythrocyte distribution width (RBC) [Ratio] 13.8 % Normal 11.6-14.6 [facility] Comment on above: Performed By: #### L 501.2450, L100.0100, L500.4050 #### [facility] [address] [place], [address] Hematocrit (Bld) [Volume fraction] 37.1 % Normal 37-47 [facility] Comment on above: Performed By: #### L 501.2450, L100.0100, L500.4050 #### [facility] [address] [place], [address] Hemoglobin (Bld) [Mass/Vol] 12.1 g/dL Normal 12.0-15.0 [facility] Comment on above: Performed By: #### L 501.2450, L100.0100, L500.4050 #### [facility] [address] [place], [address] IG% 0.800 Normal 0.0-0.9 [facility] Comment on above: Result Comment: IG% - Immature Granulocytes (promyelocytes, myelocytes and metamyelocytes) > 1% indicates that a LEFT SHIFT is Present. Performed By: #### L 501.2450, L100.0100, L500.4050 #### [facility] [address] [place], [address] Lymphocytes/100 WBC (Bld) 32.0 % Normal 19-41 [facility] Comment on above: Performed By: #### L 501.2450, L100.0100, L500.4050 #### [facility] [address] [place], [address] MCH (RBC) [Entitic mass] 28.3 pg Normal 27.0-32.0 [facility] Comment on above: Performed By: #### L 501.2450, L100.0100, L500.4050 #### [facility] [address] [place], [address] MCHC (RBC) [Mass/Vol] 32.6 g/dL Normal 32-36 [facility] Comment on above: Performed By: #### L 501.2450, L100.0100, L500.4050 #### [facility] [address] [place], [address] MCV (RBC) [Entitic vol] 86.7 fL Normal 81-99 [facility] Comment on above: Performed By: #### L 501.2450, L100.0100, L500.4050 #### [facility] [address] [place], [address] Monocytes/100 WBC (Bld) 8.2 % Normal 0-10 [facility] Comment on above: Performed By: #### L 501.2450, L100.0100, L500.4050 #### [facility] [address] [place], [address] Neutrophils/100 WBC (Bld) 55.5 % Normal 47-70 [facility] Comment on above: Performed By: #### L 501.2450, L100.0100, L500.4050 #### [facility] [address] [place], [address] Nucleated RBC (Bld) [#/Vol] 0 10*3/uL Normal 0-5 [facility] Comment on above: Performed By: #### L 501.2450, L100.0100, L500.4050 #### [facility] [address] [place], [address] Platelet mean volume (Bld) [Entitic vol] 10.5 fL Normal 6.2-12.0 [facility] Comment on above: Performed By: #### L 501.2450, L100.0100, L500.4050 #### [facility] [address] [place], [address] Platelets (Bld) [#/Vol] 383 10*3/uL Normal 150-450 [facility] Comment on above: Performed By: #### L 501.2450, L100.0100, L500.4050 #### [facility] [address] [place], [address] RBC (Bld) [#/Vol] 4.28 10*6/uL Normal 4.2-5.4 [facility] Comment on above: Performed By: #### L 501.2450, L100.0100, L500.4050 #### [facility] [address] [place], [address] RDW SD 43.6 fl Normal 35.1-43.9 [facility] Comment on above: Performed By: #### L 501.2450, L100.0100, L500.4050 #### [facility] [address] [place], [address] WBC (Bld) [#/Vol] 9.0 10*3/uL Normal 4.4-11.0 [facility] Comment on above: Performed By: #### L 501.2450, L100.0100, L500.4050 #### [facility] [address] [place], [address] Carbon dioxide, total [Moles /volume] in Central venous bloodOrdered By: Alexsandra Granados on 08-13-2025 CO2 [Moles/Vol] 19.6 mmol/L Low 21.0-32.0 [facility] Chloride assayOrdered By: Venkata Granados on 08-13-2025 Chloride [Moles/Vol] 102 mmol/L 98-108 [facility] Comprehensive Metabolic Prof ilon 08-13-2025 Albumin [Mass/Vol] 4.2 g/dL Normal 3.5-5.0 [facility] Comment on above: Performed By: #### L 501.2450, L100.0100, L500.4050 #### [facility] [address] [place], [address] Albumin/Globulin [Mass ratio] 0.8 {ratio} Low 0.9-2.4 [facility] Comment on above: Performed By: #### L 501.2450, L100.0100, L500.4050 #### [facility] [address] [place], [address] ALK PHOS 110 U/L High 35-104 [facility] Comment on above: Performed By: #### L 501.2450, L100.0100, L500.4050 #### [facility] [address] [place], [address] ALT [Catalytic activity/Vol] 73 U/L High <=34 [facility] Comment on above: Performed By: #### L 501.2450, L100.0100, L500.4050 #### [facility] [address] [place], [address] AST [Catalytic activity/Vol] 52 U/L High <=31 [facility] Comment on above: Performed By: #### L 501.2450, L100.0100, L500.4050 #### [facility] [address] [place], [address] Bilirubin [Mass/Vol] 0.35 mg/dL Normal 0.00-1.30 [facility] Comment on above: Performed By: #### L 501.2450, L100.0100, L500.4050 #### [facility] [address] [place], [address] BUN/CRE 17.7 RATIO Normal 10-20 [facility] Comment on above: Performed By: #### L 501.2450, L100.0100, L500.4050 #### [facility] [address] [place], [address] Calcium [Mass/Vol] 9.2 mg/dL Normal 7.6-11.0 [facility] Comment on above: Performed By: #### L 501.2450, L100.0100, L500.4050 #### [facility] [address] [place], [address] Chloride [Moles/Vol] 102 mmol/L Normal 98-108 [facility] Comment on above: Performed By: #### L 501.2450, L100.0100, L500.4050 #### [facility] [address] [place], [address] CO2 [Moles/Vol] 19.6 mmol/L Low 21.0-32.0 [facility] Comment on above: Performed By: #### L 501.2450, L100.0100, L500.4050 #### [facility] [address] [place], [address] Creatinine [Mass/Vol] 0.92 mg/dL Normal 0.70-1.20 [facility] Comment on above: Performed By: #### L 501.2450, L100.0100, L500.4050 #### [facility] [address] [place], [address] ECRCL 100.00 ml/min Normal 50-250 [facility] Comment on above: Performed By: #### L 501.2450, L100.0100, L500.4050 #### [facility] [address] [place], [address] GAP 13 Normal 5-15 [facility] Comment on above: Performed By: #### L 501.2450, L100.0100, L500.4050 #### [facility] [address] [place], [address] GFR/1.73 sq M.predicted among non-blacks MDRD (S/P/Bld) [Vol rate/Area] 80 mL/min/{1.73_m2} Normal >60 [facility] Comment on above: Result Comment: mL/m in/1.73m2 CKD-EPI Creatinine Equation (2020) Performed By: #### L 501.2450, L100.0100, L500.4050 #### [facility] [address] [place], [address] Globulin (S) [Mass/Vol] 5.1 g/dL High 2.2-4.2 [facility] Comment on above: Performed By: #### L 501.2450, L100.0100, L500.4050 #### [facility] [address] [place], [address] Glucose [Mass/Vol] 108 mg/dL High 70-99 [facility] Comment on above: Performed By: #### L 501.2450, L100.0100, L500.4050 #### [facility] [address] [place], [address] Potassium [Moles/Vol] 2.8 mmol/L Low 3.3-5.1 [facility] Comment on above: Performed By: #### L 501.2450, L100.0100, L500.4050 #### [facility] [address] [place], [address] Sodium [Moles/Vol] 135 mmol/L Normal 133-145 [facility] Comment on above: Performed By: #### L 501.2450, L100.0100, L500.4050 #### [facility] [address] [place], [address] T PROT 9.3 g/dL High 5.9-8.4 [facility] Comment on above: Performed By: #### L 501.2450, L100.0100, L500.4050 #### [facility] [address] [place], [address] Urea nitrogen [Mass/Vol] 16 mg/dL Normal 4-19 [facility] Comment on above: Performed By: #### L 501.2450, L100.0100, L500.4050 #### [facility] [address] [place], [address] Emergency Department Summary on 08-13-2025 Emergency Department Summary [facility] Medical Records Department [address] [place] [address] Emergency Department Summary 08/13/25 MR#: [id number] Acct: [id number] Name: DANG PRITCHETT Jeannette Rep #: [id number] : 1985 40 From: Alexsandra Granados MD PCP: MYRA ELIZONDO, LIGHT TECHNICIAN-C Status:DEP ER Location: ED HPI HPI - GI History of Present Illness Chief Complaint: Abd Pain Narrative Narrative: Patient is a 40-year-old female presenting to the emergency department for right sided abdomen. Patient states the pain has been on and off for the past 2 weeks but has worsened today. She had a laparoscopic cholecystectomy done in October 2024 here at [place]. Patient states that there were no complications that she knows of from it. She denies history of kidney stones or pyelonephritis. She endorses subjective fever and chills. Denies chest pain, shortness of breath, nausea, vomiting. States she always has some constipation and diarrhea but this is not changed from baseline. Denies any vaginal bleeding, vaginal discharge, pelvic pain or concern for any STDs. Last menstrual period was about 3 weeks ago. [facility] Medical History Pilonidal cyst Back [...] 500 mg PO BID PRN back pain Unknown History oxycodone 5 mg capsule 5 mg PO Q6H PRN pain 3 days #10 Unknown Rx caps cephalexin 500 mg capsule 500 mg PO Q6 #40 CAPSULES 08/13/25 Unknown Rx Allergy/AdvReac Type Severity Reaction Status Date / Time latex Allergy Rash Verified 08/13/25 19:07 Surgical History S/P laparoscopic cholecystectomy Social History Smoking Status: Never smoker ROS ROS ED ROS Narrative see HPI EXAM Physical Exam Narrative Exam Narrative: Vital signs: Reviewed General: Alert and oriented. No acute distress HEENT: Head is normocephalic and atraumatic, sinuses nontender, pupils equal round and reactive. Nares are patent. Oropharynx and throat exams normal. Neck: Supple without lymphadenopathy nontender Cardiovascular: Regular rate and rhythm, no murmurs. No rubs or gallops. Normal S1 and S2 Respiratory: Clear to auscultation bilaterally. No wheezes, rales, rhonchi Abdominal: Soft and tender to palpation in the right upper quadrant, right middle and lower quadrants. Normal bowel sounds. No guarding or rebound. Nonsurgical abdomen. No CVA tenderness bilaterally. Extremities: No tenderness. No bruising. Normal range of motion. Normal sensation. Skin: No rash or redness. Neurological: Cranial nerves II through XII are grossly intact. Normal strength and sensation. Normal cerebellar function The rest of the physical exam is unremarkable Const Vital Signs: 08/13/25 19:07 08/13/25 22:05 Temperature 98 F 97.8 F Temperature Source Oral Pulse Rate 87 100 Respiratory Rate 24 H 20 H Blood Pressure 123/88 H 128/76 H Blood Pressure Mean 99 93 Pulse Ox 100 98 Oxygen Delivery Method Room Air MDM MDM MDM Narrative Medical decision making narrative: Patient is a 40-year-old female presenting to the emergency department for right sided abdominal pain. Patient was seen and examined. Vitals are stable. Patient resting in bed, hyperventilating stating she is in significant pain. Differential clues but is not limited to: Pancreatitis, choledocholithiasis, nephrolithiasis, pyelonephritis, UTI, appendicitis Patient given fluids and morphine for symptomatic control. Labs and imaging ordered. CBC with no leukocytosis and normal hemoglobin. CMP with mild transaminitis slightly worse than baseline however she does have this noted on review of prior labs. Normal total bilirubin. Mild hypokalemia 2.8, this was repleted orally. BMp with bicarb of 19.6, likely from her hyperventilation on arrival. Urinalysis with evidence of urinary tract infection with bacteria, WBC, leukocyte esterase, nitrates and occult blood. CT the abdomen pelvis shows mildly prominent uterus with fluid within its cavity. Please correlate with the patient's menstrual cycle. Probable right ovarian cyst measuring 2.1 cm. Moderate amount of stool within the right side of the colon. Patient reevaluated, states the pain is still present. Offered toraol and an enema. She is agreeable with the toradol. Given first dose of abx for UTI, I do not think it is likely pyelo however w (more content not included)... Normal [facility] Eosinophil percentageOrdered By: Alexsandra Granados on 08-13-2025 Eosinophils/100 WBC (Bld) 2.8 % 0-5 [facility] Erythrocyte distribution wid th ratioOrdered By: Alexsandra Granados on 08-13-2025 Erythrocyte distribution width (RBC) [Ratio] 13.8 % 11.6-14.6 [facility] Erythrocyte distribution wid th standard deviationOrdered By: Alexsandra Granados on 08-13-2025 Erythrocyte distribution width (RBC) [Ratio] 43.6 fl 35.1-43.9 [facility] Glomerular filtration rate ( GFR) estimation/1.73 sq m using serum, plasma, or whole bOrdered By: Alexsandra Granados on 08-13-2025 GFR/1.73 sq M.predicted among non-blacks MDRD (S/P/Bld) [Vol rate/Area] 80 mL/min/{1.73_m2} >60 [facility] Comment on above: mL/min/1.73m2 CKD-EP I Creatinine Equation (2020) Hematocrit Auto (Bld) [Volum e fraction]Ordered By: Alexsandra Granados on 08-13-2025 Hematocrit (Bld) [Volume fraction] 37.1 % 37-47 [facility] Hemoglobin measurementOrdere d By: Alexsandra Granados on 08-13-2025 Hemoglobin (Bld) [Mass/Vol] 12.1 g/dL 12.0-15.0 [facility] Immature granulocytes/100 WB C Auto (Bld)Ordered By: Alexsandra Granados on 08-13-2025 Immature granulocytes/100 WBC (Bld) 0.800 % 0.0-0.9 [facility] Comment on above: IG% - Immature Granu locytes (promyelocytes, myelocytes and metamyelocytes) > 1% indicates that a LEFT SHIFT is Present. Ketones Test strip Ql (U)Ord ered By: Alexsandra Granados on 08-13-2025 Ketones Ql (U) Negative Negative [facility] Laboratory - Chemistry and C hemistry - challengeOrdered By: Alexsandra Granados on 08-13-2025 AST [Catalytic activity/Vol] 52 U/L High <32 [facility] Lipaseon 08-13-2025 Lipase [Catalytic activity/Vol] 41 U/L Normal 13-75 [facility] Comment on above: Result Comment: Martita colvin note: LIPASE revised reference range effective 23. New Lipase methodology. Expected to produce lower values than the previous assay method. NEW Reference Range: 13 - 75 U/L Performed By: #### L 501.2450, L100.0100, L500.4050 #### [facility] [address] [place], [address] Lipase measurementOrdered By : Alexsandra Granados on 08-13-2025 Lipase [Catalytic activity/Vol] 41 U/L 13-75 [facility] Comment on above: Please note:LIPASE r evised reference range effective 23. New Lipase methodology. Expected to produce lower values than the previous assay method. NEW Reference Range: 13 - 75 U/L MCV (mean corpuscular volume ) determinationOrdered By: Alexsandra Granados on 08-13-2025 MCV (RBC) [Entitic vol] 86.7 fL 81-99 [facility] Mean corpuscular hemoglobin (MCH) determinationOrdered By: Alexsandra Granados on 08-13-2025 MCH (RBC) [Entitic mass] 28.3 pg 27.0-32.0 [facility] Mean corpuscular hemoglobin concentration (MCHC) determinationOrdered By: Alexsandra Granados on 08-13-2025 MCHC (RBC) [Mass/Vol] 32.6 g/dL 32-36 [facility] Mean platelet volume determi nationOrdered By: Alexsandra Granados on 08-13-2025 Platelet mean volume (Bld) [Entitic vol] 10.5 fL 6.2-12.0 [facility] Microscopic analysis of urin e for red blood cells (RBC)Ordered By: Alexsandra Granados on 08-13-2025 Microscopic analysis of urine for red blood cells (RBC) 0-5 SEEN /hpf 0-5 [facility] Comment on above: Previous reported re sult: 0 SEEN /hpfEdited by: JL on 08/13/25:2126 AMENDED REPORT 08/13/252126 RBC-UA previously reported as: 0 SEEN /hpf Monocyte percentageOrdered B y: Alexsandra Granados on 08-13-2025 Monocytes/100 WBC (Bld) 8.2 % 0-10 [facility] Mucus LM Ql (Urine sed)Order ed By: Alexsandra Granados on 08-13-2025 Mucus Ql (Urine sed) 0 SEEN /hpf [facility] Neutrophil percentageOrdered By: Alexsandra Granados on 08-13-2025 Neutrophils/100 WBC (Bld) 55.5 % 47-70 [facility] Nitrite Test strip Ql (U)Ord ered By: Alexsandra Granados on 08-13-2025 Nitrite Ql (U) Positive High Negative [facility] Nucleated red blood cell per centageOrdered By: Alexsandra Granados on 08-13-2025 Nucleated RBC/100 WBC (Bld) [Ratio] 0 % 0-5 [facility] Platelet countOrdered By: Venkata Granados on 08-13-2025 Platelets (Bld) [#/Vol] 383 10*3/uL 150-450 [facility] Potassium measurement (mass/ volume)Ordered By: Alexsandra Granados on 08-13-2025 Potassium (Unsp spec) [Mass/Vol] 2.8 mmol/L Low 3.3-5.1 [facility] ,Urineon 08-13-2025 Beta HCG ( test) Ql (U) Negative Normal [facility] Comment on above: Order Comment: [id number] Result Comment: Very dilute urine specimens, as indicated by a low specific gravity, may not contain herbicide service sales representative levels of hCG. If is still suspected, a first morning urine specimen should be collected 48 hours later and tested. Performed By: #### L 400.0001, L400.7600 ####[facility] [address] [place], [address] Protein Test strip Ql (U)Ord ered By: Alexsandra Granados on 08-13-2025 Protein Ql (U) 30 mg/dl High Negative [facility] RBC Auto (Bld) [#/Vol]Ordere d By: Alexsandra Granados on 08-13-2025 RBC (Bld) [#/Vol] 4.28 10*6/uL 4.2-5.4 [facility] Serum creatinine measurement (mass/volume)Ordered By: Alexsandra Granados on 08-13-2025 Creatinine [Mass/Vol] 0.92 mg/dL 0.70-1.20 [facility] Serum globulin measurementOr dered By: Alexsandra Granados on 08-13-2025 Globulin (S) [Mass/Vol] 5.1 g/dL High 2.2-4.2 [facility] Serum glucose measurement (m ass/volume)Ordered By: Alexsandra Granados on 08-13-2025 Glucose [Mass/Vol] 108 mg/dL High 70-99 [facility] Serum or plasma alanine dai otransferase (ALT) measurementOrdered By: Alexsandra Granados on 08-13-2025 ALT [Catalytic activity/Vol] 73 U/L High <35 [facility] Serum or plasma albumin trevor urement (mass/volume)Ordered By: Alexsandra Granados on 08-13-2025 Albumin [Mass/Vol] 4.2 g/dL 3.5-5.0 [facility] Serum or plasma albumin/glob ulin mass ratioOrdered By: lAexsandra Granados on 08-13-2025 Albumin/Globulin [Mass ratio] 0.8 {ratio} Low 0.9-2.4 [facility] Serum or plasma alkaline wing sphatase measurementOrdered By: Alexsandra Granados on 08-13-2025 ALP [Catalytic activity/Vol] 110 U/L High 35-104 [facility] Serum or plasma calcium trevor urement (mass/volume)Ordered By: Alexsandra Granados on 08-13-2025 Calcium [Mass/Vol] 9.2 mg/dL 7.6-11.0 [facility] Serum or plasma urea nitroge n measurement (mass/volume)Ordered By: Alexsandra Granados on 08-13-2025 Urea nitrogen [Mass/Vol] 16 mg/dL 4-19 [facility] Sodium levelOrdered By: Daron Granados on 08-13-2025 Sodium [Moles/Vol] 135 mmol/L 133-145 [facility] Squamous epithelial cells de tection in urine sediment by light microscopyOrdered By: Alexsandra Granados on 08-13-2025 Epithelial cells.squamous LM Ql (Urine sed) 0-5 SEEN /hpf 5-10 [facility] Comment on above: Previous reported re sult: 0 SEEN /hpfEdited by: JL on 08/13/25:2127 AMENDED REPORT 08/13/252127 SQUAM EPI previously reported as: 0 SEEN /hpf Total proteinOrdered By: Blanca Granados on 08-13-2025 Protein [Mass/Vol] 9.3 g/dL High 5.9-8.4 [facility] Urinalysis, Completeon 08-13 EPI,SQUAMOUS 0-5 SEEN Normal 5-10 [facility] Comment on above: Order Comment: CLEAN CATCH Result Comment: AMENDED REPORT 08/13/252127 SQUAM EPI previously reported as: 0 SEEN /hpf Performed By: #### L 400.0001, L400.7600 #### [facility] [address] [place], [address] RBC 0-5 SEEN Normal 0-5 [facility] Comment on above: Order Comment: CLEAN CATCH Result Comment: AMENDED REPORT 08/13/252126 RBC-UA previously reported as: 0 SEEN /hpf Performed By: #### L 400.0001, L400.7600 #### [facility] [address] [place], [address] WBC 5-10 SEEN Normal 0-5 [facility] Comment on above: Order Comment: CLEAN CATCH Result Comment: AMENDED REPORT 08/13/252125 WBC previously reported as: 0 SEEN /hpf Performed By: #### L 400.0001, L400.7600 #### [facility] [address] [place], [address] BACTERIA 4+ /hpf Normal None Seen [facility] Comment on above: Order Comment: CLEAN CATCH Result Comment: AMENDED REPORT 08/13/252124 BACTERIA previously reported as: 0 SEEN /hpf Performed By: #### L 400.0001, L400.7600 #### [facility] [address] [place], [address] Urine clarityOrdered By: Blanca Granados on 08-13-2025 Clarity (U) Cloudy Clear [facility] Urine color determinationOrd ered By: Alexsandra Granados on 08-13-2025 Color (U) Yellow Yellow [facility] Urine glucose detectionOrder ed By: Alexsandra Granados on 08-13-2025 Glucose Ql (U) Normal mg/dl Normal [facility] Urine leukocyte esterase det ection by dipstickOrdered By: Alexsandra Granados on 08-13-2025 Leukocyte esterase Test strip Ql (U) 25 /ul High Negative [facility] Urine pHOrdered By: Alexsandra titus on 08-13-2025 pH (U) 6.0 [pH] 5.0 - 8.0 [facility] Urine testOrdered By: Alexsandra Granados on 08-13-2025 HCG ( test) Ql (U) Negative [facility] Comment on above: Very dilute urine sp ecimens, as indicated by a low specificgravity, may not contain herbicide service sales representative levels of hCG. If is still suspected, a first morning urinespecimen should be collected 48 hours later and tested. Urine sediment bacteria coun t by microscopy (number/high power field)Ordered By: Alexsandra Granados on 08-13-2025 Bacteria LM.HPF (Urine sed) [#/Area] 4 /[HPF] None Seen [facility] Comment on above: Previous reported re sult: 0 SEEN /hpfEdited by: JL on 08/13/25:2124 AMENDED REPORT 08/13/252124 BACTERIA previously reported as: 0 SEEN /hpf Urine specific gravity measu rementOrdered By: Alexsandra Granados on 08-13-2025 Specific gravity (U) [Rel density] 1.020 1.002-1.030 [facility] Urine urobilinogen measureme ntOrdered By: Alexsandra Granados on 08-13-2025 Urobilinogen Ql (U) 4 mg/dl High Normal [facility] White blood cell (WBC) count Ordered By: Alexsandra Granados on 08-13-2025 WBC (Bld) [#/Vol] 9.0 10*3/uL 4.4-11.0 [facility] White blood cell countOrdere d By: Alexsandra Granados on 08-13-2025 White blood cell count 5-10 SEEN /hpf 0-5 [facility] Comment on above: Previous reported re sult: 0 SEEN /hpfEdited by: JL on 08/13/25:2125 AMENDED REPORT 08/13/252125 WBC previously reported as: 0 SEEN /hpf Surgery Visit Reporton 10-30 Surgery Visit Report [facility] 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 12- Chief Complaint: gallbladder Is patient in pain?: [...] Post Op Diagnoses S/P laparoscopic cholecystectomy Z90.49 [facility] Medical History Pilonidal cyst Back pain due to injury Hypothyroidism Surgical History S/P laparoscopic cholecystectomy Social History Smoking Status: Never smoker Assessment and Plan (No Qualifiers) Assessment and Plan (1) S/P laparoscopic cholecystectomy: Status: Acute Plan: RTW letter provided Follow-up as needed 10/30/24 1550 Date Oriana Long Signature: Date (if applicable) CC: FAHAD ELIZONDO [facility] 10-17-2024 [facility] Telephone (INTMWS) DANG PRITCHETT ([id number]) 1985 F Date Time Provider Department 10/17/24 [place] IN[facility]WS During your visit today, we recorded the following information about you: Erinn Greer, RAD 10/17/2024 9:49 AM Signed Pt calling in and states that she had her Gallbladder removed on Sunday 10/[address] [facility] [place] by Dr. Matamoros. Per pt's discharge paperwork, [...] Cmt: had GB removed 10/14 Patient Question [5741] Prescriptions as of 10/18/2024 - cyclobenzaprine (FLEXERIL) [...] Status:Closed by KENDAL RICO on 10/18/24 Normal [facility] Basic Metabolic Profile (BMP )on 10-15-2024 BUN/CRE 13.8 RATIO Normal - [facility] Comment on above: Performed By: #### L 500.3400, L500.2500, L100.0100 ####[facility] [address] [place], [address] CA,Total 8.8 mg/dL Normal 8.5-10.1 [facility] Comment on above: Performed By: #### L 500.3400, L500.2500, L100.0100 ####[facility] [address] [place], [address] Chloride [Moles/Vol] 104 mmol/L Normal 98-107 [facility] Comment on above: Performed By: #### L 500.3400, L500.2500, L100.0100 ####[facility] [address] [place], [address] CO2 [Moles/Vol] 26.0 mmol/L Normal 21.0-32.0 [facility] Comment on above: Performed By: #### L 500.3400, L500.2500, L100.0100 ####[facility] [address] [place], [address] Creatinine [Mass/Vol] 0.72 mg/dL Normal 0.55-1.02 [facility] Comment on above: Result Comment: The validity of the calculated GFR GFRAA in patients over 70 years has not been determined. Clinical correlation is essential. Performed By: #### L 500.3400, L500.2500, L100.0100 ####[facility] [address] [place], [address] ECRCL 130.19 ml/min Normal [facility] Comment on above: Performed By: #### L 500.3400, L500.2500, L100.0100 ####[facility] [address] [place], [address] EST GFR - AA 115 mL/min Normal >60 [facility] Comment on above: Result Comment: Afri can Montenegrin GFR Calc Performed By: #### L 500.3400, L500.2500, L100.0100 ####[facility] [address] [place], [address] GAP 7 Normal 5-15 [facility] Comment on above: Performed By: #### L 500.3400, L500.2500, L100.0100 ####[facility] [address] [place], [address] GFR/1.73 sq M.predicted among non-blacks MDRD (S/P/Bld) [Vol rate/Area] 95 mL/min/{1.73_m2} Normal >60 [facility] Comment on above: Result Comment: Non- GFR Calc Performed By: #### L 500.3400, L500.2500, L100.0100 ####[facility] [address] [place], [address] Glucose [Mass/Vol] 100 mg/dL Normal 74-106 [facility] Comment on above: Result Comment: Fast ing Glucose result from 100 to 125 mg/dL suggests IMPAIRED HOMEOSTASIS per A.D.A. criteria. Performed By: #### L 500.3400, L500.2500, L100.0100 ####[facility] [address] [place], [address] Potassium [Moles/Vol] 3.3 mmol/L Low 3.5-5.1 [facility] Comment on above: Performed By: #### L 500.3400, L500.2500, L100.0100 ####[facility] [address] [place], [address] Sodium [Moles/Vol] 137 mmol/L Normal 136-145 [facility] Comment on above: Performed By: #### L 500.3400, L500.2500, L100.0100 ####[facility] [address] [place], [address] Urea nitrogen [Mass/Vol] 10 mg/dL Normal 7-18 [facility] Comment on above: Performed By: #### L 500.3400, L500.2500, L100.0100 ####[facility] [address] [place], [address] CBC W/Diff, Automatedon 12-0 8-2024 Absolute Lymph 1.65 X10 3/uL Normal 0.83-4.51 [facility] Comment on above: Performed By: #### L 500.3400, L500.2500, L100.0100 ####[facility] [address] [place], [address] Absolute Neut 8.3 X10 3/uL High 2.0-7.7 [facility] Comment on above: Performed By: #### L 500.3400, L500.2500, L100.0100 ####[facility] [address] [place], [address] Basophils/100 WBC (Bld) 0.4 % Normal 0-1 [facility] Comment on above: Performed By: #### L 500.3400, L500.2500, L100.0100 ####[facility] [address] [place], [address] Eosinophils/100 WBC (Bld) 0.5 % Normal 0-5 [facility] Comment on above: Performed By: #### L 500.3400, L500.2500, L100.0100 ####[facility] [address] [place], [address] Erythrocyte distribution width (RBC) [Ratio] 14.3 % Normal 11.6-14.6 [facility] Comment on above: Performed By: #### L 500.3400, L500.2500, L100.0100 ####[facility] [address] [place], [address] Hematocrit (Bld) [Volume fraction] 30.5 % Low 37-47 [facility] Comment on above: Performed By: #### L 500.3400, L500.2500, L100.0100 ####[facility] [address] [place], [address] Hemoglobin (Bld) [Mass/Vol] 9.7 g/dL Low 12.0-15.0 [facility] Comment on above: Performed By: #### L 500.3400, L500.2500, L100.0100 ####[facility] [address] [place], [address] IG% 0.700 Normal 0.0-0.9 [facility] Comment on above: Result Comment: IG% - Immature Granulocytes (promyelocytes, myelocytes and metamyelocytes) > 1% indicates that a LEFT SHIFT is Present. Performed By: #### L 500.3400, L500.2500, L100.0100 ####[facility] [address] [place], [address] Lymphocytes/100 WBC (Bld) 15.2 % Low 19-41 [facility] Comment on above: Performed By: #### L 500.3400, L500.2500, L100.0100 ####[facility] [address] [place], [address] MCH (RBC) [Entitic mass] 27.7 pg Normal 27.0-32.0 [facility] Comment on above: Performed By: #### L 500.3400, L500.2500, L100.0100 ####[facility] [address] [place], [address] MCHC (RBC) [Mass/Vol] 31.8 g/dL Low 32-36 [facility] Comment on above: Performed By: #### L 500.3400, L500.2500, L100.0100 ####[facility] [address] [place], [address] MCV (RBC) [Entitic vol] 87.1 fL Normal 81-99 [facility] Comment on above: Performed By: #### L 500.3400, L500.2500, L100.0100 ####[facility] [address] [place], [address] Monocytes/100 WBC (Bld) 6.5 % Normal 0-10 [facility] Comment on above: Performed By: #### L 500.3400, L500.2500, L100.0100 ####[facility] [address] [place], [address] Neutrophils/100 WBC (Bld) 76.7 % High 47-70 [facility] Comment on above: Performed By: #### L 500.3400, L500.2500, L100.0100 ####[facility] [address] [place], [address] Nucleated RBC (Bld) [#/Vol] 0 10*3/uL Normal 0-5 [facility] Comment on above: Performed By: #### L 500.3400, L500.2500, L100.0100 ####[facility] [address] [place], [address] Platelet mean volume (Bld) [Entitic vol] 10.3 fL Normal 6.2-12.0 [facility] Comment on above: Performed By: #### L 500.3400, L500.2500, L100.0100 ####[facility] [address] [place], [address] Platelets (Bld) [#/Vol] 361 10*3/uL Normal 150-450 [facility] Comment on above: Performed By: #### L 500.3400, L500.2500, L100.0100 ####[facility] [address] [place], [address] RBC (Bld) [#/Vol] 3.50 10*6/uL Low 4.2-5.4 [facility] Comment on above: Performed By: #### L 500.3400, L500.2500, L100.0100 ####[facility] [address] [place], [address] RDW SD 45.2 fl High 35.1-43.9 [facility] Comment on above: Performed By: #### L 500.3400, L500.2500, L100.0100 ####[facility] [address] [place], [address] WBC (Bld) [#/Vol] 10.8 10*3/uL Normal 4.4-11.0 [facility] Comment on above: Performed By: #### L 500.3400, L500.2500, L100.0100 ####[facility] [address] [place], [address] Liver Profileon 10-15-2024 Albumin [Mass/Vol] 2.9 g/dL Low 3.2-5.0 [facility] Comment on above: Performed By: #### L 500.3400, L500.2500, L100.0100 ####[facility] [address] [place], [address] ALK P 142 U/L High 45-117 [facility] Comment on above: Performed By: #### L 500.3400, L500.2500, L100.0100 ####[facility] [address] [place], [address] ALT [Catalytic activity/Vol] 51 U/L Normal 13-56 [facility] Comment on above: Performed By: #### L 500.3400, L500.2500, L100.0100 ####[facility] [address] [place], [address] AST [Catalytic activity/Vol] 40 U/L High 15-37 [facility] Comment on above: Performed By: #### L 500.3400, L500.2500, L100.0100 ####[facility] [address] [place], [address] Bilirubin [Mass/Vol] 0.50 mg/dL Normal 0.20-1.00 [facility] Comment on above: Result Comment: For patients on eltrombopag therapy, use of Dimension [place] TBIL is not recommended. Performed By: #### L 500.3400, L500.2500, L100.0100 ####[facility] [address] [place], [address] Bilirubin.direct [Mass/Vol] 0.16 mg/dL Normal 0.00-0.30 [facility] Comment on above: Performed By: #### L 500.3400, L500.2500, L100.0100 ####[facility] [address] [place], [address] Globulin (S) [Mass/Vol] 4.7 g/dL High 2.2-4.2 [facility] Comment on above: Performed By: #### L 500.3400, L500.2500, L100.0100 ####[facility] [address] [place], [address] T PROT 7.6 g/dL Normal 6.4-8.2 [facility] Comment on above: Performed By: #### L 500.3400, L500.2500, L100.0100 ####[facility] [address] [place], [address] 12 Lead EKGon 10-14-2024 12 Lead EKG [facility] Cardiovascular Services [address] [place] [address] 12 Lead EKG 10/14/24 1056 MR#: [id number] Acct: [id number] Name: DANG PRITCHETT Rep #: [id number] : 1985 39 From: Ovidio Hill MD Attending Dr: Dr. Shireen Matamoros MD Status: D IS BALA Ordering Dr: Shireen Matamoros MD Date: 10/14/24 Location: MS3 Sex: F C Admitted: 10/14/24 Test Reason [...] found Confirmed by OVIDIO HILL MD ([id number]), index editor YULIET MOYER ([id number]) on 10/17/2024 8:21:15 AM Referred By: Confirmed By: OVIDIO HILL MD 10/17/24 08 Date Ovidio Hill MD CC: LIGHT TECHNICIAN-C MYRA ELIZONDO; Dr. Shireen Matamoros MD Signed Normal [facility] Abdomen/Pelvis W IV Cont ONL Yo 10-14-2024 Abdomen/Pelvis W IV Cont ONLY [facility] Imaging Services [address] [place] [address] [id number] Abdomen/Pelvis W IV Cont ONLY MR#: [id number] Acct: [id number] Name: DANG PRITCHETT Rep #: [id number] : 1985 F 39 From: Minesh Jackman MD PCP: MRYA ELIZONDO LIGHT TECHNICIAN-C Status: REG ER Study: Abdomen/Pelvis W IV Cont ONLY Date of Exam: Exam# [id number] Ordering Dr: Huang Herbert MD [id number] EXAM: CT ABDOMEN AND PELVIS WITH INTRAVENOUS [...] concerning for acute cholecystitis. Electronically Signed: Minesh Jacmkan MD at 4:05 EST , CC: FAHAD ELIZONDO; Dr. Huang Herbert MD Community Nurse: Signed Normal [facility] CBC W/Diff, Automatedon 12-0 Absolute Lymph 1.98 X10 3/uL Normal 0.83-4.51 [facility] Comment on above: Performed By: #### L 100.0100, L501.2450, L500.4050 ####[facility] [address] [place], [address] Absolute Neut 7.6 X10 3/uL Normal 2.0-7.7 [facility] Comment on above: Performed By: #### L 100.0100, L501.2450, L500.4050 ####[facility] [address] [place], [address] Basophils/100 WBC (Bld) 0.5 % Normal 0-1 [facility] Comment on above: Performed By: #### L 100.0100, L501.2450, L500.4050 ####[facility] [address] [place], [address] Eosinophils/100 WBC (Bld) 2.5 % Normal 0-5 [facility] Comment on above: Performed By: #### L 100.0100, L501.2450, L500.4050 ####[facility] [address] [place], [address] Erythrocyte distribution width (RBC) [Ratio] 14.1 % Normal 11.6-14.6 [facility] Comment on above: Performed By: #### L 100.0100, L501.2450, L500.4050 ####[facility] [address] [place], [address] Hematocrit (Bld) [Volume fraction] 31.8 % Low 37-47 [facility] Comment on above: Performed By: #### L 100.0100, L501.2450, L500.4050 ####[facility] [address] [place], [address] Hemoglobin (Bld) [Mass/Vol] 10.3 g/dL Low 12.0-15.0 [facility] Comment on above: Performed By: #### L 100.0100, L501.2450, L500.4050 ####[facility] [address] [place], [address] IG% 0.300 Normal 0.0-0.9 [facility] Comment on above: Result Comment: IG% - Immature Granulocytes (promyelocytes, myelocytes and metamyelocytes) > 1% indicates that a LEFT SHIFT is Present. Performed By: #### L 100.0100, L501.2450, L500.4050 ####[facility] [address] [place], [address] Lymphocytes/100 WBC (Bld) 18.6 % Low 19-41 [facility] Comment on above: Performed By: #### L 100.0100, L501.2450, L500.4050 ####[facility] [address] [place], [address] MCH (RBC) [Entitic mass] 27.9 pg Normal 27.0-32.0 [facility] Comment on above: Performed By: #### L 100.0100, L501.2450, L500.4050 ####[facility] [address] [place], [address] MCHC (RBC) [Mass/Vol] 32.4 g/dL Normal 32-36 [facility] Comment on above: Performed By: #### L 100.0100, L501.2450, L500.4050 ####[facility] [address] [place], [address] MCV (RBC) [Entitic vol] 86.2 fL Normal 81-99 [facility] Comment on above: Performed By: #### L 100.0100, L501.2450, L500.4050 ####[facility] [address] [place], [address] Monocytes/100 WBC (Bld) 6.4 % Normal 0-10 [facility] Comment on above: Performed By: #### L 100.0100, L501.2450, L500.4050 ####[facility] [address] [place], [address] Neutrophils/100 WBC (Bld) 71.7 % High 47-70 [facility] Comment on above: Performed By: #### L 100.0100, L501.2450, L500.4050 ####[facility] [address] [place], [address] Nucleated RBC (Bld) [#/Vol] 0 10*3/uL Normal 0-5 [facility] Comment on above: Performed By: #### L 100.0100, L501.2450, L500.4050 ####[facility] [address] [place], [address] Platelet mean volume (Bld) [Entitic vol] 10.2 fL Normal 6.2-12.0 [facility] Comment on above: Performed By: #### L 100.0100, L501.2450, L500.4050 ####[facility] [address] [place], [address] Platelets (Bld) [#/Vol] 357 10*3/uL Normal 150-450 [facility] Comment on above: Performed By: #### L 100.0100, L501.2450, L500.4050 ####[facility] [address] [place], [address] RBC (Bld) [#/Vol] 3.69 10*6/uL Low 4.2-5.4 [facility] Comment on above: Performed By: #### L 100.0100, L501.2450, L500.4050 ####[facility] [address] [place], [address] RDW SD 45.0 fl High 35.1-43.9 [facility] Comment on above: Performed By: #### L 100.0100, L501.2450, L500.4050 ####[facility] [address] [place], [address] WBC (Bld) [#/Vol] 10.6 10*3/uL Normal 4.4-11.0 [facility] Comment on above: Performed By: #### L 100.0100, L501.2450, L500.4050 ####[facility] [address] [place], [address] Cholangiogram/ O R,Initialon 10-14-2024 Cholangiogram/ O R,Initial [facility] Imaging Services [address] [place] [address] Cholangiogram/ O R,Initial MR#: [id number] Acct: [id number] Name: DANG PRITCHETT Rep #: [id number] : 1985 F 39 From: Alber Coats PCP: FAHAD BALL Status: ADM BALA Study: Cholangiogram/ O R,Initial Date of Exam: 10/14 Exam# [id number] Ordering Dr: Shireen Matamoros [place] [id number] INDICATION: LAP GAEL WITH GRAMS EXAMINATION/TECHNIQUE: Images [...] Guerrero MD at 17:37 EST , CC: LIGHT TECHNICIANChandu ELIZONDO; Dr. Shireen Matamoros MD Community Nurse: Signed Normal [facility] Comprehensive Metabolic Prof ilon 10-14-2024 Albumin [Mass/Vol] 3.4 g/dL Normal 3.2-5.0 [facility] Comment on above: Performed By: #### L 100.0100, L501.2450, L500.4050 ####[facility] [address] [place], [address] Albumin/Globulin [Mass ratio] 0.7 {ratio} Low 0.9-2.4 [facility] Comment on above: Performed By: #### L 100.0100, L501.2450, L500.4050 ####[facility] [address] [place], [address] ALK P 118 U/L High 45-117 [facility] Comment on above: Performed By: #### L 100.0100, L501.2450, L500.4050 ####[facility] [address] [place], [address] ALT [Catalytic activity/Vol] 43 U/L Normal 13-56 [facility] Comment on above: Performed By: #### L 100.0100, L501.2450, L500.4050 ####[facility] [address] [place], [address] AST [Catalytic activity/Vol] 26 U/L Normal 15-37 [facility] Comment on above: Performed By: #### L 100.0100, L501.2450, L500.4050 ####[facility] [address] [place], [address] Bilirubin [Mass/Vol] 0.40 mg/dL Normal 0.20-1.00 [facility] Comment on above: Result Comment: For patients on eltrombopag therapy, use of Dimension [place] TBIL is not recommended. Performed By: #### L 100.0100, L501.2450, L500.4050 ####[facility] [address] [place], [address] BUN/CRE 17.6 RATIO Normal 10-20 [facility] Comment on above: Performed By: #### L 100.0100, L501.2450, L500.4050 ####[facility] [address] [place], [address] CA,Total 9.3 mg/dL Normal 8.5-10.1 [facility] Comment on above: Performed By: #### L 100.0100, L501.2450, L500.4050 ####[facility] [address] [place], [address] Chloride [Moles/Vol] 105 mmol/L Normal 98-107 [facility] Comment on above: Performed By: #### L 100.0100, L501.2450, L500.4050 ####[facility] [address] [place], [address] CO2 [Moles/Vol] 26.0 mmol/L Normal 21.0-32.0 [facility] Comment on above: Performed By: #### L 100.0100, L501.2450, L500.4050 ####[facility] [address] [place], [address] Creatinine [Mass/Vol] 0.74 mg/dL Normal 0.55-1.02 [facility] Comment on above: Result Comment: The validity of the calculated GFR GFRAA in patients over 70 years has not been determined. Clinical correlation is essential. Performed By: #### L 100.0100, L501.2450, L500.4050 ####[facility] [address] [place], [address] ECRCL 128.78 ml/min Normal [facility] Comment on above: Performed By: #### L 100.0100, L501.2450, L500.4050 ####[facility] [address] [place], [address] EST GFR - AA 113 mL/min Normal >60 [facility] Comment on above: Result Comment: Afri can [place] GFR Calc Performed By: #### L 100.0100, L501.2450, L500.4050 ####[facility] [address] [place], [address] GAP 5 Normal 5-15 [facility] Comment on above: Performed By: #### L 100.0100, L501.2450, L500.4050 ####[facility] [address] [place], [address] GFR/1.73 sq M.predicted among non-blacks MDRD (S/P/Bld) [Vol rate/Area] 93 mL/min/{1.73_m2} Normal >60 [facility] Comment on above: Result Comment: Non- GFR Calc Performed By: #### L 100.0100, L501.2450, L500.4050 ####[facility] [address] [place], [address] Globulin (S) [Mass/Vol] 5.2 g/dL High 2.2-4.2 [facility] Comment on above: Performed By: #### L 100.0100, L501.2450, L500.4050 ####[facility] [address] [place], [address] Glucose [Mass/Vol] 88 mg/dL Normal 74-106 [facility] Comment on above: Performed By: #### L 100.0100, L501.2450, L500.4050 ####[facility] [address] [place], [address] Potassium [Moles/Vol] 3.2 mmol/L Low 3.5-5.1 [facility] Comment on above: Performed By: #### L 100.0100, L501.2450, L500.4050 ####[facility] [address] [place], [address] Sodium [Moles/Vol] 136 mmol/L Normal 136-145 [facility] Comment on above: Performed By: #### L 100.0100, L501.2450, L500.4050 ####[facility] [address] [place], [address] T PROT 8.6 g/dL High 6.4-8.2 [facility] Comment on above: Performed By: #### L 100.0100, L501.2450, L500.4050 ####[facility] [address] [place], [address] Urea nitrogen [Mass/Vol] 13 mg/dL Normal 7-18 [facility] Comment on above: Performed By: #### L 100.0100, L501.2450, L500.4050 ####[facility] [address] [place], [address] Discharge Instructionon 12-0 Discharge Instruction [facility] Medical Records Department [address] [place] [address] Instructions for Home/Discharge Instructions 10/14/24 1603 MR#: [id number] Acct: [id number] Name: DANG PRITCHETT Jeannette Rep #: [id number] : 1985 39 From: Shireen Matamoros MD PCP: MYRA ELIZONDO LIGHT TECHNICIAN-C Status:ADM BALA Discharge Instructions Diet Discharge Diet: [...] 5 PM and on the weekends call [phone] with any concerns. Test Results: Test results [...] can be placed): Home, Self Care 10/14/24 1401 Shireen Matamoros MD CC: FAHAD ELIZONDO Signed Normal [facility] Emergency Department Summary on 10-14-2024 Emergency Department Summary [facility] Medical Records Department [address] [place] [address] Emergency Department Summary 10/14/24 MR#: [id number] Acct: [id number] Name: DANG PRITCHETT Rep #: [id number] : 1985 39 From: Huang Herbert MD PCP: MYRA ELIZONDO, LIGHT TECHNICIAN-C Status:REG ER Location: ED HPI HPI - [...] Last menstrual period 2 days ago. [facility] Medical History Hypothyroidism Home Medications ???Medication ???Instructions [...] is i (more content not included)... Normal [facility] Gallbladderon 10-14-2024 Gallbladder [facility] Imaging Services [address] [place], [place] [address] Gallbladder MR#: [id number] Acct: [id number] Name: DANG PRITCHETT Rep #: [id number] : 1985 F 39 From: Minesh Jackman MD PCP: MYRA ELIZONDO, LIGHT TECHNICIAN-C Status: REG ER Study: Gallbladder Date of Exam: 10/14/24 Exam# [id number] Ordering Dr: Huang Herbert MD [id number] EXAM: US ABDOMEN LIMITED, RIGHT UPPER QUADRANT [...] Jackman MD at 7:57 EST , CC: LIGHT TECHNICIAN-C MYRA ELIZONDO; Dr. Huang Herbert MD Community Nurse: Signed Normal [facility] H AND P Exam - Surgicalon H&P Exam - Surgical [facility] Medical Records Department [address] [place] [address] H P Exam - Surgical 10/14/24 0828 MR#: [id number] Acct: [id number] Name: DANG PRITCHETT Rep #: [id number] : 1985 39 From: Shireen Matamoros MD PCP: FAHAD BALL Status:ADM BALA Location: [place] [id number] HPI - General General Date of Admission: 10/14/24 HPI Narrative DANG PRITCEHTT, is a 39 F who presents due [...] of 3.2 and is getting potassium IV. [facility], [facility] Medical History (Updated 10/14/24 @ 09:22 [...] 71.7 H, Lymph % (Auto) 18.6 L, Alfalfa % (Auto) 6.4, Eos % (Auto) 2.5, [...] Sl. Cloudy, Urine pH 7.0, Ur Specific [place] 1.010, Urine Protein 15 H, Urine Glucose [...] sign a (more content not included)... Normal [facility] Lipaseon 10-14-2024 Lipase [Catalytic activity/Vol] 20 U/L Normal 13-75 [facility] Comment on above: Result Comment: Martita colvin note: LIPASE revised reference range effective 23. New Lipase methodology. Expected to produce lower values than the previous assay method. NEW Reference Range: 13 - 75 U/L Performed By: #### L 100.0100, L501.2450, L500.4050 ####[facility] [address] [place], [address] MR/POSTOP.Jen 10-14-2024 MR/POSTOP.JOSE [facility] Medical Records Department [address] [place] [address] Anesthesia Postop Eval I 10/14/24 1615 MR#: [id number] Acct: [id number] Name: LEONELA PRITCHETTHA N Rep #: [id number] : 1985 39 From: Saul Chapman MD PCP: MYRA ELIZONDO LIGHT TECHNICIAN-C Status:ADM BALA Y Race: C Location: [address] Anesthesia: Postop Eval I Current Vital Signs [...] Anesthesia document: Postop Eval 1 completed: Yes 10/14/241615 Date Saul Chapman MD Cosign Signature: Date CC: Signed Normal [facility] MR/EBSGVDDM0ao 10-14-2024 /[address] Medical Records Department [facility] [place] [address] Anesthesia Postop Eval II 10/14/24 1616 MR#: [id number] Acct: [id number] Name: DANG PRITCHETT Rep #: [id number] : 1985 39 From: Saul Chapman MD PCP: MYRA ELIZONDO, LIGHT TECHNICIAN-C Status:ADM BALA Y Race: C Location: [address] Anesthesia Postop Eval I Sum Postop Eval [...] No Vomiting: No 10/14/24 1616 Date Saul Long Signature: Date CC: Signed Normal [facility] Operative Reporton 4 Operative Report [facility] Medical Records Department [address] [facility] [place] [address] Operative Report 10/14/24 1554 MR#: [id number] Acct: [id number] Name: DANG PRITCHETT Rep #: [id number] : 1985 39 From: Shireen Matamoros MD PCP: FAHAD BALL Status:ADM [facility] Location: [place] [address] Operative Report (Standard) Operative Information Date of Procedure: 10/14/24 Pre-Operative Diagnosis: Acute cholecystitis Post-Operative Diagnosis: Same Surgery/Procedure Performed: Laparoscopic cholecystectomy with cholangiograms liquefaction and regasification helper: Yes Road Machine Runner: Tani Sheffield Tasks completed by collections assistant: Opening closing and Retracting Type of Anesthesia: General/Supplemental RN Documented Start/Stop Times: Operation Date: 10/14/24 13:20 Case Time Anesthesia Start 10/14/24 14:03 Into Room 10/14/24 14:03 Procedure Start 10/14/24 14:23 Procedure End 10/14/24 16:05 Procedure Start Time: : Procedure Stop Time: 16:05 Select all DRAINS/GRAFTS/IMPLANTS [...] 12 mm trocar was closed with a nbofap-eg-gtiep 0 Vicryl suture. The skin was closed with sutures of 4-0 Monocryl and Steri-Strips. The patient was extubated. The patient tolerated procedure well and was taken to the postanesthesia care unit in stable condition. Surgical Findings: Acute cholecystitis, normal cholangiograms Complications Complications: No 10/14/241812 Cosigner Signature (if applicable): CC: FAHAD ELIZONDO; Dr. Shireen Matamoros MD Signed Normal [facility] ,Serum,hCG Quali.on 10-14-2024 HCG, SERUM QUAL Negative Normal [facility] Comment on above: Performed By: #### L 700.6800 #### [facility] Laboratory [address] [place], [address] Surgery Specimen Level IIIon 10-14-2024 Surgery Specimen Level III ---- Patient Age/Sex Location Account Attending Physician ---- DANG PRITCHETT 39/F MS3 [id number] Dr. Shireen Matamoros MD ---- Specimen: [id number] Received: 10/16/24 Status: RANDY Snow Num: [id number] Spec Type: LYNDA Coyle Dr: Dr. Shireen Matamoros MD HEADER OPERATION: Laparoscopic cholecystectomy with IOC PRE-OP DIAGNOSIS: Acute cholecystitis TISSUE SUBMITTED: Gallbladder ---- MICROSCOPIC DIAGNOSIS Gallbladder, cholecystectomy: Acute and chronic cholecystitis and cholelithiasis. AM.mr 10/17/2024 MICROSCOPIC DESCRIPTION Slides are reviewed. GROSS [...] thickness and is free of mass lesions. Unhairing Inspector sections of the gallbladder and the cystic duct at margin of resection are submitted in one cassette. / AM:mr 10/16/2024 TC:2 CPT: 84088 ---- Patient Age/Sex Location Account Attending Physician ---- DANG PRITCHETT 39/F MS3 [id number] Dr. Shireen Matamoros MD ---- Signed (signature on file) Dr. Luis Enrique Jane DO 10/17/24 1157 ---- Normal [facility] Comment on above: Performed By: #### P ROWANIII ####[facility] [address] [place], [address] Urinalysis, Completeon 10-14 BACTERIA 2+ /hpf Normal None Seen [facility] Comment on above: Order Comment: CLEAN CATCH Performed By: #### L 400.0001 ####[facility] [address] [place], [address] EPI,SQUAMOUS 0-5 SEEN Normal 5-10 [facility] Comment on above: Order Comment: CLEAN CATCH Performed By: #### L 400.0001 ####[facility] [address] [place], [address] Mucus Ql (Urine sed) 0 SEEN Normal [facility] Comment on above: Order Comment: CLEAN CATCH Performed By: #### L 400.0001 ####[facility] [address] [place], [address] RBC 0 SEEN Normal 0-5 [facility] Comment on above: Order Comment: CLEAN CATCH Performed By: #### L 400.0001 ####[facility] [address] [place], [address] WBC 0 SEEN Normal 0-5 [facility] Comment on above: Order Comment: CLEAN CATCH Performed By: #### L 400.0001 ####[facility] [address] [place], [address] CNOVon 07-26-2024 CNOV Office Visit (INTMWS ) DANG PRITCHETT ([id number]) 1985 F Date Time Provider Department 07/26/24 9:40 AM MYRA ELIZONDO INTMWS During your visit today, we recorded the following information about you: Pulse Respiration Blood pressure Weight 84/minute 16/minute 128/74 114.2 kg Older, MyraZACKERY.STORE SALES CONSULTANT 07/26/2024 10:15 AM Signed CC: Patient presents [...] for in 6 months and number for certified financial planner provided. - LIPID PANEL BASIC - COMPREHENSIVE METABOLIC PANEL - COMPLETE BLOOD COUNT 2. Hypothyroidism, acquired - ICD9: 244.9, ICD10: E03.9 - asymptomatic - Instructed patient on importance of taking on an empty s (more content not included)... Normal [facility] HbA1c (Bld)on 07-25-2024 Average glucose Estimated from glycated hemoglobin (Bld) [Mass/Vol] 103 mg/dL Normal [facility] Comment on above: Order Comment: Nadia rodríguez Type: BLOOD SPECIMENOrdering Facility: [facility] Address: [address] [place] [address] Result Comment: eAG: (Estimated average glucose) is a calculated value from HgbA1c and is herbicide service sales representative of the average blood glucose level in the last 2-3 month period. Performed By: #### 5 5454-3 ####[facility] LABCLIA [id number] [place] [address] [place] HbA1c (Bld) [Mass fraction] 5.2 % Normal 4.3-5.6 [facility] Comment on above: Order Comment: Nadia rodríguez Type: BLOOD SPECIMENOrdering Facility: [facility] Address: [address] [place] [address] Result Comment: Amer [place] Diabetes Association guidelines indicate that patients with HgbA1c in the range 5.7-6.4% are at increased risk for development of diabetes, and intervention by lifestyle modification may be beneficial. HgbA1c greater or equal to 6.5% is considered diagnostic of diabetes. Performed By: #### 5 5454-3 ####[facility] LABCLIA [id number] [place] [address] [place] TSH SerPl-aCncon 07-25-2024 TSH Qn 1.700 m[IU]/L Normal 0.270-4.200 [facility] Comment on above: Order Comment: Nadia rodríguez Type: BLOOD SPECIMENOrdering Facility: [facility] Address: [address] [place] [address] Result Comment: If t he patient is , TSH reference range varies by gestational period: First Trimester (weeks 9-12): 0.180-2.990 mIU/L Second Trimester: 0.110-3.980 mIU/L Third Trimester: 0.480-4.710 mIU/L Celso Hardy et al. A Practical Approach for the Verifications and Determination of Site- and Trimester-Specific Reference Intervals for Thyroid Function tests in . Thyroid, 2019:29:3:412-420. Tyrell Davidson, et al. 2017 Guidelines of the [place] Thyroid Association for the Diagnosis and Management of Thyroid Disease during and the . Thyroid, 2017:27:3:315-389. Performed By: #### 3 016-3 ####[facility] LABCLIA [id number] [address] CNOVon 05-29-2024 CNOV Office Visit (INTMWS ) DANG PRITCHETT Jeannette ([id number]) 1985 F Date Time Provider Department 05/29/24 3:00 PM JAIMEE WHITE INTMWS During your visit today, we recorded the following information about you: Pulse Blood pressure Weight 102/minute 118/78 116.4 kg Jaimee White, FEED MANAGER.[facility] 05/29/2024 3:50 PM Signed CC: Patient presents with: Recheck: Ct scan done, lung nodules, pain in right side, started 2 days ago HPI Dang Jeannette Yarely is a 39 year old female who presents today for follow-up. Previous visits: 05/10- [facility] Chest x-ray [...] consistent with (more content not included)... Normal [facility] 05-24-2024 [facility] Telephone (INTMWS) DANG PRITCHETT ([id number]) 1985 F Date Time Provider Department 05/24/24 JAIMEE WHITE INTMWS During your visit today, we recorded the following information about you: Jaimee White, FEED MANAGER.[facility] 05/24/2024 7:28 AM Signed Please let the [...] if her symptoms are worsening. Jaimee White APRN.STORE SALES CONSULTANT Oriana Daniel RN 05/24/2024 8:21 AM Signed Pt called and is notified of providers results and instructions. Pt voices understanding. Pt scheduled with Jaimee White LIGHT TECHNICIAN on 05/29/24. Oriana Daniel RN Allergies As of Date: 05/24/2024 Noted Allergy Reaction LATEX 01/25/2007 4 - Hives INFLUENZA VIRUS VACCINE QS 2013-*09/22/2016 9 - Itching Date Reviewed: 05/23/2024 Reviewed by: Jaimee White APRN.STORE SALES CONSULTANT - Fully Assessed Reason for Visit: Results [...] Status:Closed by ORIANA DANIEL on 05/24/24 Normal [facility] Basic metabolic 2000 panelOr dered By: Valeria Murphy on 05-23-2024 Anion gap [Moles/Vol] 10 mmol/L 8 - 15 mmol/L [facility] Calcium [Mass/Vol] 9.3 mg/dL 8.5 - 10. 2 mg/dL [facility] Chloride [Moles/Vol] 103 mmol/L 98 - 10 7 mmol/L [facility] CO2 [Moles/Vol] 25 mmol/L 22 - 30 mmol/L [facility] Creatinine [Mass/Vol] 0.82 mg/dL 0.58 - 0.96 mg/dL [facility] GFR/1.73 sq M.predicted among non-blacks MDRD (S/P/Bld) [Vol rate/Area] 93 mL/min/{1.73_m2} - PINF [facility] Comment on above: Estimated Glomerular Filtration Rate [...] [Mass/Vol] 89 mg/dL 74 - 99 mg/dL [facility] Comment on above: The [place] Diabete s Association (ADA) provides guidance for [...] Standards of Medical Care in Diabetes 2016, [place] Diabetes Association. Diabetes Care. 2016.39(Suppl 1). Interpretation and review of laboratory results Abnormal [facility] Potassium [Moles/Vol] 3.6 mmol/L Low 3.7 - 5.1 mmol/L [facility] Sodium [Moles/Vol] 138 mmol/L 136 - 144 mmol/L [facility] Urea nitrogen [Mass/Vol] 16 mg/dL 7 - 21 mg/d L [facility] Basic metabolic 2000 panelon 05-23-2024 Anion gap [Moles/Vol] 10 mmol/L Normal 8-15 [facility] Comment on above: Order Comment: Speci men Type: BLOOD SPECIMENOrdering Facility: [facility] Address: [address] [place] [address] Performed By: #### 2 4321-2 ####[facility] [id number] [place] [address] [place] Calcium [Mass/Vol] 9.3 mg/dL Normal 8.5-10.2 [facility] Comment on above: Order Comment: Speci men Type: BLOOD SPECIMENOrdering Facility: [facility] Address: [address] [place] [address] Performed By: #### 2 4321-2 ####[facility] MILLWNCLIA [id number] [place] [address] [place] Chloride [Moles/Vol] 103 mmol/L Normal 98-107 [facility] Comment on above: Order Comment: Speci men Type: BLOOD SPECIMENOrdering Facility: [facility] Address: [address] [place] [address] Performed By: #### 2 4321-2 ####[facility] SYSTEMWNCLIA [id number] [place] [address] [place] CO2 [Moles/Vol] 25 mmol/L Normal 22-30 [facility] Comment on above: Order Comment: Speci men Type: BLOOD SPECIMENOrdering Facility: [facility] Address: [address] [place] [address] Performed By: #### 2 4321-2 ####[facility]ITALLI [id number] [place] [address] [place] Creatinine [Mass/Vol] 0.82 mg/dL Normal 0.58-0.96 [facility] Comment on above: Order Comment: Speci men Type: BLOOD SPECIMENOrdering Facility: [facility] Address: [address] [place] [address] Performed By: #### 2 4321-2 ####[facility] [id number] [place] [address] [place] Creatinine and Glomerular filtration rate.predicted panel (S/P/Bld) 93 mL/min/1.73m??? Normal >=60 [facility] Comment on above: Order Comment: Speci men Type: BLOOD SPECIMENOrdering Facility: [facility] Address: [address] [place] [address] Result Comment: Liya mated Glomerular Filtration Rate [...] actual GFR. Performed By: #### 2 4321-2 ####[facility] SYSTEMWNCLIA [id number] [place] [address] [place] Glucose [Mass/Vol] 89 mg/dL Normal 74-99 [facility] Comment on above: Order Comment: Speci men Type: BLOOD SPECIMENOrdering Facility: [facility] Address: [address] [place], [place] [address] Result Comment: The [place] Diabetes Association (ADA) provides guidance for cutoff [...] Standards of Medical Care in Diabetes 2016, [place] Diabetes Association. Diabetes Care. 2016.39(Suppl 1). Performed By: #### 2 4321-2 ####[facility] SYSTEMWGEORGIALIA [id number] [place] [address] [place] Potassium [Moles/Vol] 3.6 mmol/L Low 3.7-5.1 [facility] Comment on above: Order Comment: Nadia rodríguez Type: BLOOD SPECIMENOrdering Facility: [facility] Address: [address] [place], [place] [address] Performed By: #### 2 4321-2 ####[facility]UTENCLIA [id number] [place] [address] [place] Sodium [Moles/Vol] 138 mmol/L Normal 136-144 [facility] Comment on above: Order Comment: Paoi men Type: BLOOD SPECIMENOrdering Facility: [facility] Address: [address] [place], [place] [address] Performed By: #### 2 4321-2 ####[facility]UTENCLIA [id number] [place] [address] [place] Urea nitrogen [Mass/Vol] 16 mg/dL Normal 7-21 [facility] Comment on above: Order Comment: Speci men Type: BLOOD SPECIMENOrdering Facility: [facility] Address: [address] [place] [address] Performed By: #### 2 4321-2 ####[facility] INSTITUTEELGIN [id number] [address] OF [facility] CBC panel Auto (Bld)on 05-23 Erythrocyte distribution width (RBC) [Ratio] 14.1 % 11.5 - 15.0 % [facility] Hematocrit (Bld) [Volume fraction] 33.5 % Low 36.0 - 46.0 % [facility] Hemoglobin (Bld) [Mass/Vol] 10.9 g/dL Low 11.5 - 15.5 g/dL [facility] Interpretation and review of laboratory results Abnormal [facility] MCH (RBC) [Entitic mass] 28.5 pg 26. 0 - 34.0 pg [facility] MCHC (RBC) [Mass/Vol] 32.5 g/dL 30.5 - 36.0 g/dL [facility] MCV (RBC) [Entitic vol] 87.5 fL 80.0 - 100.0 fL [facility] Nucleated RBC (Bld) [#/Vol] NINF [facility] Platelet mean volume (Bld) [Entitic vol] 10.0 fL 9.0 - 12.7 fL [facility] Platelets (Bld) [#/Vol] 377 10*3/uL [facility] RBC (Bld) [#/Vol] 3.83 10*6/uL Low 3.90 - 5.2 0 m/uL [facility] WBC (Bld) [#/Vol] 9.14 10*3/uL [facility] Erythrocyte distribution width (RBC) [Ratio] 14.1 % Normal 11.5-15.0 [facility] Comment on above: Order Comment: Speci men Type: BLOOD SPECIMENOrdering Facility: [facility] Address: [address] [place] [address] Performed By: #### 5 8410-2 ####[facility] SYSTEMWNCLIA [id number] [address] [place] Hematocrit (Bld) [Volume fraction] 33.5 % Low 36.0-46.0 [facility] Comment on above: Order Comment: Speci men Type: BLOOD SPECIMENOrdering Facility: [facility] Address: [address] [place] [address] Performed By: #### 5 8410-2 ####[facility] [id number] [place] [address] [place] Hemoglobin (Bld) [Mass/Vol] 10.9 g/dL Low 11.5-15.5 [facility] Comment on above: Order Comment: Speci men Type: BLOOD SPECIMENOrdering Facility: [facility] Address: [address] [place] [address] Performed By: #### 5 8410-2 ####[facility] [id number] [address] [place] MCH (RBC) [Entitic mass] 28.5 pg Normal 26.0-34.0 [facility] Comment on above: Order Comment: Speci men Type: BLOOD SPECIMENOrdering Facility: [facility] Address: [address] [place] [address] Performed By: #### 5 8410-2 ####[facility]STITUTENCLIA [id number] [place] [address] [place] MCHC (RBC) [Mass/Vol] 32.5 g/dL Normal 30.5-36.0 [facility] Comment on above: Order Comment: Speci men Type: BLOOD SPECIMENOrdering Facility: [facility] Address: [address] [place] [address] Performed By: #### 5 8410-2 ####[facility] INSTITUTENCLI [id number] [place] [address] [place] MCV (RBC) [Entitic vol] 87.5 fL Normal 80.0-100.0 C [facility] Comment on above: Order Comment: Speci men Type: BLOOD SPECIMENOrdering Facility: [facility] Address: [address] [place] [address] Performed By: #### 5 8410-2 ####[facility] DIXON JUAREZNCMACHO [id number] [place] [address] [place] Nucleated RBC (Bld) [#/Vol] 10*3/uL Normal <0.01 [facility] Comment on above: Order Comment: Speci men Type: BLOOD SPECIMENOrdering Facility: [facility] Address: [address] [place] [address] Performed By: #### 5 8410-2 ####[facility] GAELDUTTONNCROMINAA [id number] [place] [address] [place] Platelet mean volume (Bld) [Entitic vol] 10.0 fL Normal 9.0-12.7 [facility] Comment on above: Order Comment: Speci men Type: BLOOD SPECIMENOrdering Facility: [facility] Address: [address] [place] [address] Performed By: #### 5 8410-2 ####[facility]UTENCLIA [id number] [place] [address] [place] Platelets (Bld) [#/Vol] 377 10*3/uL Normal 150-400 [facility] Comment on above: Order Comment: Speci men Type: BLOOD SPECIMENOrdering Facility: [facility] Address: [address] [place] [address] Performed By: #### 5 8410-2 ####[facility]UTENCLIA [id number] [place] [address] [place] RBC (Bld) [#/Vol] 3.83 10*6/uL Low 3.90-5.20 [facility] Comment on above: Order Comment: Speci men Type: BLOOD SPECIMENOrdering Facility: [facility] Address: [address] [place], [place] [address], [place] [address] Performed By: #### 5 8410-2 ####[facility] DIXON GAELTOWNCLIA [id number] [place] [address] [place] WBC (Bld) [#/Vol] 9.14 10*3/uL Normal 3.70-11.00 [facility] Comment on above: Order Comment: Speci men Type: BLOOD SPECIMENOrdering Facility: [facility] Address: [address] [place] [id number] Performed By: #### 5 8410-2 ####[facility] GAELDUTTONNCLIA [id number] [address] [place] CNOVon 05-23-2024 CNOV Office Visit (INTMWS ) YARELYLEONELA HARRISFEDE Machado ([id number]) 1985 F Date Time Provider Department 05/23/24 10:00 AM JAIMEE WHITE INTMWS During your visit today, we recorded the following information about you: Pulse Respiration Blood pressure Weight 102/minute 20/minute 130/83 117.9 kg Jaimee White, FEED MANAGER.STORE SALES CONSULTANT 05/23/2024 10:48 AM Signed CC: Patient presents with: 1 week follow up - cxr HPI Dang Machado Yarely is a 39 year old female who [...] tenderness or frontal sinus tenderness. Mouth/Throat: Lips: [place]. Mouth: Mucous membranes are moist. Pharynx: Oropharynx [...] 29% b (more content not included)... Normal [facility] CT CHEST WO IVCONon 05-23-20 CT CHEST WO IVCON * * *Final Report* * * DATE OF EXAM: May 23 2024 3:52PM [facility] 0541 - CT CHEST WO IVCON [...] hypersensitivity pneumonitis, vasculitis, mucinous adenocarcinoma and hemorrhage. Community Nurse: MARY Transcribe Date/Time: May 23 2024 4:26P Dictated by : LUCIA VILLARREAL MD This examination was interpreted and the report reviewed and electronically signed by: LUCIA VILLARREAL MD on May 23 2024 4:38PM EST [id number] Normal [facility] CT Chest WO contraston 05-23 IMPRESSION: Innumerable bilateral nodules and most of the them are representing centrilobular nodules. The top differential consideration would be infectious etiology. Other consideration includes hypersensitivity pneumonitis, vasculitis, mucinous adenocarcinoma and hemorrhage. Community Nurse: [facility]PITALChloe Transcribe Date/Time: May 23 2024 4:26P Dictated by : LUCIA VILLARREAL MD This examination was interpreted and the report reviewed and electronically signed by: LUCIA VILLARREAL MD on May 23 2024 4:38PM EST DIVISION OF RADIOLOGY * * *Final Report* * * DATE OF EXAM: May 23 2024 3:52PM [facility] 0541 - CT CHEST WO IVCON [...] No additional findings. DIVISION OF RADIOLOGY Provider, [facility] - 05/23/2024 * * *Final Report* * * DATE OF EXAM: May 23 2024 3:52PM [facility] 0541 - CT CHEST WO IVCON [...] hypersensitivity pneumonitis, vasculitis, mucinous adenocarcinoma and hemorrhage. Community Nurse: MARY Transcribe Date/Time: May 23 2024 4:26P Dictated by : LUCIA VILLARREAL MD This examination was interpreted and the report reviewed and electronically signed by: LUCIA VILLARREAL MD on May 23 2024 4:38PM [place] [facility] Study observation (narrative) [facility] CT Chest WO contrastOrdered By: Ccf Provider on 05-23-2024 [facility] CNOVon 05-16-2024 CNOV Office Visit (INTMWS ) DANG PRITCHETT ([id number]) 1985 F Date Time Provider Department 05/16/24 10:00 AM JAIMEE WHITE INTMWS During your visit today, we recorded the following information about you: Temperature Pulse Respiration Blood pressure 98 degrees 91/minute 18/minute 128/78 Weight 118.4 kg Jaimee White, FEED MANAGER.STORE SALES CONSULTANT 05/16/2024 11:32 AM Addendum CC: Patient presents with: [facility] follow up HPI Dang Pritchett is a 39 year old female who presents today for above. Patient was seen in [facility] on 05/10 with one week history of [...] Virus Vaccine 2013- (18 Yrs-64 Yrs) MEDICATIONS Brompheniramine-Pseudo eph-DM (BROMFED DM) 2-30-10 mg/5 mL syrup Take [...] tenderness or frontal sinus tenderness. Mouth/Throat: Lips: [place]. Mouth: Mucous membranes are moist. Pharynx: Oropharynx [...] cough. Ca (more content not included)... Normal [facility] XR CHEST 2V FRONTAL/LATon XR CHEST 2V FRONTAL/LAT * * *Final Repor t* * * DATE OF EXAM: May 16 [...] nodular opacities overlying the right upper lung. Community Nurse: MARY Transcribe Date/Time: May 16 2024 10:25A Dictated by : LUCIA VILLARREAL MD This examination was interpreted and the report reviewed and electronically signed by: LUCIA VILLARREAL MD on May 16 2024 10:26AM EST [id number] Normal [facility] XR Chest PA and Lateralon IMPRESSION: Interval improvement of cluster of nodular opacities overlying the right upper lung. Community Nurse: PSCB Transcribe Date/Time: May 16 2024 10:25A [...] soft tissues: Unremarkable. DIVISION OF RADIOLOGY Provider, [facility] - 05/16/2024 * * *Final Report* * [...] nodular opacities overlying the right upper lung. Community Nurse: PSCB Transcribe Date/Time: May 16 2024 10:25A Dictated by : LUCIA VILLARREAL MD This examination was interpreted and the report reviewed and electronically signed by: LUCIA VILLARREAL MD on May 16 2024 10:26AM EST [facility] Radiology Study observation (narrative) Andry Flores XR Chest PA and LateralOrder ed By: Ccf Provider on 05-16-2024 [facility] CNOVon 05-10-2024 CNOV Office Visit (UCWSTR ) DANG PRITCHETT ([id number]) 1985 F Date Time Provider Department 05/10/24 2:45 PM CANDELARIA [place] [facility] During your visit today, we recorded the following information about you: Temperature Pulse Respiration Blood pressure 97.4 degrees 79/minute 16/minute 152/86 Weight 118 kg Candelaria [place], FEED MANAGER.STORE SALES CONSULTANT 05/10/2024 3:43 PM Signed This note was created using [employer] Datar[employer]. Subjective Dang Pritchett is a 39 year [...] history is provided by the patient. No diploma medical assistant was used. Cough This is a new [...] For thyroid. Take on an empty stomach Brompheniramine-Pseudo eph-DM (BROMFED DM) 2-30-10 mg/5 mL syrup Take [...] Negative for adenopathy. Does not bruise/bleed easily. Psychiatric/Behavioral : Negative for agitation and behavioral problems. Objective [...] Eyes: Genera (more content not included)... Normal [facility] XR CHEST 2V FRONTAL/LATon XR CHEST 2V FRONTAL/LAT * * *Final Repor t* * * DATE OF EXAM: May 10 [...] in the right upper lung. Consider follow-up. Community Nurse: MARY Transcribe Date/Time: May 10 2024 3:12P Dictated by : LUCIA VILLARREAL MD This examination was interpreted and the report reviewed and electronically signed by: LUCIA VILLARREAL MD on May 10 2024 3:13PM EST [id number] Normal [facility] XR Chest PA and Lateralon IMPRESSION: Cluster of nodules/cavitary nodules in the right upper lung. Consider follow-up. Community Nurse: MARY Transcribe Date/Time: May 10 2024 3:12P Dictated by : LUCIA VILLARREAL MD This examination was interpreted and the report reviewed and electronically signed by: LUCIA VILLARREAL MD on May 10 2024 3:13PM [facility] DIVISION OF RADIOLOGY * * *Final Report* [...] soft tissues: Unremarkable. DIVISION OF RADIOLOGY Provider, [facility] - 05/10/2024 * * *Final Report* * [...] in the right upper lung. Consider follow-up. Community Nurse: MARY Transcribe Date/Time: May 10 2024 3:12P Dictated by : LUCIA VILLARREAL MD This examination was interpreted and the report reviewed and electronically signed by: LUCIA VILLARREAL MD on May 10 2024 3:13PM [place] [facility] Study observation (narrative) Andry coats [facility] XR Chest PA and LateralOrder ed By: Ccf Provider on 05-10-2024 [facility] Vital Signs Date Time Vital Sign Value Performing Clinician Chris lynn 08-13-2025 22:05-0400 Body temperature 97.8 [degF] MYRA OLDER LIGHT TECHNICIAN-C Work Phone: [facility] 08-13-2025 22:05-0400 Diastolic blood pressure 76 mm[Hg] MYRA OLDER LIGHT TECHNICIAN-C Work Phone: [facility] 08-13-2025 22:05-0400 Heart rate 100 /min MYRA OLDER LIGHT TECHNICIAN-C Work Phone: [facility] 08-13-2025 22:05-0400 Respiratory rate 20 /min MYRA OLDER LIGHT TECHNICIAN-C Work Phone: [facility] 08-13-2025 22:05-0400 SaO2% (BldA) [Mass fraction] 98 % MYRA OLDER LIGHT TECHNICIAN-C Work Phone: [facility] 08-13-2025 22:05-0400 Systolic blood pressure 128 mm[Hg] MYRA OLDER LIGHT TECHNICIAN-C Work Phone: [facility] 08-13-2025 19:07-0400 Body height 165.1 cm MYRA OLDER LIGHT TECHNICIAN-C Work Phone: [facility] 08-13-2025 19:07-0400 Body mass index (BMI) [Ratio] 40.1 kg/m2 MYRA OLDER LIGHT TECHNICIAN-C Work Phone: [facility] 08-13-2025 19:07-0400 Body weight 109.31 kg MYRA OLDER LIGHT TECHNICIAN-C Work Phone: [facility] 07-26-2024 09:36-0400 Body mass index (BMI) [Ratio] 41.95 kg/m2 Myra Older FEED MANAGER.STORE SALES CONSULTANT Work Phone: [facility] 07-26-2024 09:36-0400 Body weight 114.2 kg Myra Older FEED MANAGER.STORE SALES CONSULTANT Work Phone: [facility] 07-26-2024 09:36-0400 Diastolic blood pressure 74 mm[Hg] Myra Older FEED MANAGER.STORE SALES CONSULTANT Work Phone: [facility] 07-26-2024 09:36-0400 Heart rate 84 /min Myra Older FEED MANAGER.STORE SALES CONSULTANT Work Phone: [facility] 07-26-2024 09:36-0400 Respiratory rate 16 /min Myra Older FEED MANAGER.STORE SALES CONSULTANT Work Phone: [facility] 07-26-2024 09:36-0400 SaO2% (BldA) [Mass fraction] 96 % Myra Older FEED MANAGER.STORE SALES CONSULTANT Work Phone: [facility] 07-26-2024 09:36-0400 Systolic blood pressure 128 mm[Hg] Myra Older FEED MANAGER.STORE SALES CONSULTANT Work Phone: [facility] 05-29-2024 14:58-0400 Body mass index (BMI) [Ratio] 42.77 kg/m2 Jaimee Cindy FEED MANAGER.STORE SALES CONSULTANT Work Phone: [facility] 05-29-2024 14:58-0400 Body weight 116.44 kg Jaimee Cindy FEED MANAGER.STORE SALES CONSULTANT Work Phone: [facility] 05-29-2024 14:58-0400 Diastolic blood pressure 78 mm[Hg] Jaimee Cindy FEED MANAGER.STORE SALES CONSULTANT Work Phone: [facility] 05-29-2024 14:58-0400 Heart rate 102 /min Jaimee Cindy FEED MANAGER.STORE SALES CONSULTANT Work Phone: [facility] 05-29-2024 14:58-0400 SaO2% (BldA) [Mass fraction] 99 % Jaimee Cindy FEED MANAGER.STORE SALES CONSULTANT Work Phone: [facility] 05-29-2024 14:58-0400 Systolic blood pressure 118 mm[Hg] Jaimee Cindy FEED MANAGER.STORE SALES CONSULTANT Work Phone: [facility] 05-23-2024 10:01-0400 Body mass index (BMI) [Ratio] 43.32 kg/m2 Jaimee Cindy FEED MANAGER.STORE SALES CONSULTANT Work Phone: [facility] 05-23-2024 10:01-0400 Body weight 117.94 kg Jaimee White FEED MANAGER.STORE SALES CONSULTANT Work Phone: [facility] 05-23-2024 10:01-0400 Diastolic blood pressure 83 mm[Hg] Jaimee White FEED MANAGER.STORE SALES CONSULTANT Work Phone: [facility] 05-23-2024 10:01-0400 Heart rate 102 /min Jaimee White FEED MANAGER.STORE SALES CONSULTANT Work Phone: [facility] 05-23-2024 10:01-0400 Respiratory rate 20 /min Jaimee White FEED MANAGER.STORE SALES CONSULTANT Work Phone: [facility] 05-23-2024 10:01-0400 SaO2% (BldA) [Mass fraction] 97 % Jaimee White FEED MANAGER.STORE SALES CONSULTANT Work Phone: [facility] 05-23-2024 10:01-0400 Systolic blood pressure 130 mm[Hg] Jaimee White FEED MANAGER.STORE SALES CONSULTANT Work Phone: [facility] 05-16-2024 09:51-0400 Body mass index (BMI) [Ratio] 43.48 kg/m2 Jaimee White FEED MANAGER.STORE SALES CONSULTANT Work Phone: [facility] 05-16-2024 09:51-0400 Body temperature 98.01 [degF] Jaimee White FEED MANAGER.STORE SALES CONSULTANT Work Phone: [facility] 05-16-2024 09:51-0400 Body weight 118.39 kg Jaimee White FEED MANAGER.STORE SALES CONSULTANT Work Phone: [facility] 05-16-2024 09:51-0400 Diastolic blood pressure 78 mm[Hg] Jaimee White FEED MANAGER.STORE SALES CONSULTANT Work Phone: [facility] 05-16-2024 09:51-0400 Heart rate 91 /min Jaimee White FEED MANAGER.STORE SALES CONSULTANT Work Phone: [facility] 05-16-2024 09:51-0400 Respiratory rate 18 /min Jaimee Cindy FEED MANAGER.STORE SALES CONSULTANT Work Phone: [facility] 05-16-2024 09:51-0400 SaO2% (BldA) [Mass fraction] 98 % Jaimee Cindy FEED MANAGER.STORE SALES CONSULTANT Work Phone: [facility] 05-16-2024 09:51-0400 Systolic blood pressure 128 mm[Hg] Jaimee Cindy FEED MANAGER.STORE SALES CONSULTANT Work Phone: [facility] 05-10-2024 14:47-0400 Body mass index (BMI) [Ratio] 43.34 kg/m2 Candelaria Mayfield FEED MANAGER.STORE SALES CONSULTANT Work Phone: [facility] 05-10-2024 14:47-0400 Body temperature 97.39 [degF] Candelaria Mayfield FEED MANAGER.STORE SALES CONSULTANT Work Phone: [facility] 05-10-2024 14:47-0400 Body weight 118 kg Candelaria Mayfield FEED MANAGER.STORE SALES CONSULTANT Work Phone: [facility] 05-10-2024 14:47-0400 Diastolic blood pressure 86 mm[Hg] Candelaria Mayfield FEED MANAGER.STORE SALES CONSULTANT Work Phone: [facility] 05-10-2024 14:47-0400 Heart rate 79 /min Candelaria Mayfield FEED MANAGER.STORE SALES CONSULTANT Work Phone: [facility] 05-10-2024 14:47-0400 Respiratory rate 16 /min Candelaria Mayfield FEED MANAGER.STORE SALES CONSULTANT Work Phone: [facility] 05-10-2024 14:47-0400 SaO2% (BldA) [Mass fraction] 96 % Candelaria Mayfield FEED MANAGER.STORE SALES CONSULTANT Work Phone: [facility] 05-10-2024 14:47-0400 Systolic blood pressure 152 mm[Hg] Candelaria Mayfield FEED MANAGER.STORE SALES CONSULTANT Work Phone: [facility] 03-08-2024 11:41-0400 Body mass index (BMI) [Ratio] 43.38 kg/m2 Real Moomaw FEED MANAGER.STORE SALES CONSULTANT Work Phone: [facility] 03-08-2024 11:41-0400 Body temperature 97.5 [degF] Real Moomaw FEED MANAGER.STORE SALES CONSULTANT Work Phone: [facility] 03-08-2024 11:41-0400 Body weight 118.1 kg Real Moomaw FEED MANAGER.STORE SALES CONSULTANT Work Phone: [facility] 03-08-2024 11:41-0400 Diastolic blood pressure 80 mm[Hg] Real Moomaw FEED MANAGER.STORE SALES CONSULTANT Work Phone: [facility] 03-08-2024 11:41-0400 Heart rate 86 /min Real Moomaw FEED MANAGER.STORE SALES CONSULTANT Work Phone: [facility] 03-08-2024 11:41-0400 Respiratory rate 18 /min Real Moomaw FEED MANAGER.STORE SALES CONSULTANT Work Phone: [facility] 03-08-2024 11:41-0400 SaO2% (BldA) [Mass fraction] 98 % Real Moomaw FEED MANAGER.STORE SALES CONSULTANT Work Phone: [facility] 03-08-2024 11:41-0400 Systolic blood pressure 124 mm[Hg] Real Moomaw FEED MANAGER.STORE SALES CONSULTANT Work Phone: [facility] 08-14-2023 09:15-0400 Body temperature 98.49 [degF] Jaimee Older FEED MANAGER.STORE SALES CONSULTANT Work Phone: [facility] 08-14-2023 09:15-0400 Body weight 116.85 kg Jaimee Older FEED MANAGER.STORE SALES CONSULTANT Work Phone: [facility] 08-14-2023 09:15-0400 Diastolic blood pressure 80 mm[Hg] Jaimee Older FEED MANAGER.STORE SALES CONSULTANT Work Phone: [facility] 08-14-2023 09:15-0400 Heart rate 100 /min Jaimee Older FEED MANAGER.STORE SALES CONSULTANT Work Phone: [facility] 08-14-2023 09:15-0400 Respiratory rate 21 /min Jaimee Older FEED MANAGER.STORE SALES CONSULTANT Work Phone: [facility] 08-14-2023 09:15-0400 SaO2% (BldA) [Mass fraction] 97 % Jaimee Older FEED MANAGER.STORE SALES CONSULTANT Work Phone: [facility] 08-14-2023 09:15-0400 Systolic blood pressure 120 mm[Hg] Jaimee Older FEED MANAGER.STORE SALES CONSULTANT Work Phone: [facility] 07-21-2023 09:27-0400 Body height 165 cm Kendal Denbow PA-C Work Phone: [facility] 07-21-2023 09:27-0400 Body weight 114.31 kg Kendal Denbow PA-C Work Phone: [facility] 07-21-2023 09:27-0400 Diastolic blood pressure 74 mm[Hg] Kendal Denbow PA-C Work Phone: [facility] 07-21-2023 09:27-0400 Heart rate 96 /min Kendal Denbow PA-C Work Phone: [facility] 07-21-2023 09:27-0400 Respiratory rate 16 /min Kendal Denbow PA-C Work Phone: [facility] 07-21-2023 09:27-0400 SaO2% (BldA) [Mass fraction] 98 % Kendal Denbow PA-C Work Phone: [facility] 07-21-2023 09:27-0400 Systolic blood pressure 114 mm[Hg] Kendal Denbow PA-C Work Phone: [facility] 07-04-2023 13:02-0400 Body temperature 97.7 [degF] Jaimee Older FEED MANAGER.STORE SALES CONSULTANT Work Phone: [facility] 07-04-2023 13:02-0400 Body weight 115.67 kg Jaimee Older FEED MANAGER.STORE SALES CONSULTANT Work Phone: [facility] 07-04-2023 13:02-0400 Diastolic blood pressure 78 mm[Hg] Jaimee Older FEED MANAGER.STORE SALES CONSULTANT Work Phone: [facility] 07-04-2023 13:02-0400 Heart rate 89 /min Jaimee Older FEED MANAGER.STORE SALES CONSULTANT Work Phone: [facility] 07-04-2023 13:02-0400 Respiratory rate 18 /min Jaimee Older FEED MANAGER.STORE SALES CONSULTANT Work Phone: [facility] 07-04-2023 13:02-0400 SaO2% (BldA) [Mass fraction] 98 % Jaimee Older FEED MANAGER.STORE SALES CONSULTANT Work Phone: [facility] 07-04-2023 13:02-0400 Systolic blood pressure 122 mm[Hg] Jaimee Older FEED MANAGER.STORE SALES CONSULTANT Work Phone: [facility] 03-18-2022 15:00-0400 Body weight 115.21 kg Myra Older FEED MANAGER.STORE SALES CONSULTANT Work Phone: [facility] 03-18-2022 15:00-0400 Diastolic blood pressure 78 mm[Hg] Myra Older FEED MANAGER.STORE SALES CONSULTANT Work Phone: [facility] 03-18-2022 15:00-0400 Heart rate 80 /min Myra Older FEED MANAGER.STORE SALES CONSULTANT Work Phone: [facility] 03-18-2022 15:00-0400 Respiratory rate 16 /min Myra Older FEED MANAGER.STORE SALES CONSULTANT Work Phone: [facility] 03-18-2022 15:00-0400 Systolic blood pressure 132 mm[Hg] Myra Older FEED MANAGER.STORE SALES CONSULTANT Work Phone: [facility] 01-30-2022 13:25-0400 Body weight 118.39 kg Myra Older FEED MANAGER.STORE SALES CONSULTANT Work Phone: [facility] 01-30-2022 13:25-0400 Diastolic blood pressure 70 mm[Hg] Myra Older FEED MANAGER.STORE SALES CONSULTANT Work Phone: [facility] 01-30-2022 13:25-0400 Heart rate 84 /min Myra Older FEED MANAGER.STORE SALES CONSULTANT Work Phone: [facility] 01-30-2022 13:25-0400 Respiratory rate 16 /min Myra Older FEED MANAGER.STORE SALES CONSULTANT Work Phone: [facility] 01-30-2022 13: Systolic blood pressure 122 mm[Hg] Myra Elizondo FEED MANAGER.STORE SALES CONSULTANT Work Phone: [facility] Encounters Encounter Date Encounter Type Care Provider Facility Start: 08-13-2025 End: 08-13-2025 Emergency department patient visit MYRA ELIZONDO LIGHT TECHNICIAN-C Work Phone: -Emergency Department Work Phone: Start: 04-06-2025 End: 04-09-2025 Refill Myra Older FEED MANAGER.STORE SALES CONSULTANT Work Phone: [facility] Comment on above: Refill Request Start: 03-20-2025 End: 04-20-2025 ambulatory Ingris Rock MD Work Phone: [facility] Start: 10-30-2024 End: 10-30-2024 ambulatory [facility] Facility:[facility] Start: 10-17-2024 End: 10-18-2024 Telephone encounter Ingris Rock MD Work Phone: [facility] Comment on above: Patient Update (had GB removed 10/14); Patient Question Start: 10-14-2024 End: 10-15-2024 [facility] Facility:[facility] Start: 10-13-2024 End: 10-13-2024 Refill Myra Older FEED MANAGER.STORE SALES CONSULTANT Work Phone: [facility] Comment on above: Refill Request Start: 07-26-2024 End: 07-26-2024 [facility] Facility:[facility] Start: 07-26-2024 End: 07-26-2024 Patient encounter procedure Myra Elizondo FEED MANAGER.STORE SALES CONSULTANT Work Phone: [facility] Comment on above: Annual physical exam (Primary Dx); Hypothyroidism, acquired; Chronic low back pain, unspecified back pain laterality, unspecified whether sciatica present Start: 07-25-2024 End: 07-25-2024 [facility] Facility:[facility] Start: 07-13-2024 End: 07-13-2024 Refill Jaimee White APRN.STORE SALES CONSULTANT Work Phone: [facility] Comment on above: Refill Request Start: 07-11-2024 End: 07-14-2024 ambulatory Ingris Rock MD Work Phone: [facility] [place] [phone] Start: 05-29-2024 End: 05-29-2024 ambulatory JAIMEE WHITE Facility:[facility] Start: 05-29-2024 End: 05-29-2024 Patient encounter procedure Jaimee White APRN.STORE SALES CONSULTANT Work Phone: [facility] [place] Comment on above: Respiratory infectio n (Primary Dx); Rib pain on right side Start: 05-24-2024 Telephone encounter Jaimee shabazz APRN.STORE SALES CONSULTANT Work Phone: [facility] [place] Comment on above: Results Start: 05-23-2024 End: 05-23-2024 [facility] Facility:[facility] Start: 05-23-2024 End: 05-23-2024 Subsequent hospital visit by physician [facility] ([facility]) Work Phone: [facility] Comment on above: Acute cough [R05.1] Start: 05-23-2024 End: 05-23-2024 Patient encounter procedure Jaimee White APRN.STORE SALES CONSULTANT Work Phone: [facility] [place] Comment on above: Acute cough (Primary Dx); Shortness of breath; Abnormal chest x-ray; Fever, unspecified fever cause Start: 05-23-2024 End: 05-23-2024 [facility] Facility:[facility] Start: 05-16-2024 End: 05-16-2024 ambulatory Jaimee White APRN.STORE SALES CONSULTANT Work Phone: [facility] [place] Comment on above: chest x-ray results Start: 05-16-2024 E-mail encounter fro m caregiver Jaimee White APRN.STORE SALES CONSULTANT Work Phone: [facility] Start: 05-16-2024 End: 05-16-2024 Subsequent hospital visit by physician Xr [facility] [place] Work Phone: Radiology Comment on above: Acute cough [R05.1] Start: 05-16-2024 End: 05-16-2024 Patient encounter procedure Jaimee White FEED MANAGER.STORE SALES CONSULTANT Work Phone: [facility] [place] Comment on above: Acute cough (Primary Dx); Lung nodules; Fever, unspecified fever cause Start: 05-10-2024 End: 05-10-2024 Subsequent hospital visit by physician Xr [facility] [place] Work Phone: Radiology Comment on above: Acute cough [R05.1] Start: 05-10-2024 End: 05-10-2024 ambulatory [facility] Facility:[facility] Start: 05-10-2024 End: 05-10-2024 Patient encounter procedure Candelaria Burchgs FEED MANAGER.STORE SALES CONSULTANT Work Phone: [facility] Comment on above: Acute cough (Primary Dx); Multiple nodules of lung Start: 03-08-2024 End: 03-08-2024 Patient encounter procedure Real Navarro FEED MANAGER.STORE SALES CONSULTANT Work Phone: [facility] Comment on above: Acute cough (Primary Dx) Start: 01-20-2024 Refill Jaimee sidhu FEED MANAGER.STORE SALES CONSULTANT Work Phone: [facility] Comment on above: Refill Request Start: 08-14-2023 End: 08-14-2023 Patient encounter procedure Jaimee Elizondo FEED MANAGER.STORE SALES CONSULTANT Work Phone: [facility] Comment on above: Viral URI with cough (Primary Dx) Start: 07-21-2023 End: 07-21-2023 Patient encounter procedure Kednal Sorto PA-C Work Phone: [facility] Comment on above: Well adult exam (Martha shelly Dx); Hypothyroidism, acquired; Screening for cervical cancer; Leukocytosis, unspecified type Start: 07-21-2023 End: 07-21-2023 Patient encounter status Kendal Sorto PA-C Work Phone: [facility] Work Phone: Start: 07-04-2023 End: 07-04-2023 Patient encounter procedure Jaimee Older FEED MANAGER.STORE SALES CONSULTANT Work Phone: [facility] Comment on above: Acute right-sided ba ck pain, unspecified back location (Primary Dx) Start: 06-29-2023 Telephone encounter Ingris raya MD Work Phone: [facility] Comment on above: Labs for physical Start: 08-15-2022 Refill Myra Elizondo FEED MANAGER .STORE SALES CONSULTANT Work Phone: [facility] [place] Comment on above: Refill Request Start: 06-29-2022 Refill Myra Elizondo FEED MANAGER .STORE SALES CONSULTANT Work Phone: [facility] [place] Comment on above: Refill Request Start: 05-22-2022 Telephone encounter Myra Elizondo FEED MANAGER.STORE SALES CONSULTANT Work Phone: [facility] [place] Comment on above: Results Start: 03-27-2022 Telephone encounter Myra Elizondo FEED MANAGER.STORE SALES CONSULTANT Work Phone: [facility] [place] Comment on above: Results Start: 03-18-2022 End: 03-18-2022 Patient encounter procedure Myra Older FEED MANAGER.STORE SALES CONSULTANT Work Phone: [facility] [place] Comment on above: Anxiety and depressi on (Primary Dx) Start: 01-30-2022 End: 01-30-2022 Patient encounter procedure Myra Elizondo FEED MANAGER.STORE SALES CONSULTANT Work Phone: [facility] Comment on above: Annual physical exam (Primary Dx); Anxiety and depression; Hypothyroidism, acquired; Seborrheic dermatitis; Obesity, Class III, BMI 40-49.9 (morbid obesity) (HCC); Special screening examination for viral disease; Lipid screening Procedures Date Procedure Procedure Detail Performing Clinician Start: 08-13-2025 Ct abdomen & pelvis w/contrast material MYRA ELIZONDO LIGHT TECHNICIAN-C Work Phone: Start: 08-13-2025 Estimated creatinine clearance MYRA ELIZONDO LIGHT TECHNICIAN-C Work Phone: Start: 08-13-2025 Urnls dip stick/tablet reagent auto microscopy MYRA ELIZONDO LIGHT TECHNICIAN-C Work Phone: Start: 05-23-2024 Ct thorax w/o contrast material Jaimee White FEED MANAGER.STORE SALES CONSULTANT Work Phone: Start: 05-16-2024 Radiologic exam chest 2 views Jaimee White FEED MANAGER.STORE SALES CONSULTANT Work Phone: Start: 05-10-2024 Radiologic exam chest 2 views Candelaria Mayfield FEED MANAGER.STORE SALES CONSULTANT Work Phone: History of cholecystectomy S/P laparoscopic cholecystectomy MYRA ELIZONDO LIGHT TECHNICIAN-C Work Phone: Plan of Treatment Date Care Activity Detail Author Start: 09-05-2025 Urine microalbumin profile [facility] Start: 08-13-2025 [facility] Start: 07-26-2025 Annual PCP Team Buttonhole Machine Operator tayla Disease Visit Annual PCP Team Chronic Disease Visit [facility] Start: 07-26-2025 Hepatitis B Vaccine (1 of 3 - 19+ 3-dose series) Hepatitis B Vaccine (1 of 3 - 19+ 3-dose series) [facility] Comment on above: Postponed from 02/01 (Declined at this time) Start: 07-09-2025 Influenza vaccination Influenz a Vaccine (Season Ended) [facility] Start: 05-29-2025 Annual PCP Team Buttonhole Machine Operator tayla Disease Visit Annual PCP Team Chronic Disease Visit [facility] Start: 05-23-2025 Annual PCP Team Buttonhole Machine Operator tayla Disease Visit Annual PCP Team Chronic Disease Visit [facility] Start: 05-16-2025 Annual PCP Team Buttonhole Machine Operator tayla Disease Visit Annual PCP Team Chronic Disease Visit [facility] Start: 05-07-2025 Influenza vaccination Influenza Vacc ine (#1) [facility] Comment on above: Postponed from 07/09 (Declined at this time) Start: 2025 Screening for malign ant neoplasm of breast Mammogram Screening [facility] Start: 01-18-2025 End: 01-18-2025 Patient encounter procedure 01/18/2025 9:20 AM EDT Office Visit [facility] [place] [address] [place], [place] [id number] Myra Elizondo APRN.STORE SALES CONSULTANT [address] [place], [place] [id number] 6 month follow up [facility] [place] Comment on above: 6 month follow up Start: 10-16-2024 End: 01-15-2025 CBC panel - Blood by Automated count COMPLETE BLOOD COUNT Lab Routine Annual physical exam Expected: 10/16/2024 (Approximate), Expires: 01/15/2025 [facility] Comment on above: Expected: 10/16/2024 (Approximate), Expires: 01/15/2025 Start: 10-16-2024 End: 01-15-2025 Comprehensive metabolic 2000 panel - Serum or Plasma COMPREHENSIVE METABOLIC PANEL Lab Routine Annual physical exam Expected: 10/16/2024 (Approximate), Expires: 01/15/2025 [facility] Comment on above: Expected: 10/16/2024 (Approximate), Expires: 01/15/2025 Start: 10-16-2024 End: 01-15-2025 Lipid 1996 panel - Serum or Plasma LIPID PANEL BASIC Lab Routine Annual physical exam Expected: 10/16/2024 (Approximate), Expires: 01/15/2025 [facility] Work Phone: Comment on above: Expected: 10/16/2024 (Approximate), Expires: 01/15/2025 Start: 10-16-2024 End: 01-15-2025 Thyrotropin [Units/volume] in Serum or Plasma THYROID STIMULATING HORMONE Lab Routine Hypothyroidism, acquired Expected: 10/16/2024 (Approximate), Expires: 01/15/2025 [facility] Comment on above: Expected: 10/16/2024 (Approximate), Expires: 01/15/2025 Start: 10-16-2024 End: 01-15-2025 Thyroxine (T4) free [Mass/volume] in Serum or Plasma T4 FREE/FREE THYROXINE Lab Routine Hypothyroidism, acquired Expected: 10/16/2024 (Approximate), Expires: 01/15/2025 [facility] Comment on above: Expected: 10/16/2024 (Approximate), Expires: 01/15/2025 Start: 10-16-2024 End: 01-15-2025 Triiodothyronine (T3) Free [Mass/volume] in Serum or Plasma T3, FREE Lab Routine Hypothyroidism, acquired Expected: 10/16/2024 (Approximate), Expires: 01/15/2025 [facility] Comment on above: Expected: 10/16/2024 (Approximate), Expires: 01/15/2025 Start: 07-26-2024 End: 07-26-2024 Patient encounter procedure 07/26/2024 9:40 AM EDT Office Visit [facility] [place] [address], [place] [id number] Myra Elizondo APRN.STORE SALES CONSULTANT [address] [place] [address] Annual [facility] [place] Comment on above: Annual Start: 07-21-2024 Annual PCP Team Buttonhole Machine Operator tayla Disease Visit Annual PCP Team Chronic Disease Visit [facility] Start: 07-21-2024 Hepatitis B Vaccine (1 of 3 - 19+ 3-dose series) Hepatitis B Vaccine (1 of 3 - 19+ 3-dose series) [facility] Comment on above: Postponed from 02/01 (Declined at this time) Start: 07-21-2024 Hepatitis B Vaccine (1 of 3 - 3-dose series) Hepatitis B Vaccine (1 of 3 - 3-dose series) [facility] Comment on above: Postponed from 02/01 (Declined at this time) Start: 07-11-2024 End: 10-10-2024 Hemoglobin A1c in Blood HEMOGLOBIN A1C Lab Routine Obesity, Class III, BMI 40-49.9 (morbid obesity) (HCC) Expected: 07/11/2024, Expires: 10/10/2024 [facility] Work Phone: Comment on above: Expected: 07/11/2024 , Expires: 10/10/2024 Start: 07-11-2024 End: 10-10-2024 Thyrotropin [Units/volume] in Serum or Plasma THYROID STIMULATING HORMONE Lab Routine Hypothyroidism, acquired Expected: 07/11/2024, Expires: 10/10/2024 [facility] Comment on above: Expected: 07/11/2024 , Expires: 10/10/2024 Start: 07-09-2024 Influenza vaccination C [facility] Start: 06-16-2024 End: 08-08-2025 XR Chest PA and Lateral XR CHEST 2V FRONTAL/LAT Radiology Routine Lung nodules Expected: 06/16/2024 (Approximate), Expires: 06/15/2025 [facility] Work Phone: Comment on above: Expected: 06/16/2024 (Approximate), Expires: 06/15/2025 Start: 05-29-2024 End: 05-29-2024 Patient encounter procedure 05/29/2024 3:00 PM EDT Office Visit [facility] [place] [address] [place] [address] Jaimee White, FEED MANAGER.STORE SALES CONSULTANT [address] [place] [address] CT, lung nodules consistant with infection on antibiotics f/u [facility] [place] Comment on above: CT, lung nodules con sistant with infection on antibiotics f/u Start: 05-23-2024 End: 05-23-2024 Patient encounter procedure 05/23/2024 10:00 AM EDT Office Visit [facility] [address] [place] [address] Jaimee White, FEED MANAGER.STORE SALES CONSULTANT [address] [place] [address] 1 week follow up - CXR [facility] Comment on above: 1 week follow up - C XR Start: 05-16-2024 End: 05-16-2024 Patient encounter procedure 05/16/2024 10:00 AM EDT Office Visit [facility] [place] [address] [place] [address] Jaimee White, FEED MANAGER.STORE SALES CONSULTANT [address] [place] [address] ec follow up [facility] [place] Comment on above: ec follow up Start: 05-07-2024 Influenza vaccination Influenza Vacc ine (#1) [facility] Comment on above: Postponed from 07/09 (Declined at this time) Start: 09-06-2023 End: 11-06-2023 CBC panel - Blood by Automated count CBC Lab Routine Leukocytosis, unspecified type Expected: 09/06/2023 (Approximate), Expires: 11/06/2023 [facility] Work Phone: Comment on above: Expected: 09/06/2023 (Approximate), Expires: 11/06/2023 Start: 07-21-2023 End: 09-20-2023 URINALYSIS, DIPSTICK ONLY URINALYSIS, DIPSTICK ONLY Lab Routine Leukocytosis, unspecified type Expected: 07/21/2023, Expires: 09/20/2023 [facility] Work Phone: Comment on above: Expected: 07/21/2023 , Expires: 09/20/2023 Start: 07-09-2023 Influenza vaccination INFLUENZA (#1) [facility] Start: 06-29-2023 End: 08-29-2023 CBC W Auto Differential panel - Blood CBC + DIFF Lab Routine Screening for disorder of blood and blood-forming organs Expected: 06/29/2023, Expires: 08/29/2023 [facility] Work Phone: Comment on above: Expected: 06/29/2023 , Expires: 08/29/2023 Start: 06-29-2023 End: 08-29-2023 Comprehensive metabolic 2000 panel - Serum or Plasma COMP METABOLIC PANEL Lab Routine Screening for diabetes mellitus Expected: 06/29/2023, Expires: 08/29/2023 [facility] Work Phone: Comment on above: Expected: 06/29/2023 , Expires: 08/29/2023 Start: 06-29-2023 End: 08-29-2023 Lipid 1996 panel - Serum or Plasma LIPID PANEL BASIC Lab Routine Screening for lipid disorders Expected: 06/29/2023, Expires: 08/29/2023 [facility] Work Phone: Comment on above: Expected: 06/29/2023 , Expires: 08/29/2023 Start: 06-29-2023 End: 08-29-2023 Thyrotropin [Units/volume] in Serum or Plasma TSH BLD Lab Routine Hypothyroidism, acquired Expected: 06/29/2023, Expires: 08/29/2023 [facility] Work Phone: Comment on above: Expected: 06/29/2023 , Expires: 08/29/2023 Start: 06-29-2023 End: 08-29-2023 Thyroxine (T4) free [Mass/volume] in Serum or Plasma T4 FREE/FREE THYROX Lab Routine Hypothyroidism, acquired Expected: 06/29/2023, Expires: 08/29/2023 [facility] Work Phone: Comment on above: Expected: 06/29/2023 , Expires: 08/29/2023 Start: 03-18-2023 ANNUAL PCP TEAM PIPE THREADER TAYLA DISEASE VISIT ANNUAL PCP TEAM CHRONIC DISEASE VISIT [facility] Start: 01-30-2023 ANNUAL PCP TEAM PIPE THREADER TAYLA DISEASE VISIT ANNUAL PCP TEAM CHRONIC DISEASE VISIT [facility] Start: 01-30-2023 COVID-19 VACCINE (#1) COVID-19 VACCI NE (#1) [facility] Comment on above: Postponed from 02/01 (Declined at this time) Postponed from 08/04 (Declined at this time) Start: 01-30-2023 COVID-19 VACCINE (1) COVID-19 VACCIN E (1) [facility] Comment on above: Postponed from 02/01 (Declined at this time) Start: 01-30-2023 HPV TESTING HPV TESTING [facility] Comment on above: Postponed from 09/05 (Declined at this time) Start: 01-30-2023 PAP TESTING PAP TESTING [facility] Comment on above: Postponed from 09/05 (Declined at this time) Start: 07-09-2022 Influenza vaccination C [facility] Start: 06-22-2022 End: 08-22-2022 Thyrotropin [Units/volume] in Serum or Plasma TSH BLD Lab Routine Medication management Hypothyroidism, acquired Expected: 06/22/2022 (Approximate), Expires: 08/22/2022 [facility] Work Phone: Comment on above: Expected: 06/22/2022 (Approximate), Expires: 08/22/2022 Start: 05-08-2022 End: 07-08-2022 Thyrotropin [Units/volume] in Serum or Plasma TSH BLD Lab Routine Hypothyroidism, acquired Medication management Expected: 05/08/2022 (Approximate), Expires: 07/08/2022 [facility] Work Phone: Comment on above: Expected: 05/08/2022 (Approximate), Expires: 07/08/2022 Start: 05-07-2022 Influenza vaccination INFLUENZA (#1) [facility] Comment on above: Postponed from 07/09 (Declined at this time) Start: 01-30-2022 End: 04-01-2022 CBC W Auto Differential panel - Blood CBC + DIFF Lab Routine Annual physical exam Expected: 01/30/2022, Expires: 04/01/2022 [facility] Work Phone: Comment on above: Expected: 01/30/2022 , Expires: 04/01/2022 Start: 01-30-2022 End: 04-01-2022 Comprehensive metabolic 2000 panel - Serum or Plasma COMP METABOLIC PANEL Lab Routine Lipid screening Annual physical exam Expected: 01/30/2022, Expires: 04/01/2022 [facility] Work Phone: Comment on above: Expected: 01/30/2022 , Expires: 04/01/2022 Start: 01-30-2022 End: 04-01-2022 Hepatitis C virus Ab [Presence] in Serum HEP C AB IA W/CONF SCRN Lab Routine Special screening examination for viral disease Expected: 01/30/2022, Expires: 04/01/2022 [facility] Work Phone: Comment on above: Expected: 01/30/2022 , Expires: 04/01/2022 Start: 01-30-2022 End: 04-01-2022 LIPID PANEL BASIC LIPID PANEL BASIC Lab Routine Lipid screening Expected: 01/30/2022, Expires: 04/01/2022 [facility] Work Phone: Comment on above: Expected: 01/30/2022 , Expires: 04/01/2022 Start: 01-30-2022 End: 04-01-2022 T3 FREE BLD T3 FREE BLD Lab Routine Hypothyroidism, acquired Expected: 01/30/2022, Expires: 04/01/2022 [facility] Work Phone: Comment on above: Expected: 01/30/2022 , Expires: 04/01/2022 Start: 01-30-2022 End: 04-01-2022 T4 FREE/FREE THYROX T4 FREE/FREE THYROX Lab Routine Hypothyroidism, acquired Expected: 01/30/2022, Expires: 04/01/2022 [facility] Work Phone: Comment on above: Expected: 01/30/2022 , Expires: 04/01/2022 Start: 01-30-2022 End: 04-01-2022 Thyrotropin [Units/volume] in Serum or Plasma TSH BLD Lab Routine Hypothyroidism, acquired Expected: 01/30/2022, Expires: 04/01/2022 [facility] Work Phone: Comment on above: Expected: 01/30/2022 , Expires: 04/01/2022 Start: 09-05-2020 HPV TESTING HPV TESTING [facility] Start: 09-05-2020 PAP TESTING PAP TESTING [facility] Start: 09-05-2020 Screening for malign ant neoplasm of cervix [facility] Start: 2003 HEPATITIS C SCREENING HEPATITIS C [facility] Start: 1985 COVID-19 VACCINE (#1) COVID-19 VACCI NE (#1) [facility] Start: 1985 HEPATITIS B (1 of 3 - 3-dose series) HEPATITIS B (1 of 3 - 3-dose series) [facility] End: 04-19-2026 DBT Breast - bilateral screening ZUHAIR SCREENING [facility] Radiology Routine Encounter for screening mammogram for breast cancer 1 Occurrences starting 03/20/2025 until 04/19/2026 [facility] Work Phone: Comment on above: 1 Occurrences starti ng 03/20/2025 until 04/19/2026 Patient Education Kidney Infec D c ED Constipation (Adult) [facility] Work Phone: [facility] Immunizations Immunization Date Immunization Notes Care Provider Fa lynne 10-01-2017 influenza virus vacc ine, unspecified formulation Kendal Sorto PA-C Work Phone: [facility] 09-05-2015 tetanus toxoid, redu supriya diphtheria toxoid, and acellular pertussis vaccine, adsorbed Myra Elizondo APRN.NEIL Work Phone: [facility] Payers Date Payer Category Payer Self-pay 2023 [employer] Blue [employer] BLUE CARD PPO OOS [id number] 2023 Unknown [employer]M BLUE CARD PPO OOS [id number] 2023-Present [phone] [address] [place] [address] PPO [id number] 2023 Unknown [id number] 2020 Private Health Insurance [employer] PPO [id number] 2020-Present [phone] [address] [place] [address] PPO [id number] 2020 Unknown HOSPITAL/MEDICAL GENERIC MEDICAL GENERIC [id number] 2020-Present [phone] [place] [address] [address] [place] [address] Indemnity [id number] 2020 Medicaid [employer] A[employer] MEDICAID [id number] 2020-Present [phone] [address] [place] [address] Medicaid [id number] 2016 Medicaid [id number] Unknown [id number] Unknown [id number] Unknown [id number] Unknown [id number] Unknown [id number] Social History Date Type Detail Facility Start: 08-20-2011 End: 08-13-2025 Tobacco smoking status FLIS Never smoked tobacco [facility] Work Phone: Start: 01-30-2022 End: 07-26-2024 Alcohol intake Current non-drinker of alcohol (finding) [facility] Start: 01-30-2022 History SDOH Alcohol Frequency 1 [facility] Start: 01-30-2022 History SDOH Alcohol Std Drinks 98 [facility] Start: 01-30-2022 History SDOH Social Connections Phone 2 [facility] Start: 01-30-2022 History SDOH Social Connections Living 8 [facility] Start: 01-30-2022 History SDOH Physica l Activity DPW 5 [facility] Start: 01-30-2022 History SDOH Physica l Activity MPS 3 [facility] Start: 1985 Sex Assigned At Not on file [facility] Start: 01-20-2022 End: 03-18-2022 Exposure to SARS-CoV-2 (event) Unable to assess [facility] Start: 08-20-2011 Tobacco use and exposure Smoke less tobacco non-user [facility] Start: 01-30-2022 End: 07-21-2023 History of Social function [facility] Start: 01-30-2022 End: 07-21-2023 Social connection and isolation panel [facility] Do you belong to any clubs or organizations such as moravian groups, unions, fraternal or athletic groups, or school groups? No [facility] Are you now , , , , never or living with a partner? Living with partner [facility] How often to you hav e a drink containing alcohol? Never [facility] How many standard dr inks containing alcohol do you have on a typical day? Patient refused [facility] How hard is it for y ou to pay for the very basics like food, housing, medical care, and heating Somewhat hard [facility] Do you feel stress - tense, restless, nervous, or anxious, or unable to sleep at night because your mind is troubled all the time - these days [OSQ] Only a little [facility] (I/We) worried shelli er (my/our) food would run out before (I/we) got money to buy more. Sometimes true [facility] In the past 12 month s, was there a time when you were not able to pay the mortgage or rent on time? Yes [facility] Are you now , , , , never or living with a partner? Never [facility] How hard is it for y ou to pay for the very basics like food, housing, medical care, and heating Not very hard [facility] Do you feel stress - tense, restless, nervous, or anxious, or unable to sleep at night because your mind is troubled all the time - these days [OSQ] Not at all [facility] Start: 1985 Sex Assigned At Female [facility] Medical Equipment Procedure Code Equipment Code Equipment Original Text Equipment Identifier Dates Total cholecystectomy with exploration of common bile duct Ligation clip, synthetic polymer, non-bioabsorbable [id number] [facility] Start: 10-14-2024 Functional Status Date Assessment Result Facility 08-13-2014 Are you deaf, or do you have serious difficulty hearing No 08/13/2014 11:02 AM Ninoska Daigle LPN No [facility] 08-13-2014 Are you blind, or do you have serious difficulty seeing, even when wearing glasses No 08/13/2014 11:02 AM EDT Ninoska Loo LPN No [facility] 08-13-2014 Do you have serious difficulty walking or climbing stairs No 08/13/2014 11:02 AM EDT Ninoska Loo LPN No [facility] 08-13-2014 Do you have difficul ty dressing or bathing No 08/13/2014 11:02 AM EDT Ninoska Loo LPN No [facility] 08-13-2014 Because of a physica l, mental, or emotional condition, do you have difficulty doing errands alone such as visiting a physician's office or shopping No 08/13/2014 11:02 AM EDNinoska Joiner LPN [facility] Mental Status Date Assessment Result Facility 08-13-2014 Because of a physica l, mental, or emotional condition, do you have serious difficulty concentrating, remembering, or making decisions No 08/13/2014 11:02 AM Ninoska Daigle LPN [facility] Clinical Notes 01-16-2008 to 08-13-2025 Telephone Encounter - Bria Marmolejo LPN - 04/06/2025 8:55 AM EDTTelephone Encounter - Bria Marmolejo LPN - 04/06/2025 8:55 AM EDTTelephone Encounter - Ingris Rock MD - 10/17/2024 5:38 PM EST Note Date & Type Note Facility 08-13-2025 Radiology Diagnostic study note [facility] Imaging Services [address], [place] [id number] Abdomen/Pelvis W IV Cont ONLY MR#: [id number] Acct: [id number] Name: DANG PRITCHETT Rep #: [id number] : 1985 F 40 From: Diogo Barriga MD PCP: MYRA ELIZONDO, LIGHT TECHNICIAN-C Status: REG ER Study:Abdomen/Pelvis W IV Cont ONLY Date of E xam: 08/13/25 Exam# [id number] Ordering Dr: Venkata Granados MD PROCEDURE: ABDOMEN/PELVIS W IV CONT ONLY 08/13/2025 REASON FOR EXAM: RUQ PAIN TECHNIQUE: Procedure Code: CTABDPELIV Modality: CT Procedure: ABDOMEN/PELVIS W IV CONT ONLY Coronal and Sagittal reconstruction series were provided. CONTRAST: VOLUME: mL One or more dose reduction techniques were used (e.g., Automated exposure control, adjustment of the mA and/or kV according to patient size, use of iterative reconstruction technique. COMPARISON: 10/14/2024. FINDINGS: The visualized lung bases are clear. The gallbladder is not visualized and presumably surgically absent, new since the previous study. The liver, pancreas, spleen, adrenal glands, kidneys, and urinary bladder appearunremarkable. The uterus is mildly prominent and contains fluid within this cavity. Lobulated soft tissue densities along the lateral margins of both sides of the uterus probably represent the ovaries. No oval 2.1 cm low-density in the right adnexa (series 2 image 95) probably represents an ovarian cyst. Moderate amount of stool within the right side of the colon. No evidence of a bowel obstruction. No bowel wall thickening. The appendix is visualized and unremarkable. No intraperitoneal free air or free fluid. No abdominal nor pelvic lymphadenopathy. No acute osseous abnormality. No acute fracture. CT/Abdomen/Pelvis W IV Cont ONLY IMPRESSION: 1. Mildly prominent uterus with fluid within its cavity. Please correlate withthe patient's menstrual cycle. 2. Probable right ovarian cyst measuring 2.1 cm. 3. Moderate amount of stool within the right side of the colon. Reading Location: [id number] CC: FAHAD ELIZONDO; Dr. Alexsandra Granados MD ~ Community Nurse: Signed [facility] 04-06-2025 Telephone encounter Note Prescription Refill Information [...] Marmolejo LPN April 06, 2025 8:55 AM [facility] 04-06-2025 Miscellaneous Notes Prescription Refill Information The [...] 2025 8:55 AM documented in this encounter [facility] 03-20-2025 Note Patient Outreach (IN TMWS) DANG PRITCHETT ([id number]) 1985 F Date Time Provider Department 03/20/25 [...] breast cancer [Z12.31] Order(s):ZUHAIR SCREENING [facility] [[id number]] Order #: [id number] FUTURE Prescriptions as of 04/20/2025 - cyclobenzaprine [...] depression [F41.9, F32.A] 01/30/2022 Encounter Status:Closed by BoatsGoUSER on 04/20/25 [facility] 10-17-2024 Telephone encounter Note Noted Ideally patients should be seen by PCP after any hospitalization or surgical procedures RegardsIngris MD [facility] Work Phone: 10-17-2024 Miscellaneous Notes Noted Ideally patients should be seen by PCP after any hospitalization or surgical procedures RegardsIngris MD Pt calling in and states that she had her Gallbladder removed on Sunday 10/[address] [facility] by Dr. Matamoros. Per pt's discharge paperwork, [...] up with us. documented in this encounter [facility] 10-17-2024 Telephone encounter Note Pt calling in and states that she had her Gallbladder removed on Sunday 10/[address] [facility] [place] by Dr. Matamoros. Per pt's discharge paperwork, [...] would need to follow up with us. [facility] 10-13-2024 Telephone encounter Note The patient has [...] Garcia LPN October 13, 2024 8:56 AM [facility] 10-13-2024 Miscellaneous Notes The patient has been [...] 2024 8:56 AM documented in this encounter [facility] 07-26-2024 Note HNO ID: [id number] Author: MYRA ELIZONDO APRN.STORE SALES CONSULTANT Service: ? Author Type: Nurse Practitioner Type: [...] for in 6 months and number for certified financial planner provided. - LIPID PANEL BASIC - COMPREHENSIVE [...] whether sciatica present (more content not included)... [facility] 07-26-2024 History of Presen t illness [...] for in 6 months and number for certified financial planner provided. - LIPID PANEL BASIC - COMPREHENSIVE [...] Myra Elizondo APRN.CNP documented in this encounter [facility] 07-13-2024 Telephone encounter Note Prescription Refill Information [...] Beckham MA July 13, 2024 2:47 PM [facility] 07-13-2024 Miscellaneous Notes Prescription Refill Information The [...] 2024 2:47 PM documented in this encounter [facility] 07-11-2024 Note Patient Outreach (IN TMMN) DANG PRITCHETT ([id number]) 1985 F Date Time Provider Department 07/11/24 INGRIS ROCK During your visit today, we recorded the following information about you: Allergies As of Date: 07/11/2024 Noted Allergy Reaction LATEX 01/25/2007 4 - Hives INFLUENZA VIRUS VACCINE QS 2014-1*09/22/2016 9 - Itching Date Reviewed: 05/29/2024 Reviewed by: Shelly Reyes LPN - Fully Assessed Visit Diagnoses:Obesity, Class III, BMI 40-49.9 (morbid obesity) ([facility]) [E66.01] Hypothyroidism, acquired [E03.9] Order(s):HEMOGLOBIN A1C [WNGBT8O] Order #: [id number] FUTURE THYROID STIMULATING HORMONE [SQTSH] Order #: [id number] FUTURE Prescriptions as of 07/14/2024 - cyclobenzaprine [...] Encounter Status:Closed by NEGIN KYLE on 07/14/24 [facility] 05-29-2024 Instructions Jaimee White APRN.STORE SALES CONSULTANT - 05/29/2024 3:11 PM EDT Repeat chest [...] sooner if worsening documented in this encounter [facility] 05-29-2024 Note HNO ID: [id number] Author: JAIMEE WHITE APRN.NEIL Service: ? Author Type: Nurse Practitioner Type: Progress Notes Filed: 05/29/2024 15:50 Note Text: CC: Patient presents with: Recheck: Ct scan done, lung nodules, pain in right side, started 2 days ago HPI Dang Pritchett is a 39 year old female who presents today for follow-up. Previous visits: 05/10- evaluated in [facility]. Chest x-ray showed cluster of [...] 06/01/2002 ALLERGIES Latex and Influenza Virus Vaccine (18 Yrs-64 Yrs) MEDICATIONS levoFLOXacin (LEVAQUIN) 500 [...] previously) 2. R (more content not included)... [facility] 05-29-2024 History of Presen t illness Narrative Images from the original note were not included. CC: Patient presents with: Recheck: Ct scan done, lung nodules, pain in right side, started 2 days ago HPI Dang Pritchett is a 39 year old female who presents today for follow-up. Previous visits: 05/10- evaluated in [facility]. Chest x-ray showed cluster of [...] Patient agreeable to treatment plan. Jaimee White APRN.STORE SALES CONSULTANT documented in this encounter [facility] 05-24-2024 Telephone encounter Note Pt called and is notified of providers results and instructions. Pt voices understanding. Pt scheduled with Jaimee White NP on 05/29/24. Oriana Daniel RN [facility] 05-24-2024 Miscellaneous Notes Pt called and is [...] Jaimee White APRN.CNP documented in this encounter [facility] 05-24-2024 Telephone encounter Note Please let the [...] her symptoms are worsening. Jaimee White APRN.CNP [facility] 05-23-2024 History of Presen t illness Narrative [...] PATIENT PRESENTS WITH AN IMPLANTABLE OR ATTACHED UG DESIGNER: No RADIOLOGY DEPARTMENT: CT; Exam(s) Completed: Chest PERIPHERAL IV DATA: Not applicable SIGNED BY: RT Sapphire(R) May 23, 2024 3:56 PM documented in this encounter [facility] 05-23-2024 Note HNO ID: [id number] Author: WANDA VALDOVINOS RT(R) Service: ? Author Type: Safety Risk Lead Type: Progress Notes Filed: 05/23/2024 15:57 Note [...] PATIENT PRESENTS WITH AN IMPLANTABLE OR ATTACHED UG DESIGNER: No RADIOLOGY DEPARTMENT: CT; Exam(s) Completed: Chest PERIPHERAL IV DATA: Not applicable SIGNED BY: RT Sapphire(Demetrius) May 23, 2024 3:56 PM [facility] 05-23-2024 Note HNO ID: [id number] Author: JAIMEE WHITE APRN.STORE SALES CONSULTANT Service: ? Author Type: Nurse Practitioner Type: [...] tenderness or frontal sinus tenderness. Mouth/Throat: Lips: [place]. Mouth: Mucous membranes are moist. Pharynx: Oropharynx [...] unilateral leg s (more content not included)... [facility] 05-23-2024 History of Presen t illness Narrative CC: Patient presents with: 1 week follow up - cxr HPI Dang Pritchett is a 39 year old female who presents today for above. She developed a cough, fever, headache and sore throat about three weeks ago. 05/10- evaluated in [facility]. Chest x-ray showed cluster of [...] tenderness or frontal sinus tenderness. Mouth/Throat: Lips: [place]. Mouth: Mucous membranes are moist. Pharynx: Oropharynx [...] Patient agreeable to treatment plan. Jaimee White APRN.STORE SALES CONSULTANT documented in this encounter [facility] 05-16-2024 Telephone encounter Note Patient notified, verbalized understanding. Follow up scheduled. [facility] 05-16-2024 Miscellaneous Notes Patient notified, verbalized understanding. Follow up scheduled. Please call patient to schedule one week follow-up and chest x-ray in 3-4 weeks Jaimee White APRN.CNP documented in this encounter [facility] 05-16-2024 Telephone encounter Note Please call patient to schedule one week follow-up and chest x-ray in 3-4 weeks Jaimee White APRN.CNP [facility] 05-16-2024 History of Presen t illness Narrative [...] PATIENT PRESENTS WITH AN IMPLANTABLE OR ATTACHED UG DESIGNER: No RADIOLOGY DEPARTMENT: General X-ray: Exam(s) Completed: Chest X-Ray PERIPHERAL IV DATA: Not applicable SIGNED BY: RT Albina(Demetrius) May 16, 2024 10:21 AM documented in this encounter [facility] 05-16-2024 Note HNO ID: [id number] Author: BAMBI JACKMAN RT(R) Service: ? Author Type: Safety Risk Lead Type: Progress Notes Filed: 05/16/2024 10:22 Note [...] PATIENT PRESENTS WITH AN IMPLANTABLE OR ATTACHED UG DESIGNER: No RADIOLOGY DEPARTMENT: General X-ray: Exam(s) Completed: Chest X-Ray PERIPHERAL IV DATA: Not applicable SIGNED BY: RT Albina(R) May 16, 2024 10:21 AM [facility] 05-16-2024 Instructions Jaimee White, FEED MANAGER.[facility] - 05/16/2024 10:07 AM EDT CARE ADVICE [...] questions or concerns documented in this encounter [facility] 05-16-2024 Note HNO ID: [id number] Author: JAIMEE WHITE APRN.NEIL Service: ? Author Type: Nurse Practitioner Type: Progress Notes Filed: 05/16/2024 11:32 Note Text: CC: Patient presents with: [facility] follow up HPI Dang Pritchett is a 39 year old female who presents today for above. Patient was seen in [facility] on 05/10 with one week history of [...] Vaccine Qs 2013- (18 Yrs-64 Yrs) MEDICATIONS Bhbvucjdnnohfap-Xmlzokknu-GT (BROMFED DM) 2-30-10 mg/5 mL syrup Take [...] tenderness or frontal sinus tenderness. Mouth/Throat: Lips: [place]. Mouth: Mucous membranes are moist. Pharynx: Oropharynx [...] 2V FRONTAL/LAT Prescriptio (more content not included)... [facility] 05-16-2024 History of Presen t illness Narrative CC: Patient presents with: [facility] follow up HPI Dang Pritchett is a 39 year old female who presents today for above. Patient was seen in [facility] on 05/10 with one week history of [...] Vaccine Qs 2013- (18 Yrs-64 Yrs) MEDICATIONS Vunovvoeifwnhya-Rawqkddwr-MM (BROMFED DM) 2-30-10 mg/5 mL syrup Take [...] tenderness or frontal sinus tenderness. Mouth/Throat: Lips: [place]. Mouth: Mucous membranes are moist. Pharynx: Oropharynx [...] Patient agreeable to treatment plan. Jaimee White APRN.STORE SALES CONSULTANT documented in this encounter [facility] 05-10-2024 History of Presen t illness Narrative [...] PATIENT PRESENTS WITH AN IMPLANTABLE OR ATTACHED UG DESIGNER: No RADIOLOGY DEPARTMENT: General X-ray: Exam(s) Completed: Chest X-Ray PERIPHERAL IV DATA: Not applicable SIGNED BY: RT Jer(Demetrius) May 10, 2024 2:59 PM documented in this encounter [facility] 05-10-2024 Note HNO ID: [id number] Author: LUCERO FERGUSON RT(R) Service: Radiology Author [...] PATIENT PRESENTS WITH AN IMPLANTABLE OR ATTACHED UG DESIGNER: No RADIOLOGY DEPARTMENT: General X-ray: Exam(s) Completed: Chest X-Ray PERIPHERAL IV DATA: Not applicable SIGNED BY: RT Jer(Demetrius) May 10, 2024 2:59 PM [facility] 05-10-2024 Note HNO ID: [id number] Author: CANDELARIA MAYFIELD APRN.STORE SALES CONSULTANT Service: ? Author Type: Nurse Practitioner Type: Progress Notes Filed: 05/10/2024 15:43 Note Text: This note was created using PitchBook Datariter. Subjective Dang Pritchett is a 39 year [...] history is provided by the patient. No diploma medical assistant was used. Cough This is a new [...] For thyroid. Take on an empty stomach Awnxglbeehkgvjp-Wbmktcccf-YR (BROMFED DM) 2-30-10 mg/5 mL syrup Take [...] rhythm. Pulses: No (more content not included)... [facility] 05-10-2024 History of Presen t illness Narrative This note was created using NoteWriter. Subjective Dagn Pritchett is a 39 year old female. [...] history is provided by the patient. No diploma medical assistant was used. Cough This is a new [...] For thyroid. Take on an empty stomach Cmiqasmoilwynuq-Wosgbsnul-RD (BROMFED DM) 2-30-10 mg/5 mL syrup Take [...] CC to Jaimee Elizondo as CHARISSE Mayfield APRN.STORE SALES CONSULTANT documented in this encounter [facility] 03-08-2024 History of Presen t illness Narrative This note was created using PitchBook Datariter. Subjective Dang Pritchett is a 39 year [...] - BENZONATATE 100 MG CAPSULE Real Navarro APRN.NEIL documented in this encounter [facility] 01-21-2024 Miscellaneous Notes Patient has been identified [...] Purvi Manriquez LPN. documented in this encounter [facility] 08-14-2023 Instructions Jaimee Elizondo APRN.NEIL - 08/14/2023 9:32 AM EDT Take benadryl (generic is fine) at night for sleep-do not take with any other cold medicine Follow-up in 5 to 7 days if no improvement or sooner if worsening documented in this encounter [facility] 08-14-2023 History of Presen t illness Narrative [...] Patient agreeable to treatment plan. Jaimee Elizondo APRN.CNP documented in this encounter [facility] 07-21-2023 History of Presen t illness Narrative CC: Patient presents with: Physical HPI Dang Pritchett is a 38 year old female who presents today for annual physical exam, and to discuss labs. No new concerns today. Exercise: denies regular aerobic exercise. 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 Diet: Watches diet for salt (salty snacks, added salt, processed frozen/canned foods), sugary/sweet snacks, unhealthy fats: Yes. Tries to watch what she eats. Tries to eat veggies, at least with dinner. I don't snack a lot. 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 [...] Kendal Sorto PA-C documented in this encounter [facility] 07-04-2023 Instructions Jaimee Elizondo APRN.NEIL - 07/04/2023 [...] sooner if worsening documented in this encounter [facility] 07-04-2023 History of Presen t illness Narrative [...] Patient agreeable to treatment plan. Jaimee Elizondo APRN.CNP documented in this encounter [facility] 06-29-2023 Miscellaneous Notes Called and left a [...] are in lab. documented in this encounter [facility] 08-17-2022 Miscellaneous Notes Patient has been identified [...] Purvi Barboza LPN documented in this encounter [facility] 06-29-2022 Miscellaneous Notes Patient has been identified [...] Poornima Luna LPN documented in this encounter [facility] 05-22-2022 Miscellaneous Notes Left detailed message on [employer]. Please let patient know she is still getting too much thyroid replacement. Please verify she is only taking 1/2 a tablet on Sundays and then have her stop the Wednesday dose. Recheck in 6 weeks. Take care Myra Elizondo APRN.CNP documented in this encounter [facility] 05-20-2022 Miscellaneous Notes Patient returned call and went over results, notes from Myra Elizondo LIGHT TECHNICIAN with understanding. Patient asked so I cut [...] Myra Elizondo APRN.NEIL documented in this encounter [facility] 03-18-2022 History of Presen t illness Narrative [...] 06/01/2002 ALLERGIES Latex and Influenza Virus Vaccine (18 Yrs-64 Yrs) MEDICATIONS cyclobenzaprine (FLEXERIL) 5 [...] - Instructed patient to contact office or [id number] after-hours promptly should condition worsen or any new symptoms appear. - Counseling [facility] and after hours crisis line Prescription instructions reviewed with patient as applicable. Potential red flag symptoms discussed with the patient. Reviewed appropriate action plan to take if red flag symptoms occur. Patient agreeable to treatment plan Myra Elizondo APRN.CNP documented in this encounter [facility] 01-30-2022 History of Presen t illness Narrative [...] diet of 1000 mg/day for under 50, 1793-3368 mg/day for 50+ - Discussed safe sex [...] new symptoms appear. - [facility] and after hours crisis line 3. Hypothyroidism, [...] Myra Elizondo APRN.CNP documented in this encounter [facility] 01-16-2008 History of Past i llness Narrative Problem Noted Date Resolved Date Hypothyroidism 01/16/2008 09/25/2016 documented as of this encounter (statuses as of 01/30/2022) [facility] History of Past illness Narrative* Problem Noted Date Resolved Date Hypothyroidism 01/16/2008 09/25/2016 documented as of this encounter (statuses as of 03/18/2022) [facility] History of Past illness Narrative* Problem Noted Date Resolved Date Hypothyroidism 01/16/2008 09/25/2016 documented as of this encounter (statuses as of 03/27/2022) [facility] History of Past illness Narrative* Problem Noted Date Resolved Date Hypothyroidism 01/16/2008 09/25/2016 documented as of this encounter (statuses as of 05/22/2022) [facility] History of Past illness Narrative* Problem Noted Date Resolved Date Hypothyroidism 01/16/2008 09/25/2016 documented as of this encounter (statuses as of 07/01/2022) [facility] History of Past illness Narrative* Problem Noted Date Resolved Date Hypothyroidism 01/16/2008 09/25/2016 documented as of this encounter (statuses as of 08/17/2022) [address]-2008 History of Past illness Narrative* Problem Noted Date Diagnosed Date Resolved Date Hypothyroidism 01/16/2008 09/25/2016 documented as of this encounter (statuses as of 06/29/2023) [address] History of Past illness Narrative* Problem Noted Date Diagnosed Date Resolved Date Hypothyroidism 01/16/2008 09/25/2016 documented as of this encounter (statuses as of 07/04/2023) [address] History of Past illness Narrative* Problem Noted Date Diagnosed Date Resolved Date Hypothyroidism 01/16/2008 09/25/2016 documented as of this encounter (statuses as of 07/21/2023) [address] History of Past illness Narrative* Problem Noted Date Diagnosed Date Resolved Date Hypothyroidism 01/16/2008 09/25/2016 documented as of this encounter (statuses as of 08/14/2023) [address] History of Past illness Narrative* Problem Noted Date Diagnosed Date Resolved Date Hypothyroidism 01/16/2008 09/25/2016 documented as of this encounter (statuses as of 01/21/2024) [facility] note* Diagnosis Annual physical exam- Primary Routine general medical examination at a health care facility Anxiety and depression Dysthymic disorder Hypothyroidism, acquired Unspecified hypothyroidism Seborrheic dermatitis Seborrheic dermatitis, unspecified Obesity, Class III, BMI 40-49.9 (morbid obesity) (HCC) Morbid obesity Special screening examination for viral disease Special screening examination for unspecified viral disease Lipid screening Screening for lipoid disorders [facility] Diagnosis Anxiety and depression- Primary Dysthymic disorder [facility] Diagnosis Hypothyroidism, acquired- Primary Unspecified hypothyroidism Medication management Encounter for long-term (current) use of other medications [facility] Diagnosis Medication management- Primary Encounter for long-term (current) use of other medications Hypothyroidism, acquired Unspecified hypothyroidism [facility] Diagnosis Screening for diabetes mellitus- Primary Screening for lipid disorders Screening for disorder of blood and blood-forming organs Screening for unspecified disorder of blood and blood-forming organs Hypothyroidism, acquired Unspecified hypothyroidism [facility] Diagnosis Acute right-sided back pain, unspecified back location- Primary [facility]* Diagnosis Well adult exam- Primary Routine general medical examination at a health care facility Hypothyroidism, acquired Unspecified hypothyroidism Screening for cervical cancer Screening for malignant neoplasm of the cervix Leukocytosis, unspecified type [facility] Diagnosis Viral URI with cough- Primary Acute upper respiratory infections of unspecified site [facility] Diagnosis Acute cough- Primary [facility] Diagnosis Acute cough- Primary Multiple nodules of lung Other nonspecific abnormal finding of lung field Acute cough [facility] Diagnosis Acute cough- Primary Lung nodules Other nonspecific abnormal finding of lung field Fever, unspecified fever cause Acute cough Fever, unspecified fever cause [facility] Diagnosis Lung nodules- Primary Other nonspecific abnormal finding of lung field [facility] Diagnosis Acute cough- Primary Shortness of breath Abnormal chest x-ray Other nonspecific abnormal finding of lung field Fever, unspecified fever cause Acute cough Shortness of breath Abnormal chest x-ray Other nonspecific abnormal finding of lung field Fever, unspecified fever cause [facility] Diagnosis Acute cough Shortness of breath Abnormal chest x-ray Other nonspecific abnormal finding of lung field Fever, unspecified fever cause [facility] Diagnosis Respiratory infection- Primary Other diseases of respiratory system, not elsewhere classified Rib pain on right side Chest pain, unspecified [facility]* Diagnosis Obesity, Class III, BMI 40-49.9 (morbid obesity) (HCC) Morbid obesity Hypothyroidism, acquired Unspecified hypothyroidism [facility] Diagnosis Acute cough [facility] Diagnosis Acute cough Fever, unspecified fever cause [facility] Diagnosis Annual physical exam- Primary Routine general medical examination at a health care facility Hypothyroidism, acquired Unspecified hypothyroidism Chronic low back pain, unspecified back pain laterality, unspecified whether sciatica present documented in this encounter [facility] note* Diagnosis Encounter for screening mammogram for breast cancer documented in this encounter [facility] noteNo assessment information availableWClinton [facility] Hospital Work Phone: Hospital Discharge instructionsAdditional Instructions Take the antibiotic as prescribed. In terms of your constipation please purchase MiraLAX and Dulcolax [id number]. Take 17 g of the MiraLAX starting to 16 ounces of water in the morning and at night. Please also take Dulcolax 1 tablet in the morning and at night. If this does not help produce a bowel movement you can also do at home enemas or suppositories. Follow-up with your primary care doctor as soon as possible to have your liver enzymes rechecked to see if you need any additional labs or imaging for this. Your evaluation in the Emergency Department did not reveal any acute reason for admission. However, I want to emphasize that you may be early in the course of a disease process or illness even if it is not present. For this reason you should follow-up within 24 hours for reevaluation with either your primary care physician or if necessary back here in the Emergency Department. You should return to the Emergency Department immediately if your symptoms worsen or new symptoms develop.[facility] Work Phone: Reason for referral (narrative)No reason for referral information availableWClinton Memorial Hospital Work Phone: Reason for Referral Specialty Diagnoses / Procedures Referred By Andre ruiz Referred To Contact Gynecology Diagnoses Screening for cervical cancer Procedures CONSULT TO GYNECOLOGY OFFICE/OUTPATIENT [facility] 60-74 MINUTES Kendal Sorto PA-C [address] [place] [address] Referral ID Status Reason Start Date Expiration Date Visits Requested Visits Authorized [id number] Authorized PCP Requested Referral Auto-Generate d Referral 07/21/2023 07/20/2024 1 1 Specialty Diagnoses / Procedures Referred By Anrde ruiz Referred To Contact CT IMAGING Diagnoses Acute cough Shortness of breath Abnormal chest x-ray Fever, unspecified fever cause Procedures CT CHEST WO IVCON DIAGNOSTIC COMPUTED TOMOGRAPHY THORAX W/O CNTRST Jaimee White, FEED MANAGER.STORE SALES CONSULTANT [address] [place] [address] [place] [id number] Referral ID Status Reason Start Date Expiration Date Visits Requested Visits Authorized [id number] Waiting for Online Response Auto-Genera daljit Referral Patient Cleared - Admin/Chair man/Directo r advise to proceed or did not respond 05/23/2024 06/22/2025 1 1 Summary Purpose Family History No Family History Records FoundNo Family History Records Found Advance Directives No Advanced Directives Records Found Advance Directive Response Recorded Date/ Time Do you have a Healthcare Power of Police Stenographer? No August 13, 2025 7:29pm Chief Complaint and Reason for Visit Chief Complaint Admit Date abd pain August 13, 2025 7: 06pm Additional Source Comments Source Comments (unrecognize d section and content) In the event this informatio n is protected by the Federal Confidentiality of Alcohol and Drug Abuse Patient Records regulations: The Federal rules restrict any use of the information to criminally investigate or prosecute any alcohol or drug abuse patient.[facility] the event this information is protected by the Federal Confidentiality of Alcohol and Drug Abuse Patient Records regulations: The Federal rules restrict any use of the information to criminally investigate or prosecute any alcohol or drug abuse patient.[facility] the event this information is protected by the Federal Confidentiality of Alcohol and Drug Abuse Patient Records regulations: The Federal rules restrict any use of the information to criminally investigate or prosecute any alcohol or drug abuse patient.[facility] the event this information is protected by the Federal Confidentiality of Alcohol and Drug Abuse Patient Records regulations: The Federal rules restrict any use of the information to criminally investigate or prosecute any alcohol or drug abuse patient.[facility] the event this information is protected by the Federal Confidentiality of Alcohol and Drug Abuse Patient Records regulations: The Federal rules restrict any use of the information to criminally investigate or prosecute any alcohol or drug abuse patient.[facility] the event this information is protected by the Federal Confidentiality of Alcohol and Drug Abuse Patient Records regulations: The Federal rules restrict any use of the information to criminally investigate or prosecute any alcohol or drug abuse patient.[facility] the event this information is protected by the Federal Confidentiality of Alcohol and Drug Abuse Patient Records regulations: The Federal rules restrict any use of the information to criminally investigate or prosecute any alcohol or drug abuse patient.[facility] the event this information is protected by the Federal Confidentiality of Alcohol and Drug Abuse Patient Records regulations: The Federal rules restrict any use of the information to criminally investigate or prosecute any alcohol or drug abuse patient.[facility] the event this information is protected by the Federal Confidentiality of Alcohol and Drug Abuse Patient Records regulations: The Federal rules restrict any use of the information to criminally investigate or prosecute any alcohol or drug abuse patient.[facility] the event this information is protected by the Federal Confidentiality of Alcohol and Drug Abuse Patient Records regulations: The Federal rules restrict any use of the information to criminally investigate or prosecute any alcohol or drug abuse patient.[facility] the event this information is protected by the Federal Confidentiality of Alcohol and Drug Abuse Patient Records regulations: The Federal rules restrict any use of the information to criminally investigate or prosecute any alcohol or drug abuse patient.[facility] the event this information is protected by the Federal Confidentiality of Alcohol and Drug Abuse Patient Records regulations: The Federal rules restrict any use of the information to criminally investigate or prosecute any alcohol or drug abuse patient.[facility] the event this information is protected by the Federal Confidentiality of Alcohol and Drug Abuse Patient Records regulations: The Federal rules restrict any use of the information to criminally investigate or prosecute any alcohol or drug abuse patient.[facility]In the event this information is protected by the Federal Confidentiality of Alcohol and Drug Abuse Patient Records regulations: The Federal rules restrict any use of the information to criminally investigate or prosecute any alcohol or drug abuse patient.[facility] the event this information is protected by the Federal Confidentiality of Alcohol and Drug Abuse Patient Records regulations: The Federal rules restrict any use of the information to criminally investigate or prosecute any alcohol or drug abuse patient.[facility] the event this information is protected by the Federal Confidentiality of Alcohol and Drug Abuse Patient Records regulations: The Federal rules restrict any use of the information to criminally investigate or prosecute any alcohol or drug abuse patient.[facility] the event this information is protected by the Federal Confidentiality of Alcohol and Drug Abuse Patient Records regulations: The Federal rules restrict any use of the information to criminally investigate or prosecute any alcohol or drug abuse patient.[facility] the event this information is protected by the Federal Confidentiality of Alcohol and Drug Abuse Patient Records regulations: The Federal rules restrict any use of the information to criminally investigate or prosecute any alcohol or drug abuse patient.[facility] the event this information is protected by the Federal Confidentiality of Alcohol and Drug Abuse Patient Records regulations: The Federal rules restrict any use of the information to criminally investigate or prosecute any alcohol or drug abuse patient.[facility] the event this information is protected by the Federal Confidentiality of Alcohol and Drug Abuse Patient Records regulations: The Federal rules restrict any use of the information to criminally investigate or prosecute any alcohol or drug abuse patient.[facility] the event this information is protected by the Federal Confidentiality of Alcohol and Drug Abuse Patient Records regulations: The Federal rules restrict any use of the information to criminally investigate or prosecute any alcohol or drug abuse patient.[facility] the event this information is protected by the Federal Confidentiality of Alcohol and Drug Abuse Patient Records regulations: The Federal rules restrict any use of the information to criminally investigate or prosecute any alcohol or drug abuse patient.[facility] the event this information is protected by the Federal Confidentiality of Alcohol and Drug Abuse Patient Records regulations: The Federal rules restrict any use of the information to criminally investigate or prosecute any alcohol or drug abuse patient.[facility] the event this information is protected by the Federal Confidentiality of Alcohol and Drug Abuse Patient Records regulations: The Federal rules restrict any use of the information to criminally investigate or prosecute any alcohol or drug abuse patient.[facility] the event this information is protected by the Federal Confidentiality of Alcohol and Drug Abuse Patient Records regulations: The Federal rules restrict any use of the information to criminally investigate or prosecute any alcohol or drug abuse patient.[facility] the event this information is protected by the Federal Confidentiality of Alcohol and Drug Abuse Patient Records regulations: The Federal rules restrict any use of the information to criminally investigate or prosecute any alcohol or drug abuse patient.[facility]In the event this information is protected by the Federal Confidentiality of Alcohol and Drug Abuse Patient Records regulations: The Federal rules restrict any use of the information to criminally investigate or prosecute any alcohol or drug abuse patient.[facility]In the event this information is protected by the Federal Confidentiality of Alcohol and Drug Abuse Patient Records regulations: The Federal rules restrict any use of the information to criminally investigate or prosecute any alcohol or drug abuse patient.[facility] Reason for Visit (unrecogniz ed section and [...] CT Specialty Diagnoses / Procedures Referred By Contac t Referred To Contact CT IMAGING Diagnoses Acute cough Shortness of breath Abnormal chest x-ray Fever, unspecified fever cause Procedures CT CHEST WO IVCON DIAGNOSTIC COMPUTED TOMOGRAPHY THORAX W/O CNTRST Jaimee White, FEED MANAGER.STORE SALES CONSULTANT [address] [place] [address] [place] [id number] Referral ID Status Reason Start Date Expiration Date Visits Requested Visits Authorized [id number] Waiting for Online Response Auto-Genera daljit Referral [...] Care Teams (unrecognized sec tion and content) Human Resources Support Specialist Relationship Specialty Start Date End Date Ingris Rock MD [address] [place], [place] [id number] PCP - General Internal Medicine 07/09/17 Human Resources Support Specialist Relationship Specialty Start Date End Date Ingris Rock MD [address] [place] [address] PCP - General Internal Medicine 07/09/17 Human Resources Support Specialist Relationship Specialty Start Date End Date Ingris Rock MD [address] [place] [address] PCP - General Internal Medicine 07/09/17 Human Resources Support Specialist Relationship Specialty Start Date End Date Ingris Rock MD [address] [place] [address] PCP - General Internal Medicine 07/09/17 Human Resources Support Specialist Relationship Specialty Start Date End Date Ingris Rock MD [address] [place] [address] PCP - General Internal Medicine 07/09/17 Human Resources Support Specialist Relationship Specialty Start Date End Date Ingris Rock MD [address] [facility] [place] [address] PCP - General Internal Medicine 07/09/17 Human Resources Support Specialist Relationship Specialty Start Date End Date Ingris Rock MD [address] [facility] [place] [address] PCP - General Internal Medicine 07/09/17 Human Resources Support Specialist Relationship Specialty Start Date End Date Ingris Rock MD [address] [facility] [place] [address] PCP - General Internal Medicine 07/09/17 Human Resources Support Specialist Relationship Specialty Start Date End Date Ingris Rock MD [address] [facility] [place] [address] PCP - General Internal Medicine 07/09/17 Human Resources Support Specialist Relationship Specialty Start Date End Date Ingris Rock MD [address] [facility] [place] [address] PCP - General Internal Medicine 07/09/17 Human Resources Support Specialist Relationship Specialty Start Date End Date Ingris Rock MD [address] [facility] [place] [address] PCP - General Internal Medicine 07/09/17 Human Resources Support Specialist Relationship Specialty Start Date End Date Ingris Rock MD [address] [facility] [place] [address] PCP - General Internal Medicine 07/09/17 Human Resources Support Specialist Relationship Specialty Start Date End Date Ingris Rock MD [address] [facility] [place] [address] PCP - General Internal Medicine 07/09/17 Human Resources Support Specialist Relationship Specialty Start Date End Date Ingris Rock MD [address] [facility] [place] [address] PCP - General Internal Medicine 07/09/17 Human Resources Support Specialist Relationship Specialty Start Date End Date Ingris Rock MD [address] [facility] [place] [address] PCP - General Internal Medicine 07/09/17 Human Resources Support Specialist Relationship Specialty Start Date End Date Ingris Rock MD [address] [place] [address] PCP - General Internal Medicine 07/09/17 Human Resources Support Specialist Relationship Specialty Start Date End Date Ingris Rock MD [address] [place] [address] PCP - General Internal Medicine 07/09/17 Human Resources Support Specialist Relationship Specialty Start Date End Date Ingris Rock MD [address] [place] [address] PCP - General Internal Medicine 07/09/17 Kendal Sorto PA-C [address] [place] [id number] Cable Dispatcher Family Medicine 10/15/24 Myra Elizondo APRN.CNP [address] [place] [address] Cable Dispatcher Internal Medicine 10/15/24 Verona Stover PA-C [address] [place] [address] Cable Dispatcher Family Medicine 10/15/24 Human Resources Support Specialist Relationship Specialty Start Date End Date Ingris Rock MD [address] [place] [address] PCP - General Internal Medicine 07/09/17 Myra Elizondo APRN.STORE SALES CONSULTANT [address] [place] [address] Cable Dispatcher Internal Medicine 10/15/24 Human Resources Support Specialist Relationship Specialty Start Date End Date Ingris Rock MD [address] [place] [address] PCP - General Internal Medicine 07/09/17 Myra Elizondo APRN.STORE SALES CONSULTANT [address] [place] [address] Cable Dispatcher Internal Medicine 10/15/24 Team Status: Active Member Role/Relationship Status Dates MYRA ELIZONDO , LIGHT TECHNICIAN-C Primary care physician Active Team Status: Inactive Member Role/Relationship Status Dates MYRA ELIZONDO LIGHT TECHNICIAN-C Primary care physician Active S tart: August 13, 2025 End: August 13, 2025 Dr. Alexsandra Granados MD Emergency Department Physician tive Start: August 13, 2025 End: August 13, 2025 INFORMATION SOURCE (unrecogn ized section and content) DATE CREATED AUTHOR 04/22/2025 [facility] DATE CREATED AUTHOR AUTHOR'S ORGANIZ ATION 08/23/2025 [facility] Goals (unrecognized section and content) Goals may be documented in a n alternate section FOR RECORDS PERTAINING TO PATIENTS WHO ARE [...] BE BASED ON THE PRIMARY CLINICAL RECORDS. [email or web address] provides no warranty or guarantee of the accuracy or completeness of information in this document.
[2025-08-24 12:39] LABS: Anion Gap 10 (5-15); BUN 16 mg/dL (4-19); BUN/Creat Ratio 17.1 RATIO (10-20); Calcium,Total 9.6 mg/dL (7.6-11.0); Carbon Dioxide 21.9 mmol/L (21.0-32.0); Chloride 105 mmol/L (98-108); Estimated Creatinine Clearance 97.15 ml/min (50-250); Glucose 87 mg/dL (70-99); Potassium 3.3 mmol/L (3.3-5.1)
[2025-08-24 12:54] VITALS: BP 118/75; PULSE 82; RESP 18; TEMP 36.7; O2SAT 100
== END 2025-08-24 12:56 | disposition home or self-care (01) ==
PROVIDERS: Emergency Provider Emergency Medicine; PCP Nurse Practitioner; Visit Provider Emergency Medicine
DX: L50.9 Urticaria, unspecified (principal)
CPT/HCPCS: 80048; 81001; 81025; 85025; 99282